=== PATIENT | female | born 1970 | race Caucasian/White ===

== ENCOUNTER 2019-10-27 21:37 | Emergency (ER) | payer SELFPAY ==
[2019-10-27 21:45] VITALS: BP 157/101; PULSE 121; RESP 16; TEMP 37.2; O2SAT 97; BMI 21.2
--- NOTE | 2019-10-27 21:50 | ED.GENADULT ---
HPI - General Adult General Chief complaint: Extremity Injury, Lower Stated complaint: states she broke her right foot Time Seen by Provider: 10/27/19 21:43 Source: patient Mode of arrival: Wheelchair Limitations: no limitations History of Present Illness HPI narrative: 49-year-old female here for evaluation which she states is a fractured right ankle. Patient states that she slipped on her cement deck twisting her ankle. She had immediate swelling immediate pain. Has been unable to bear weight on it since the event. Has never injured the ankle in the past. Has not tried anything for prior to arrival. No other injuries reported from the event Related Data Previous Rx's Medication Instructions Recorded hydrocodone-acetaminophen [[place]] 1 tab PO Q4-6H PRN #10 tab 10/27/19 Allergies Allergy/AdvReac Type Severity Reaction Status Date / Time No Known Drug Allergies Allergy Verified 10/27/19 21:55 Review of Systems Constitutional Constitutional: Denies fever(s) and Denies headache(s) ENT Ears, Nose, Mouth, and Throat: Denies dizziness, Denies headache(s) and Denies disequilibrium Cardiovascular Cardiovascular: Denies chest pain and Denies dyspnea Respiratory Respiratory: Denies dyspnea Gastrointestinal Gastrointestinal: Denies abdominal pain, Denies nausea and Denies vomiting Musculoskeletal Comments: Right ankle pain Integumentary/Breasts Comments: Bruising around the right ankle Neurologic Neurologic: Denies confusion, Denies dizziness, Denies headache(s), Denies paresthesias, Denies tremor(s) and Denies disequilibrium Psychiatric Psychiatric: Denies confusion Hematologic/Lymphatic Hematologic/Lymphatic: Denies easy bleeding and Denies easy bruising Patient History Medical History Patient denies medical problems (Acute) Social History Smoking Status: Current every day smoker Exam Initial Vital Signs Initial Vital Signs: Vital Signs Temperature 99.0 F 10/27/19 21:45 Pulse Rate 121 H 10/27/19 21:45 Respiratory Rate 16 10/27/19 21:45 Blood Pressure 157/101 H 10/27/19 21:45 Pulse Oximetry 97 10/27/19 21:45 Const General: cooperative, comfortable and well developed [facility] Head: normal to inspection Cardio Rate: tachycardic Pulses: dorsalis pedis present on the right Skin Other: Bruising in the distal tibia fibula without any breaks in the skin Neuro Other: Sensation intact to light touch right foot Extrem Other: Patient has no proximal fibular proximal tibial tenderness. Has bruising and swelling around the distal fibula in the ankle. Has pain the palpation this area. No pain to palpation of the right foot. Psych Appearance: grossly normal and well kempt Procedures Orthopedic Splinting/Casting Injury #1: Side: right Lower Extremity Injury Location: ankle Lower Extremity Immobilizer: posterior splint and stirrup splint Other Orthopedic Equipment: crutches Post splinting neuro exam: intact Post splinting vascular exam: intact Placed by: Provider Course Orders Ordered: ED Orders 10/27/19 21:52 XR ankle RT min 3V Stat 10/27/19 22:31 XR ankle RT min 3V Stat 10/27/19 22:33 CT LE RT wo con Stat Discontinued Medications Hydrocodone Bitart/Acetaminophen (Vicodin 5/325 Prepack) 1 bottle MISC SEEINSTR ONE Stop: 10/27/19 23:36 Last Admin: 10/27/19 23:52 Dose: 1 bottle Documented by: PACHECO Vital Signs Vital signs: Vital Signs - 8 hr 10/27/19 21:45 10/27/19 23:07 10/27/19 23:55 Temperature 99.0 F 98.8 F Pulse Rate 121 H 118 H 110 H Respiratory Rate 16 20 18 Blood Pressure 157/101 H 138/86 Blood Pressure [Left Arm] 156/76 H Pulse Oximetry 97 94 94 Medical Decision Making Imaging Data Extremity x-ray #1: Radiologist's Impression: [address] [address] XRay Report Signed Patient: Ruby Rooney CMR#: [id number] : 1970Acct:[id number] Age/Sex: 49 / FDate of Service: 10/27/19 Loc: ED Accession Number: [id number] Procedure: XR ankle RT min 3V Ordering Provider: Jose Maria Vazquez D.O. PROCEDURE: XR ANKLE RT MIN 3V INDICATIONS: medial and lateral swelling after fall TECHNIQUE: 3 views of the ankle were acquired. COMPARISON: formerly [facility], ANKLE 3 VIEWS RIGHT, 03/23/2009, 20:16. FINDINGS: Bones: There is a distal fibular fracture is seen at the level of the syndesmosis, with involvement of the syndesmosis itself. There is widening of the syndesmosis and disruption of ankle mortise. There is posterior subluxation of the talus within the tibial plafond. There is also a complex intra-articular medial malleolar fracture seen. On the lateral view, there is a mildly displaced posterior malleolar fracture seen. Incidental note is made of an accessory ossicle, an os trigonum. Age-appropriate bony degenerative changes are seen. Soft tissues: Soft tissue swelling is seen. IMPRESSION: Trimalleolar fracture with disruption of the syndesmosis and widening of ankle mortise. The talus is subluxed posteriorly. Dictated by: Linus Nicolas M.D. on 10/27/2019 at 21:17 Approved by: Linus Nicolas M.D. on 10/27/2019 at 21:20 Extremity x-ray #2: Attestation: I personally reviewed and interpreted this imaging study as follows: My Impression: Post reduction right ankle x-ray shows improved alignment of the distal tibia/fibula fracture CT ankle: Radiologist's Impression: Trimalleolar for fracture subluxation MDM Narrative Medical decision making narrative: Patient is neurovascularly intact. Does have a trimalleolar fracture. I did discuss the case with Dr. Hobson with Orthopedics who asked for the CT scan which was performed here in the ER. He stated the patient could be followed up as an outpatient in his office. Patient was given crutches. She was given care instructions regard to splint. She was given follow-up instructions. She expressed understanding and agreement. Discharge Plan Departure Patient Disposition: Home Clinical Impression: Closed right ankle fracture Qualifiers: Encounter type: initial encounter Qualified Code(s): S82.891A - Other fracture of right lower leg, initial encounter for closed fracture Discharge Date/Time: 10/27/19 23:56 Instructions: How to Use Crutches, DI for Ankle Fracture, How to Take Care of Your Splint Activity Restrictions/Additional Instructions: On Tuesday morning contact your primary provider for follow-up and also contact the [facility] group at [phone]. Treat the splint like it was a cast. You need to keep an on and keep it clean and keep it dry. Use the crutches. Do not place any weight on your right ankle. Return to the emergency department for any new or worsening symptoms Prescriptions: New hydrocodone-acetaminophen [[place]] 5-325 mg tablet 1 tab PO Q4-6H PRN (Reason: pain) Qty: 10 RF: 0
--- NOTE | 2019-10-27 22:31 | DI.RAD.S_ITS ---
PROCEDURE: XR ANKLE RT MIN 3V INDICATIONS: post-reduction TECHNIQUE: 3 views of the ankle were acquired. COMPARISON: [facility], CR, XR ANKLE RT MIN 3V, 10/27/2019, 21:53. [facility], CT, CT LE RT WO CON, 10/27/2019, 22:36. FINDINGS: Bones: A trimalleolar fracture is again seen, with the fracture fragments minimally better aligned than on the prior study. The overlying casting material limits evaluation of fine detail. Soft tissues: Generalized soft tissue swelling is seen. IMPRESSION: Unremarkable postreduction study. Dictated by: Linus Nicolas M.D. on 10/28/2019 at 7:33 Approved by: Linus Nicolas M.D. on 10/28/2019 at 7:34
--- NOTE | 2019-10-27 22:33 | DI.CT.S_ITS ---
PROCEDURE: CT LE RT WO CON INDICATIONS: tri mal fracture, right ankle TECHNIQUE: Noncontrast 1-1.5 mm axial sections acquired from above the tibiotalar joint to the bottom of the calcaneus, with coronal and sagittal reformats. COMPARISON: [facility], CR, XR ANKLE RT MIN 3V, 10/27/2019, 21:53. [facility], CR, XR ANKLE RT MIN 3V, 10/27/2019, 22:34. FINDINGS: Image quality: Excellent. Bones: There is a mildly to moderately displaced distal fibular fracture seen at the level of the syndesmosis, with mild comminution. There is widening of the syndesmosis and ankle mortise. There is a complex, comminuted fracture seen involving the medial malleolus, with intra-articular involvement and a few small interarticular fragments. This fracture continues into the posterior malleolus, where there is a moderately displaced, comminuted, intra-articular fracture seen. No talar dome fracture can be seen. No fractures of the visualized bones of the feet can be seen. No proximal 5th metatarsal fracture is seen. Incidental note is made of an accessory ossicle, an os trigonum. Soft tissues: Surrounding inflammatory changes are seen. IMPRESSION: Trimalleolar fracture with intra-articular fragments and widening of the syndesmosis and ankle mortise. Note: No significant discrepancy from the preliminary report. Dictated by: Linus Nicolas M.D. on 10/28/2019 at 7:30 Approved by: Linus Nicolas M.D. on 10/28/2019 at 7:33
[2019-10-27 23:07] VITALS: BP 156/76; PULSE 118; RESP 20; O2SAT 94
[2019-10-27] MEDS: HYDROCODONE/ACET 5/325 PREPACK 1 BOTTLE MISC (23:52)
[2019-10-27 23:55] VITALS: BP 138/86; PULSE 110; RESP 18; TEMP 37.1; O2SAT 94
== END 2019-10-27 23:56 | disposition home or self-care (01) ==
PROVIDERS: Emergency Provider Emergency Medicine; Family Provider Family Medicine
DX: S82.891A Other fracture of right lower leg, initial encounter for closed fracture (principal); W19.XXXA Unspecified fall, initial encounter
CPT/HCPCS: 29515; 73610; 73700; 99284

== ENCOUNTER → 2019-11-07 14:47 | Outpatient (CLI) | payer OTHER, SELFPAY ==
[2019-11-08 02:09] LABS: COVID19 Sendout Not Detected (Not Detect)
== END ==
PROVIDERS: Family Provider Family Medicine; Visit Provider Family Medicine
DX: Z01.818 Encounter for other preprocedural examination (principal); Z11.59 Encounter for screening for other viral diseases
CPT/HCPCS: 87635

== ENCOUNTER → 2019-11-08 14:48 | Outpatient (CLI) | payer SELFPAY ==
[2019-11-08 15:41] LABS: Add Manual Diff / Slide Review NO; Basophils Absolute Auto 100 /uL (0-100); Basophils Percent Auto 0.9 % (0-2); Eosinophils Absolute Auto 100 /uL (0-450); Eosinophils Percent Auto 1.4 % (2-4); Hematocrit 41.9 % (36-46); Hemoglobin 14.3 g/dL (12.0-16.0); Lymphocytes Absolute Auto 1600 /uL (1100-4500); Lymphocytes Percent Auto 15.2 % (25-40); Mean Corpuscular HGB Conc 34.1 % (30-36); Mean Corpuscular Hemoglobin 31.3 PG (26-34); Mean Corpuscular Volume 91.7 fL (80-100); Monocytes Absolute Auto 1100 /uL (0-900); Monocytes Percent Auto 10.7 % (3-14); Neutrophils Absolute Auto 7400 /uL (1500-7000); Neutrophils Percent Auto 71.8 % (50-75); Platelet Count 464 X10^3/uL (150-400); Red Blood Cell Count 4.57 X10^6/uL (4.0-5.2); Red Cell Distribution Width 14.9 % (11.6-14.8); White Blood Cell Count 10.3 X10^3/uL (4.5-11.0)
[2019-11-08 15:48] LABS: Hemoglobin A1C% w Est Avg Glu 5.3 % (4.0-6.0)
[2019-11-08 15:59] LABS: BUN Creatinine Ratio 24.1 (6-22); Blood Urea Nitrogen 13 mg/dL (7-17); Calcium 10.3 mg/dL (8.4-10.2); Carbon Dioxide 30 mmol/L (22-32); Chloride 99 mmol/L (98-107); Estimated Glomerular Filt Rate > 60.0 mL/min (>60); Glucose 106 mg/dL (70-100); HEMOLYSIS < 15 (0-50); Potassium 4.4 mmol/L (3.4-5.1); Sodium 136 mmol/L (137-145)
== END ==
PROVIDERS: Family Provider Family Medicine; Referring Provider Orthopaedic Surgery Adult Reconstructive Orthopaedic Surgery; Visit Provider Orthopaedic Surgery Adult Reconstructive Orthopaedic Surgery
DX: Z01.818 Encounter for other preprocedural examination (principal); Z01.812 Encounter for preprocedural laboratory examination; R73.9 Hyperglycemia, unspecified
CPT/HCPCS: 36415; 80048; 83036; 85025; 93005

== ENCOUNTER 2019-11-09 06:16 | Day surgery (SDC) | payer SELFPAY ==
[2019-11-07 13:25] VITALS: BMI 21.6
[2019-11-09] VITALS (11 sets, daily range): BP systolic 108–159; BP diastolic 71–99; PULSE 89–115; RESP 9–24; TEMP 36.6–36.9; O2SAT 88–93; BMI 21.2
--- NOTE | 2019-11-09 | DI.RAD.S_ITS ---
PROCEDURE: XR ANKLE RT 2V INDICATIONS: ORIF RIGHT ANKLE TECHNIQUE: 2 views of the ankle were acquired. COMPARISON: [facility], CR, XR ANKLE RT MIN 3V, 10/27/2019, 22:34. FINDINGS: Bones: Postsurgical changes compatible with ORIF of distal tibia and fibular fractures noted. There is anatomic alignment following ORIF. Soft tissues: No tibiotalar joint effusion. Achilles tendon appears normal. IMPRESSION: Anatomic alignment of the distal fibula and tibia fracture following ORIF. Dictated by: Rosemary Murillo MD, PhD on 11/09/2019 at 11:14 Approved by: Rosemary Murillo MD, PhD on 11/09/2019 at 11:15
[2019-11-09] MEDS: LACTATED RINGERS 1,000 ML 42 ML IV ×2 (07:10→10:43)
[2019-11-09] MEDS: ALBUTEROL 2.5 MG/3 ML NEB (ADULT) INH ×2 (07:37→11:52)
--- NOTE | 2019-11-09 07:43 | SUR.PREOP ---
Albuterol treatment given as instructed. Pt current smoker, inspiratory wheeze present on admit.
--- NOTE | 2019-11-09 07:45 | PM.PREOP ---
Pre-operative Note COVID-19 COVID-19 status: Negative Result date/Date tested (Pos, Neg/Pending): 11/07/19 Interval Note History & Physical reviewed/Exam performed by Physician: Yes Changes to H&P: No H&P completed within 30 days and has changed as indicated here:: Plan is for ORIF of right trimalleolar ankle fracture. The risks and benefits were reviewed with the patient who wishes to proceed.
[2019-11-09] MEDS: CEFAZOLIN 2 GM/100 ML FROZ.PIGGY IV (07:56)
--- NOTE | 2019-11-09 08:20 | SUR.OPER ---
Supine on padded OR bed, head on pillow, arms secured on padded arm boards at <90 degrees abduction, bump under right hip, right leg under control of surgeon, legs uncrossed, safety belt at thigh, tape over blanket over left lower leg.
[2019-11-09] MEDS: ROPIVACAINE 0.5% PF 5 MG/ML 20ML VIAL 10 ML INJ (08:31)
[2019-11-09] MEDS: MORPHINE 4 MG/ML INJ INJ (08:32)
[2019-11-09] MEDS: KETOROLAC 30 MG/ML VIAL INJ (08:33)
--- NOTE | 2019-11-09 09:33 | PM.PROC.1 ---
Procedures Date/Time Date of procedure: 11/09/19 Time of procedure: 10:00 Nerve Block Time out performed: Yes Local anesthetic used: other (5mL 2% Lidocaine, 15mL 0.5% Ropivacaine) Location of anesthetic used: lateral popliteal Amount of anesthesia used (mL): 20 Nerve blocks: other (sciatic nerve) Procedure successful: Yes Patient tolerated procedure: well Complications: none Additional comments: Ultrasound guided lateral popliteal sciatic nerve block for post operative pain management, as discussed with surgeon. Risks, benefits discussed. Consent verified. Site marked by surgeon. Time out performed. Standard ASA monitors applied, NC O2, 2mg versed. Pt supine. Chloroprep. Sterile US sleeve and gel. Sciatic nerve identified proximal to popliteal fossa, at bifurcation. Lidocaine local skin wheal. 100mm x 21g Pajunk needle advanced with in-plane US guidance to nerve. Negative aspiration. 5mL 2% lidocaine and 15mL 0.5% ropivacaine injected with intermittent negative aspiration. Good LA spread noted on US. No pain, no paresthesias. VSS. Tolerated well.
--- NOTE | 2019-11-09 10:04 | PM.OP.1 ---
Operative Date/Time/Diagnoses Date of procedure: 11/09/19 Time of procedure: 10:05 Pre-op diagnosis: right trimalleolar ankle fracture Post-op diagnosis: same Procedure & Clinicians Procedure: ORIF right ankle fracture, placement of syndesmotic screw Same procedure as scheduled: Yes Indications: right trimalleolar ankle fracture Surgeon: Zeus Hobson Click Yes if Unassisted: Yes Anesthesia Type: General Operative Notes Findings: right trimalleolar ankle fracture with vertical split medial malleolus Closure Type: primary Specimen(s): none sent Prosthetic devices, grafts, tissues, transplants, or devices: Arthrex 7 hole 1/3 tubular plate Arthrex 3 hole medial malleolus claw plate 3.5mm x 55mm syndesmotic screw Estimated Blood Loss (mL): 50 Blood products transfused: none Tourniquet time (min): 95 Procedure in detail: Patient is a 49-year-old female who sustained a right trimalleolar ankle fracture last week. Her care was somewhat delayed in trying to figure out insurance coverage. Patient was met in the preoperative holding area where the site and side of surgery were marked by . All last minute questions were reviewed and answered. The risks and benefits of surgery were once again reviewed and patient wished to proceed with open reduction internal fixation of her right ankle fracture. Patient was then brought back in the operating room where she was placed onto the operating room table and induced under general anesthesia. The right lower extremity splint was then removed. A nonsterile tourniquet was placed on right lower extremity and the right lower extremity was prepped and draped in normal sterile fashion. A time-out was performed verifying the site and side of surgery as well as the name of the patient. A 10 cm long incision over the lateral malleolus was made using 15. Blade followed by blunt dissection and scissor dissection down to the level of the lateral malleolus. Hematoma was evacuated from the fracture site. The fracture site was booked ended open and a piece of bone was removed from the syndesmotic space, which was previously identified on CT scan. Fracture edges were then thoroughly cleaned and a 1/3 tubular plate was placed in the antiglide position. A proximal 3 5 mm cortical screw was placed just proximal to the apex of the fracture. Next to distal cancellous screw posts were placed, taking care to stay out of the joint. Proximal 3 5 mm screws were then placed. At this point because of her CT scan which was obtained the ED showed a trimalleolar ankle fracture we elected to place a syndesmotic screw. This was placed under fluoroscopic guidance. At this point we then turned our attention to the medial malleolus which has a vertical split. A 7 cm long incision over the medial malleolus was made using 15. Blade followed by mixture of blunt and sharp scissor dissection down to the level of the fracture. This was then cleaned and hematoma was removed the fracture was reduced using a dental pick and the Arthrex medial malleolus 3 hole claw plate was then placed. We 1st placed a 3 5 mm cortical screw to hold the plate down to the tibia and then turned our attention to the retrograde screw which was placed with a K-wire followed by a cannulated screw. A 2nd 3 5 mm screw was then placed followed by a locking screw in the medial malleolus. At this point final images were obtained with satisfactory reduction and maintenance of the talus underneath the tibial plafond. Wounds were thoroughly irrigated normal saline. Two Vicryl were then used the subcutaneous layer followed by 3 0 nylons in vertical mattress fashion on the skin layer. Local injection was then performed the incisions were cleaned and dried Xeroform dressings were placed followed by a short-leg splint. Tourniquet was let down at this time at 95 minutes. Complications: none Post-operative Condition: stable Disposition: PACU Plan for aftercare: Nonweightbearing right lower extremity. Patient will be discharged home home today. Plan will be for her to return to clinic in 2 weeks time for splint removal as well as wound check and suture removal. At that point she will be transitioned into a Cam boot and be nonweightbearing for a further 4 weeks.
[2019-11-09] MEDS: fentaNYL 100 MCG/2 ML INJ IV (10:42)
[2019-11-09] MEDS: OXYCODONE/ACETAMINOPHEN 5/325 TABLET 1 TAB PO ×2 (11:06→12:25)
--- NOTE | 2019-11-09 11:14 | SUR.PHASEI ---
Pt medicated with fentanyl and percocet for pain. Report to
--- NOTE | 2019-11-09 11:16 | P.PCN_ITS ---
Procedures Date/Time Date of procedure: 11/09/19 Time of procedure: 10:00 Nerve Block Time out performed: Yes Local anesthetic used: lidocaine 1% (w/ epi 5mL + 5mL 0.5opivacaine) Location of anesthetic used: adductor canal Amount of anesthesia used (mL): 20 Nerve blocks: femoral (adductor canal) Procedure successful: Yes Patient tolerated procedure: well Complications: none Additional comments: Adductor canal block for post operative pain management. R/B discussed. Site marked. Consent verified/signed. Standard ASA monitors. LMA, GA post procedure in OR. Chloroprep. Sterile technique. Femoral A/V/N identified medial mid thigh with US. 100mm x 21g Pajunk needle advanced with in-plane US guidance. Negative aspiration. LA injected medial and lateral to femoral artery. Negative aspiration throughout. VSS. Tolerated well. To P ACU.
--- NOTE | 2019-11-09 11:26 | SUR.PHASEI ---
O2 sats ranging from 85-91% RA. Deep breaths and coughing encouraged. I.S. provided. Verbal instructions given, patient able to reach 2600mls.
--- NOTE | 2019-11-09 11:54 | SUR.PHASEII ---
Intermittent low sats continue. Albuterol treatment given. Work with incentive spirometer continues.
--- NOTE | 2019-11-09 12:42 | SUR.PHASEII ---
Medicated with 2nd pain pill. Pt ready to go, sats maintained, pt compliant using incentive spirometer. Pt dressed and left when done, r ankle remained elevated with ice, and C/d/i
--- NOTE | 2019-11-09 13:11 | SUR.PHASEII ---
Pt left when ready and left in stable condition.
--- NOTE | 2019-11-09 14:36 | SUR.PREOP ---
Late entrY: Block start time [1011] . Monitoring initiated and maintained throughout procedure. Oxygen and medications given per anesthesiologist instructions. Patient remained stable throughout procedure, no adverse reactions noted. Block end time [1022]. Procedure done in OR with LOWELL Parrish assisting Dr. Billy
== END 2019-11-09 12:50 | disposition home or self-care (01) ==
PROVIDERS: Family Provider Family Medicine; Referring Provider Orthopaedic Surgery Adult Reconstructive Orthopaedic Surgery; Visit Provider Orthopaedic Surgery Adult Reconstructive Orthopaedic Surgery
PROC: 0SSF04Z Reposition Right Ankle Joint with Internal Fixation Device, Open Approach (ICD-10-PCS; CPT 27814; principal; 2019-11-09 07:45)
DX: S82.851A Displaced trimalleolar fracture of right lower leg, initial encounter for closed fracture (principal); W10.9XXA Fall (on) (from) unspecified stairs and steps, initial encounter; F17.210 Nicotine dependence, cigarettes, uncomplicated
CPT/HCPCS: 27814; 64450; 73600; 76000; J0690; J1100; J1885; J2250; J2270; J2405; J2704; J3010; J7613

== ENCOUNTER → 2021-02-25 15:22 | Outpatient (CLI) | payer OTHER, SELFPAY ==
[2021-02-25 17:15] LABS: Add Manual Diff / Slide Review NO; Basophils Absolute Auto 100 /uL (0-100); Basophils Percent Auto 1.6 % (0-2); Eosinophils Absolute Auto 200 /uL (0-450); Lymphocytes Absolute Auto 1600 /uL (1100-4500); Lymphocytes Percent Auto 19.6 % (25-40); Mean Corpuscular HGB Conc 33.3 % (30-36); Mean Corpuscular Hemoglobin 30.4 PG (26-34); Mean Corpuscular Volume 91.4 fL (80-100); Monocytes Absolute Auto 1000 /uL (0-900); Monocytes Percent Auto 12.4 % (3-14); Neutrophils Absolute Auto 5100 /uL (1500-7000); Neutrophils Percent Auto 64.4 % (50-75); Platelet Count 442 X10^3/uL (150-400); Red Blood Cell Count 5.25 X10^6/uL (4.0-5.2); Red Cell Distribution Width 14.4 % (11.6-14.8)
[2021-02-25 17:27] LABS: Alanine Aminotransferase 17 IU/L (<35); Albumin 4.3 g/dL (3.5-5.0); Albumin Globulin Ratio 1.3 (1.0-2.8); Alkaline Phosphatase 150 U/L (38-126); Aspartate Aminotransferase 33 IU/L (14-36); Bilirubin Total 0.4 mg/dL (0.2-1.3); Blood Urea Nitrogen 9 mg/dL (7-17); Calcium 10.2 mg/dL (8.4-10.2); Carbon Dioxide 33 mmol/L (22-32); Chloride 96 mmol/L (98-107); Cholesterol 224 mg/dL (140-199); Estimated Glomerular Filt Rate > 60.0 mL/min (>60); Globulin 3.2 g/dL (1.7-4.1); Glucose 109 mg/dL (70-100); HEMOLYSIS < 15 (0-50); Potassium 4.4 mmol/L (3.4-5.1); Sodium 132 mmol/L (137-145); Total Protein 7.5 g/dL (6.3-8.2); Triglycerides 57 mg/dL (35-150)
[2021-02-25 17:48] LABS: HDL Cholesterol 160 mg/dL (40-60); LDL Cholesterol Calculated 53 mg/dL (<100)
[2021-02-25 18:29] LABS: TSH w/ Reflex to FT4 4.02 uIU/mL (0.47-4.68)
== END ==
PROVIDERS: PCP Family Medicine; Referring Provider Family Medicine; Visit Provider Family Medicine
DX: C50.911 Malignant neoplasm of unspecified site of right female breast (principal); N60.09 Solitary cyst of unspecified breast; Z13.220 Encounter for screening for lipoid disorders
CPT/HCPCS: 36415; 80053; 80061; 84443; 85025

== ENCOUNTER → 2021-03-27 14:01 | Outpatient (CLI) | payer OTHER, SELFPAY ==
--- NOTE | 2021-03-27 14:06 | DI.MG.S_ITS ---
UNILATERAL LEFT DIGITAL DIAGNOSTIC MAMMOGRAM 3D/2D: 03/27/2021 CLINICAL: Left axillary lumps. Comparison is made to exams dated: 09/07/2016 mammogram, 12/20/2014 mammogram, and 10/05/2013 [facility]. The tissue of left breast is extremely dense, which lowers the sensitivity of mammography. There are new diffuse, fine calcifications in the left breast in the superior lateral quadrant. There is a new 1.4 cm irregular asymmetry with a spiculated margin in the left breast at 1 o'clock posterior depth. This is seen in additional views. This correlates as palpated. There also is a new 8 mm round asymmetry with a spiculated and circumscribed margin in the left breast posterior depth superior region seen on the mediolateral oblique view only. This is seen in additional views. Additionally, there is a new equal density asymmetry with an obscured and spiculated margin in the left breast posterior depth superior region seen on the mediolateral oblique view only. This correlates as palpated. No other significant masses or calcifications are seen in the breast. IMPRESSION: INCOMPLETE: NEEDS ADDITIONAL IMAGING EVALUATION The new 1.4 cm irregular asymmetry in the left breast at 1 o'clock posterior depth is indeterminate. An ultrasound is recommended. The new 8 mm round asymmetry in the left breast posterior depth superior region seen on the mediolateral oblique view only is indeterminate. An ultrasound is recommended. The new equal density asymmetry in the left breast posterior depth superior region seen on the mediolateral oblique view only is indeterminate. An ultrasound is recommended. Ultrasound is recommended for full evaluation of these areas . This was performed immediately following this exam. This exam was interpreted at Station ID: [id number]. NOTE: For mammograms, a report in lay terms will be sent to the patient. Approximately 15% of breast malignancies will not be visualized mammographically. In the management of a palpable breast mass, a negative mammogram must not discourage biopsy of a clinically suspicious lesion. Electronically Signed By: Oralia lyles/:03/27/2021 16:24:47 ACR BI-RADS Category 0: Incomplete [id number]
--- NOTE | 2021-03-27 14:06 | DI.US.S_ITS ---
LIMITED ULTRASOUND OF LEFT BREAST AND AXILLA: 03/27/2021 CLINICAL: Palpable left breast lumps. Comparison is made to exams dated: 03/27/2021 mammogram, 09/07/2016 mammogram, 12/20/2014 mammogram, 10/05/2013, and 09/06/2013 mammogram - [facility]. Color flow and real-time ultrasound of the left breast upper outer quadrant and axilla regions were performed. Champion scale images of the real-time examination were reviewed. There is a 1.2 cm x 1.2 cm x 1.4 cm irregular mass with an angular margin in the left breast at 2 o'clock middle depth 3 cm from the nipple. This irregular mass is hypoechoic and heterogeneously echogenic with an echogenic boundary. This correlates as palpated and with mammography findings. There is associated skin involvement. Color flow imaging demonstrates that there is vascularity present. There also is a 2.8 cm x 1.6 cm x 1.1 cm oval mass in the left breast at 3 o'clock posterior depth 7 cm from the nipple with the long axis parallel to the skin. This oval mass is hypoechoic. This correlates as palpated. Color flow imaging demonstrates that there is increased vascularity. Additionally, there is a 1.5 cm x 2.1 cm x 1.1 cm oval mass with an indistinct and circumscribed margin in the left breast at 1 o'clock middle depth 3 cm from the nipple. This oval mass is hypoechoic and heterogeneously echogenic. Color flow imaging demonstrates that there is no vascularity present. In addition, there is a new 1.4 cm x 1.2 cm x 1.4 cm oval mass with an indistinct and circumscribed margin in the left axillary tail. This correlates as palpated and with mammography findings. Color flow imaging demonstrates that there is no vascularity present. There are several other smaller masses, likely abnormal lymph nodes in the axilla with increased vascular flow. IMPRESSION: SUSPICIOUS OF MALIGNANCY The 1.4 cm irregular mass in the left breast at 2 o'clock middle depth is suspicious of malignancy. An ultrasound guided biopsy is recommended. The 2.8 cm oval mass in the left breast at 3 o'clock posterior depth is suspicious of malignancy. The 2.1 cm oval mass in the left breast at 1 o'clock middle depth is suspicious of malignancy. The new 1.4 cm x 1.2 cm x 1.4 cm oval mass in the left axillary tail is suspicious of malignancy. An ultrasound guided biopsy is recommended. Findings and recommendations were discussed with the patient in person by Dr. Andrew Ware at time of exam. This exam was interpreted at Station ID: [id number]. Electronically Signed By: Oralia lyles/:03/27/2021 16:32:51 letter sent: Biopsy Required Ultrasound BI-RADS: 4 Suspicious for malignancy
== END ==
PROVIDERS: PCP Family Medicine; Referring Provider Family Medicine; Visit Provider Family Medicine
DX: N63.20 Unspecified lump in the left breast, unspecified quadrant (principal); C50.911 Malignant neoplasm of unspecified site of right female breast; F17.200 Nicotine dependence, unspecified, uncomplicated; N63.32 Unspecified lump in axillary tail of the left breast
CPT/HCPCS: 76642; 77065; G0279

== ENCOUNTER 2021-04-07 10:05 | Emergency (ER) | payer OTHER, SELFPAY ==
[2021-04-07] VITALS (26 sets, daily range): BP systolic 99–181; BP diastolic 57–103; PULSE 68–94; RESP 13–23; TEMP 36.6; O2SAT 82–97; BMI 19.9
--- NOTE | 2021-04-07 10:09 | DI.RAD.S_ITS ---
PROCEDURE: XR FEMUR RT MIN 2V INDICATIONS: femur fracture? obvious deformity TECHNIQUE: 4 views of the femur were acquired. COMPARISON: [place], [place], BONE SCAN WHOLE BODY, 11/15/2013, 11:15. FINDINGS: Bones: There is an angulated and mildly comminuted fracture at the midshaft of the right femur. The distal shaft fragment demonstrates varus and slight posterior angulation with probable external rotation. There is irregularity of the adjacent femoral cortex and medullary canal that is suspicious for underlying lucent lesion with a permeative appearance and wide zone of transition. Soft tissues: No suspicious soft tissue calcifications or masses. IMPRESSION: Angulated mildly comminuted fracture of the mid femoral shaft, which is suspected to be pathologic with a possible permeative lucent lesion in the surrounding bone. Recommend clinical correlation to exclude metastatic disease or myeloma versus less likely a primary osseous lesion. MRI or CT could be obtained for further evaluation of the femur if indicated clinically. Additional imaging workup could be obtained if there is suspicion for systemic disease. Dictated by: Craig Carbone M.D. on 04/07/2021 at 10:45 Approved by: Craig Carbone M.D. on 04/07/2021 at 10:54
[2021-04-07] MEDS: HYDROMORPHONE 0.5 MG INJ IV ×5 (10:24→22:05)
[2021-04-07] MEDS: SODIUM CHLORIDE 0.9% 1,000 ML 125 ML IV (10:25)
--- NOTE | 2021-04-07 10:31 | PC.NURSE ---
Patient reports sitting down on toilet last night felt a POP. Patient unable to bear weight after, crawled back to chair. patient presents with obvious deformity in right thigh. patient history of breast CA and is currently being worked up for other medical conditions.
--- NOTE | 2021-04-07 10:46 | ED.LOWEXIN ---
HPI - Extremity Injury (Lower) <DO Deja Munson Last Filed: 04/08/21 22:53> General Chief Complaint: Extremity Injury, Lower Stated Complaint: Broken right femur Time Seen by Provider: 04/07/21 10:11 Source: patient and EMS Mode of arrival: EMS History of Present Illness HPI Narrative: 50-year-old female daily smoker with history of breast cancer presents by EMS for evaluation of pain and deformity in her right thigh. She states that she was merely transferring herself in bed when she felt a pop and has had significant pain, swelling and deformity since. She denies any trauma. She denies any numbness, tingling or weakness. She has severe pain with any range of motion and improvement with rest. Related Data Home Medications Medication Instructions Recorded Confirmed ibuprofen 200 mg capsule 200 mg PO BID 11/09/19 03/05/21 Previous Rx's Medication Instructions Recorded bupropion HCl 100 mg tablet,12 hr 100 mg PO BID #90 ea 03/05/21 sustained-release (Wellbutrin SR) losartan 100 mg tablet 100 mg PO DAILY #60 tab 03/05/21 metoprolol succinate 50 mg 50 mg PO DAILY #60 tab 03/05/21 tablet,extended release 24 hr Allergies Allergy/AdvReac Type Severity Reaction Status Date / Time No Known Drug Allergies Allergy Verified 04/07/21 10:15 Review of Systems <DO Deja Munson Last Filed: 04/08/21 22:53> Review of Systems Narrative: GENERAL: Denies chills, fatigue, malaise, fever, sweats. HEENT: Denies sinus pain, ear pain, sore throat, difficulty swallowing, dizziness. RESPIRATORY: Denies dyspnea, cough, wheezing, hemoptysis, sputum. CARDIOVASCULAR: Denies chest pain, palpitations, orthopnea, edema, GASTROINTESTINAL: Denies nausea, vomiting, abdominal pain, diarrhea, constipation, melena. : Denies dysuria, frequency, incontinence, hematuria, urinary retention. MUSCULOSKELETAL: See HPI SKIN: Denies rash, skin lesions, or other NEUROLOGIC: Denies weakness, headache, numbness, change in speech, confusion, seizures, incoordination. PSYCHIATRIC: No concerning psychosocial issues. 12 point review of systems is negative except for those stated above Patient History <DO Deja Munson Last Filed: 04/08/21 22:53> Medical History Ankle fracture, right (11/2019) Breast cancer, left Breast cancer, right Current every day smoker Depression Eczema Hypertension Mass of left axilla Retinal detachment (2003) Surgical History History of lumpectomy of right breast (11/2013) History of mastectomy (11/2013) Social History household members: family Smoking Status: Current every day smoker alcohol intake: current Smoking Status: Current every day smoker alcohol intake frequency: a few times a week Alcohol type: wine Substance Use Type: does not use Exam <Rajiv Rivera DO - Last Filed: 04/08/21 22:53> Narrative Exam Narrative: GENERAL: [50 year old patient appears stated age. Well-developed patient, in mild distress. HEAD: Atraumatic. Normocephalic. EYES: Pupils equal round and reactive. Extraocular motions intact. No scleral icterus. No injection or drainage. ENT: Nose without bleeding, purulent drainage. Throat without erythema, tonsillar hypertrophy or exudate. Airway patent. NECK: Trachea midline. Non tender CARDIOVASCULAR: Regular rate and rhythm without murmurs, gallops, or rubs. RESPIRATORY: Clear to auscultation. Breath sounds equal bilaterally. No wheezes, rales, or rhonchi. GASTROINTESTINAL: Abdomen soft, non-tender, nondistended. EXTREMITIES: Pain, swelling an obvious deformity right thigh, compartments are soft, closed, isolated and neurovascularly intact BACK: Nontender without deformity or crepitance. No flank tenderness. NEURO: AOx3. SKIN: No rash or erythema of visible areas Initial Vital Signs Initial Vital Signs: Vital Signs Temperature 97.8 F 04/07/21 10:12 Pulse Rate 94 H 04/07/21 10:12 Respiratory Rate 16 04/07/21 10:12 Blood Pressure 181/103 H 04/07/21 10:12 Pulse Oximetry 92 04/07/21 10:12 <Flor Garcia DO - Last Filed: 04/08/21 01:50> Initial Vital Signs Initial Vital Signs: Vital Signs Temperature 97.8 F 04/07/21 10:12 Pulse Rate 94 H 04/07/21 10:12 Respiratory Rate 16 04/07/21 10:12 Blood Pressure 181/103 H 04/07/21 10:12 Pulse Oximetry 92 04/07/21 10:12 Course <Rajiv Rivera DO - Last Filed: 04/08/21 22:53> Orders Ordered: Discontinued Medications Hydromorphone HCl (Hydromorphone 0.5 Mg Inj) 0.5 mg IV NOW ONE Stop: 04/07/21 10:21 Last Admin: 04/07/21 10:24 Dose: 0.5 mg Documented by: JOIE Hydromorphone HCl (Hydromorphone 0.5 Mg Inj) 0.5 mg IV NOW ONE Stop: 04/07/21 14:18 Last Admin: 04/07/21 14:23 Dose: 0.5 mg Documented by: JERI Hydromorphone HCl (Hydromorphone 0.5 Mg Inj) 0.5 mg IV NOW ONE Stop: 04/07/21 17:27 Last Admin: 04/07/21 17:31 Dose: 0.5 mg Documented by: JOIE Hydromorphone HCl (Hydromorphone 0.5 Mg Inj) 0.5 mg IV Q2H PRN PRN Reason: pain Last Admin: 04/07/21 22:05 Dose: 0.5 mg Documented by: Admin: 04/07/21 20:23 Dose: 0.5 mg Documented by: JACOBY Sodium Chloride (Normal Saline 0.9%) 1,000 mls @ 125 mls/hr IV CONT KATARINA Last Infusion: 04/07/21 20:23 Dose: 0 mls/hr Documented by: Admin: 04/07/21 10:25 Dose: 125 mls/hr Documented by: JOIE Consultations Consultation #1: discussed with ortho early in visit, request MRI given pathologic nature of fracture upon receipt of MRI, requests transfer to tertiary center for multidisciplinary approach including oncology, orthopedic oncology etc. Consultation #2: I have spoken with orthopedics at and they spoke directly with our orthopedic surgeon and agree that transfer is appropriate. Hospitalist from ([facility] happy to accept. All pointing towards available bed tonight. Vital Signs Vital signs: Vital Signs - 8 hr 04/07/21 18:00 04/07/21 18:30 04/07/21 19:00 Pulse Rate 77 73 74 Respiratory Rate 15 13 16 Blood Pressure 126/66 110/64 122/79 Pulse Oximetry 91 94 94 04/07/21 19:30 04/07/21 19:31 04/07/21 20:00 Pulse Rate 80 82 80 Respiratory Rate 14 14 16 Blood Pressure 151/81 H 136/81 Pulse Oximetry 92 92 04/07/21 20:30 04/07/21 21:00 04/07/21 21:30 Pulse Rate 88 77 73 Respiratory Rate 19 15 15 Blood Pressure 135/68 124/71 112/66 Pulse Oximetry 90 L 91 93 04/07/21 22:00 Pulse Rate 81 Respiratory Rate 17 Blood Pressure 163/81 H Pulse Oximetry 92 <Flor Garcia, - Last Filed: 04/08/21 01:50> Orders Ordered: Discontinued Medications Hydromorphone HCl (Hydromorphone 0.5 Mg Inj) 0.5 mg IV NOW ONE Stop: 04/07/21 10:21 Last Admin: 04/07/21 10:24 Dose: 0.5 mg Documented by: JOIE Hydromorphone HCl (Hydromorphone 0.5 Mg Inj) 0.5 mg IV NOW ONE Stop: 04/07/21 14:18 Last Admin: 04/07/21 14:23 Dose: 0.5 mg Documented by: JERI Hydromorphone HCl (Hydromorphone 0.5 Mg Inj) 0.5 mg IV NOW ONE Stop: 04/07/21 17:27 Last Admin: 04/07/21 17:31 Dose: 0.5 mg Documented by: JOIE Hydromorphone HCl (Hydromorphone 0.5 Mg Inj) 0.5 mg IV Q2H PRN PRN Reason: pain Last Admin: 04/07/21 22:05 Dose: 0.5 mg Documented by: Admin: 04/07/21 20:23 Dose: 0.5 mg Documented by: JACOBY Sodium Chloride (Normal Saline 0.9%) 1,000 mls @ 125 mls/hr IV CONT KATARINA Last Infusion: 04/07/21 20:23 Dose: 0 mls/hr Documented by: Admin: 04/07/21 10:25 Dose: 125 mls/hr Documented by: CARMELOE Consultations Consultation #3: Spoke with Dr. Blair at [facility] ED who accepts for transfer to ED for pathologic femur fracture. Images have already been pushed and confirmed received by coordinator. Patient's labs, hospital record and nurse's reports will be included. Plan for ALS ground for pain control and neuro checks. Hemoglobin repeat is stable. Patient has been hemodynamically stable during stay in ED to this point. Patient was case already discussed by Dr. Rivera with [facility] orthopedic surgery. Time: 21:31 Additional Consultation(s): recontacted and updated that [facility] had accepted. Vital Signs Vital signs: Vital Signs - 8 hr 04/07/21 18:00 04/07/21 18:30 04/07/21 19:00 Pulse Rate 77 73 74 Respiratory Rate 15 13 16 Blood Pressure 126/66 110/64 122/79 Pulse Oximetry 91 94 94 04/07/21 19:30 04/07/21 19:31 04/07/21 20:00 Pulse Rate 80 82 80 Respiratory Rate 14 14 16 Blood Pressure 151/81 H 136/81 Pulse Oximetry 92 92 04/07/21 20:30 04/07/21 21:00 04/07/21 21:30 Pulse Rate 88 77 73 Respiratory Rate 19 15 15 Blood Pressure 135/68 124/71 112/66 Pulse Oximetry 90 L 91 93 04/07/21 22:00 Pulse Rate 81 Respiratory Rate 17 Blood Pressure 163/81 H Pulse Oximetry 92 MDM - Extremity Injury (Lower) <Rajiv Rivera, DO - Last Filed: 04/08/21 22:53> Lab Data Result diagrams: 04/07/21 20:30 04/07/21 10:36 Labs: Lab Results 04/07/21 04/07/21 04/07/21 Range/Units 10:36 10:36 10:41 WBC 9.3 (4.5-11.0) X10^3/uL RBC 4.68 (4.0-5.2) X10^6/uL Hgb 14.1 (12.0-16.0) g/dL Hct 42.0 (36-46) % MCV 89.7 (80-100) fL MCH 30.1 (26-34) PG MCHC 33.5 (30-36) % RDW 14.6 (11.6-14.8) % Plt Count 516 H (150-400) X10^3/uL Neut % (Auto) 73.9 (50-75) % Lymph % (Auto) 13.2 L (25-40) % [place] % (Auto) 10.1 (3-14) % Eos % (Auto) 2.1 (2-4) % Baso % (Auto) 0.7 (0-2) % Neut # (Auto) 6900 (3770-2585) /uL Lymph # (Auto) 1200 (6666-7717) /uL [place] # (Auto) 900 (0-900) /uL Eos # (Auto) 200 (0-450) /uL Baso # (Auto) 100 (0-100) /uL Sodium 130 L (137-145) mmol/L Potassium 5.1 (3.4-5.1) mmol/L Chloride 94 L (98-107) mmol/L Carbon Dioxide 29 (22-32) mmol/L BUN 9 (7-17) mg/dL Creatinine 0.39 L (0.52-1.04) mg/dL Estimated GFR > 60.0 (>60) mL/min BUN/Creatinine Ratio 23.1 H (6-22) Glucose 106 H (70-100) mg/dL Calcium 9.7 (8.4-10.2) mg/dL Total Bilirubin 0.6 (0.2-1.3) mg/dL AST 36 (14-36) IU/L ALT 12 (<35) IU/L Alkaline Phosphatase 196 H (38-126) U/L Total Protein 7.5 (6.3-8.2) g/dL Albumin 4.2 (3.5-5.0) g/dL Globulin 3.3 (1.7-4.1) g/dL Albumin/Globulin Ratio 1.3 (1.0-2.8) SARS-CoV-2 (PCR) Negative (Negative) Blood Type Antibody Screen 04/07/21 04/07/21 Range/Units 20:30 20:30 WBC (4.5-11.0) X10^3/uL RBC (4.0-5.2) X10^6/uL Hgb 13.2 (12.0-16.0) g/dL Hct 40.0 (36-46) % MCV (80-100) fL MCH (26-34) PG MCHC (30-36) % RDW (11.6-14.8) % Plt Count (150-400) X10^3/uL Neut % (Auto) (50-75) % Lymph % (Auto) (25-40) % [place] % (Auto) (3-14) % Eos % (Auto) (2-4) % Baso % (Auto) (0-2) % Neut # (Auto) (4062-0261) /uL Lymph # (Auto) (1759-6605) /uL [place] # (Auto) (0-900) /uL Eos # (Auto) (0-450) /uL Baso # (Auto) (0-100) /uL Sodium (137-145) mmol/L Potassium (3.4-5.1) mmol/L Chloride (98-107) mmol/L Carbon Dioxide (22-32) mmol/L BUN (7-17) mg/dL Creatinine (0.52-1.04) mg/dL Estimated GFR (>60) mL/min BUN/Creatinine Ratio (6-22) Glucose (70-100) mg/dL Calcium (8.4-10.2) mg/dL Total Bilirubin (0.2-1.3) mg/dL AST (14-36) IU/L ALT (<35) IU/L Alkaline Phosphatase (38-126) U/L Total Protein (6.3-8.2) g/dL Albumin (3.5-5.0) g/dL Globulin (1.7-4.1) g/dL Albumin/Globulin Ratio (1.0-2.8) SARS-CoV-2 (PCR) (Negative) Blood Type AB Positive Antibody Screen Negative Imaging Data Extremity x-ray #1: Radiologist's Impression: [address] [address] XRay Report Signed Patient: Ruby Rooney MR#: [id number] : 1970 Acct:[id number] Age/Sex: 50 / F Date of Service: 04/07/21 Loc: ED Accession Number: [id number] ?? Procedure: XR femur RT min 2V Ordering Provider: Rajiv Rivera D.O. PROCEDURE:? XR FEMUR RT MIN 2V ? INDICATIONS:? femur fracture? obvious deformity ? TECHNIQUE:? 4 views of the femur were acquired.? ? COMPARISON:? [place], [place], BONE SCAN WHOLE BODY, 11/15/2013, 11:15. ? FINDINGS:? ? Bones:? There is an angulated and mildly comminuted fracture at the midshaft of the right femur.? The distal shaft fragment demonstrates varus and slight posterior angulation with probable external rotation.? There is irregularity of the adjacent femoral cortex and medullary canal that is suspicious for underlying lucent lesion with a permeative appearance and wide zone of transition. ? Soft tissues:? No suspicious soft tissue calcifications or masses.? ? IMPRESSION:? Angulated mildly comminuted fracture of the mid femoral shaft, which is suspected to be pathologic with a possible permeative lucent lesion in the surrounding bone. Recommend clinical correlation to exclude metastatic disease or myeloma versus less likely a primary osseous lesion.? MRI or CT could be obtained for further evaluation of the femur if indicated clinically.? Additional imaging workup could be obtained if there is suspicion for systemic disease.? ? Dictated by: Craig Carbone M.D. on 04/07/2021 at 10:45 ? ? Approved by: Craig Carbone M.D. on 04/07/2021 at 10:54 ? Femur MRI: Radiologist's Impression: Launch?[place] [address] Magnetic Resonance Report Signed Patient: Ruby Rooney MR#: [id number] : 1970 Acct:[id number] Age/Sex: 50 / F Date of Service: 04/07/21 Loc: ED Accession Number: [id number] ?? Procedure: MR femur RT wo/w con Ordering Provider: Rajiv Rivera D.O. PROCEDURE:? MR FEMUR RT WO/W CON ? INDICATIONS:? pathologic fracture ? TECHNIQUE:? Noncontrast coronal T1 spin echo with fat saturation and STIR, sagittal T1 spin echo and STIR, axial T1 spin echo, T2 fast spin echo with fat saturation, in and out of phase T1 flash, and diffusion restriction sequences.? After the administration of contrast, axial/sagittal/coronal T1 spin echo with fat saturation through the right femur.? ? COMPARISON:? [facility], CR, XR FEMUR RT MIN 2V, 04/07/2021, 10:19. ? FINDINGS:? Image quality:? Positioning of the femur is suboptimal due to presence of a fracture, diagnostic information is obtained..? ? Bones:? And angulated fracture of the mid femoral shaft is redemonstrated with mild comminution.? There is a mildly T2-hyperintense enhancing intraosseous lesion extending approximately 5.2 cm above the fracture line and up to 5.4 cm below the fracture line.? Additional abnormal areas of osseous enhancement are seen in the more proximal right femoral diaphysis, within the intertrochanteric region of the femur in the femoral neck, within the medial femoral head, and involving the visualized pelvic bones including multiple foci within the right iliac bone, right acetabulum, right pubic bone, and the right ischium at the ischial tuberosity.? A suspected osseous lesion is seen in the partially included medial portion of the left femur that is not well visualized. ? Soft tissues:? Soft tissue edema is seen surrounding the femoral fracture, which limits evaluation for extraosseous extension of the mass although node direct evidence of extension is seen..? Mild edema is seen within the right and left abductor musculature, likely representing muscle strains.? Similarly, there is mild edema in the right iliopsoas muscle distally.? A Crow catheter decompresses the bladder. No soft tissue masses are visualized. ? IMPRESSION:? 1. Pathologic fracture of the mid femoral shaft is redemonstrated with angulation and mild comminution.? 2. 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 ? ? Dictated by: Craig Carbone M.D. on 04/07/2021 at 14:18 ? ? Approved by: Craig Carbone M.D. on 04/07/2021 at 14:37 ? <Flor Garcia, DO - Last Filed: 04/08/21 01:50> Lab Data Labs: Lab Results 04/07/21 04/07/21 04/07/21 Range/Units 10:36 10:36 10:41 WBC 9.3 (4.5-11.0) X10^3/uL RBC 4.68 (4.0-5.2) X10^6/uL Hgb 14.1 (12.0-16.0) g/dL Hct 42.0 (36-46) % MCV 89.7 (80-100) fL MCH 30.1 (26-34) PG MCHC 33.5 (30-36) % RDW 14.6 (11.6-14.8) % Plt Count 516 H (150-400) X10^3/uL Neut % (Auto) 73.9 (50-75) % Lymph % (Auto) 13.2 L (25-40) % [place] % (Auto) 10.1 (3-14) % Eos % (Auto) 2.1 (2-4) % Baso % (Auto) 0.7 (0-2) % Neut # (Auto) 6900 (9558-3223) /uL Lymph # (Auto) 1200 (6467-1968) /uL [place] # (Auto) 900 (0-900) /uL Eos # (Auto) 200 (0-450) /uL Baso # (Auto) 100 (0-100) /uL Sodium 130 L (137-145) mmol/L Potassium 5.1 (3.4-5.1) mmol/L Chloride 94 L (98-107) mmol/L Carbon Dioxide 29 (22-32) mmol/L BUN 9 (7-17) mg/dL Creatinine 0.39 L (0.52-1.04) mg/dL Estimated GFR > 60.0 (>60) mL/min BUN/Creatinine Ratio 23.1 H (6-22) Glucose 106 H (70-100) mg/dL Calcium 9.7 (8.4-10.2) mg/dL Total Bilirubin 0.6 (0.2-1.3) mg/dL AST 36 (14-36) IU/L ALT 12 (<35) IU/L Alkaline Phosphatase 196 H (38-126) U/L Total Protein 7.5 (6.3-8.2) g/dL Albumin 4.2 (3.5-5.0) g/dL Globulin 3.3 (1.7-4.1) g/dL Albumin/Globulin Ratio 1.3 (1.0-2.8) SARS-CoV-2 (PCR) Negative (Negative) Blood Type Antibody Screen 04/07/21 04/07/21 Range/Units 20:30 20:30 WBC (4.5-11.0) X10^3/uL RBC (4.0-5.2) X10^6/uL Hgb 13.2 (12.0-16.0) g/dL Hct 40.0 (36-46) % MCV (80-100) fL MCH (26-34) PG MCHC (30-36) % RDW (11.6-14.8) % Plt Count (150-400) X10^3/uL Neut % (Auto) (50-75) % Lymph % (Auto) (25-40) % [place] % (Auto) (3-14) % Eos % (Auto) (2-4) % Baso % (Auto) (0-2) % Neut # (Auto) (4111-5966) /uL Lymph # (Auto) (8890-3326) /uL [place] # (Auto) (0-900) /uL Eos # (Auto) (0-450) /uL Baso # (Auto) (0-100) /uL Sodium (137-145) mmol/L Potassium (3.4-5.1) mmol/L Chloride (98-107) mmol/L Carbon Dioxide (22-32) mmol/L BUN (7-17) mg/dL Creatinine (0.52-1.04) mg/dL Estimated GFR (>60) mL/min BUN/Creatinine Ratio (6-22) Glucose (70-100) mg/dL Calcium (8.4-10.2) mg/dL Total Bilirubin (0.2-1.3) mg/dL AST (14-36) IU/L ALT (<35) IU/L Alkaline Phosphatase (38-126) U/L Total Protein (6.3-8.2) g/dL Albumin (3.5-5.0) g/dL Globulin (1.7-4.1) g/dL Albumin/Globulin Ratio (1.0-2.8) SARS-CoV-2 (PCR) (Negative) Blood Type AB Positive Antibody Screen Negative MDM Narrative Medical decision making narrative: This is a 50-year-old female with a history of breast cancer who was found to have new changes on exam agger fee with recurrent cancer in March. Patient was transferring herself in bed when she had fracture her right femur and appears to have pathological changes. Our orthopedic surgery was consulted and they recommend transfer to larger facility with more appropriate orthopedic assistance. Dr. Rivrea spoke with orthopedic surgery at and [facility] the patient was accepted at both facilities but bed was not available yet at and [facility] accepted for transfer ED. to ED. patient has been can pain control here in the department. She has been hemodynamically stable. Her labs were reviewed and she was seen independently evaluated by myself, patient is NVI on exam. She is comfortable with the plan for transfer at this time and is aware of the fact that she is going to [facility]. All questions answered. Discharge Plan Departure Patient Disposition: [facility] Clinical Impression: Pathologic fracture of femur Qualifiers: Pathology associated with fracture: neoplastic disease Encounter type: initial encounter Laterality: right Qualified Code(s): M84.551A - Pathological fracture in neoplastic disease, right femur, initial encounter for fracture Prescriptions: No Action bupropion HCl [Wellbutrin SR] 100 mg tablet sustained-release 12 hr 100 mg PO BID Qty: 90 RF: 0 metoprolol succinate 50 mg tablet extended release 24 hr 50 mg PO DAILY Qty: 60 RF: 0 losartan 100 mg tablet 100 mg PO DAILY Qty: 60 RF: 0 ibuprofen 200 mg Capsule 200 mg PO BID RF: 0 Referrals: Louie Schulte MD [Primary Care Provider] -
[2021-04-07 10:50] LABS: Add Manual Diff / Slide Review NO; Basophils Absolute Auto 100 /uL (0-100); Basophils Percent Auto 0.7 % (0-2); Eosinophils Absolute Auto 200 /uL (0-450); Eosinophils Percent Auto 2.1 % (2-4); Hemoglobin 14.1 g/dL (12.0-16.0); Lymphocytes Absolute Auto 1200 /uL (1100-4500); Lymphocytes Percent Auto 13.2 % (25-40); Mean Corpuscular HGB Conc 33.5 % (30-36); Mean Corpuscular Hemoglobin 30.1 PG (26-34); Mean Corpuscular Volume 89.7 fL (80-100); Monocytes Absolute Auto 900 /uL (0-900); Monocytes Percent Auto 10.1 % (3-14); Neutrophils Absolute Auto 6900 /uL (1500-7000); Neutrophils Percent Auto 73.9 % (50-75); Platelet Count 516 X10^3/uL (150-400); Red Blood Cell Count 4.68 X10^6/uL (4.0-5.2); Red Cell Distribution Width 14.6 % (11.6-14.8); White Blood Cell Count 9.3 X10^3/uL (4.5-11.0)
[2021-04-07 11:00] LABS: Alanine Aminotransferase 12 IU/L (<35); Albumin 4.2 g/dL (3.5-5.0); Albumin Globulin Ratio 1.3 (1.0-2.8); Alkaline Phosphatase 196 U/L (38-126); Aspartate Aminotransferase 36 IU/L (14-36); BUN Creatinine Ratio 23.1 (6-22); Bilirubin Total 0.6 mg/dL (0.2-1.3); Blood Urea Nitrogen 9 mg/dL (7-17); Calcium 9.7 mg/dL (8.4-10.2); Carbon Dioxide 29 mmol/L (22-32); Chloride 94 mmol/L (98-107); Estimated Glomerular Filt Rate > 60.0 mL/min (>60); Globulin 3.3 g/dL (1.7-4.1); Glucose 106 mg/dL (70-100); Potassium 5.1 mmol/L (3.4-5.1); Sodium 130 mmol/L (137-145); Total Protein 7.5 g/dL (6.3-8.2)
[2021-04-07 11:09] LABS: HEMOLYSIS 66 (0-50)
[2021-04-07 11:38] LABS: COVID19 - ADMIT (NP swab/PCR) Negative (Negative)
--- NOTE | 2021-04-07 11:51 | DI.MRI.S_ITS ---
PROCEDURE: MR FEMUR RT WO/W CON INDICATIONS: pathologic fracture TECHNIQUE: Noncontrast coronal T1 spin echo with fat saturation and STIR, sagittal T1 spin echo and STIR, axial T1 spin echo, T2 fast spin echo with fat saturation, in and out of phase T1 flash, and diffusion restriction sequences. After the administration of contrast, axial/sagittal/coronal T1 spin echo with fat saturation through the right femur. COMPARISON: [facility], CR, XR FEMUR RT MIN 2V, 04/07/2021, 10:19. FINDINGS: Image quality: Positioning of the femur is suboptimal due to presence of a fracture, diagnostic information is obtained.. Bones: And angulated fracture of the mid femoral shaft is redemonstrated with mild comminution. There is a mildly T2-hyperintense enhancing intraosseous lesion extending approximately 5.2 cm above the fracture line and up to 5.4 cm below the fracture line. Additional abnormal areas of osseous enhancement are seen in the more proximal right femoral diaphysis, within the intertrochanteric region of the femur in the femoral neck, within the medial femoral head, and involving the visualized pelvic bones including multiple foci within the right iliac bone, right acetabulum, right pubic bone, and the right ischium at the ischial tuberosity. A suspected osseous lesion is seen in the partially included medial portion of the left femur that is not well visualized. Soft tissues: Soft tissue edema is seen surrounding the femoral fracture, which limits evaluation for extraosseous extension of the mass although node direct evidence of extension is seen.. Mild edema is seen within the right and left abductor musculature, likely representing muscle strains. Similarly, there is mild edema in the right iliopsoas muscle distally. A Crow catheter decompresses the bladder. No soft tissue masses are visualized. IMPRESSION: 1. Pathologic fracture of the mid femoral shaft is redemonstrated with angulation and mild comminution. 2. Diffuse osseous metastatic disease involving the right femur and included portions of the pelvis. Dictated by: Craig Carbone M.D. on 04/07/2021 at 14:18 Approved by: Craig Carbone M.D. on 04/07/2021 at 14:37
[2021-04-07 20:51] LABS: Hemoglobin 13.2 g/dL (12.0-16.0)
== END 2021-04-07 22:15 | disposition short-term general hospital (02) ==
PROVIDERS: Emergency Medicine; Emergency Provider Emergency Medicine; PCP Family Medicine
DX: M84.551A Pathological fracture in neoplastic disease, right femur, initial encounter for fracture (principal); Z20.822 Contact with and (suspected) exposure to COVID-19
CPT/HCPCS: 73552; 73720; 80053; 85014; 85018; 85025; 86850; 86900; 86901; 87635; 96361; 96374; 96376; 99284; 99285; C9803; A9579; J1170

== ENCOUNTER 2021-05-22 10:59 | Outpatient (RCR) | payer OTHER, SELFPAY ==
--- NOTE | 2021-05-22 18:19 | PT.OIE ---
Current Diagnoses Unspecified fracture of shaft of humerus, right arm, initial encounter for closed fracture (05/22/21) Unspecified fracture of right femur, initial encounter for closed fracture (05/22/21) Past Medical History (Last Updated 04/28/21 @ 15:44 by Wilma Mccray MD) Ankle fracture, right (11/2019) Breast cancer, left Breast cancer, right Current every day smoker Depression Eczema History of fracture of left ankle History of lumpectomy of right breast (11/2013) History of mastectomy (11/2013) Hypertension Mass of left axilla Retinal detachment (2003) Past Surgical History (Last Reviewed 04/28/21 @ 15:44 by Wilma Mccray MD) History of lumpectomy of right breast (11/2013) History of mastectomy (11/2013) Visit Care Team Role Provider Type Louie Schulte MD Attending Provider Physician Family Provider Primary Care Provider Referring Provider Specialty: [facility] Address: [address] [place] [address] Email: [email or web address] Physical Therapy Initial Evaluation PT-OP-A Visit Information Start: 05/21/21 17:15 Freq: Status: Active Protocol: Document 05/22/21 11:19 LRN (Rec: 05/22/21 12:29 LRN [id number]) Out-Patient Physical Therapy Visit Information Visit Information Visit Type Initial Evaluation Visit Start Time 11:19 Visit Stop Time 12:03 Total Visit Minutes 44 Visit Number 1 Evaluation Information Evaluation Date 05/22/21 Precautions Precautions Currently being treated for Stage IV metastatic breast cancer (CT scan on 04/28/21 showed multiple mixed lytic and sclerotic lesions involving proximal femurs, the right ischium, right obturator ring, bilateral iliac wings, sacrum, sternum and left scapula, almost every vertebral level, multiple bilateral ribs with subacute healing fractures, and prominent compression deformity/pathologic fracture of T7 with approximately 50% height loss and mild effacement along the ventral thecal sac. Other records indicate cancer spread to skin , left breast, bone. MD's cancer goal is to delay the progression of the disease as long as can and also to preserve the quality of life). Ongoing back pain, PT-OP-B Current Condition Start: 05/21/21 17:15 Freq: Status: Active Protocol: Document 05/22/21 11:19 LRN (Rec: 05/22/21 12:29 LRN [id number]) Current Condition History of Current Condition Onset Date Apr 10, 2021 Current Complaints Feels like R leg is long, pain & weakness in hip when walking. History of Current Condition Pt reports at [facility] she had surgery, now 6 wks post op IM radha in R femur. Also had IM radha placed in R humerus () a few days after R leg surgery. Did surgeries separate because didn't know she had an arm fracture until after the R femur surgery. Hurts in the joints where the radha was inserted. Records indicate: On 2020, Dr. Fuller, Marc Flor MD performed open biopsy of the lesion at the pathologic fracture of the right femur, medullary nailing pathologic right femoral shaft fracture, and prophylactic fixation of right femoral neck. Metastatic carcinoma consistent with spread from patient's reported breast primary. On 04/15/2021, Dr. Naomi MD performed Prophylactic intramedullary nail of right humerus fracture because of pathologic lesion in the right humerus with impending fracture. Record review: indicated the breast cancer has spread to skin, left breast, bone, and goal for cancer is to delay the progression of the disease as long as can and also to preserve the quality of life as best can. stage IV metastatic breast cancer, currently in treatment , chemotherapy oral (physician Chaz). Prior Treatments and Tests No therapy given in hospital, only PT evaluation to determine if safe to go home. Future Testing and Treatments Planned No further follow up appts with surgeon, care is to be followed by primary care physician Louie Schulte. Treatment Goals Patient/Caregiver Goals Pt goal is to get R arm moving to: reach into dryer, lift arm to wash windows, reach top shelf, reach under cupboard for pots/pans or above for dishes. No goals for R hip. Pt feels the hip will heal on its own. 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 Current Functional Impairments (Reported) Functional Limitations- ADL's 10' standing tolerance Walking tolerance: has only walked for medical appts. Washes dishes, brushes teeth and wipes counter and writes. Functional Limitations- Work/School Not able to work. Functional Limitations- Other Difficulty moving R arm to reach into dryer, lift arm to wash windows, reach top shelf for dishes, reach under cupboard for pots/pans. Personal Factors Other Personal Factors That May Effect Currently being treated for Therapy/Recovery Stage IV metastatic breast cancer that has spread to skin , left breast, bones (proximal femurs, R ischium, R obturator ring, rush iliac wings, sacrum, sternum L scapula, every vertebral level , multiple rush ribs, compression fracture T7 and mild effacement along the ventral thecal sac. Pathologic fracture of R humerus & femur with IM radha. Back pain PT-OP-C Subjective Start: 05/21/21 17:15 Freq: Status: Active Protocol: Document 05/22/21 11:19 LRN (Rec: 05/22/21 12:29 LRN [id number]) Patient Questionnaires Lower Extremity Functional Scale LEFS Score 29 LEFS Impairment 60 to 79% Impaired (Score 17- 31) Oswestry Low Back Index Oswestry Score 46 Oswestry Impairment 40 to 59% Impaired (Score 40- 59) Quick Dash- Upper Extremity Quick Dash UE Score 33 (> 1 missing item; therefore not accurate functional score) Quick Dash UE Impairment 20 to 39% Impaired (Score 20- 39) OP-PT Pain Assessment Pain Assessment Grid Paper Pain Assessment Grid Completed Yes Location R femur Pain Location Details R Anterior Proximal femus Intensity 2 Scale Used Numeric (0 - 10) R brachium Pain Location Details R Anterior brachium Intensity 3 Scale Used Numeric (0 - 10) PT-OP-D Balance Start: 05/21/21 17:15 Freq: Status: Active Protocol: Document 05/22/21 11:19 LRN (Rec: 05/22/21 12:29 LRN [id number]) OP-PT Balance Assessment Standing Balance Static Standing Balance Ability Normal Dynamic Standing Balance Ability Good Device Used None Kerr Fall Scale Copyright Permission PT-OP-E Functional Tests Start: 05/21/21 17:15 Freq: Status: Active Protocol: Document 05/22/21 11:19 LRN (Rec: 05/22/21 12:29 LRN [id number]) Functional Tests Apley's Scratch Test Action 1- Left Posterior mid back Action 1- Right Top of shoulder Action 2- Left T1 Action 2- Right T1 Action 3- Left T4 Action 3- Right Lateral hip PT-OP-G Mobility & Gait Start: 05/21/21 17:15 Freq: Status: Active Protocol: Document 05/22/21 11:19 LRN (Rec: 05/22/21 12:29 LRN [id number]) OP Gait Assessment Gait Gait Assistance Required: Independent Able to Maintain Weight Bearing Status Yes During Gait Assistive Devices Assistive Device None Gait Deviations General Gait Pattern Antalgic,Decreased Stride Length,Lateral Trunk Lean Factors Limiting Gait Function Factors Limiting Gait Function Decreased Strength,Pain Comments Gait Comments Excessive lateral lean of trunk to the right. Stair Climbing Evaluation Evaluation Level of Assist On Stairs Independent Devices Stair Climbing Assistive Devices Right Railing Technique/Endurance Stair Climbing Direction Ascend Stair Climbing Technique Step to Step Comments Stair Climbing Comments Ambulates down the stairs normal with use of R railing at home. (has only one railing ). PT-OP-J Posture/Palpation/Skin Start: 05/21/21 17:15 Freq: Status: Active Protocol: Document 05/22/21 11:19 LRN (Rec: 05/22/21 12:29 LRN [id number]) Posture Evaluation Position Standing Head/C-Spine Posture Forward Head T-Spine Posture Increased Kyphosis Shoulder Posture (L) Elevated Weight Distribution Weight Shifted Left Palpation Assessment Location R Brachium Palpation Location R Brachium Palpation Details No complaints of pain or tenderness. PT-OP-K Range of Motion Start: 05/21/21 17:15 Freq: Status: Active Protocol: Document 05/22/21 11:19 LRN (Rec: 05/22/21 12:29 LRN [id number]) Shoulder Goniometric Range of Motion Shoulder Right Active Testing Position Sitting Flexion 80 Extension 30 Abduction 60 External Rotation at 0 degrees Abduction 35 Comments Active ROM in supine: R HANDED. Flex: 57 AB: 85 ER: 28 IR: 45 Left Active Testing Position Sitting Flexion 180 Extension 65 Abduction 180 External Rotation at 0 degrees Abduction 45 Comments Active ROM in supine: Flex: 180 AB: 180 ER: 90 IR: 90 Elbow/Forearm Range of Motion Elbow/Forearm Right Active Elbow/Forearm ROM WFL Yes ROM Testing Position Sitting Left Active Elbow/Forearm ROM WFL Yes ROM Testing Position Sitting PT-OP-M Strength Start: 05/21/21 17:15 Freq: Status: Active Protocol: Document 05/22/21 11:19 LRN (Rec: 05/22/21 18:14 LRN [id number]) Shoulder Strength Shoulder Manual Muscle Testing Right Flexion 2 Poor Extension 3- Fair- Abduction (C5) 2 Poor External Rotation 2 Poor Internal Rotation 2- Poor- Comments Strength determined by ability to move against gravity as much as pt tolerated positioning. PT-OP-Q Treatments Start: 05/21/21 17:15 Freq: Status: Active Protocol: Document 05/22/21 11:19 LRN (Rec: 05/22/21 12:29 LRN [id number]) Therapeutic Exercises Standing Exercises R hip AB Standing Exercise Name R hip AB Side right Equipment Used Rail Reps/Minutes 5x Comments V cuing for upright core and painfree lift. Gait Training Gait Activity Decrease Trunk sway Description Small steps with abdominal/ core tightening to reduce trunk sway. Device Used None Level of Assistance SBA Surface Level Distance/Duration 2' Treatment Focus Small step lengths, core stab, less trunk sway Comments Slight improvement in reducing trunk sway, step lengths unequal, good core stab. Weight shift Description Standing weight shifting onto RLE Device Used Rail Level of Assistance SBA Surface Level Distance/Duration 2' Treatment Focus Weight shift with normal trunk position Comments Low tolerance to WBing. Self-Care/Home Management Treatment Education Other Education Discussed results of evaluation, goals, and plan of care (POC). After discussion , pt agreeable to goals and POC. PT-OP-T Assessment and Plan Start: 05/21/21 17:15 Freq: Status: Active Protocol: Document 05/22/21 11:19 LRN (Rec: 05/22/21 12:29 LRN [id number]) Physical Therapy Assessment Rehab Potential Rehabilitation Potential Good Evaluation Complexity Number of Personal Factors/Comorbidities 1-2 Number of Body Systems Impaired 3 Clinical Presentation at Evaluation Evolving Impairments Impairments Activity Tolerance Goals Three Impairment Antalgic Gait Short Term Goal (STG) Pt will be able to tolerate weight shifting with proper trunk positioning, and educated in proper gait mechanics. Loft Rigger Goal (LTG) Pt will be able to demonstrate minimal sway with trunk during gait. Two Impairment Decreased R arm AROM Impairment Sitting R shoulder AROM: Flex 80 deg's, AB 60 deg's, ER 35 deg's. Supine R shoulder AROM: Flex 57 deg's, AB 85 deg's, ER 28 deg's, IR 45 deg's Short Term Goal (STG) Pt will be educated in R shoulder AROM HEP. Retirement Goal (LTG) Pt will improve R shoulder AROM with improved ability to reach into dryer, reaching at top shelf for dishes, reaching under cupboard for pots/pans. NOTE: Pt is R handed. One Impairment HEP Short Term Goal (STG) Pt will be educated in proper body mechanics for reaching above and below, and for lifting light objects. Loft Rigger Goal (LTG) Pt will be educated in light, gentle R shoulder/elbow strengthening ex's for progression on own at home and to include motions for washing windows. Assessment Summary Assessment Pt presents to therapy with complaints of R upper arm and R thigh pain that she notes is where the IM rods were placed . The pt's primary goal is to be able to improve the mobility of her R arm for functional daily activities. She feels her R thigh will improve on it's own, but is agreeable to gait training to reduce the strain on her back from excessive trunk lateral sway. The pt will be progressed onto a HEP to improve her R arm mobility, and for light level rotator cuff strengthening with gravity resistance. The pt had fair tolerance to the activities of the evaluation and may not tolerate a full session of therapy, but we will continue as tolerated the by the patient. Physical Therapy Plan Frequency and Duration Frequency of Treatment 1x/Week Plan of Care Start Date 05/22/21 Plan of Care End Date 08/20/21 Therapeutic Interventions Therapeutic Interventions Aquatic Therapy,Gait Training, Home Exercise Program,Manual Therapy,Patient/Caregiver Education,Self-Care/Home Management,Soft Tissue Mobilization,Therapeutic Exercises Modalities Cold Pack/Ice Massage Next Visit Focus/Plan Next Note Type Treatment Note Next Visit Plan Pt education of R shoulder AROM ex's with limited therapy time depending on exercise tolerance due to fatigue and pain. Will place pt on a HEP of shoulder AROM, and strengthening ex's with max resistance against gravity. The pt will be educated in proper gait mechanics to be progressed as she tolerates. Treatment will be adjusted to pt's tolerance and care given to avoid further pathological fractures with exercise.
--- NOTE | 2021-05-22 18:19 | PT.OPPOC ---
Physical, Occupational & Speech Therapy At [facility] Current Diagnoses Unspecified fracture of shaft of humerus, right arm, initial encounter for closed fracture (05/22/21) Unspecified fracture of right femur, initial encounter for closed fracture (05/22/21) Visit Care Team Role Provider Type Louie Schulte MD Attending Provider Physician Family Provider Primary Care Provider Referring Provider Specialty: Family Practice Address: [address] [place] [address], [id number] Email: [email or web address] Plan Of Care PT-OP-T Assessment and Plan Start: 05/21/21 17:15 Freq: Status: Active Protocol: Document 05/22/21 11:19 LRN (Rec: 05/22/21 12:29 LRN [id number]) Physical Therapy Assessment Rehab Potential Rehabilitation Potential Good Evaluation Complexity Number of Personal Factors/Comorbidities 1-2 Number of Body Systems Impaired 3 Clinical Presentation at Evaluation Evolving Impairments Impairments Activity Tolerance Goals Three Impairment Antalgic Gait Short Term Goal (STG) Pt will be able to tolerate weight shifting with proper trunk positioning, and educated in proper gait mechanics. Watch Crystal Cutter Goal (LTG) Pt will be able to demonstrate minimal sway with trunk during gait. Two Impairment Decreased R arm AROM Impairment Sitting R shoulder AROM: Flex 80 deg's, AB 60 deg's, ER 35 deg's. Supine R shoulder AROM: Flex 57 deg's, AB 85 deg's, ER 28 deg's, IR 45 deg's Short Term Goal (STG) Pt will be educated in R shoulder AROM HEP. Alf Goal (LTG) Pt will improve R shoulder AROM with improved ability to reach into dryer, reaching at top shelf for dishes, reaching under cupboard for pots/pans. NOTE: Pt is R handed. One Impairment HEP Short Term Goal (STG) Pt will be educated in proper body mechanics for reaching above and below, and for lifting light objects. Watch Crystal Cutter Goal (LTG) Pt will be educated in light, gentle R shoulder/elbow strengthening ex's for progression on own at home and to include motions for washing windows. Assessment Summary Assessment Pt presents to therapy with complaints of R upper arm and R thigh pain that she notes is where the IM rods were placed . The pt's primary goal is to be able to improve the mobility of her R arm for functional daily activities. She feels her R thigh will improve on it's own, but is agreeable to gait training to reduce the strain on her back from excessive trunk lateral sway. The pt will be progressed onto a HEP to improve her R arm mobility, and for light level rotator cuff strengthening with gravity resistance. The pt had fair tolerance to the activities of the evaluation and may not tolerate a full session of therapy, but we will continue as tolerated the by the patient. Physical Therapy Plan Frequency and Duration Frequency of Treatment 1x/Week Plan of Care Start Date 05/22/21 Plan of Care End Date 08/20/21 Therapeutic Interventions Therapeutic Interventions Aquatic Therapy,Gait Training, Home Exercise Program,Manual Therapy,Patient/Caregiver Education,Self-Care/Home Management,Soft Tissue Mobilization,Therapeutic Exercises Modalities Cold Pack/Ice Massage Next Visit Focus/Plan Next Note Type Treatment Note Next Visit Plan Pt education of R shoulder AROM ex's with limited therapy time depending on exercise tolerance due to fatigue and pain. Will place pt on a HEP of shoulder AROM, and strengthening ex's with max resistance against gravity. The pt will be educated in proper gait mechanics to be progressed as she tolerates. Treatment will be adjusted to pt's tolerance and care given to avoid further pathological fractures with exercise. Plan of Care Dates Plan of Care Start Date 05/22/21 Plan of Care End Date 08/20/21 Electronically Signed by: Jina Arana, PT 05/22/21 3101 Please Sign and Return: I have reviewed this Plan of Care and certify that the skilled therapy services above are required to meet the patient?s needs. Physician Signature Date Printed Name and Credentials Clinical Instructor Signature Printed Name and Credentials
--- NOTE | 2021-06-02 08:14 | PT-IP ANOTE ---
cancelled PT appt due to fever and sore throat
--- NOTE | 2021-06-08 13:30 | PT-OP ANOTE ---
Per phone conversation, the pt feels it may still be too early to start PT and would like to wait a little longer. Pt is also concerned of costs/copay due to no income; therefore the pt has agreed to schedule an appt after the New Year for therapy on her R UE/Elbow, s/p fracture, for ex recommendations as tolerated w/cancer history concerns.
--- NOTE | 2021-08-03 12:11 | PT-OP ANOTE ---
Unable to contact pt by phone. Left message notifying pt of her discharge from therapy and to ask for a new referral in order to come back for physical therapy.
--- NOTE | 2021-08-03 12:17 | PT.OPDS ---
Current Diagnoses Unspecified fracture of shaft of humerus, right arm, initial encounter for closed fracture (05/22/21) Unspecified fracture of right femur, initial encounter for closed fracture (05/22/21) Visit Care Team Role Provider Type Louie Schulte MD Attending Provider Physician Family Provider Primary Care Provider Referring Provider Specialty: Family Practice Address: [address] [place] [address], [facility] Email: [email or web address] Visit Number Visit Number 1 Discharge Summary PT-OP-B Current Condition Start: 05/21/21 17:15 Freq: Status: Active Protocol: Document 05/22/21 11:19 LRN (Rec: 05/22/21 12:29 LRN [id number]) Current Condition History of Current Condition Onset Date Apr 10, 2021 Current Complaints Feels like R leg is long, pain & weakness in hip when walking. History of Current Condition Pt reports at [facility] she had surgery, now 6 wks post op IM radha in R femur. Also had IM radha placed in R humerus () a few days after R leg surgery. Did surgeries separate because didn't know she had an arm fracture until after the R femur surgery. Hurts in the joints where the radha was inserted. Records indicate: On 2020, Dr. Fuller, Marc Flor MD performed open biopsy of the lesion at the pathologic fracture of the right femur, medullary nailing pathologic right femoral shaft fracture, and prophylactic fixation of right femoral neck. Metastatic carcinoma consistent with spread from patient's reported breast primary. On 04/15/2021, Dr. Naomi MD performed Prophylactic intramedullary nail of right humerus fracture because of pathologic lesion in the right humerus with impending fracture. Record review: indicated the breast cancer has spread to skin, left breast, bone, and goal for cancer is to delay the progression of the disease as long as can and also to preserve the quality of life as best can. stage IV metastatic breast cancer, currently in treatment , chemotherapy oral (physician Chaz). Prior Treatments and Tests No therapy given in hospital, only PT evaluation to determine if safe to go home. Future Testing and Treatments Planned No further follow up appts with surgeon, care is to be followed by primary care physician Louie Schulte. Treatment Goals Patient/Caregiver Goals Pt goal is to get R arm moving to: reach into dryer, lift arm to wash windows, reach top shelf, reach under cupboard for pots/pans or above for dishes. No goals for R hip. Pt feels the hip will heal on its own. 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 Current Functional Impairments (Reported) Functional Limitations- ADL's 10' standing tolerance Walking tolerance: has only walked for medical appts. Washes dishes, brushes teeth and wipes counter and writes. Functional Limitations- Work/School Not able to work. Functional Limitations- Other Difficulty moving R arm to reach into dryer, lift arm to wash windows, reach top shelf for dishes, reach under cupboard for pots/pans. Personal Factors Other Personal Factors That May Effect Currently being treated for Therapy/Recovery Stage IV metastatic breast cancer that has spread to skin , left breast, bones (proximal femurs, R ischium, R obturator ring, rush iliac wings, sacrum, sternum L scapula, every vertebral level , multiple rush ribs, compression fracture T7 and mild effacement along the ventral thecal sac. Pathologic fracture of R humerus & femur with IM radha. Back pain PT-OP-C Subjective Start: 05/21/21 17:15 Freq: Status: Active Protocol: Document 05/22/21 11:19 LRN (Rec: 05/22/21 12:29 LRN [id number]) Patient Questionnaires Lower Extremity Functional Scale LEFS Score 29 LEFS Impairment 60 to 79% Impaired (Score 17- 31) Oswestry Low Back Index Oswestry Score 46 Oswestry Impairment 40 to 59% Impaired (Score 40- 59) Quick Dash- Upper Extremity Quick Dash UE Score 33 (> 1 missing item; therefore not accurate functional score) Quick Dash UE Impairment 20 to 39% Impaired (Score 20- 39) OP-PT Pain Assessment Pain Assessment Grid Paper Pain Assessment Grid Completed Yes Location R femur Pain Location Details R Anterior Proximal femus Intensity 2 Scale Used Numeric (0 - 10) R brachium Pain Location Details R Anterior brachium Intensity 3 Scale Used Numeric (0 - 10) PT-OP-D Balance Start: 05/21/21 17:15 Freq: Status: Active Protocol: Document 05/22/21 11:19 LRN (Rec: 05/22/21 12:29 LRN [id number]) OP-PT Balance Assessment Standing Balance Static Standing Balance Ability Normal Dynamic Standing Balance Ability Good Device Used None Kerr Fall Scale Copyright Permission PT-OP-E Functional Tests Start: 05/21/21 17:15 Freq: Status: Active Protocol: Document 05/22/21 11:19 LRN (Rec: 05/22/21 12:29 LRN [id number]) Functional Tests Apley's Scratch Test Action 1- Left Posterior mid back Action 1- Right Top of shoulder Action 2- Left T1 Action 2- Right T1 Action 3- Left T4 Action 3- Right Lateral hip PT-OP-G Mobility & Gait Start: 05/21/21 17:15 Freq: Status: Active Protocol: Document 05/22/21 11:19 LRN (Rec: 05/22/21 12:29 LRN [id number]) OP Gait Assessment Gait Gait Assistance Required: Independent Able to Maintain Weight Bearing Status Yes During Gait Assistive Devices Assistive Device None Gait Deviations General Gait Pattern Antalgic,Decreased Stride Length,Lateral Trunk Lean Factors Limiting Gait Function Factors Limiting Gait Function Decreased Strength,Pain Comments Gait Comments Excessive lateral lean of trunk to the right. Stair Climbing Evaluation Evaluation Level of Assist On Stairs Independent Devices Stair Climbing Assistive Devices Right Railing Technique/Endurance Stair Climbing Direction Ascend Stair Climbing Technique Step to Step Comments Stair Climbing Comments Ambulates down the stairs normal with use of R railing at home. (has only one railing ). PT-OP-J Posture/Palpation/Skin Start: 05/21/21 17:15 Freq: Status: Active Protocol: Document 05/22/21 11:19 LRN (Rec: 05/22/21 12:29 LRN [id number]) Posture Evaluation Position Standing Head/C-Spine Posture Forward Head T-Spine Posture Increased Kyphosis Shoulder Posture (L) Elevated Weight Distribution Weight Shifted Left Palpation Assessment Location R Brachium Palpation Location R Brachium Palpation Details No complaints of pain or tenderness. PT-OP-K Range of Motion Start: 05/21/21 17:15 Freq: Status: Active Protocol: Document 05/22/21 11:19 LRN (Rec: 05/22/21 12:29 LRN [id number]) Shoulder Goniometric Range of Motion Shoulder Right Active Testing Position Sitting Flexion 80 Extension 30 Abduction 60 External Rotation at 0 degrees Abduction 35 Comments Active ROM in supine: R HANDED. Flex: 57 AB: 85 ER: 28 IR: 45 Left Active Testing Position Sitting Flexion 180 Extension 65 Abduction 180 External Rotation at 0 degrees Abduction 45 Comments Active ROM in supine: Flex: 180 AB: 180 ER: 90 IR: 90 Elbow/Forearm Range of Motion Elbow/Forearm Right Active Elbow/Forearm ROM WFL Yes ROM Testing Position Sitting Left Active Elbow/Forearm ROM WFL Yes ROM Testing Position Sitting PT-OP-M Strength Start: 05/21/21 17:15 Freq: Status: Active Protocol: Document 05/22/21 11:19 LRN (Rec: 05/22/21 18:14 LRN [id number]) Shoulder Strength Shoulder Manual Muscle Testing Right Flexion 2 Poor Extension 3- Fair- Abduction (C5) 2 Poor External Rotation 2 Poor Internal Rotation 2- Poor- Comments Strength determined by ability to move against gravity as much as pt tolerated positioning. PT-OP-T Assessment and Plan Start: 05/21/21 17:15 Freq: Status: Active Protocol: Document 08/03/21 12:11 LRN (Rec: 08/03/21 12:16 LRN [id number]) Physical Therapy Assessment Goals Three Impairment Antalgic Gait Short Term Goal (STG) Pt will be able to tolerate weight shifting with proper trunk positioning, and educated in proper gait mechanics. STG Duration Goal not met due to lack of attendance. Half-Way Goal (LTG) Pt will be able to demonstrate minimal sway with trunk during gait. LTG Duration Goal not met due to lack of attendance. Two Impairment Decreased R arm AROM Impairment Sitting R shoulder AROM: Flex 80 deg's, AB 60 deg's, ER 35 deg's. Supine R shoulder AROM: Flex 57 deg's, AB 85 deg's, ER 28 deg's, IR 45 deg's Short Term Goal (STG) Pt will be educated in R shoulder AROM HEP. STG Duration Goal not met due to lack of attendance. 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 NOTE: Pt is R handed. LTG Duration Goal not met due to lack of attendance. One Impairment HEP Short Term Goal (STG) Pt will be educated in proper body mechanics for reaching above and below, and for lifting light objects. STG Duration Goal not met due to lack of attendance. Half-Way Goal (LTG) Pt will be educated in light, gentle R shoulder/elbow strengthening ex's for progression on own at home and to include motions for washing windows. LTG Duration Goal not met due to lack of attendance. Assessment Summary Assessment Pt was only seen for her initial evaluation on 05/22/21 . She cancelled her next appointment due to fever and sore throat, and the following appointment because of concerns of coming in too early. Pt did not schedule any more appointments; therefore goals were not met. She is being discharged from physical therapy due to lack of attendance. Physical Therapy Plan Discharge Physical Therapy Discharge Reasons No Longer Attending PT Discharge Comments Pt was seen only for her initial evaluation. Thank you for your referral.
== END 2021-08-03 15:02 ==
LOC: PHYS 10:59
PROVIDERS: Family Provider Family Medicine; PCP Family Medicine; Referring Provider Family Medicine; Visit Provider Family Medicine
DX: S42.301A Unspecified fracture of shaft of humerus, right arm, initial encounter for closed fracture (principal); S72.91XA Unspecified fracture of right femur, initial encounter for closed fracture
CPT/HCPCS: 97116; 97162

== ENCOUNTER → 2021-10-23 09:57 | Outpatient (CLI) | payer OTHER, MEDICAID, SELFPAY ==
--- NOTE | 2021-10-23 09:58 | DI.CT.S_ITS ---
PROCEDURE: CT CHEST ABD PEL W CON INDICATIONS: breast cancer, metastatic cancer TECHNIQUE: Helical axial CT of the chest abdomen and pelvis was obtained after intravenous contrast injection and reformatted in multiple planes. Radiation dose reduction was achieved utilizing automated exposure control and/or parameter adjustment according to patient's size. COMPARISON: [facility], MR, MR FEMUR RT WO/W CON, 04/07/2021, 13:02. [facility], CT, CHEST/ABD/PEL WITH CONTRAST, 11/06/2013, 14:06. FINDINGS: Chest: Cardiovascular: Heart size is normal. No evidence of pulmonary embolism, aortic aneurysm or dissection. Dense coronary artery vascular calcification present Lungs and pleural spaces: Fibrotic changes noted involving the anterior most aspect of the right lung, consistent with sequelae of prior radiation therapy. No focal nodule, infiltrate or pneumothorax. Lymph nodes: No mediastinal, hilar or axillary adenopathy. Mediastinum: Unremarkable. No hiatal hernia. Thyroid within normal limits. Chest Wall and Bones: Widespread multifocal osteoblastic metastasis noted throughout the thoracic spine, sternum, bilateral scapula and ribs noted. There is a pathologic wedge-shaped compression fracture. Pathologic wedge-shaped compression fracture of T7 noted without retropulsed fracture fragment. Right mastectomy. Abdomen and Pelvis: Liver: The liver is diffusely decreased in attenuation without focal mass lesion. Biliary system: No calcified cholelithiasis or pericholecystic inflammation. No intra or extrahepatic bile duct dilatation. Pancreas: Unremarkable without mass or inflammation evident. Spleen: Normal in size and density. Adrenals: Normal morphology and density. Reproductive system: Unremarkable as visualized. Urinary system: There is now left renal atrophy, new from the prior exam. Chronic appearing left hydronephrosis and hydroureter present at the level the distal left ureter are there is a tiny 1-2 mm calculus. Right kidney and collecting system unremarkable. Gastrointestinal system: Left-sided diverticulosis. The left colon is collapsed, and shows wall thickening and. No obstruction. Lymph nodes: No mesenteric or retroperitoneal adenopathy. Peritoneal spaces: No free air. No free fluid. Vasculature: The IVC, aorta and iliac vasculature are unremarkable. Abdominal wall: Abdominal wall intact without evidence of ventral or inguinal hernias. Musculoskeletal: Diffuse multifocal osteoblastic metastatic involvement of the lumbosacral spine, pelvic bones well as well both proximal femurs are noted. Right femoral intramedullary radha and screws in good position. No evidence of acute fracture. IMPRESSION: 1. Diffuse osteoblastic metastatic disease as above. There is a pathologic T7 wedge-shaped compression fracture without retropulsed fracture fragment. Consider follow-up MR evaluation to assess epidural involvement. 2. Chronic appearing left-sided hydronephrosis and hydroureter associated with left renal atrophy is nevertheless new from prior 2014 study. Distal ureteral caliber change without obvious obstructing lesion. 3. Sigmoid and left colon wall thickening and underlying diverticulosis. While this may reflect smooth muscle hypertrophy, consider follow-up direct visualization to further assess Approved by: Jermaine Domingo M.D. on 10/23/2021 at 11:39
== END ==
PROVIDERS: Family Provider Family Medicine; PCP Family Medicine; Referring Provider Internal Medicine Hematology & Oncology; Visit Provider Internal Medicine Hematology & Oncology
DX: C50.919 Malignant neoplasm of unspecified site of unspecified female breast (principal); C79.51 Secondary malignant neoplasm of bone; M84.58XA Pathological fracture in neoplastic disease, other specified site, initial encounter for fracture; N13.30 Unspecified hydronephrosis; K57.30 Diverticulosis of large intestine without perforation or abscess without bleeding; Z90.11 Acquired absence of right breast and nipple
CPT/HCPCS: 71260; 74177; Q9967

== ENCOUNTER → 2021-11-23 10:42 | Outpatient (CLI) | payer OTHER, MEDICAID, SELFPAY ==
--- NOTE | 2021-11-23 | DI.NM.S_ITS ---
PROCEDURE: MA BONE SCAN WHOLE BODY RADIOPHARMACEUTICAL: 20.1 mCi Tc-99m MDP IV. INDICATIONS: LEFT BREAST CANCER TECHNIQUE: Delayed whole-body scintigrams were obtained approximately 3-4 hours after intravenous injection of radiotracer. Anterior and posterior views were acquired from vertex to feet. In addition, oblique views of the thorax were obtained. COMPARISON: [facility] [place], CR, XR ANKLE 3+ VIEWS RIGHT, 01/18/2020, 11:54. CT, CT LE RT WO CON, 10/27/2019, 22:36. [facility], CR, XR FEMUR RT MIN 2V, 04/07/2021, 10:19. [facility], MR, MR FEMUR RT WO/W CON, 04/07/2021, 13:02. [place], [place], BONE SCAN WHOLE BODY, 11/15/2013, 11:15. [facility], CT, CT CHEST ABD PEL W CON, 10/23/2021, 10:52. FINDINGS: There are foci of increased uptake involving the skull, sternum, cervical, thoracic spine and lumbar spine, sacrum, left scapula, bony pelvis bilaterally, humeri bilaterally, femurs bilaterally, possible proximal and distal right tibia, and possible distal left fibula, consistent with metastasis. There is mild left renal pelviectasis. Degenerative changes are noted. IMPRESSION: There is widespread osseous metastatic disease as described. Dictated by: Nguyễn Aguilar M.D. on 11/23/2021 at 17:08 Approved by: Nguyễn Aguilar M.D. on 11/23/2021 at 17:17
== END ==
PROVIDERS: Family Provider Family Medicine; PCP Family Medicine; Referring Provider Internal Medicine Hematology & Oncology; Visit Provider Internal Medicine Hematology & Oncology
DX: C50.912 Malignant neoplasm of unspecified site of left female breast (principal); C79.51 Secondary malignant neoplasm of bone
CPT/HCPCS: 78306; A9503

== ENCOUNTER → 2021-12-22 13:08 | Outpatient (CLI) | payer OTHER, MEDICAID, SELFPAY ==
--- NOTE | 2021-12-22 | DI.MRI.S_ITS ---
PROCEDURE: MR THORACIC SPINE WO/W CON INDICATIONS: Wedge compression fracture of T7-T8 vertebra TECHNIQUE: Noncontrast sagittal T1 spin echo and T2 fast spin echo, sagittal STIR, post-Gadolinium axial T1 spin echo with fat saturation through the thoracic and lumbar spines, with additional T2 fast spin echo and post-contrast axial T1 spin echo with fat saturation sequences acquired through levels of suspected cord compression. COMPARISON: [facility], CT, CT CHEST ABD PEL W CON, 10/23/2021, 10:52. FINDINGS: Image quality: Excellent. Bones: Multiple STIR signal hyperintense, T1 hypointense, enhancing lesions are visualized within the thoracic spine including at T3, T4, T5, T6, T7 and T9 and likely represent diffuse metastatic disease. Nonenhancing lesions at T12 and L1 also likely represent bony metastasis. There is a severe compression deformity at T7 which is similar in extent to the study dated October 23, 2021 with approximately 50% vertebral body height loss. There is focal kyphosis at this level. Spinal cord: Visualized spinal cord is normal in size and signal. Conus medullaris is normal in location. No enhancing epidural mass lesions. There is mild effacement of the anterior CSF space at the focal kyphotic deformity at T7 secondary to compression deformity; however there is no deformity of the cord or cord signal abnormality. Paraspinous soft tissues: No paravertebral masses. No neural foraminal stenosis or canal stenosis of the thoracic spine. IMPRESSION: 1. Multilevel enhancing bony metastases with a stable compression deformity at T7 when compared with the CT dated October 23, 2021. 2. No cord signal abnormality or deformity of the cord. 3. No epidural mass lesions. Dictated by: Jina Choe M.D. on 12/22/2021 at 15:11 Approved by: Jina Choe M.D. on 12/22/2021 at 15:22
== END ==
PROVIDERS: Family Provider Family Medicine; PCP Family Medicine; Referring Provider Internal Medicine Hematology & Oncology; Visit Provider Internal Medicine Hematology & Oncology
DX: C79.51 Secondary malignant neoplasm of bone; S22.060A Wedge compression fracture of T7-T8 vertebra, initial encounter for closed fracture; Z85.3 Personal history of malignant neoplasm of breast
CPT/HCPCS: 72157; A9579

== ENCOUNTER → 2022-11-30 13:00 | Oncology outpatient (ONC) | payer OTHER, MEDICAID, SELFPAY ==
--- NOTE | 2021-04-01 11:32 | ONC.MSW ---
T/C-Left message confirming that we have pt's referral, requested return call for navigation/scheduling.
--- NOTE | 2021-04-20 15:12 | ONC.MSW ---
Description: New Referral Navigation T/C Reason for Referral: Left Breast Cancer-suspected recurrence Activity: Reviewed clinicals and referral for medical status, acuity, and immediate needs. Pt is a former patient of [facility], Dr. James, dx originally and treated in 2013, mastectomy. She rececently found new lumps under her left armpit, had imaging done here at suspicious for malignancy. She didn't have her biopsy right away, however, had it done down at [facility] last week, when she was sent down there with a severe broken leg. She consequently broke her arm right after that, as well. Discussed ongoing availability of assistance, navigation, and resource referrals as needed. Confirmed her initial consult time for Tuesday, 04/28 at 3:20pm. No further immediate needs identified at this time. *Pathology will be ready on 04/22/21 from [facility].
[2021-04-28 15:13] VITALS: BP 152/90; PULSE 100; RESP 18; TEMP 36.6; O2SAT 92
--- NOTE | 2021-04-28 15:24 | P.CONONC_ITS ---
History of Present Illness - Data of Consult Patient: new to practice Consult date: 04/28/21 Requesting Physician: Louie Schulte MD Primary Care Provider: Louie Schulte MD - Consult Narrative Reason for consult: Metastatic breast cancer Narrative: Ruby Rooney is a 51 year old female. She has a remote history of right breast hormone receptor positive, HER2 negative cancer status post mastectomy, adjuvant chemotherapy, and adjuvant radiation therapy. She completed only couple of months of endocrine therapy before she stopped due to lack of insurance per patient. Patient came in here today accompanied by her sister. Patient recalled that she noted subcutaneous skin nodules at the left lower lateral flank area probably around September of 2020. Patient did not pay much of attention. However more subcutaneous nodules kept showing up later including left upper back left upper shoulder right upper back and posterior left neck. And eventually in January 2021, she all of a sudden noticed multiple nodules in the left axilla and left breast. That prompted her to see her primary care provider. She saw Dr. Louie Schulte on 03/05/2021. Then patient proceeded with left breast diagnostic mammogram on 03/27/2021. The mammogram showed new 1.4 cm irregular asymmetry in the left breast at 0100 hours posterior depth and new 8 mm round asymmetry in the left breast posterior depth, and new equal density asymmetry in the left breast posterior depth superior region. Same day ultrasound showed 1.4 cm irregular mass in the left breast at 0200 hours middle depth, 2.8 cm oval mass in the left breast at 0300 hours posterior depth, 2.1 cm oval mass in the left breast at 0100 hours middle depth, 1.4 x 1.2 x 1.4 cm oval mass in the left axillary tail highly suspicious for breast cancer. On 04/07/2021, patient said that she stood up and felt a snap in her right hip and broke it. She fell back in her couch and she thought it was muscular and stayed in the couch or night until the next day she called her friends and she was brought to the [facility] Emergency Room. She underwent CT CAP w/contrast on 04/08/2021 that showed moderate to severe left-sided hydronephrosis, hydroureter and delayed nephrogram with a transition point in the distal ureter at the level of the left adnexa, with an ill-defined region of hyperattenuation along the distal ureter at this point. The scan also showed multiple mixed lytic and sclerotic lesions involving proximal femurs, the right ischium, right obturator ring, bilateral iliac wings, sacrum, sternum and left scapula, almost every vertebral level, multiple bilateral ribs with subacute healing fractures, and prominent compression deformity/pathologic fracture of T7 with approximately 50% height loss and mild effacement along the ventral thecal sac. The scan showed scattered solid and semisolid subcentimeter pulmonary nodules, and small right pleural effusion without definite pleural thickening or mass lesion, ill-defined hyperenhancing soft tissue within the left breast measuring up to 1.7 x 1.1 cm, multiple enlarged soft tissue nodules and lymph nodes (for example, in the left axilla measuring up to 1.4 cm, left anterior chest wall measuring up to 1.0 cm and left posterior-lateral chest wall measuring up to 0.7 cm), few scattered soft tissue nodules throughout the abdominal wall (for example along midline measuring 1.2 cm). , Urology was consulted while the patient was in the [facility]. Ureteral stent or percutaneous nephrostomy tube were discussed with patient. Given that she was asymptomatic without signs of declining kidney function or infection, urgent intervention was deferred. On 04/09/2021, Dr. Fuller, Marc Flor MD performed open biopsy of the lesion at the pathologic fracture of the right femur, medullary nailing pathologic right femoral shaft fracture, and prophylactic fixation of right femoral neck. Pathology from the right femur showed metastatic carcinoma consistent with spre ad from patient's reported breast primary. The bio-marker testing showed estrogen receptor positive, 91-100% with nuclear positivity, strong signal. Progesterone receptor was positive with 91-100% of cells with nuclear positivity and strong signal. HER2 by in-situ hybridization was negative. On 04/15/2021, Dr. Naomi MD performed Prophylactic intramedullary nail of right humerus fracture because of pathologic lesion in the right humerus with impending fracture. He denies headache. Patient denies any double vision or blurred vision. She again noticed a new bump in the left back of the neck. She denies any shortness breath or chest pain. She denies any abdominal pain. She denies any constipation, diarrhea or bright red blood per rectum or black stool. Patient is complaining shortness of the right hip and right femur. She is using Tylenol at this moment. She was instructed to take enoxaparin 30 mg twice daily for at least 6 weeks prophylactically. CC: Wilma Mccray MD Home Medications and Allergies Home Medications Medication Instructions Recorded Confirmed Type metoprolol succinate 50 mg 50 mg PO DAILY #60 tab 03/05/21 04/28/21 Rx tablet,extended release 24 hr acetaminophen 325 mg capsule 650 mg PO Q4H PRN 04/28/21 04/28/21 History (Tylenol) anastrozole 1 mg tablet 1 mg PO DAILY #90 tab 04/28/21 Rx bupropion HCl 100 mg tablet,12 hr 100 mg DAILY 04/28/21 04/28/21 History sustained-release enoxaparin 30 mg/0.3 mL 30 mg SUBCUT BID 04/28/21 04/28/21 History subcutaneous solution gabapentin 300 mg tablet 300 mg PO TID 04/28/21 04/28/21 History oxycodone 5 mg tablet 5 mg PO Q12H PRN #60 tab 04/28/21 Rx palbociclib 125 mg tablet (Ibrance) 125 mg PO DAILY #21 tab 04/28/21 Rx Allergies Allergy/AdvReac Type Severity Reaction Status Date / Time No Known Drug Allergies Allergy Verified 04/07/21 10:15 Medical History - Medical, Surgical, Family History Medical History: Medical History (Last Updated 04/28/21 @ 15:44 by Wilma Mccray MD) Ankle fracture, right Onset Date: 11/2019 Breast cancer, left Breast cancer, right Current every day smoker Depression Eczema History of fracture of left ankle Hypertension Mass of left axilla Retinal detachment Onset Date: 2003 Surgical History: Surgical History (Last Reviewed 04/28/21 @ 15:44 by Wilma Mccray MD) History of lumpectomy of right breast Onset Date: 11/2013 History of mastectomy Onset Date: 11/2013 Family History: Family History (Last Updated 04/28/21 @ 15:45 by Wilma Mccray MD) Mother Breast cancer associated with mutation in MELYSSA gene - Social History Smoking Status: Current every day smoker Substance Use Type: does not use Alcohol Intake: current (wine occasionally) Review of Systems - Patient Self-Reported Symptoms SR Constitution: Weight loss/gain, Fatigue/Malaise SR Musculoskeletal issues: Muscle pain or cramps Exam Vital signs: Vital Signs Temp Pulse Resp BP Pulse Ox 04/28/21 15:13 98 F 100 H 18 152/90 H 92 Intake and Output 04/27/21 04/28/21 04/28/21 23:59 07:59 15:59 Other: Weight 58.2 kg Patient Weight 04/28/21 23:59 Weight 58.2 kg - Constitutional positive mild distress, positive thin, positive chronically ill appearing, positive cooperative - Routine HEENT Exam Head: Present: normocephalic, atraumatic Eye: Present: EOMI, PERRL, normal accommodation. Absent: conjunctival icterus - Routine Neck Exam Present: supple. Absent: lymphadenopathy, thyromegaly Comments: a subcutaneous nodule 2 cm palpable at the back of the left neck, fixed, non- tender - Routine Chest/Breast/Axilla Exam Axillae: Present: lymphadenopathy (2 cm nodule palpable at the anterior axilla fold, semi-fixed. ) - Detailed Breast Exam right Palpation: Absent: mass, tenderness Comments: absent, status post mastectomy left Inspection: Present: area of retraction Palpation: Present: mass (multiple, see pictures. ) Mass type: Present: mobile, firm Female Breast Image: 1 - 2 cm anterior axilla fold 2 - 1 cm 3 - 2 cm 4 - 2 cm 5 - 1-2 cm 6 - 1 cm - Routine Respiratory Exam Present: decreased breath sounds, prolonged expiratory phase, rales, rhonchi, crackles, distant breath sounds, diminished air movement - Routine Cardiovascular Exam Present: RRR, S1, S2. Absent: murmur, gallop, rubs - Routine Abdominal Exam Present: soft. Absent: tenderness, distended, organomegaly - Routine Skin Exam Comments: Multiple skin nodules palpable: left lower later flank, 2 nodules, 1-2 cm each left lateral chest, 1 nodule, 1 cm left upper back, 1 nodule, 1 cm in size right upper back, 1 nodule, 0.5 cm - Routine Neurological Exam Present: alert, oriented X3, CN II-XII intact. Absent: sensory deficit, motor deficit - Routine Psychiatric Exam Present: normal affect Results - Imaging Additional studies: Procedures Excision of axillary lymph node (09/20/13) Incision with removal of foreign body or device from skin and subcutaneous tis wendy (03/21/14) Insertion of totally implantable vascular access device [VAD] (11/22/13) Subtotal mastectomy (09/20/13) Unilateral simple mastectomy (11/22/13) Assessment and Plan (1) Metastatic breast cancer Overview 51-year-old female with remote history of right breast ER positive, IA positive, HER2 negative cancer, T2, N1, M0, status post mastectomy followed by adjuvant chemotherapy (TC) and radiation therapy. She was subsequently started on Lupron and letrozole in August 2014, but she stopped both of them in November 2014 due to occurrence of depression. Now she presented with widely metastatic ER positive, IA positive, HER2 negative, breast cancer involving left breast, left axilla, chest wall and abdominal wall, multiple bones. Patient underwent open biopsy and fixation of pathological fracture of the right femur (04/08/2021); and prophylactic intramedullary nail of right humerus for impending fracture (04/15/2021). The open biopsy confirmed the diagnosis of ER positive IA positive HER2 negative breast cancer. Discussion First of all, I talked with the patient that she has a recurrent stage IV breast cancer. Available. Information suggests that the breast cancer has spread to skin, left breast, bone. I explained to her that her biopsy from the femur showed the metastatic breast cancer is ER positive, IA positive, HER2 negative. It is the same type of the breast cancer that was diagnosed in 2014 of her right breast. I talked with her that for stage IV metastatic breast cancer, it is considered incurable. The goal of treatment is to help delay the progression of the disease as long as we can and also to preserve the quality of life as best as we can. I talked with her and her sister that the standard treatment for hormone receptor positive HER2 negative metastatic breast cancer is endocrine therapy plus CDK4 6 inhibitor. Patient will need to continue the treatment as long as her breast cancer is responding to the treatment and as long as she is able to tolerate. I am recommending treatment with anastrozole plus Ibrance. I talked with her that anastrozole is a aromatase inhibitor that blocks the synthesis of endogenous estrogen. As a result, patient usually would develop olivia menopausal like symptoms for example hot flashes night sweats or mood swing. For the same reason, some patient developed joint pain and also more importantly bone loss. While the patient is on aromatase inhibitor, we highly recommend that patient take calcium and vitamin-D. Which comes back for the visit, I am planning to talk with her about bone targeting agents for example Zometa or Xgeva. Ibrance is a CDK 4/6 inhibitor. It is generally well tolerated. The complications or side effects include but not limited to bone marrow suppression fatigue, diarrhea etc.. I talked with her that the bone marrow suppression usually manifests as low blood counts. Once patient received the medication, I would like her to write down the date when the medication is started. There after we will check the CBC and CMP once every 2 weeks. Plan: [facility] test Start Anastrozole 1 mg daily, 90# x 3 refills ordered today Pre-auth: Ibrance 125 mg on days 1-21, every 28 days. Start when received. Continue prophylactic Lovenox 30 mg bid for at least 6 weeks (per [facility]) Call for any concerns or questions. RTC in one month, CBC, CMP (2) Pain, cancer Right hip and thigh pain. Related to recent surgical procedure and pathological fracture. Plan: Oxycodone 5 mg q12h prn, 60# written Tylenol 325 mg prn q6h (OTC)
--- NOTE | 2021-04-30 16:41 | PC.NURSE ---
[facility]: RX FAXED WITH [facility], LAST PROG NOTES TO [facility] ON 04/29 [phone], SUPPORTING DOCUMENTS REFAXED WITH LAB RESULTS TO [facility] AT [phone] ON 04/30.
[2021-05-05 08:32] LABS: Add Manual Diff / Slide Review NO; Basophils Absolute Auto 100 /uL (0-100); Eosinophils Absolute Auto 100 /uL (0-450); Eosinophils Percent Auto 1.3 % (2-4); Lymphocytes Absolute Auto 1600 /uL (1100-4500); Lymphocytes Percent Auto 20.9 % (25-40); Mean Corpuscular HGB Conc 32.5 % (30-36); Mean Corpuscular Hemoglobin 30.9 PG (26-34); Monocytes Absolute Auto 600 /uL (0-900); Monocytes Percent Auto 8.1 % (3-14); Neutrophils Absolute Auto 5400 /uL (1500-7000); Neutrophils Percent Auto 68.7 % (50-75); Platelet Count 554 X10^3/uL (150-400); Red Blood Cell Count 4.53 X10^6/uL (4.0-5.2); Red Cell Distribution Width 17.7 % (11.6-14.8); White Blood Cell Count 7.9 X10^3/uL (4.5-11.0)
--- NOTE | 2021-05-14 17:12 | PC.NURSE ---
ORAL-CHEMO CHECK CALL: PATIENT REPORTED TO THIS NURSE THAT SHE IS DOING FINE ON THE MED THO IT IS DIFFICULT TO REMEMBER TO TAKE. THIS NURSE EMPHASIZED THE IMPORTANCE OF TAKING IT DAILY AND SHE VOICED UNDERSTANDING. SHE WILL COME IN FOR CBC ON DAY 15, LABS ENTERED. SHE WAS CONCERNED THAT A URETERAL STENT MAYBE STILL NEEDED TO BE PLACED AND THAT SHE SHOULD NOT YET BE ON CHEMOTHERAPY. THIS NURSE REASSURED HER THAT PER CONVERSATION WITH DR JEREZ SHE SHOULD GO AHEAD WITH THE ORAL CHEMO BUT SHOULD CONSULT WITH HER PCP AND UROLOGIST OF ANY ISSUES WHICH STILL NEED TO BE ADDRESSED. SHE STATED SHE WILL CALL FOR APPT AT DR RICO OFFICE.
[2021-05-23 11:05] LABS: Add Manual Diff / Slide Review NO; Basophils Absolute Auto 0 /uL (0-100); Eosinophils Absolute Auto 0 /uL (0-450); Eosinophils Percent Auto 1.1 % (2-4); Hematocrit 39.6 % (36-46); Hemoglobin 13.4 g/dL (12.0-16.0); Lymphocytes Absolute Auto 1100 /uL (1100-4500); Lymphocytes Percent Auto 43.5 % (25-40); Mean Corpuscular HGB Conc 33.9 % (30-36); Mean Corpuscular Volume 94.2 fL (80-100); Monocytes Absolute Auto 300 /uL (0-900); Monocytes Percent Auto 10.7 % (3-14); Neutrophils Absolute Auto 1200 /uL (1500-7000); Neutrophils Percent Auto 43.7 % (50-75); Platelet Count 271 X10^3/uL (150-400); Red Cell Distribution Width 18.2 % (11.6-14.8); White Blood Cell Count 2.6 X10^3/uL (4.5-11.0)
[2021-05-23 11:25] LABS: Alanine Aminotransferase 18 IU/L (<35); Albumin 4.8 g/dL (3.5-5.0); Albumin Globulin Ratio 1.6 (1.0-2.8); Alkaline Phosphatase 145 U/L (38-126); Aspartate Aminotransferase 24 IU/L (14-36); BUN Creatinine Ratio 23.1 (6-22); Bilirubin Total 0.4 mg/dL (0.2-1.3); Blood Urea Nitrogen 15 mg/dL (7-17); Calcium 10.4 mg/dL (8.4-10.2); Carbon Dioxide 32 mmol/L (22-32); Chloride 95 mmol/L (98-107); Estimated Glomerular Filt Rate > 60.0 mL/min (>60); Glucose 123 mg/dL (70-100); HEMOLYSIS < 15 (0-50); Sodium 132 mmol/L (137-145); Total Protein 7.8 g/dL (6.3-8.2)
[2021-05-23 11:26] LABS: Potassium 5.6 mmol/L (3.4-5.1)
[2021-05-25 08:27] VITALS: BP 143/88; PULSE 100; RESP 20; TEMP 36.4; O2SAT 97
--- NOTE | 2021-05-25 08:41 | ONC.PN ---
PN -Subjective Interval history: ID/CC: 51-year-old female with metastatic recurrent hormone receptor-positive breast cancer HPI: Ruby Rooney is a 51 year old female. She has a remote history of right breast hormone receptor positive, HER2 negative cancer status post mastectomy, adjuvant chemotherapy, and adjuvant radiation therapy. She completed only couple of months of endocrine therapy before she stopped due to lack of insurance per patient. Patient came in here today accompanied by her sister. Patient recalled that she noted subcutaneous skin nodules at the left lower lateral flank area probably around September of 2020. Patient did not pay much of attention. However more subcutaneous nodules kept showing up later including left upper back left upper shoulder right upper back and posterior left neck. And eventually in January 2021, she all of a sudden noticed multiple nodules in the left axilla and left breast. That prompted her to see her primary care provider. She saw Dr. Louie Schulte on 03/05/2021. Then patient proceeded with left breast diagnostic mammogram on 03/27/2021. The mammogram showed new 1.4 cm irregular asymmetry in the left breast at 0100 hours posterior depth and new 8 mm round asymmetry in the left breast posterior depth, and new equal density asymmetry in the left breast posterior depth superior region. Same day ultrasound showed 1.4 cm irregular mass in the left breast at 0200 hours middle depth, 2.8 cm oval mass in the left breast at 0300 hours posterior depth, 2.1 cm oval mass in the left breast at 0100 hours middle depth, 1.4 x 1.2 x 1.4 cm oval mass in the left axillary tail highly suspicious for breast cancer. On 04/07/2021, patient said that she stood up and felt a snap in her right hip and broke it. She fell back in her couch and she thought it was muscular and stayed in the couch or night until the next day she called her friends and she was brought to the [facility] Emergency Room. She underwent CT CAP w/contrast on 04/08/2021 that showed moderate to severe left-sided hydronephrosis, hydroureter and delayed nephrogram with a transition point in the distal ureter at the level of the left adnexa, with an ill-defined region of hyperattenuation along the distal ureter at this point. The scan also showed multiple mixed lytic and sclerotic lesions involving proximal femurs, the right ischium, right obturator ring, bilateral iliac wings, sacrum, sternum and left scapula, almost every vertebral level, multiple bilateral ribs with subacute healing fractures, and prominent compression deformity/pathologic fracture of T7 with approximately 50% height loss and mild effacement along the ventral thecal sac. The scan showed scattered solid and semisolid subcentimeter pulmonary nodules, and small right pleural effusion without definite pleural thickening or mass lesion, ill-defined hyperenhancing soft tissue within the left breast measuring up to 1.7 x 1.1 cm, multiple enlarged soft tissue nodules and lymph nodes (for example, in the left axilla measuring up to 1.4 cm, left anterior chest wall measuring up to 1.0 cm and left posterior-lateral chest wall measuring up to 0.7 cm), few scattered soft tissue nodules throughout the abdominal wall (for example along midline measuring 1.2 cm). , Urology was consulted while the patient was in the [facility]. Ureteral stent or percutaneous nephrostomy tube were discussed with patient. Given that she was asymptomatic without signs of declining kidney function or infection, urgent intervention was deferred. On 04/09/2021, Dr. Fuller, Marc Flor MD performed open biopsy of the lesion at the pathologic fracture of the right femur, medullary nailing pathologic right femoral shaft fracture, and prophylactic fixation of right femoral neck. Pathology from the right femur showed metastatic carcinoma consistent with spread from patient's reported breast primary. The bio-marker testing showed estrogen receptor positive, 91-100% with nuclear positivity, strong signal. Progesterone receptor was positive with 91-100% of cells with nuclear positivity and strong signal. HER2 by in-situ hybridization was negative. On 04/15/2021, Dr. Naomi MD performed Prophylactic intramedullary nail of right humerus fracture because of pathologic lesion in the right humerus with impending fracture. Interim events After her previous visit on 04/28/2021, she started taking anastrozole 1 mg once a day. And on 05/04/2021, patient started Ibrance 125 mg once a day 3 weeks on and 1 week off. Today is the first day of the off-week. Overall, she has not noticed anything different yet. However she does report that the pain seems to be better. She is taking the pain medications once every other day before going to sleep. She denies any sore throat. She denies any fever. She denies any breathing problems. She denies any abdominal pain diarrhea or constipation. - Patient Self-Reported Symptoms SR Constitution: Weight loss/gain, Fatigue/Malaise SR Musculoskeletal issues: Muscle pain or cramps - ROS All Systems: reviewed and no additional remarkable complaints except as stated Home Medications and Allergies Home Medications Medication Instructions Recorded Confirmed Type acetaminophen 325 mg capsule 650 mg PO Q4H PRN 04/28/21 05/25/21 History (Tylenol) anastrozole 1 mg tablet 1 mg PO DAILY #90 tab 04/28/21 05/25/21 Rx bupropion HCl 100 mg tablet,12 hr 100 mg DAILY 04/28/21 05/25/21 History sustained-release gabapentin 300 mg tablet 300 mg PO TID 04/28/21 05/25/21 History oxycodone 5 mg tablet 5 mg PO Q12H PRN #60 tab 04/28/21 05/25/21 Rx palbociclib 125 mg tablet (Ibrance) 125 mg PO DAILY #21 tab 04/28/21 05/25/21 Rx metoprolol succinate 50 mg 50 mg PO DAILY #90 tab 05/19/21 05/25/21 Rx tablet,extended release 24 hr omeprazole 40 mg capsule,delayed 40 mg PO DAILY #60 cap 05/19/21 05/25/21 Rx release Allergies Allergy/AdvReac Type Severity Reaction Status Date / Time No Known Drug Allergies Allergy Verified 04/07/21 10:15 Exam Vital signs: Vital Signs Temp Pulse Resp BP Pulse Ox 05/25/21 08:27 97.6 F 100 H 20 143/88 H 97 Intake and Output 05/24/21 05/25/21 05/25/21 23:59 07:59 15:59 Other: Weight 55.3 kg Patient Weight 05/25/21 23:59 Weight 55.3 kg - Constitutional positive no acute distress, positive thin, positive cooperative - Routine HEENT Exam Head: Present: normocephalic, atraumatic Eye: Present: EOMI, PERRL, normal accommodation. Absent: conjunctival icterus - Routine Neck Exam Present: supple, normal carotid upstroke. Absent: lymphadenopathy, thyromegaly - Routine Chest/Breast/Axilla Exam Comments: Breast exam deferred - Routine Respiratory Exam Present: Clear to auscultation bilaterally. Absent: wheezes - Routine Cardiovascular Exam Present: RRR, S1, S2. Absent: murmur, gallop, rubs - Routine Abdominal Exam Present: soft. Absent: tenderness, distended, organomegaly - Routine Extremities Exam Absent: edema - Routine Neurological Exam Present: alert, oriented X3, CN II-XII intact. Absent: sensory deficit, motor deficit, normal reflexes - Routine Psychiatric Exam Present: normal affect Results - Labs Laboratory Last Values WBC 2.6 X10^3/uL (4.5-11.0) L 05/23/21 10:53 RBC 4.20 X10^6/uL (4.0-5.2) 05/23/21 10:53 Hgb 13.4 g/dL (12.0-16.0) 05/23/21 10:53 Hct 39.6 % (36-46) 05/23/21 10:53 MCV 94.2 fL (80-100) 05/23/21 10:53 MCH 32.0 PG (26-34) 05/23/21 10:53 MCHC 33.9 % (30-36) 05/23/21 10:53 RDW 18.2 % (11.6-14.8) H 05/23/21 10:53 Plt Count 271 X10^3/uL (150-400) 05/23/21 10:53 Neut % (Auto) 43.7 % (50-75) L 05/23/21 10:53 Lymph % (Auto) 43.5 % (25-40) H 05/23/21 10:53 Gonzales % (Auto) 10.7 % (3-14) 05/23/21 10:53 Eos % (Auto) 1.1 % (2-4) L 05/23/21 10:53 Baso % (Auto) 1.0 % (0-2) 05/23/21 10:53 Neut # (Auto) 1200 /uL (8851-4157) L 05/23/21 10:53 Lymph # (Auto) 1100 /uL (7716-9943) 05/23/21 10:53 Gonzales # (Auto) 300 /uL (0-900) 05/23/21 10:53 Eos # (Auto) 0 /uL (0-450) 05/23/21 10:53 Baso # (Auto) 0 /uL (0-100) 05/23/21 10:53 Sodium 132 mmol/L (137-145) L 05/23/21 10:53 Potassium 5.6 mmol/L (3.4-5.1) H 05/23/21 10:53 Chloride 95 mmol/L (98-107) L 05/23/21 10:53 Carbon Dioxide 32 mmol/L (22-32) 05/23/21 10:53 BUN 15 mg/dL (7-17) 05/23/21 10:53 Creatinine 0.65 mg/dL (0.52-1.04) 05/23/21 10:53 Estimated GFR > 60.0 mL/min (>60) 05/23/21 10:53 BUN/Creatinine Ratio 23.1 (6-22) H 05/23/21 10:53 Glucose 123 mg/dL (70-100) H 05/23/21 10:53 Calcium 10.4 mg/dL (8.4-10.2) H 05/23/21 10:53 Total Bilirubin 0.4 mg/dL (0.2-1.3) 05/23/21 10:53 AST 24 IU/L (14-36) 05/23/21 10:53 ALT 18 IU/L (<35) 05/23/21 10:53 Alkaline Phosphatase 145 U/L (38-126) H 05/23/21 10:53 Total Protein 7.8 g/dL (6.3-8.2) 05/23/21 10:53 Albumin 4.8 g/dL (3.5-5.0) 05/23/21 10:53 Globulin 3.0 g/dL (1.7-4.1) 05/23/21 10:53 Albumin/Globulin Ratio 1.6 (1.0-2.8) 05/23/21 10:53 - Imaging Additional studies: Procedures Excision of axillary lymph node (09/20/13) Incision with removal of foreign body or device from skin and subcutaneous tissue (03/21/14) Insertion of totally implantable vascular access device [VAD] (11/22/13) Subtotal mastectomy (09/20/13) Unilateral simple mastectomy (11/22/13) Assessment and Plan (1) Metastatic breast cancer Overview 51-year-old female with remote history of right breast ER positive, UT positive, HER2 negative cancer, T2, N1, M0, status post mastectomy followed by adjuvant chemotherapy (TC) and radiation therapy. She was subsequently started on Lupron and letrozole in August 2014, but she stopped both of them in November 2014 due to occurrence of depression. In late 2020, she presented with widely metastatic ER positive, UT positive, HER2 negative, breast cancer involving left breast, left axilla, chest wall and abdominal wall, multiple bones. Patient underwent open biopsy and fixation of pathological fracture of the right femur (04/08/2021); and prophylactic intramedullary nail of right humerus for impending fracture (04/15/2021). The open biopsy confirmed the diagnosis of ER positive UT positive HER2 negative breast cancer. My Risk genetic study was negative for clinically significant mutations. Patient was started on anastrozole on 04/28/2021. She started Ibrance on 05/04/2021. Discussion Patient has tolerated the combined treatment with anastrozole and Ibrance very well. No neutropenic fever. Today I reviewed the lab results with the patient. Patient's white cell count slightly decreased to 2.6. ANC 1200. I talked with the patient that the change is expected. The hemoglobin level and platelets are stable. CMP are unremarkable. Today I also reviewed the genetic test results with the patient. I told her that based on the [facility] genetic study, she does not have any clinically significant genetic changes. I talked with her that I will continue current treatment without any changes. When she comes back, I will talk with her about bone targeting treatment. Plan: Continue Anastrozole 1 mg daily, 90# x 3 refills ordered today Continue Ibrance 125 mg on days 1-21, every 28 days. Start when received. Continue prophylactic Lovenox 30 mg bid for at least 6 weeks (per [facility]) Call for any concerns or questions. RTC in one month, CBC, CMP (2) Pain, cancer Right hip and thigh pain. Related to recent surgical procedure and pathological fracture. Plan: Continue Oxycodone 5 mg q12h prn Tylenol 325 mg prn q6h (OTC)
--- NOTE | 2021-05-25 11:59 | ONC.SCHED ---
Called patient with 1 mo fup. She accepted 06/25/21 appointment.
[2021-06-26 12:23] LABS: Add Manual Diff / Slide Review NO; Basophils Absolute Auto 0 /uL (0-100); Basophils Percent Auto 0.4 % (0-2); Eosinophils Absolute Auto 0 /uL (0-450); Eosinophils Percent Auto 0.6 % (2-4); Hemoglobin 14.1 g/dL (12.0-16.0); Lymphocytes Absolute Auto 1400 /uL (1100-4500); Lymphocytes Percent Auto 38.8 % (25-40); Mean Corpuscular HGB Conc 34.4 % (30-36); Mean Corpuscular Hemoglobin 33.6 PG (26-34); Mean Corpuscular Volume 97.6 fL (80-100); Monocytes Absolute Auto 500 /uL (0-900); Monocytes Percent Auto 12.4 % (3-14); Neutrophils Absolute Auto 1700 /uL (1500-7000); Neutrophils Percent Auto 47.8 % (50-75); Platelet Count 304 X10^3/uL (150-400); Red Cell Distribution Width 20.2 % (11.6-14.8); White Blood Cell Count 3.6 X10^3/uL (4.5-11.0)
[2021-06-26 12:37] LABS: Alanine Aminotransferase 18 IU/L (<35); Albumin Globulin Ratio 1.7 (1.0-2.8); Alkaline Phosphatase 121 U/L (38-126); Aspartate Aminotransferase 27 IU/L (14-36); BUN Creatinine Ratio 23.7 (6-22); Bilirubin Total 0.4 mg/dL (0.2-1.3); Blood Urea Nitrogen 14 mg/dL (7-17); Calcium 10.4 mg/dL (8.4-10.2); Carbon Dioxide 34 mmol/L (22-32); Chloride 95 mmol/L (98-107); Estimated Glomerular Filt Rate > 60.0 mL/min (>60); Glucose 137 mg/dL (70-100); HEMOLYSIS < 15 (0-50); Potassium 4.7 mmol/L (3.4-5.1); Sodium 135 mmol/L (137-145)
[2021-06-26 12:57] LABS: Anisocytosis 1+
--- NOTE | 2021-07-07 10:46 | ONC.SCHED ---
Left LISA emerson. for patient returning her call regarding scheduling.
--- NOTE | 2021-07-28 11:38 | PC.NURSE ---
Addendum entered by Ginette Nielsen R.N. 07/28/21 11:52: Called pt and LVM to call back about Rx Original Note: [facility]: Faxed received stating [facility] is out of network for Rx Ibrance and that they sent Rx to [facility]. This RN checking with Mena ETIENNE if more is needed to be done.
--- NOTE | 2021-07-30 12:53 | ONC.SCHED ---
Submitted URGENT PA request for Ibrance/Pablociclib to [facility] (scanned).
--- NOTE | 2021-07-31 08:16 | ONC.SCHED ---
Re: Lisset SULTANA received, scanned,entered in ARM and given to triage.
--- NOTE | 2021-08-03 13:50 | PC.NURSE ---
Addendum entered by Ginette Nielsen R.N. 08/03/21 16:51: con't: is now calling [employer] and Rx still not going through. Will f/u tomorrow Addendum entered by Ginette Nielsen R.N. 08/03/21 16:35: Spoke with [employer] sales representative about [facility] not being able to have [facility] Rx go through. The problem is Rx written for TABLETS and PA done for CAPS. Gave verbal for Capsules and per rep, it is now PA. This RN is now Addendum entered by Ginette Nielsen R.N. 08/03/21 15:55: received fax back from [facility] stating PA not required. This RN called and spoke to Giuliana at [facility] specialty [phone]. Told her what the most recent fax stated about PA. Giuliana asks for this RN to directly call [facility] for PA. Original Note: Lisset SULTANA #[id number] This RN spoke to Inez at [facility] specialty Pharmacy at [phone]. Per KAYY Wiley # is rejected in the system. she gave a fax #[phone] if # is rejected. This RN also faxed PA paper work to [facility] pharmacy [phone]
--- NOTE | 2021-08-04 09:37 | PC.NURSE ---
Rx Ibrance: This RN called [facility] at [phone] and spoke to pharmacy. PA #[id number] has gone through and that [facility] had entered it. This RN then called [facility] at [phone] and spoke to customer rep. PA is accepted and overnight shipping of Ibrance setup for pt. This RN called and LVM for pt to be home tomorrow to accept package. This RN will call again today to connect with pt.
--- NOTE | 2021-08-05 13:29 | PC.NURSE ---
THALIA: THIS NURSE LEFT MESSAGE AT 11AM FOR PATIENT TO CALL BACK AND INFORM US WHTHER SHE HAS RECEIVED HER MEDICATION FROM THE NEW PHARMACY ([facility]).
--- NOTE | 2021-08-06 16:01 | PC.NURSE ---
IBRANCE: PER T/C WITH PATIENT, DELIVERY WILL BE TODAY. SHE WAS INSTRUCTED TO HAVE LABS DONE BEFORE STARTING. SHE WILL HAVE LABS DONE MONDAY 08/07. IF SHE SHOULD NOT START IBRANCE DUE TO RESULTS DR JEREZ WILL INFORM HER. IF HE DOES NOT CALL SHE VOICED UNDERSTANDING THAT SHE CAN GO AHEAD WITH THE NEXT CYCLE IT WILL MEAN HER LABS ARE OK.
[2021-08-12 13:10] LABS: Add Manual Diff / Slide Review NO; Basophils Absolute Auto 100 /uL (0-100); Basophils Percent Auto 1.3 % (0-2); Eosinophils Absolute Auto 100 /uL (0-450); Eosinophils Percent Auto 2.2 % (2-4); Hematocrit 41.1 % (36-46); Hemoglobin 13.8 g/dL (12.0-16.0); Lymphocytes Absolute Auto 1500 /uL (1100-4500); Lymphocytes Percent Auto 22.3 % (25-40); Mean Corpuscular HGB Conc 33.6 % (30-36); Mean Corpuscular Hemoglobin 33.3 PG (26-34); Mean Corpuscular Volume 99.2 fL (80-100); Monocytes Absolute Auto 900 /uL (0-900); Monocytes Percent Auto 12.6 % (3-14); Neutrophils Absolute Auto 4300 /uL (1500-7000); Neutrophils Percent Auto 61.6 % (50-75); Platelet Count 603 X10^3/uL (150-400); Red Blood Cell Count 4.14 X10^6/uL (4.0-5.2); Red Cell Distribution Width 15.7 % (11.6-14.8); White Blood Cell Count 6.9 X10^3/uL (4.5-11.0)
[2021-08-12 13:21] LABS: Add Manual Diff / Slide Review NO; Basophils Absolute Auto 0 /uL (0-100); Basophils Percent Auto 0.6 % (0-2); Eosinophils Absolute Auto 200 /uL (0-450); Hemoglobin 14.3 g/dL (12.0-16.0); Lymphocytes Absolute Auto 1400 /uL (1100-4500); Mean Corpuscular Hemoglobin 33.6 PG (26-34); Monocytes Absolute Auto 600 /uL (0-900); Neutrophils Absolute Auto 5000 /uL (1500-7000); Neutrophils Percent Auto 69.4 % (50-75); Platelet Count 173 X10^3/uL (150-400); Red Blood Cell Count 4.24 X10^6/uL (4.0-5.2); Red Cell Distribution Width 13.4 % (11.6-14.8); White Blood Cell Count 7.2 X10^3/uL (4.5-11.0)
[2021-08-12 13:31] LABS: Alanine Aminotransferase 15 IU/L (<35); Albumin 4.6 g/dL (3.5-5.0); Albumin Globulin Ratio 1.7 (1.0-2.8); Alkaline Phosphatase 108 U/L (38-126); Aspartate Aminotransferase 28 IU/L (14-36); BUN Creatinine Ratio 24.6 (6-22); Bilirubin Total 0.3 mg/dL (0.2-1.3); Blood Urea Nitrogen 14 mg/dL (7-17); Calcium 10.6 mg/dL (8.4-10.2); Carbon Dioxide 31 mmol/L (22-32); Chloride 96 mmol/L (98-107); Estimated Glomerular Filt Rate > 60.0 mL/min (>60); Globulin 2.7 g/dL (1.7-4.1); Glucose 115 mg/dL (70-100); HEMOLYSIS 29 (0-50); Sodium 133 mmol/L (137-145); Total Protein 7.3 g/dL (6.3-8.2)
--- NOTE | 2021-08-13 13:50 | ONC.MSW ---
Description: SSDI Coordination Activity: Met with pt prior to her provider visit to discuss her status in applying for Social Security Disability. She still has not gone any further, and is still feeling confused about what they are asking for in the letter that they sent to her. [employer]LE[employer] OFF[employer]ER read the letter, was able to get the VIKI form online that they were asking for, and had her sign it. Forwarded the VIKI along with a request to medical records to expedite sending her medical records to social security for further processing. Will monitor situation until it is resolved.
--- NOTE | 2021-08-17 08:23 | ONC.PN ---
PN -Subjective - Date of Visit Date of visit: 08/17/21 Interval history: ID/CC: 51-year-old female with metastatic recurrent hormone receptor-positive breast cancer HPI: Ruby Rooney is a 51 year old female. She has a remote history of right breast hormone receptor positive, HER2 negative cancer status post mastectomy, adjuvant chemotherapy, and adjuvant radiation therapy. She completed only couple of months of endocrine therapy before she stopped due to lack of insurance per patient. Patient came in here today accompanied by her sister. Patient recalled that she noted subcutaneous skin nodules at the left lower lateral flank area probably around September of 2020. Patient did not pay much of attention. However more subcutaneous nodules kept showing up later including left upper back left upper shoulder right upper back and posterior left neck. And eventually in January 2021, she all of a sudden noticed multiple nodules in the left axilla and left breast. That prompted her to see her primary care provider. She saw Dr. Louie Schulte on 03/05/2021. Then patient proceeded with left breast diagnostic mammogram on 03/27/2021. The mammogram showed new 1.4 cm irregular asymmetry in the left breast at 0100 hours posterior depth and new 8 mm round asymmetry in the left breast posterior depth, and new equal density asymmetry in the left breast posterior depth superior region. Same day ultrasound showed 1.4 cm irregular mass in the left breast at 0200 hours middle depth, 2.8 cm oval mass in the left breast at 0300 hours posterior depth, 2.1 cm oval mass in the left breast at 0100 hours middle depth, 1.4 x 1.2 x 1.4 cm oval mass in the left axillary tail highly suspicious for breast cancer. On 04/07/2021, patient said that she stood up and felt a snap in her right hip and broke it. She fell back in her couch and she thought it was muscular and stayed in the couch or night until the next day she called her friends and she was brought to the [facility] Emergency Room. She underwent CT CAP w/contrast on 04/08/2021 that showed moderate to severe left-sided hydronephrosis, hydroureter and delayed nephrogram with a transition point in the distal ureter at the level of the left adnexa, with an ill-defined region of hyperattenuation along the distal ureter at this point. The scan also showed multiple mixed lytic and sclerotic lesions involving proximal femurs, the right ischium, right obturator ring, bilateral iliac wings, sacrum, sternum and left scapula, almost every vertebral level, multiple bilateral ribs with subacute healing fractures, and prominent compression deformity/pathologic fracture of T7 with approximately 50% height loss and mild effacement along the ventral thecal sac. The scan showed scattered solid and semisolid subcentimeter pulmonary nodules, and small right pleural effusion without definite pleural thickening or mass lesion, ill-defined hyperenhancing soft tissue within the left breast measuring up to 1.7 x 1.1 cm, multiple enlarged soft tissue nodules and lymph nodes (for example, in the left axilla measuring up to 1.4 cm, left anterior chest wall measuring up to 1.0 cm and left posterior-lateral chest wall measuring up to 0.7 cm), few scattered soft tissue nodules throughout the abdominal wall (for example along midline measuring 1.2 cm). , [place] [facility] [place] Ureteral stent or percutaneous nephrostomy tube were discussed with patient. Given that she was asymptomatic without signs of declining kidney function or infection, urgent intervention was deferred. On 04/09/2021, Dr. Fuller, Marc Flor MD performed open biopsy of the lesion at the pathologic fracture of the right femur, medullary nailing pathologic right femoral shaft fracture, and prophylactic fixation of right femoral neck. Pathology from the right femur showed metastatic carcinoma consistent with spread from patient's reported breast primary. The bio-marker testing showed estrogen receptor positive, 91-100% with nuclear positivity, strong signal. Progesterone receptor was positive with 91-100% of cells with nuclear positivity and strong signal. HER2 by in-situ hybridization was negative. On 04/15/2021, Dr. Naomi MD performed Prophylactic intramedullary nail of right humerus fracture because of pathologic lesion in the right humerus with impending fracture. Interim events After her previous visit on 04/28/2021, she started taking anastrozole 1 mg once a day. And on 05/04/2021, patient started Ibrance 125 mg once a day 3 weeks on and 1 week off. Patient switched her regular pharmacy to [facility]. Patient has not been able to get anastrozole. Patient has been off for the past 1 week. She was able to continue to receive the Ibrance from specialty pharmacy. Patient just started another cycle of Ibrance today. Overall, patient has tolerated the medication very well. No fever and no chills. No nausea and no vomiting. No diarrhea and no constipation. However, she is complaining bone pain especially lower back as well as the right shoulder. Patient said it is not severe pain but she was having difficulty sleeping at night. The right hip pain has improved. Patient has some mild hot flashes and night sweats. - Patient Self-Reported Symptoms SR Constitution: Weight loss/gain, Fatigue/Malaise SR Musculoskeletal issues: Muscle pain or cramps - ROS All Systems: reviewed and no additional remarkable complaints except as stated Home Medications and Allergies Home Medications Medication Instructions Recorded Confirmed Type acetaminophen 325 mg capsule 650 mg PO Q4H PRN 04/28/21 08/17/21 History (Tylenol) bupropion HCl 100 mg tablet,12 hr 100 mg DAILY 04/28/21 08/17/21 History sustained-release gabapentin 300 mg tablet 300 mg PO TID 04/28/21 05/25/21 History palbociclib 125 mg tablet (Ibrance) 125 mg PO DAILY #21 tab 04/28/21 08/17/21 Rx metoprolol succinate 50 mg 50 mg PO DAILY #90 tab 05/19/21 08/17/21 Rx tablet,extended release 24 hr omeprazole 40 mg capsule,delayed 40 mg PO DAILY #60 cap 05/19/21 08/17/21 Rx release anastrozole 1 mg tablet 1 mg PO DAILY #90 tab 08/17/21 Rx oxycodone 5 mg tablet 5 mg PO Q12H PRN #60 tab 08/17/21 Rx Allergies Allergy/AdvReac Type Severity Reaction Status Date / Time No Known Drug Allergies Allergy Verified 04/07/21 10:15 Exam Vital signs: 08/17/21 08:57 Last Vital Signs Temp 97.2 F L 08/17/21 08:30 Pulse 100 H 08/17/21 08:30 Resp 20 08/17/21 08:30 BP 189/121 H 08/17/21 08:30 Pulse Ox 94 08/17/21 08:30 - Constitutional positive no acute distress, positive cooperative - Routine HEENT Exam Head: Present: normocephalic, atraumatic Eye: Present: EOMI, PERRL. Absent: normal accommodation, conjunctival icterus - Routine Neck Exam Present: supple. Absent: lymphadenopathy, thyromegaly - Routine Chest/Breast/Axilla Exam Axillae: Absent: lymphadenopathy - Routine Respiratory Exam Present: decreased breath sounds, wheezes, diminished air movement - Routine Cardiovascular Exam Present: RRR, S1, S2. Absent: murmur, gallop, rubs - Routine Abdominal Exam Present: soft. Absent: tenderness, distended, organomegaly - Routine Extremities Exam Absent: edema - Routine Neurological Exam Present: alert, oriented X3, CN II-XII intact. Absent: sensory deficit, motor deficit - Routine Psychiatric Exam Present: anxious Results - Labs Laboratory Last Values WBC 7.2 X10^3/uL (4.5-11.0) 08/12/21 13:12 RBC 4.24 X10^6/uL (4.0-5.2) 08/12/21 13:12 Hgb 14.3 g/dL (12.0-16.0) 08/12/21 13:12 Hct 42.0 % (36-46) 08/12/21 13:12 MCV 99.0 fL (80-100) 08/12/21 13:12 MCH 33.6 PG (26-34) 08/12/21 13:12 MCHC 34.0 % (30-36) 08/12/21 13:12 RDW 13.4 % (11.6-14.8) 08/12/21 13:12 Plt Count 173 X10^3/uL (150-400) 08/12/21 13:12 Neut % (Auto) 69.4 % (50-75) 08/12/21 13:12 Lymph % (Auto) 19.0 % (25-40) L 08/12/21 13:12 [place] % (Auto) 8.0 % (3-14) 08/12/21 13:12 Eos % (Auto) 3.0 % (2-4) 08/12/21 13:12 Baso % (Auto) 0.6 % (0-2) 08/12/21 13:12 Neut # (Auto) 5000 /uL (1384-6052) 08/12/21 13:12 Lymph # (Auto) 1400 /uL (4861-6488) 08/12/21 13:12 [place] # (Auto) 600 /uL (0-900) 08/12/21 13:12 Eos # (Auto) 200 /uL (0-450) 08/12/21 13:12 Baso # (Auto) 0 /uL (0-100) 08/12/21 13:12 RBC Morphology See below 06/26/21 12:06 Anisocytosis 1+ H 06/26/21 12:06 Sodium 133 mmol/L (137-145) L 08/12/21 12:52 Potassium 5.0 mmol/L (3.4-5.1) 08/12/21 12:52 Chloride 96 mmol/L (98-107) L 08/12/21 12:52 Carbon Dioxide 31 mmol/L (22-32) 08/12/21 12:52 BUN 14 mg/dL (7-17) 08/12/21 12:52 Creatinine 0.57 mg/dL (0.52-1.04) 08/12/21 12:52 Estimated GFR > 60.0 mL/min (>60) 08/12/21 12:52 BUN/Creatinine Ratio 24.6 (6-22) H 08/12/21 12:52 Glucose 115 mg/dL (70-100) H 08/12/21 12:52 Calcium 10.6 mg/dL (8.4-10.2) H 08/12/21 12:52 Total Bilirubin 0.3 mg/dL (0.2-1.3) 08/12/21 12:52 AST 28 IU/L (14-36) 08/12/21 12:52 ALT 15 IU/L (<35) 08/12/21 12:52 Alkaline Phosphatase 108 U/L (38-126) 08/12/21 12:52 Total Protein 7.3 g/dL (6.3-8.2) 08/12/21 12:52 Albumin 4.6 g/dL (3.5-5.0) 08/12/21 12:52 Globulin 2.7 g/dL (1.7-4.1) 08/12/21 12:52 Albumin/Globulin Ratio 1.7 (1.0-2.8) 08/12/21 12:52 - Imaging Additional studies: Procedures Excision of axillary lymph node (09/20/13) Incision with removal of foreign body or device from skin and subcutaneous tissue (03/21/14) Insertion of totally implantable vascular access device [VAD] (11/22/13) Subtotal mastectomy (09/20/13) Unilateral simple mastectomy (11/22/13) Assessment and Plan (1) Metastatic breast cancer Overview 51-year-old female with remote history of right breast ER+, MO+, HER2-, T2, N1, M0, s/p mastectomy followed by adjuvant chemotherapy (TC) and radiation. She was subsequently started on Lupron and letrozole in Aug 2014, but she stopped both of them in November 2014 due to occurrence of depression. In late 2020, she presented with widely metastatic ER+, MO+, HER2-, breast cancer involving left breast, left axilla, chest wall and abdominal wall, and multiple bones. Patient underwent open biopsy and fixation of pathological fracture of the right femur (04/08/2021); and prophylactic intramedullary nail of right humerus for impending fracture (04/15/2021). The open biopsy confirmed the diagnosis of ER+, MO+, HER2-, breast cancer. My Risk genetic study was negative for clinically significant mutations. Patient was started on anastrozole on 04/28/2021. She started Ibrance on 05/04/2021. Discussion Up until now, patient has been on anastrozole and Ibrance for about 3 months. Clinically patient has tolerated quite well. Talked with the patient that I am recommending that we obtain imaging studies to evaluate the response to the treatment. Today I also talked with the patient about the the denosumab and Zometa. I explained to her that the bone targeting agent can help reduce the risk of pathological fracture. However the medication is associated with a rare side effect, that is, osteonecrosis of the jaw. I will have the patient to see her dentist for clearance. Patient voiced understanding. Plan: CT chest abdomen and pelvis with contrast Bone whole-body scan Continue Anastrozole 1 mg daily, Continue Ibrance 125 mg on days 1-21, every 28 days. Return to clinic in 1 month for follow-up visit. Call for any concerns or questions. (2) Pain, cancer Patient continues complain bone pain especially the right shoulder and the right lower back. The right hip pain has improved. Plan: Refilled Oxycodone 5 mg q12h prn, 60 pills
[2021-08-17 08:30] VITALS: BP 189/121; PULSE 100; RESP 20; TEMP 36.2; O2SAT 94
--- NOTE | 2021-08-17 09:07 | ONC.SCHED ---
Left VM for patient to schedule one month fup with labs prior.
--- NOTE | 2021-08-20 11:31 | PC.NURSE ---
Addendum entered by Tristan Freeman R.N. 08/24/21 09:38: no Bx needed at this time, Leslye aware Original Note: Leslye from the [facility] called because the radiologist wants to know if Dr. Mccray wants to do a biopsy of the left breast, since it has not been biopsied yet. Please advise. Leslye would like to be informed of Dr. Mccray's decision to resolved her chart: [phone]
--- NOTE | 2021-08-25 10:52 | ONC.SCHED ---
Working on auth for CT and NM Bone scan. Submitted waiting for approval.
--- NOTE | 2021-08-27 08:59 | ONC.SCHED ---
CT NM Bone scan scheduled for 09/15/21 check in time of 7:45Am for the first part of NM. CT will be @ 12PM and 2nd part of NM will @ 11AM. Per Dori patient should have nothing to eat/drink after midnight except she can have black coffee with no cream or sugar. I called patient to give her this schedule but reached so I left this message on her VM, which she said was ok to do.
[2021-09-22 14:28] LABS: Add Manual Diff / Slide Review NO; Basophils Absolute Auto 0 /uL (0-100); Basophils Percent Auto 0.9 % (0-2); Eosinophils Absolute Auto 0 /uL (0-450); Eosinophils Percent Auto 0.7 % (2-4); Hematocrit 39.9 % (36-46); Hemoglobin 13.7 g/dL (12.0-16.0); Lymphocytes Absolute Auto 1200 /uL (1100-4500); Lymphocytes Percent Auto 32.5 % (25-40); Mean Corpuscular HGB Conc 34.4 % (30-36); Mean Corpuscular Hemoglobin 35.4 PG (26-34); Monocytes Absolute Auto 200 /uL (0-900); Monocytes Percent Auto 5.4 % (3-14); Neutrophils Absolute Auto 2200 /uL (1500-7000); Neutrophils Percent Auto 60.5 % (50-75); Platelet Count 437 X10^3/uL (150-400); Red Blood Cell Count 3.88 X10^6/uL (4.0-5.2); Red Cell Distribution Width 16.7 % (11.6-14.8); White Blood Cell Count 3.7 X10^3/uL (4.5-11.0)
[2021-09-22 14:42] LABS: Alanine Aminotransferase 14 IU/L (<35); Albumin 5.3 g/dL (3.5-5.0); Albumin Globulin Ratio 1.6 (1.0-2.8); Alkaline Phosphatase 96 U/L (38-126); Aspartate Aminotransferase 27 IU/L (14-36); BUN Creatinine Ratio 23.6 (6-22); Bilirubin Total 0.6 mg/dL (0.2-1.3); Blood Urea Nitrogen 17 mg/dL (7-17); Calcium 10.3 mg/dL (8.4-10.2); Carbon Dioxide 29 mmol/L (22-32); Chloride 98 mmol/L (98-107); Estimated Glomerular Filt Rate > 60.0 mL/min (>60); Globulin 3.3 g/dL (1.7-4.1); Glucose 105 mg/dL (70-100); HEMOLYSIS < 15 (0-50); Potassium 4.5 mmol/L (3.4-5.1); Sodium 137 mmol/L (137-145); Total Protein 8.6 g/dL (6.3-8.2)
[2021-09-24 10:21] VITALS: BP 141/98; PULSE 88; RESP 18; TEMP 36.2; O2SAT 94
--- NOTE | 2021-09-24 10:40 | P.PNONC_ITS ---
PN -Subjective - Date of Visit Date of visit: 09/24/21 Chief Complaint: Ruby is a 51-year-old female with metastatic recurrent hormone receptor-positive breast cancer Interval history: On 04/28/2021, she started taking anastrozole 1 mg once a day. And on 05/04/2021, patient started Ibrance 125 mg once a day 3 weeks on and 1 week off. She has tolerated the anastrozole and Ibrance very well. She denies fever or chills. She denies sore throat. She denies shortness of breath or chest pain. She denies abdominal pain, diarrhea or constipation. Patient said that the hip pain has improved significantly. She is active and she is walking. She missed the scheduled CT and bone scan. She said she just did not know how to reschedule. Hematological and oncological history Ruby Rooney is a 51 year old female. She has a remote history of right breast hormone receptor positive, HER2 negative cancer status post mastectomy, adjuvant chemotherapy, and adjuvant radiation therapy. She completed only couple of months of endocrine therapy before she stopped due to lack of insurance per patient. Patient came in here today accompanied by her sister. Patient recalled that she noted subcutaneous skin nodules at the left lower lateral flank area probably around September of 2020. Patient did not pay much of attention. However more subcutaneous nodules kept showing up later including left upper back left upper shoulder right upper back and posterior left neck. And eventually in January 2021, she all of a sudden noticed multiple nodules in the left axilla and left breast. That prompted her to see her primary care provider. She saw Dr. Louie Schulte on 03/05/2021. Then patient proceeded with left breast diagnostic mammogram on 03/27/2021. The mammogram showed new 1.4 cm irregular asymmetry in the left breast at 0100 hours posterior depth and new 8 mm round asymmetry in the left breast posterior depth, and new equal density asymmetry in the left breast posterior depth superior region. Same day ultrasound showed 1.4 cm irregular mass in the left breast at 0200 hours middle depth, 2.8 cm oval mass in the left breast at 0300 hours posterior depth, 2.1 cm oval mass in the left breast at 0100 hours middle depth, 1.4 x 1.2 x 1.4 cm oval mass in the left axillary tail highly suspicious for breast cancer. On 04/07/2021, patient said that she stood up and felt a snap in her right hip and broke it. She fell back in her couch and she thought it was muscular and stayed in the couch or night until the next day she called her friends and she was brought to the [facility] Emergency Room. She underwent CT CAP w/contrast on 04/08/2021 that showed moderate to severe left-sided hydronephrosis, hydroureter and delayed nephrogram with a transition point in the distal ureter at the level of the left adnexa, with an ill-defined region of hyperattenuation along the distal ureter at this point. The scan also showed multiple mixed lytic and sclerotic lesions involving proximal femurs, the right ischium, right obturator ring, bilateral iliac wings, sacrum, sternum and left scapula, almost every vertebral level, multiple bilateral ribs with subacute healing fractures, and prominent compression deformity/pathologic fr acture of T7 with approximately 50% height loss and mild effacement along the ventral thecal sac. The scan showed scattered solid and semisolid subcentimeter pulmonary nodules, and small right pleural effusion without definite pleural thickening or mass lesion, ill-defined hyperenhancing soft tissue within the left breast measuring up to 1.7 x 1.1 cm, multiple enlarged soft tissue nodules and lymph nodes (for example, in the left axilla measuring up to 1.4 cm, left anterior chest wall measuring up to 1.0 cm and left posterior-lateral chest wall measuring up to 0.7 cm), few scattered soft tissue nodules throughout the abdominal wall (for example along midline measuring 1.2 cm). , [place]rology was [place] the [place] [facility] [place]reteral stent or percutaneous nephrostomy tube were discussed with patient. Given that she was asymptomatic without signs of declining kidney function or infection, urgent intervention was deferred. On 04/09/2021, Dr. Fuller, Marc Flor MD performed open biopsy of the lesion at the pathologic fracture of the right femur, medullary nailing pathologic right femoral shaft fracture, and prophylactic fixation of right femoral neck. Pathology from the right femur showed metastatic carcinoma consistent with spread from patient's reported breast primary. The bio-marker testing showed estrogen receptor positive, 91-100% with nuclear positivity, strong signal. Progesterone receptor was positive with 91-100% of cells with nuclear positivity and strong signal. HER2 by in-situ hybridization was negative. On 04/15/2021, Dr. Naomi MD performed Prophylactic intramedullary nail of right humerus fracture because of pathologic lesion in the right humerus with impending fracture. - Patient Self-Reported Symptoms SR Constitution: Fatigue/Malaise SR Musculoskeletal issues: Muscle pain or cramps Home Medications and Allergies Home Medications Medication Instructions Recorded Confirmed Type acetaminophen 325 mg capsule 650 mg PO Q4H PRN 04/28/21 09/24/21 History (Tylenol) bupropion HCl 100 mg tablet,12 hr 100 mg DAILY 04/28/21 09/24/21 History sustained-release palbociclib 125 mg tablet (Ibrance) 125 mg PO DAILY #21 tab 04/28/21 09/24/21 Rx metoprolol succinate 50 mg 50 mg PO DAILY #90 tab 05/19/21 09/24/21 Rx tablet,extended release 24 hr anastrozole 1 mg tablet 1 mg PO DAILY #90 tab 08/17/21 09/24/21 Rx oxycodone 5 mg tablet 5 mg PO Q12H PRN #60 tab 08/17/21 09/24/21 Rx Allergies Allergy/AdvReac Type Severity Reaction Status Date / Time No Known Drug Allergies Allergy Verified 04/07/21 10:15 Exam Vital signs: Vital Signs Temp Pulse Resp BP Pulse Ox 09/24/21 10:21 97.2 F L 88 18 141/98 H 94 Intake and Output 09/23/21 09/24/21 09/24/21 23:59 07:59 15:59 Other: Weight 57.5 kg Patient Weight 09/24/21 23:59 Weight 57.5 kg Narrative: She appears comfortable, pleasant and cooperative. Results - Labs Laboratory Last Values WBC 3.7 X10^3/uL (4.5-11.0) L 09/22/21 14:20 RBC 3.88 X10^6/uL (4.0-5.2) L 09/22/21 14:20 Hgb 13.7 g/dL (12.0-16.0) 09/22/21 14:20 Hct 39.9 % (36-46) 09/22/21 14:20 MCV 103.0 fL (80-100) H 09/22/21 14:20 MCH 35.4 PG (26-34) H 09/22/21 14:20 MCHC 34.4 % (30-36) 09/22/21 14:20 RDW 16.7 % (11.6-14.8) H 09/22/21 14:20 Plt Count 437 X10^3/uL (150-400) H 09/22/21 14:20 Neut % (Auto) 60.5 % (50-75) 09/22/21 14:20 Lymph % (Auto) 32.5 % (25-40) 09/22/21 14:20 [place] % (Auto) 5.4 % (3-14) 09/22/21 14:20 Eos % (Auto) 0.7 % (2-4) L 09/22/21 14:20 Baso % (Auto) 0.9 % (0-2) 09/22/21 14:20 Neut # (Auto) 2200 /uL (0149-4259) 09/22/21 14:20 Lymph # (Auto) 1200 /uL ([id number]) 09/22/21 14:20 [place] # (Auto) 200 /uL (0-900) 09/22/21 14:20 Eos # (Auto) 0 /uL (0-450) 09/22/21 14:20 Baso # (Auto) 0 /uL (0-100) 09/22/21 14:20 RBC Morphology See below 06/26/21 12:06 Anisocytosis 1+ H 06/26/21 12:06 Sodium 137 mmol/L (137-145) 09/22/21 14:20 Potassium 4.5 mmol/L (3.4-5.1) 09/22/21 14:20 Chloride 98 mmol/L (98-107) 09/22/21 14:20 Carbon Dioxide 29 mmol/L (22-32) 09/22/21 14:20 BUN 17 mg/dL (7-17) 09/22/21 14:20 Creatinine 0.72 mg/dL (0.52-1.04) 09/22/21 14:20 Estimated GFR > 60.0 mL/min (>60) 09/22/21 14:20 BUN/Creatinine Ratio 23.6 (6-22) H 09/22/21 14:20 Glucose 105 mg/dL (70-100) H 09/22/21 14:20 Calcium 10.3 mg/dL (8.4-10.2) H 09/22/21 14:20 Total Bilirubin 0.6 mg/dL (0.2-1.3) 09/22/21 14:20 AST 27 IU/L (14-36) 09/22/21 14:20 ALT 14 IU/L (<35) 09/22/21 14:20 Alkaline Phosphatase 96 U/L (38-126) 09/22/21 14:20 Total Protein 8.6 g/dL (6.3-8.2) H 09/22/21 14:20 Albumin 5.3 g/dL (3.5-5.0) H 09/22/21 14:20 Globulin 3.3 g/dL (1.7-4.1) 09/22/21 14:20 Albumin/Globulin Ratio 1.6 (1.0-2.8) 09/22/21 14:20 - Imaging Additional studies: Procedures Excision of axillary lymph node (09/20/13) Incision with removal of foreign body or device from skin and subcutaneous tissue (03/21/14) Insertion of totally implantable vascular access device [VAD] (11/22/13) Subtotal mastectomy (09/20/13) Unilateral simple mastectomy (11/22/13) Assessment and Plan (1) Metastatic breast cancer Ruby is a 51-year-old female with remote history of right breast cancer, ER+, GA+, HER2-, T2, N1, M0, s/p mastectomy followed by adjuvant chemotherapy (TC) and radiation. She was subsequently started on Lupron and letrozole in Aug 2014, but she stopped both of them in November 2014 due to occurrence of depression. In late 2020, she presented with widely metastatic ER+, GA+, HER2-, breast cancer involving left breast, left axilla, chest wall and abdominal wall, and multiple bones. Patient underwent open biopsy and fixation of pathological fracture of the right femur (04/08/2021); and prophylactic intramedullary nail of right humerus for impending fracture (04/15/2021). The open biopsy confirmed the diagnosis of ER+, GA+, HER2-, breast cancer. Genomic study: My Risk genetic study was negative for clinically significant mutations. Patient was started on anastrozole on 04/28/2021. She started Ibrance on 05/04/2021. Discussion Patient missed the scheduled CT of the chest abdomen and pelvis with contrast. I talked with her that we will reschedule the scans. Patient has tolerated the anastrozole and Ibrance exceptionally well. Upon reviewing of the lab results from 09/22/2021, CBC is adequate. However the CMP showed hypercalcemia as well as increased total protein levels. The hypercalcemia most likely is related to her metastatic breast cancer. The exact etiology of increased total protein level is not clear. I talked with her that she I am recommending we consider starting treatment with Xgeva or Zometa. 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 I instructed the patient to visit her dentist to obtain written clearance. As far as the high protein level is concerned, when she comes back I will check protein electrophoresis. Plan: Reschedule CT chest abdomen and pelvis with contrast Reschedule Bone whole-body scan Continue Anastrozole 1 mg daily, Continue Ibrance 125 mg on days 1-21, every 28 days. Dental clearance for Xgeva/Zometa Return to clinic in 1 month for follow-up visit, CBC, CMP, 25(OH)D, SPEP w/reflex Call for any concerns or questions. (2) Pain, cancer Right hip pain has improved significantly. Will continue Oxycodone 5 mg q12h prn.
--- NOTE | 2021-09-24 11:49 | ONC.SCHED ---
Left VM for patient to schedule one month fup with labs prior. I also asked that she call our radiology dept. as per Sun she did not get her scans done. I let patient know we need scans done before the one month fup.
--- NOTE | 2021-10-06 16:21 | PC.NURSE ---
Addendum entered by Marcelle Styles R.N. 10/08/21 14:59: Dr. Jerez aware of below note and agreeable. Original Note: IBRANCE LABS: PER DR JEREZ PATIENT TO HAVE LABS DONE ON DAY 28. THIS SCHEDULING NOT POSSIBLE FOR PATIENT SHE WILL HAVE CBC/CMP DONE ON DAY 25 OR DAY 26 OF HER IBRANCE CYCLES AND WILL CALL IN TO CHECK THE ANC WITH A NURSE BEFORE PROCEEDING WITH HER NEXT CYCLE OF IBRANCE. THIS NURSE COMPLETED A CALENDAR IN THE EMR FOR THE PATIENT THROUGH JANUARY AND SET A COPY TO PATIENT. PATIENT WAS INFORMED BY PHONE AND VOICED UNDERSTANDING. DR JERZE INFORMED PER THIS NOTE AND REQUESTED TO VERIFY THAT THIS WILL BE ADEQUATE.
--- NOTE | 2021-10-14 15:41 | PC.NURSE ---
IBRANCE/D28 LABS: PATIENT DID NOT HAVE LABS DRAWN MENTIONED IN PREVIOUS NOTE. THIS NURSE ATTEMPTED TO REACH PATIENT THIS AM. NO RESPONSE BY 15:45, SECOND ATTEMPT RESULTED IN NO ANSWER FROM PATIENT.
--- NOTE | 2021-10-23 11:19 | ONC.SCHED ---
Completed [place] Prior Authorization/Medication Exception Request Form for Ibrance authorization that expires 10/29/21. Spoke with Chantale Hunt prior to faxing. She confirmed that this is the correct form to use, no signature is needed as the drug is not an opioid, marking it URGENT is appropriate as it expires so soon. Faxed and scanned.
--- NOTE | 2021-10-23 13:47 | ONC.SCHED ---
LABS/FUP - called patient when I noticed that her follow-up was scheduled before her bone scan. When I mentioned the bone scan was scheduled for the day after her appointment, she said that she had planned to call to reschedule. I said we should get her rescheduled right away as his schedule is very tight. She informed me that she hasn't been able to get to the dentist as Dr. Mccray has recommended. She said there is only one dentist that she can go to due to financial concerns and that's a free dentist. She said she has called them twice and hasn't ever been able to get through or get a call back. I suggested she try each morning right when they open until she gets someone. When I asked if she'd done labs recently, she stated that she had meant to do them but she forgot. I rescheduled her follow-up to 11/12/21 and asked her to please do labs on the same day as her bone scan on 11/03/21 as she'll already be at the hospital. She agreed to do this. Patient stated that she has gone an entire year with no income and that she needs to watch her pennies and nickels. It seems that she may need some additional support, so I will inform our PAPER SORTER with this note to see if she might be able to assist in any way.
--- NOTE | 2021-10-26 13:46 | ONC.SCHED ---
Received Ibrance authorization by fax. Entered in ARM and scanned. Provided to triage in case they need to do anything.
[2021-11-07 13:14] LABS: Add Manual Diff / Slide Review NO; Basophils Absolute Auto 0 /uL (0-100); Basophils Percent Auto 0.5 % (0-2); Eosinophils Absolute Auto 0 /uL (0-450); Eosinophils Percent Auto 0.7 % (2-4); Hemoglobin 13.4 g/dL (12.0-16.0); Lymphocytes Absolute Auto 1100 /uL (1100-4500); Lymphocytes Percent Auto 37.2 % (25-40); Mean Corpuscular HGB Conc 34.4 % (30-36); Mean Corpuscular Hemoglobin 35.8 PG (26-34); Monocytes Absolute Auto 500 /uL (0-900); Monocytes Percent Auto 15.8 % (3-14); Neutrophils Absolute Auto 1300 /uL (1500-7000); Neutrophils Percent Auto 45.8 % (50-75); Platelet Count 210 X10^3/uL (150-400); Red Blood Cell Count 3.75 X10^6/uL (4.0-5.2); Red Cell Distribution Width 16.4 % (11.6-14.8); White Blood Cell Count 2.8 X10^3/uL (4.5-11.0)
[2021-11-07 13:16] LABS: Alanine Aminotransferase 14 IU/L (<35); Albumin 4.7 g/dL (3.5-5.0); Albumin Globulin Ratio 1.7 (1.0-2.8); Alkaline Phosphatase 82 U/L (38-126); Aspartate Aminotransferase 25 IU/L (14-36); BUN Creatinine Ratio 20.6 (6-22); Bilirubin Total 0.4 mg/dL (0.2-1.3); Blood Urea Nitrogen 13 mg/dL (7-17); Calcium 9.6 mg/dL (8.4-10.2); Carbon Dioxide 30 mmol/L (22-32); Chloride 101 mmol/L (98-107); Estimated Glomerular Filt Rate > 60 mL/min (>60); Globulin 2.8 g/dL (1.7-4.1); Glucose 124 mg/dL (70-100); HEMOLYSIS < 15 (0-50); Potassium 4.2 mmol/L (3.4-5.1); Sodium 137 mmol/L (137-145); Total Protein 7.5 g/dL (6.3-8.2)
--- NOTE | 2021-11-12 11:02 | P.PNONC_ITS ---
PN -Subjective - Date of Visit Date of visit: 11/13/21 Chief Complaint: Ruby is a 51-year-old female with metastatic recurrent hormone receptor-positive breast cancer Interval history: Ruby is now taking anastrozole 1 mg once a day, and Ibrance 125 mg once a day 3 weeks on and 1 week off. On 10/23/2021, patient underwent CT of the chest abdomen and pelvis that showed diffuse osteoblastic metastatic disease. There is a pathologic T7 wedge-shaped compression fracture without retropulsed fracture fragment. MR follow-up is recommended. It also showed chronic appearing left-sided hydronephrosis and hydroureter associated with left renal atrophy which is new compared to 2014 study. Distal ureter caliber change without obvious obstruction lesion noted. The scan showed sigmoid and left colon wall thickening and underlying diverticulosis. Direct visualization is recommended. Patient said that she has no symptoms and she denies any back pain. She denies any numbness or tingling of the hands or feet. Hematological and oncological history Ruby Rooney is a 51 year old female with remote history of right sided hormone receptor positive, HER2 negative breast cancer status post mastectomy, adjuvant chemotherapy, and adjuvant radiation therapy. She completed only couple of months of endocrine therapy before she stopped due to lack of insurance per patient. About in 09/2020, Ruby noted subcutaneous skin nodules first at the left lower lateral flank area, later left upper back, left upper shoulder, right upper back and posterior left neck. Then, in 01/2021, she all of a sudden noticed multiple nodules in the left axilla and left breast that prompted her to see her primary care provider Dr. Louie Schulte on 03/05/2021. The patient proceeded with left breast diagnostic mammogram on 03/27/2021 that showed new 1.4 cm irregular asymmetry in the left breast at 0100 posterior depth and new 8 mm round asymmetry in the left breast posterior depth, and new equal density asymmetry in the left breast posterior depth superior region. Same day ultrasound showed 1.4 cm irregular mass in the left breast at 0200 middle depth, 2.8 cm oval mass in the left breast at 0300 posterior depth, 2.1 cm oval mass in the left breast at 0100 middle depth, 1.4 x 1.2 x 1.4 cm oval mass in the left axillary tail highly suspicious for breast cancer. On 04/07/2021, patient said that she stood up and felt a snap in her right hip and broke it. She fell back in her couch and she thought it was muscular and stayed in the couch all night until the next day she called her friends and she was brought to the [facility] Emergency Room. X-ray showed angulated mildly comminuted fracture of the mid femoral shaft, and MR right femur wo/w cont showed pathologic fracture of hte mid femoral shaft with angulation and mild comminution. It also showed diffuse osseous metastatic disease involving the right femur and included portions of the pelvi CT CAP w/contrast on 04/08/2021 showed moderate to severe left-sided hydronephrosis, hydroureter and delayed nephrogram with a transition point in the distal ureter at the level of the left adnexa, with an ill-defined region of hyperattenuation along the distal ureter at this point. The scan also showed multiple mixed lytic and sclerotic lesions involving proximal femurs, the right ischium, right obturator ring, bilateral iliac wings, sacrum, sternum and left scapula, almost every vertebral level, multiple bilateral ribs with subacute healing fractures, and prominent compression deformity/pathologic fracture of T7 with approximately 50% height loss and mild effacement along the ventral thecal sac. The scan showed scattered solid and semisolid subcentimeter pulmonary nodules, and small right pleural effusion without definite pleural thickening or mass lesion, ill-defined hyperenhancing soft tissue within the left breast measuring up to 1.7 x 1.1 cm, multiple enlarged soft tissue nodules and lymph nodes (for example, in the left axilla measuring up to 1.4 cm, left anterior chest wall measuring up to 1.0 cm and left posterior-lateral chest wall measuring up to 0.7 cm), few scattered soft tissue nodules throughout the abdominal wall (for example along midline measuring 1.2 cm). Urology was consulted while the patient was in the [facility]. Ureteral stent or percutaneous nephrostomy tube were discussed with patient. Given that she was asymptomatic without signs of declining kidney function or infection, urgent intervention was deferred. On 04/09/2021, Dr. Fuller, Marc Flor MD performed open biopsy of the lesion at the pathologic fracture of the right femur, medullary nailing pathologic right femoral shaft fracture, and prophylactic fixation of right femoral neck. Pathology from the right femur showed metastatic carcinoma consistent with spread from patient's reported breast primary. The bio-marker testing showed estrogen receptor positive, 91-100% with nuclear positivity, strong signal. Progesterone receptor was positive with 91-100% of cells with nuclear positivity and strong signal. HER2 by in-situ hybridization was negative. On 04/15/2021, Dr. Naomi MD performed Prophylactic intramedullary nail of right humerus fracture because of pathologic lesion in the right humerus with impending fracture. On 04/28/2021, she started taking anastrozole 1 mg once a day. And on 05/04/2021, patient started Ibrance 125 mg once a day 3 weeks on and 1 week off. [facility] Hereditary Cancer Update test showed no clinically significant mutation identified. - Patient Self-Reported Symptoms SR Constitution: Fatigue/Malaise SR Musculoskeletal issues: Muscle pain or cramps - ROS All Systems: reviewed and no additional remarkable complaints except as stated Home Medications and Allergies Home Medications Medication Instructions Recorded Confirmed Type acetaminophen 325 mg capsule 650 mg PO Q4H PRN 04/28/21 11/12/21 History (Tylenol) palbociclib 125 mg tablet (Ibrance) 125 mg PO DAILY #21 tab 04/28/21 11/12/21 Rx metoprolol succinate 50 mg 50 mg PO DAILY #90 tab 05/19/21 11/12/21 Rx tablet,extended release 24 hr anastrozole 1 mg tablet 1 mg PO DAILY #90 tab 08/17/21 11/12/21 Rx oxycodone 5 mg tablet 5 mg PO Q12H PRN #60 tab 08/17/21 11/12/21 Rx bupropion HCl 100 mg tablet,12 hr 100 mg PO DAILY #90 ea 11/12/21 Rx sustained-release Allergies Allergy/AdvReac Type Severity Reaction Status Date / Time No Known Drug Allergies Allergy Verified 04/07/21 10:15 Exam Vital signs: 11/12/21 11:25 Last Vital Signs Temp 97.4 F L 11/12/21 11:08 Pulse 113 H 11/12/21 11:08 Resp 18 11/12/21 11:08 BP 189/126 H 11/12/21 11:08 Pulse Ox 96 11/12/21 11:08 Narrative: She appears comfortable, pleasant and cooperative. Results - Labs Laboratory Last Values WBC 2.8 X10^3/uL (4.5-11.0) L 11/07/21 12:48 RBC 3.75 X10^6/uL (4.0-5.2) L 11/07/21 12:48 Hgb 13.4 g/dL (12.0-16.0) 11/07/21 12:48 Hct 39.0 % (36-46) 11/07/21 12:48 MCV 104.0 fL (80-100) H 11/07/21 12:48 MCH 35.8 PG (26-34) H 11/07/21 12:48 MCHC 34.4 % (30-36) 11/07/21 12:48 RDW 16.4 % (11.6-14.8) H 11/07/21 12:48 Plt Count 210 X10^3/uL (150-400) 11/07/21 12:48 Neut % (Auto) 45.8 % (50-75) L 11/07/21 12:48 Lymph % (Auto) 37.2 % (25-40) 11/07/21 12:48 [place] % (Auto) 15.8 % (3-14) H 11/07/21 12:48 Eos % (Auto) 0.7 % (2-4) L 11/07/21 12:48 Baso % (Auto) 0.5 % (0-2) 11/07/21 12:48 Neut # (Auto) 1300 /uL (2000-1805) L 11/07/21 12:48 Lymph # (Auto) 1100 /uL (5136-7867) 11/07/21 12:48 [place] # (Auto) 500 /uL (0-900) 11/07/21 12:48 Eos # (Auto) 0 /uL (0-450) 11/07/21 12:48 Baso # (Auto) 0 /uL (0-100) 11/07/21 12:48 RBC Morphology See below 06/26/21 12:06 Anisocytosis 1+ H 06/26/21 12:06 Sodium 137 mmol/L (137-145) 11/07/21 12:48 Potassium 4.2 mmol/L (3.4-5.1) 11/07/21 12:48 Chloride 101 mmol/L (98-107) 11/07/21 12:48 Carbon Dioxide 30 mmol/L (22-32) 11/07/21 12:48 BUN 13 mg/dL (7-17) 11/07/21 12:48 Creatinine 0.63 mg/dL (0.52-1.04) 11/07/21 12:48 Estimated GFR > 60 mL/min (>60) 11/07/21 12:48 BUN/Creatinine Ratio 20.6 (6-22) 11/07/21 12:48 Glucose 124 mg/dL (70-100) H 11/07/21 12:48 Calcium 9.6 mg/dL (8.4-10.2) 11/07/21 12:48 Total Bilirubin 0.4 mg/dL (0.2-1.3) 11/07/21 12:48 AST 25 IU/L (14-36) 11/07/21 12:48 ALT 14 IU/L (<35) 11/07/21 12:48 Alkaline Phosphatase 82 U/L (38-126) 11/07/21 12:48 Total Protein 7.5 g/dL (6.3-8.2) 11/07/21 12:48 Albumin 4.7 g/dL (3.5-5.0) 11/07/21 12:48 Globulin 2.8 g/dL (1.7-4.1) 11/07/21 12:48 Albumin/Globulin Ratio 1.7 (1.0-2.8) 11/07/21 12:48 - Imaging Additional studies: Procedures Excision of axillary lymph node (09/20/13) Incision with removal of foreign body or device from skin and subcutaneous tissue (03/21/14) Insertion of totally implantable vascular access device [VAD] (11/22/13) Subtotal mastectomy (09/20/13) Unilateral simple mastectomy (11/22/13) Assessment and Plan (1) Metastatic breast cancer Ruby is a 51-year-old female with remote history of right breast cancer, ER+, ND+, HER2-, T2, N1, M0, s/p mastectomy (11/22/2013) followed by adjuvant chem otherapy (TC) and radiation. She was subsequently started on Lupron and letrozole in Aug 2014, but she stopped both of them in November 2014 due to occurrence of depression. In late 2020, she presented with widely metastatic ER+, ND+, HER2-, breast cancer involving left breast, left axilla, chest wall and abdominal wall, and multiple bones. Patient underwent open biopsy and fixation of pathological fracture of the right femur (04/08/2021); and prophylactic intramedullary nail of right humerus for impending fracture (04/15/2021). The open biopsy confirmed the diagnosis of ER+, ND+, HER2-, breast cancer. Genomic study: My Risk genetic study was negative for clinically significant mutations. Patient was started on anastrozole on 04/28/2021. She started Ibrance on 05/04/2021. Discussion Today, I reviewed the CT of the chest abdomen and pelvis (10/23/2021) with the patient. I talked with her that there is no new metastasis except known sclerotic diffuse bone metastasis. There is a T7 compression fracture. Clinically patient does not have any symptoms related to the compression fracture. Based on our radiologist recommendation, I will obtain MRI of the thoracic spine to evaluate possible spinal cord impingement. Today I also reviewed the lab results with the patient. CBC and CMP are unremarkable. The previously noted high protein level has decreased to within the normal range. During her previous visit, I ordered bone scan but she has not got it done yet I talked with the patient that I again recommended bone scan, and in addition I talked with her about importance of dental clearance for Xgeva/Zometa. Plan: Bone whole-body scan Dental clearance for Xgeva/Zometa Continue Anastrozole 1 mg daily, Continue Ibrance 125 mg on days 1-21, every 28 days. MR thoracic spine with and without contrast RTC in 1 month for follow-up visit Call for any concerns or questions. (2) Pain, cancer Right hip pain has improved significantly. Will continue Oxycodone 5 mg q12h prn.
[2021-11-12 11:08] VITALS: BP 189/126; PULSE 113; RESP 18; TEMP 36.3; O2SAT 96
--- NOTE | 2021-11-12 15:01 | ONC.SCHED ---
Patient's NM Bone scan is now re-scheduled for 11/20/21; since she didn't have the other one the original auth was used. Check in time was given to patient: 9:10 AM check in with a return apt. at 12:30 PM. Patient said she is trying to find a dentist for clearance for Xgeva/Zometa but said she doesn't have insurance or a current dentist but will work on getting that going. This appointment scheduler is working on the MRI/auth with one month fup that I will likely have to pass to Shelia as I will be out of the office starting next week.
--- NOTE | 2021-11-18 11:39 | ONC.SCHED ---
Left message for patient to call DI to get her MRI scheduled (it is approved). Requested she either have DI transfer to us for scheduling follow-up appointment. If that doesn't work, requested she please call as soon as she has been scheduled for the MRI so that we may schedule her follow-up (due about 12/14/21).
--- NOTE | 2021-11-20 11:09 | ONC.SCHED ---
Left another message for patient to please call DI to get MRI scheduled and call us when she has an appointment so we can schedule follow-up.
--- NOTE | 2021-11-27 10:43 | ONC.SCHED ---
Left direct message for patient stating that I had left two previous messages regarding the MRI. I told the patient that we worked to obtain an authorization for the MRI and that the authorization has an expiration date. I asked that she call DI today (number provided) to get scheduled. I also asked that she call us (number provided) to let us know the date so we can schedule the follow-up with Dr. Mccray. I told her that Dr. Mccray's schedule is extremely full and that we will work to get her a follow-up appointment as soon as she informs us that the MRI is scheduled. Finally, I told her that I hoped she would be able to accomplish this today.
--- NOTE | 2021-12-03 15:33 | ONC.SCHED ---
Patient left message asking to get an appointment scheduled with Dr. Mccray. I called her back and asked if she had scheduled the MRI. She had not. I advised her that once the MRI is scheduled, we can schedule a follow-up appointment for after the MRI. She had a question about labs and I gave her the dates for which Dr. Mccray had ordered labs. I transferred her to to get the MRI scheduled.
[2021-12-05 12:26] LABS: Add Manual Diff / Slide Review NO; Basophils Absolute Auto 0 /uL (0-100); Basophils Percent Auto 0.5 % (0-2); Eosinophils Absolute Auto 0 /uL (0-450); Eosinophils Percent Auto 1.2 % (2-4); Hematocrit 39.5 % (36-46); Hemoglobin 13.7 g/dL (12.0-16.0); Lymphocytes Absolute Auto 1000 /uL (1100-4500); Lymphocytes Percent Auto 37.2 % (25-40); Mean Corpuscular HGB Conc 34.7 % (30-36); Mean Corpuscular Hemoglobin 36.3 PG (26-34); Mean Corpuscular Volume 104.5 fL (80-100); Monocytes Absolute Auto 400 /uL (0-900); Neutrophils Absolute Auto 1300 /uL (1500-7000); Neutrophils Percent Auto 46.1 % (50-75); Platelet Count 209 X10^3/uL (150-400); Red Blood Cell Count 3.78 X10^6/uL (4.0-5.2); Red Cell Distribution Width 14.5 % (11.6-14.8); White Blood Cell Count 2.8 X10^3/uL (4.5-11.0)
[2021-12-05 12:39] LABS: Alanine Aminotransferase 34 IU/L (<35); Albumin 4.7 g/dL (3.5-5.0); Albumin Globulin Ratio 1.7 (1.0-2.8); Alkaline Phosphatase 81 U/L (38-126); Aspartate Aminotransferase 38 IU/L (14-36); BUN Creatinine Ratio 15.6 (6-22); Bilirubin Total 0.3 mg/dL (0.2-1.3); Blood Urea Nitrogen 10 mg/dL (7-17); Calcium 9.7 mg/dL (8.4-10.2); Carbon Dioxide 33 mmol/L (22-32); Chloride 98 mmol/L (98-107); Estimated Glomerular Filt Rate > 60 mL/min (>60); Globulin 2.8 g/dL (1.7-4.1); Glucose 120 mg/dL (70-100); HEMOLYSIS 23 (0-50); Potassium 5.1 mmol/L (3.4-5.1); Sodium 135 mmol/L (137-145); Total Protein 7.5 g/dL (6.3-8.2)
[2021-12-05 13:24] LABS: Vitamin D 25 Hydroxy (D3) 32.2 ng/mL (30.0-100.0)
[2021-12-08 14:49] LABS: Albumin 3.8 g/dL (2.9-4.4); Alpha 1 Globulin 0.4 g/dL (0.0-0.4); Alpha 2 Globulin 0.9 g/dL (0.4-1.0); Beta 1 Globulin 0.9 g/dL (0.7-1.3); Gamma Globulin 0.7 g/dL (0.4-1.8); Protein, Total 6.6 g/dL (6.0-8.5)
--- NOTE | 2021-12-16 15:51 | ONC.SCHED ---
MRI: Pt called and asked to be scheduled. She has not done the MRI, and transferred her to scheduling in order to get the MRI scheduled. She was scheduled on 12/12 for an MRI but no showed the appointment. Asked patient to call after the MRI is completed in order to schedule an appointment with Dr. Mccray.
[2022-01-28 13:49] VITALS: BP 182/103; PULSE 64; RESP 16; TEMP 36.2; O2SAT 98
--- NOTE | 2022-01-28 13:55 | ONC.PN ---
PN -Subjective - Date of Visit Date of visit: 01/28/22 Chief Complaint: Ruby is a 51-year-old female with metastatic recurrent hormone receptor-positive breast cancer Interval history: Ruby is now taking anastrozole 1 mg once a day, and Ibrance 125 mg once a day 3 weeks on and 1 week off. On 10/23/2021, patient underwent CT of the chest abdomen and pelvis that showed diffuse osteoblastic metastatic disease. There is a pathologic T7 wedge-shaped compression fracture without retropulsed fracture fragment. MR follow-up is recommended. It also showed chronic appearing left-sided hydronephrosis and hydroureter associated with left renal atrophy which is new compared to 2014 study. Distal ureter caliber change without obvious obstruction lesion noted. The scan showed sigmoid and left colon wall thickening and underlying diverticulosis. Direct visualization is recommended. On 11/23/2021, patient underwent bone scan that showed wide spread osseous metastatic disease involving the skull, sternum, cervical, thoracic spine and lumbar spine, sacrum, left scapula, bony pelvis bilaterally, him Chantale bilaterally, femurs bilaterally, possible proximal and distal right tibia, and possible distal left fibula. There is mild left renal pelviectasis. On 12/22/2021, patient underwent MR thoracic spine without and with contrast that showed multiple level enhancing bony metastasis with a stable compression deformity at T7 and no cord signal abnormality or deformity of the cord. No epidural mass lesions. Patient said that she has no symptoms and she denies any back pain. She denies any numbness or tingling of the hands or feet. She denies any fever or chills. She denies any sore throat, no shortness of breath no chest pain. No abdominal pain, no diarrhea or constipation. Hematological and oncological history Ruby Rooney is a 51 year old female with remote history of right sided hormone receptor positive, HER2 negative breast cancer status post mastectomy, adjuvant chemotherapy, and adjuvant radiation therapy. She completed only couple of months of endocrine therapy before she stopped due to lack of insurance per patient. About in 09/2020, Ruby noted subcutaneous skin nodules first at the left lower lateral flank area, later left upper back, left upper shoulder, right upper back and posterior left neck. Then, in 01/2021, she all of a sudden noticed multiple nodules in the left axilla and left breast that prompted her to see her primary care provider Dr. Louie Schulte on 03/05/2021. The patient proceeded with left breast diagnostic mammogram on 03/27/2021 that showed new 1.4 cm irregular asymmetry in the left breast at 0100 posterior depth and new 8 mm round asymmetry in the left breast posterior depth, and new equal density asymmetry in the left breast posterior depth superior region. Same day ultrasound showed 1.4 cm irregular mass in the left breast at 0200 middle depth, 2.8 cm oval mass in the left breast at 0300 posterior depth, 2.1 cm oval mass in the left breast at 0100 middle depth, 1.4 x 1.2 x 1.4 cm oval mass in the left axillary tail highly suspicious for breast cancer. On 04/07/2021, patient said that she stood up and felt a snap in her right hip and broke it. She fell back in her couch and she thought it was muscular and stayed in the couch all night until the next day she called her friends and she was brought to the [facility] Emergency Room. X-ray showed angulated mildly comminuted fracture of the mid femoral shaft, and MR right femur wo/w cont showed pathologic fracture of hte mid femoral shaft with angulation and mild comminution. It also showed diffuse osseous metastatic disease involving the right femur and included portions of the pelvi CT CAP w/contrast on 04/08/2021 showed moderate to severe left-sided hydronephrosis, hydroureter and delayed nephrogram with a transition point in the distal ureter at the level of the left adnexa, with an ill-defined region of hyperattenuation along the distal ureter at this point. The scan also showed multiple mixed lytic and sclerotic lesions involving proximal femurs, the right ischium, right obturator ring, bilateral iliac wings, sacrum, sternum and left scapula, almost every vertebral level, multiple bilateral ribs with subacute healing fractures, and prominent compression deformity/pathologic fracture of T7 with approximately 50% height loss and mild effacement along the ventral thecal sac. The scan showed scattered solid and semisolid subcentimeter pulmonary nodules, and small right pleural effusion without definite pleural thickening or mass lesion, ill-defined hyperenhancing soft tissue within the left breast measuring up to 1.7 x 1.1 cm, multiple enlarged soft tissue nodules and lymph nodes (for example, in the left axilla measuring up to 1.4 cm, left anterior chest wall measuring up to 1.0 cm and left posterior-lateral chest wall measuring up to 0.7 cm), few scattered soft tissue nodules throughout the abdominal wall (for example along midline measuring 1.2 cm). [place]rology [place] [facility] [place] Ureteral stent or percutaneous nephrostomy tube were discussed with patient. Given that she was asymptomatic without signs of declining kidney function or infection, urgent intervention was deferred. On 04/09/2021, Dr. Fuller, Marc Flor MD performed open biopsy of the lesion at the pathologic fracture of the right femur, medullary nailing pathologic right femoral shaft fracture, and prophylactic fixation of right femoral neck. Pathology from the right femur showed metastatic carcinoma consistent with spread from patient's reported breast primary. The bio-marker testing showed estrogen receptor positive, 91-100% with nuclear positivity, strong signal. Progesterone receptor was positive with 91-100% of cells with nuclear positivity and strong signal. HER2 by in-situ hybridization was negative. On 04/15/2021, Dr. Naomi MD performed Prophylactic intramedullary nail of right humerus fracture because of pathologic lesion in the right humerus with impending fracture. On 04/28/2021, she started taking anastrozole 1 mg once a day. And on 05/04/2021, patient started Ibrance 125 mg once a day 3 weeks on and 1 week off. [facility]reditary Cancer Update test showed no clinically significant mutation identified. - Patient Self-Reported Symptoms SR Constitution: Fatigue/Malaise SR Musculoskeletal issues: Muscle pain or cramps Home Medications and Allergies Home Medications Medication Instructions Recorded Confirmed Type acetaminophen 325 mg capsule 650 mg PO Q4H PRN Pain (Scale 04/28/21 01/28/22 History (Tylenol) Score 4-6) palbociclib 125 mg tablet (Ibrance) 125 mg PO DAILY #21 tabs 04/28/21 01/28/22 Rx anastrozole 1 mg tablet 1 mg PO DAILY breast cancer #90 08/17/21 01/28/22 Rx tabs oxycodone 5 mg tablet 5 mg PO Q12H PRN cancer pain #60 08/17/21 01/28/22 Rx tabs bupropion HCl 100 mg tablet,12 hr 100 mg PO DAILY #90 ea 11/12/21 01/28/22 Rx sustained-release losartan 50 mg tablet 50 mg PO DAILY #90 tabs 11/13/21 01/28/22 Rx metoprolol succinate 100 mg 100 mg PO BID #180 tabs 11/13/21 01/28/22 Rx tablet,extended release 24 hr Allergies Allergy/AdvReac Type Severity Reaction Status Date / Time No Known Drug Allergies Allergy Verified 04/07/21 10:15 Exam Vital signs: Last Vital Signs Temp 97.1 F L 01/28/22 13:49 Pulse 64 01/28/22 13:49 Resp 16 01/28/22 13:49 BP 182/103 H 01/28/22 13:49 Pulse Ox 98 01/28/22 13:49 - Constitutional positive no acute distress, positive thin, positive cooperative - Routine HEENT Exam Head: Present: normocephalic, atraumatic Eye: Present: EOMI, PERRL, normal accommodation - Routine Neck Exam Present: supple. Absent: lymphadenopathy, thyromegaly - Routine Chest/Breast/Axilla Exam Axillae: Absent: lymphadenopathy - Routine Respiratory Exam Present: Clear to auscultation bilaterally. Absent: wheezes - Routine Cardiovascular Exam Present: RRR, S1, S2. Absent: murmur, gallop, rubs - Routine Abdominal Exam Present: soft. Absent: tenderness, distended, organomegaly - Routine Extremities Exam Absent: edema - Routine Neurological Exam Present: alert, oriented X3, CN II-XII intact. Absent: sensory deficit, motor deficit - Routine Psychiatric Exam Present: normal affect Results - Labs Laboratory Last Values WBC 2.8 X10^3/uL (4.5-11.0) L 12/05/21 12:18 RBC 3.78 X10^6/uL (4.0-5.2) L 12/05/21 12:18 Hgb 13.7 g/dL (12.0-16.0) 12/05/21 12:18 Hct 39.5 % (36-46) 12/05/21 12:18 MCV 104.5 fL (80-100) H 12/05/21 12:18 MCH 36.3 PG (26-34) H 12/05/21 12:18 MCHC 34.7 % (30-36) 12/05/21 12:18 RDW 14.5 % (11.6-14.8) 12/05/21 12:18 Plt Count 209 X10^3/uL (150-400) 12/05/21 12:18 Neut % (Auto) 46.1 % (50-75) L 12/05/21 12:18 Lymph % (Auto) 37.2 % (25-40) 12/05/21 12:18 Fergus % (Auto) 15.0 % (3-14) H 12/05/21 12:18 Eos % (Auto) 1.2 % (2-4) L 12/05/21 12:18 Baso % (Auto) 0.5 % (0-2) 12/05/21 12:18 Neut # (Auto) 1300 /uL (7438-7954) L 12/05/21 12:18 Lymph # (Auto) 1000 /uL (6170-5815) L 12/05/21 12:18 Fergus # (Auto) 400 /uL (0-900) 12/05/21 12:18 Eos # (Auto) 0 /uL (0-450) 12/05/21 12:18 Baso # (Auto) 0 /uL (0-100) 12/05/21 12:18 RBC Morphology See below 06/26/21 12:06 Anisocytosis 1+ H 06/26/21 12:06 Sodium 135 mmol/L (137-145) L 12/05/21 12:18 Potassium 5.1 mmol/L (3.4-5.1) 12/05/21 12:18 Chloride 98 mmol/L (98-107) 12/05/21 12:18 Carbon Dioxide 33 mmol/L (22-32) H 12/05/21 12:18 BUN 10 mg/dL (7-17) 12/05/21 12:18 Creatinine 0.64 mg/dL (0.52-1.04) 12/05/21 12:18 Estimated GFR > 60 mL/min (>60) 12/05/21 12:18 BUN/Creatinine Ratio 15.6 (6-22) 12/05/21 12:18 Glucose 120 mg/dL (70-100) H 12/05/21 12:18 Calcium 9.7 mg/dL (8.4-10.2) 12/05/21 12:18 Total Bilirubin 0.3 mg/dL (0.2-1.3) 12/05/21 12:18 AST 38 IU/L (14-36) H 12/05/21 12:18 ALT 34 IU/L (<35) 12/05/21 12:18 Alkaline Phosphatase 81 U/L (38-126) 12/05/21 12:18 Prot Electrophor PDF Not Reportable 12/05/21 12:18 Serum Total Protein 6.6 g/dL (6.0-8.5) 12/05/21 12:18 Total Protein 7.5 g/dL (6.3-8.2) 12/05/21 12:18 Albumin 3.8 g/dL (2.9-4.4) 12/05/21 12:18 Albumin 4.7 g/dL (3.5-5.0) 12/05/21 12:18 Globulin 2.8 g/dL (1.7-4.1) 12/05/21 12:18 Albumin/Globulin Ratio 1.4 (0.7-1.7) 12/05/21 12:18 Albumin/Globulin Ratio 1.7 (1.0-2.8) 12/05/21 12:18 Wesex-4-Bchuscsjx 0.4 g/dL (0.0-0.4) 12/05/21 12:18 Ckctf-8-Vnbbzribh 0.9 g/dL (0.4-1.0) 12/05/21 12:18 Afqj-8-Ynxwstsf 0.9 g/dL (0.7-1.3) 12/05/21 12:18 Gamma Globulins 0.7 g/dL (0.4-1.8) 12/05/21 12:18 Gamma Glob/Tot Protein 2.8 g/dL (2.2-3.9) 12/05/21 12:18 PEP Comment Comment (.) 12/05/21 12:18 PEP Comment 4c Comment (.) 12/05/21 12:18 25-OH Vitamin D Total 32.2 ng/mL (30.0-100.0) 12/05/21 12:18 LAVELL M-Braulio Not observed g/dL (Not Observed) 12/05/21 12:18 - Imaging Additional studies: Procedures Excision of axillary lymph node (09/20/13) Incision with removal of foreign body or device from skin and subcutaneous tissue (03/21/14) Insertion of totally implantable vascular access device [VAD] (11/22/13) Subtotal mastectomy (09/20/13) Unilateral simple mastectomy (11/22/13) Assessment and Plan (1) Metastatic breast cancer Ruby is a 51-year-old female with remote history of right breast cancer, ER+, TN+, HER2-, T2, N1, M0, s/p mastectomy (11/22/2013) followed by adjuvant chemotherapy (TC) and radiation. She was subsequently started on Lupron and letrozole in Aug 2014, but she stopped both of them in November 2014 due to occurrence of depression. In late 2020, she presented with widely metastatic ER+, TN+, HER2-, breast cancer involving left breast, left axilla, chest wall and abdominal wall, and multiple bones. Patient underwent open biopsy and fixation of pathological fracture of the right femur (04/08/2021); and prophylactic intramedullary nail of right humerus for impending fracture (04/15/2021). The open biopsy confirmed the diagnosis of ER+, TN+, HER2-, breast cancer. Genomic study: My Risk genetic study was negative for clinically significant mutations. Patient was started on anastrozole on 04/28/2021. She started Ibrance on 05/04/2021. Discussion Today, I reviewed the MRI of the thoracic spine results with the patient. I talked with her that there is no evidence of cord compression. I also reviewed the bone scan results. I told her that it showed extensive bone metastasis. Patient said that she saw the dentist, but was referred to another dental surgeon for evaluation of ?degenerative right jaw bone?. No clearance as yet. At present, I will temporarily hold initiation of Xgeva/Zometa. Plan: Continue Anastrozole 1 mg daily, Continue Ibrance 125 mg on days 1-21, every 28 days. RTC in 2 month for follow-up visit, CBC, CMP Call for any concerns or questions. (2) Pain, cancer Right hip pain has improved significantly. Will continue Oxycodone 5 mg q12h prn.
--- NOTE | 2022-01-28 14:23 | ONC.SCHED ---
Per Isabel patient will call us to schedule.
--- NOTE | 2022-03-22 16:10 | PC.NURSE ---
THALIA PA: THIS NURSE RECEIVED MESSAGE FROM [facility] THAT PA FOR PATIENT WILL BE EXPIRING. THIS NURSE INFORMED DIRECTOR OF STATE AJ WHO WILL LOOK INTO IT.
--- NOTE | 2022-04-15 12:13 | ONC.SCHED ---
Called and left a voicemail for patient to reschedule her appointment. Time change needs to be confirmed. Scanned updated/limited patient intake form into system.
[2022-05-11 14:53] LABS: Add Manual Diff / Slide Review NO; Basophils Absolute Auto 0 /uL (0-100); Eosinophils Absolute Auto 0 /uL (0-450); Eosinophils Percent Auto 0.9 % (2-4); Hematocrit 37.6 % (36-46); Hemoglobin 12.8 g/dL (12.0-16.0); Lymphocytes Absolute Auto 900 /uL (1100-4500); Lymphocytes Percent Auto 32.7 % (25-40); Mean Corpuscular Hemoglobin 36.4 PG (26-34); Mean Corpuscular Volume 107.1 fL (80-100); Monocytes Absolute Auto 300 /uL (0-900); Monocytes Percent Auto 11.6 % (3-14); Neutrophils Absolute Auto 1400 /uL (1500-7000); Neutrophils Percent Auto 53.8 % (50-75); Platelet Count 315 X10^3/uL (150-400); Red Blood Cell Count 3.51 X10^6/uL (4.0-5.2); Red Cell Distribution Width 13.5 % (11.6-14.8); White Blood Cell Count 2.6 X10^3/uL (4.5-11.0)
[2022-05-11 15:15] LABS: Alanine Aminotransferase 12 IU/L (<35); Albumin 4.6 g/dL (3.5-5.0); Albumin Globulin Ratio 1.6 (1.0-2.8); Alkaline Phosphatase 66 U/L (38-126); Aspartate Aminotransferase 19 IU/L (14-36); BUN Creatinine Ratio 28.6 (6-22); Bilirubin Total 0.4 mg/dL (0.2-1.3); Blood Urea Nitrogen 20 mg/dL (7-17); Calcium 9.8 mg/dL (8.4-10.2); Carbon Dioxide 29 mmol/L (22-32); Chloride 96 mmol/L (98-107); Estimated Glomerular Filt Rate > 60 mL/min (>60); Globulin 2.9 g/dL (1.7-4.1); Glucose 122 mg/dL (70-100); HEMOLYSIS < 15 (0-50); Potassium 4.4 mmol/L (3.4-5.1); Sodium 134 mmol/L (137-145); Total Protein 7.5 g/dL (6.3-8.2)
[2022-05-12 14:08] VITALS: BP 141/98; PULSE 74; RESP 18; TEMP 36.2; O2SAT 97
--- NOTE | 2022-05-12 14:20 | ONC.PN ---
PN -Subjective - Date of Visit Date of visit: 05/12/22 Chief Complaint: Ruby is a 51-year-old female with metastatic recurrent hormone receptor-positive breast cancer Interval history: Ruby is now taking anastrozole 1 mg once a day, and Ibrance 125 mg once a day 3 weeks on and 1 week off. She wishes to be seen on Wednesdays so is transferring her care to my clinic on this day from Dr Mccray. Currently she feels well and stable. NO areas of new pain, headaches, weightloss or changes in appetite. On 10/23/2021, patient underwent CT of the chest abdomen and pelvis that showed diffuse osteoblastic metastatic disease. There is a pathologic T7 wedge-shaped compression fracture without retropulsed fracture fragment. MR follow-up is recommended. It also showed chronic appearing left-sided hydronephrosis and hydroureter associated with left renal atrophy which is new compared to 2014 study. Distal ureter caliber change without obvious obstruction lesion noted. The scan showed sigmoid and left colon wall thickening and underlying diverticulosis. Direct visualization is recommended. On 11/23/2021, patient underwent bone scan that showed wide spread osseous metastatic disease involving the skull, sternum, cervical, thoracic spine and lumbar spine, sacrum, left scapula, bony pelvis bilaterally, him Chantale bilaterally, femurs bilaterally, possible proximal and distal right tibia, and possible distal left fibula. There is mild left renal pelviectasis. On 12/22/2021, patient underwent MR thoracic spine without and with contrast that showed multiple level enhancing bony metastasis with a stable compression deformity at T7 and no cord signal abnormality or deformity of the cord. No epidural mass lesions. Patient said that she has no symptoms and she denies any back pain. She denies any numbness or tingling of the hands or feet. She denies any fever or chills. She denies any sore throat, no shortness of breath no chest pain. No abdominal pain, no diarrhea or constipation. Hematological and oncological history Ruby Rooney is a 51 year old female with remote history of right sided hormone receptor positive, HER2 negative breast cancer status post mastectomy, adjuvant chemotherapy, and adjuvant radiation therapy. She completed only couple of months of endocrine therapy before she stopped due to lack of insurance per patient. About in 09/2020, Ruby noted subcutaneous skin nodules first at the left lower lateral flank area, later left upper back, left upper shoulder, right upper back and posterior left neck. Then, in 01/2021, she all of a sudden noticed multiple nodules in the left axilla and left breast that prompted her to see her primary care provider Dr. Louie Schulte on 03/05/2021. The patient proceeded with left breast diagnostic mammogram on 03/27/2021 that showed new 1.4 cm irregular asymmetry in the left breast at 0100 posterior depth and new 8 mm round asymmetry in the left breast posterior depth, and new equal density asymmetry in the left breast posterior depth superior region. Same day ultrasound showed 1.4 cm irregular mass in the left breast at 0200 middle depth, 2.8 cm oval mass in the left breast at 0300 posterior depth, 2.1 cm oval mass in the left breast at 0100 middle depth, 1.4 x 1.2 x 1.4 cm oval mass in the left axillary tail highly suspicious for breast cancer. On 04/07/2021, patient said that she stood up and felt a snap in her right hip and broke it. She fell back in her couch and she thought it was muscular and stayed in the couch all night until the next day she called her friends and she was brought to the [facility] Emergency Room. X-ray showed angulated mildly comminuted fracture of the mid femoral shaft, and MR right femur wo/w cont showed pathologic fracture of hte mid femoral shaft with angulation and mild comminution. It also showed diffuse osseous metastatic disease involving the right femur and included portions of the pelvi CT CAP w/contrast on 04/08/2021 showed moderate to severe left-sided hydronephrosis, hydroureter and delayed nephrogram with a transition point in the distal ureter at the level of the left adnexa, with an ill-defined region of hyperattenuation along the distal ureter at this point. The scan also showed multiple mixed lytic and sclerotic lesions involving proximal femurs, the right ischium, right obturator ring, bilateral iliac wings, sacrum, sternum and left scapula, almost every vertebral level, multiple bilateral ribs with subacute healing fractures, and prominent compression deformity/pathologic fracture of T7 with approximately 50% height loss and mild effacement along the ventral thecal sac. The scan showed scattered solid and semisolid subcentimeter pulmonary nodules, and small right pleural effusion without definite pleural thickening or mass lesion, ill-defined hyperenhancing soft tissue within the left breast measuring up to 1.7 x 1.1 cm, multiple enlarged soft tissue nodules and lymph nodes (for example, in the left axilla measuring up to 1.4 cm, left anterior chest wall measuring up to 1.0 cm and left posterior-lateral chest wall measuring up to 0.7 cm), few scattered soft tissue nodules throughout the abdominal wall (for example along midline measuring 1.2 cm). Urology was consulted while the patient was in the [facility]. Ureteral stent or percutaneous nephrostomy tube were discussed with patient. Given that she was asymptomatic without signs of declining kidney function or infection, urgent intervention was deferred. On 04/09/2021, Dr. Fuller, Marc Flor MD performed open biopsy of the lesion at the pathologic fracture of the right femur, medullary nailing pathologic right femoral shaft fracture, and prophylactic fixation of right femoral neck. Pathology from the right femur showed metastatic carcinoma consistent with spread from patient's reported breast primary. The bio-marker testing showed estrogen receptor positive, 91-100% with nuclear positivity, strong signal. Progesterone receptor was positive with 91-100% of cells with nuclear positivity and strong signal. HER2 by in-situ hybridization was negative. On 04/15/2021, Dr. Naomi MD performed Prophylactic intramedullary nail of right humerus fracture because of pathologic lesion in the right humerus with impending fracture. On 04/28/2021, she started taking anastrozole 1 mg once a day. And on 05/04/2021, patient started Ibrance 125 mg once a day 3 weeks on and 1 week off. [facility] Hereditary Cancer Update test showed no clinically significant mutation identified. - Patient Self-Reported Symptoms SR Constitution: Fatigue/Malaise SR Musculoskeletal issues: Muscle pain or cramps Home Medications and Allergies Home Medications Medication Instructions Recorded Confirmed Type acetaminophen 325 mg capsule 650 mg PO Q4H PRN Pain (Scale 04/28/21 01/28/22 History (Tylenol) Score 4-6) anastrozole 1 mg tablet 1 mg PO DAILY breast cancer #90 08/17/21 01/28/22 Rx tabs oxycodone 5 mg tablet 5 mg PO Q12H PRN cancer pain #60 08/17/21 01/28/22 Rx tabs bupropion HCl 100 mg tablet,12 hr 100 mg PO DAILY #90 ea 11/12/21 01/28/22 Rx sustained-release metoprolol succinate 100 mg 100 mg PO BID #180 tabs 11/13/21 01/28/22 Rx tablet,extended release 24 hr losartan 50 mg tablet See Rx Instructions .Route 02/16/22 Rx .COMPLEX #90 tabs palbociclib 125 mg tablet (Ibrance) 125 mg PO DAILY #21 tabs 04/01/22 Rx Allergies Allergy/AdvReac Type Severity Reaction Status Date / Time No Known Drug Allergies Allergy Verified 04/07/21 10:15 Exam Vital signs: Vital Signs Temp Pulse Resp BP Pulse Ox 05/12/22 14:08 97.1 F L 74 18 141/98 H 97 Intake and Output 05/11/22 05/12/22 05/12/22 23:59 07:59 15:59 Other: Weight 57 kg Patient Weight 05/12/22 23:59 Weight 57 kg Results - Labs Laboratory Last Values WBC 2.6 X10^3/uL (4.5-11.0) L 05/11/22 14:19 RBC 3.51 X10^6/uL (4.0-5.2) L 05/11/22 14:19 Hgb 12.8 g/dL (12.0-16.0) 05/11/22 14:19 Hct 37.6 % (36-46) 05/11/22 14:19 MCV 107.1 fL (80-100) H 05/11/22 14:19 MCH 36.4 PG (26-34) H 05/11/22 14:19 MCHC 34.0 % (30-36) 05/11/22 14:19 RDW 13.5 % (11.6-14.8) 05/11/22 14:19 Plt Count 315 X10^3/uL (150-400) 05/11/22 14:19 Neut % (Auto) 53.8 % (50-75) 05/11/22 14:19 Lymph % (Auto) 32.7 % (25-40) 05/11/22 14:19 Appling % (Auto) 11.6 % (3-14) 05/11/22 14:19 Eos % (Auto) 0.9 % (2-4) L 05/11/22 14:19 Baso % (Auto) 1.0 % (0-2) 05/11/22 14:19 Neut # (Auto) 1400 /uL (2824-0911) L 05/11/22 14:19 Lymph # (Auto) 900 /uL (1732-5563) L 05/11/22 14:19 Appling # (Auto) 300 /uL (0-900) 05/11/22 14:19 Eos # (Auto) 0 /uL (0-450) 05/11/22 14:19 Baso # (Auto) 0 /uL (0-100) 05/11/22 14:19 RBC Morphology See below 06/26/21 12:06 Anisocytosis 1+ H 06/26/21 12:06 Sodium 134 mmol/L (137-145) L 05/11/22 14:19 Potassium 4.4 mmol/L (3.4-5.1) 05/11/22 14:19 Chloride 96 mmol/L (98-107) L 05/11/22 14:19 Carbon Dioxide 29 mmol/L (22-32) 05/11/22 14:19 BUN 20 mg/dL (7-17) H 05/11/22 14:19 Creatinine 0.70 mg/dL (0.52-1.04) 05/11/22 14:19 Estimated GFR > 60 mL/min (>60) 05/11/22 14:19 BUN/Creatinine Ratio 28.6 (6-22) H 05/11/22 14:19 Glucose 122 mg/dL (70-100) H 05/11/22 14:19 Calcium 9.8 mg/dL (8.4-10.2) 05/11/22 14:19 Total Bilirubin 0.4 mg/dL (0.2-1.3) 05/11/22 14:19 AST 19 IU/L (14-36) 05/11/22 14:19 ALT 12 IU/L (<35) 05/11/22 14:19 Alkaline Phosphatase 66 U/L (38-126) 05/11/22 14:19 Prot Electrophor PDF Not Reportable 12/05/21 12:18 Serum Total Protein 6.6 g/dL (6.0-8.5) 12/05/21 12:18 Total Protein 7.5 g/dL (6.3-8.2) 05/11/22 14:19 Albumin 4.6 g/dL (3.5-5.0) 05/11/22 14:19 Globulin 2.9 g/dL (1.7-4.1) 05/11/22 14:19 Jhqmy-2-Pzlsofxfj 0.4 g/dL (0.0-0.4) 12/05/21 12:18 Albumin/Globulin Ratio 1.6 (1.0-2.8) 05/11/22 14:19 Xkbyf-1-Swsfwyqub 0.9 g/dL (0.4-1.0) 12/05/21 12:18 Rjmx-4-Dpcnevfk 0.9 g/dL (0.7-1.3) 12/05/21 12:18 Gamma Globulins 0.7 g/dL (0.4-1.8) 12/05/21 12:18 Gamma Glob/Tot Protein 2.8 g/dL (2.2-3.9) 12/05/21 12:18 PEP Comment Comment (.) 12/05/21 12:18 PEP Comment 4c Comment (.) 12/05/21 12:18 25-OH Vitamin D Total 32.2 ng/mL (30.0-100.0) 12/05/21 12:18 LAVELL M-Braulio Not observed g/dL (Not Observed) 12/05/21 12:18 - Imaging Additional studies: Procedures Excision of axillary lymph node (09/20/13) Incision with removal of foreign body or device from skin and subcutaneous tissue (03/21/14) Insertion of totally implantable vascular access device [VAD] (11/22/13) Subtotal mastectomy (09/20/13) Unilateral simple mastectomy (11/22/13) Assessment and Plan (1) Metastatic breast cancer Ruby is a 51-year-old female with remote history of right breast cancer, ER+, WY+, HER2-, T2, N1, M0, s/p mastectomy (11/22/2013) followed by adjuvant chemotherapy (TC) and radiation. She was subsequently started on Lupron and letrozole in Aug 2014, but she stopped both of them in November 2014 due to occurrence of depression. In late 2020, she presented with widely metastatic ER+, WY+, HER2-, breast cancer involving left breast, left axilla, chest wall and abdominal wall, and multiple bones. Patient underwent open biopsy and fixation of pathological fracture of the right femur (04/08/2021); and prophylactic intramedullary nail of right humerus for impending fracture (04/15/2021). The open biopsy confirmed the diagnosis of ER+, WY+, HER2-, breast cancer. Genomic study: My Risk genetic study was negative for clinically significant mutations. Patient was started on anastrozole on 04/28/2021. She started Ibrance on 05/04/2021. Discussion Today we reviewed her course and current treatment plans. She is relatively stable so will continue current anastrazole and ibrance. Due to dental issues her Zometa is on hold. Plan: Continue Anastrozole 1 mg daily, Continue Ibrance 125 mg on days 1-21, every 28 days. RTC in 1 month for follow-up visit, CBC, CMP Call for any concerns or questions.
--- NOTE | 2022-05-14 12:53 | ONC.SCHED ---
Scheduling: Left for patient to schedule one month fup with labs prior.
--- NOTE | 2022-05-25 16:37 | PC.NURSE ---
This RN called [facility] about if PA needed. We have scanned records that PA has been done and approved 04/02/22 to 09/30/21. [facility] comfirmed this. We have received 2 'covermymeds' requests for PA follow up.
--- NOTE | 2022-05-26 08:56 | PC.NURSE ---
05/20/22 re Ibrance. This nurse called [facility] and [facility] on 05/20 and clarified that authorization should read for tablets (per Dr Mccray's Rx written on 04/01/22) instead of capsules. [facility] then confirmed for me that the authorization went through for tablets and that they would contact the patient to deliver the next cycle of ibrance.
--- NOTE | 2022-06-09 13:47 | PC.NURSE ---
Addendum entered by Ambreen Cross R.N. 06/09/22 14:02: Note to Dr. Hunt as patient switched providers. Original Note: IBRANCE & ANASTRAZOLE: [facility]AGE HAS RECEIVED MULTIPLE FAXES REGARDING IBRANCE PA AND SHIPMENT AND HAVE BEEN UNABLE TO REACH THE PATIENT TO CONFIRM SHIPMENT WITH HER. DR JEREZ INFORMED WITH THIS NOTE AND REQUESTED TO CONFIRM WITH THE PATIENT AT HER F/U ON 06/15 THAT SHE HAS RECEIVED BOTH ANASTRAZOLE AND IBRANCE AND IS TAKING THEM PRESCRIBED.
--- NOTE | 2022-06-15 11:03 | ONC.SCHED ---
Follow-up: Called and left voicemail for patient to call back and reschedule her cancelled appointment from 06/15/2022.
--- NOTE | 2022-06-17 16:55 | PC.NURSE ---
MESSAGE LEFT FOR PATIENT TO CALL BACK AND SPEAK WITH [facility] REGARDING IBRANCE AND LABS THEREFORE.
--- NOTE | 2022-06-29 16:37 | PC.NURSE ---
IBRANCE: THIS NURSE LEFT MESSAGE FOR PATIENT TO CALL BACK AND SPEAK WITH [facility] WITH [facility] TO MAKE SURE SHE HAS RECEIVED HER SHIPMENT OF MEDS AFTER THE RECENT RENEWAL OF AUTHORIZATION FOR IBRANCE. ALSO THE PATIENT NEEDS TO BE REMINDED TO DO HER LABS BEFORE THE START OF THE NEXT IBRANCE CYCLE.
[2022-07-06 12:36] LABS: Add Manual Diff / Slide Review NO; Basophils Absolute Auto 0 /uL (0-100); Basophils Percent Auto 0.8 % (0-2); Eosinophils Absolute Auto 100 /uL (0-450); Eosinophils Percent Auto 1.3 % (2-4); Hematocrit 38.7 % (36-46); Lymphocytes Absolute Auto 1000 /uL (1100-4500); Lymphocytes Percent Auto 26.8 % (25-40); Mean Corpuscular HGB Conc 33.6 % (30-36); Mean Corpuscular Hemoglobin 34.6 PG (26-34); Mean Corpuscular Volume 102.8 fL (80-100); Monocytes Absolute Auto 200 /uL (0-900); Monocytes Percent Auto 5.3 % (3-14); Neutrophils Absolute Auto 2500 /uL (1500-7000); Neutrophils Percent Auto 65.8 % (50-75); Platelet Count 424 X10^3/uL (150-400); Red Blood Cell Count 3.76 X10^6/uL (4.0-5.2); Red Cell Distribution Width 13.7 % (11.6-14.8); White Blood Cell Count 3.8 X10^3/uL (4.5-11.0)
[2022-07-06 12:55] LABS: Alanine Aminotransferase 12 IU/L (<35); Albumin 4.5 g/dL (3.5-5.0); Albumin Globulin Ratio 1.5 (1.0-2.8); Alkaline Phosphatase 70 U/L (38-126); Aspartate Aminotransferase 20 IU/L (14-36); BUN Creatinine Ratio 23.5 (6-22); Bilirubin Total 0.6 mg/dL (0.2-1.3); Blood Urea Nitrogen 16 mg/dL (7-17); Calcium 9.9 mg/dL (8.4-10.2); Carbon Dioxide 26 mmol/L (22-32); Chloride 97 mmol/L (98-107); Estimated Glomerular Filt Rate > 60 mL/min (>60); Globulin 3.1 g/dL (1.7-4.1); Glucose 110 mg/dL (70-100); HEMOLYSIS < 15 (0-50); Potassium 4.8 mmol/L (3.4-5.1); Sodium 133 mmol/L (137-145); Total Protein 7.6 g/dL (6.3-8.2)
--- NOTE | 2022-07-07 16:12 | PC.NURSE ---
[facility] 2500 & IBRANCE 07/06/22: [facility] 2500 This RN left message for Pt requesting a call back to notify nursing staff if she has received her shipment of Ibrance.
[2022-07-20 15:28] VITALS: BP 207/123; PULSE 79; RESP 16; TEMP 36.9; O2SAT 96
--- NOTE | 2022-07-20 15:35 | P.PNONC_ITS ---
PN -Subjective - Date of Visit Date of visit: 07/20/22 Chief Complaint: Ruby is a 51-year-old female with metastatic recurrent hormone receptor-positive breast cancer Interval history: Ruby is now taking anastrozole 1 mg once a day, and Ibrance 125 mg once a day 3 weeks on and 1 week off. She wishes to be seen on Wednesdays so is transferring her care to my clinic on this day from Dr Mccray. Currently she feels well and stable. NO areas of new pain, headaches, weightloss or changes in appetite. On 10/23/2021, patient underwent CT of the chest abdomen and pelvis that showed diffuse osteoblastic metastatic disease. There is a pathologic T7 wedge-shaped compression fracture without retropulsed fracture fragment. MR follow-up is recommended. It also showed chronic appearing left-sided hydronephrosis and hydroureter associated with left renal atrophy which is new compared to 2014 study. Distal ureter caliber change without obvious obstruction lesion noted. The scan showed sigmoid and left colon wall thickening and underlying diverticulosis. Direct visualization is recommended. On 11/23/2021, patient underwent bone scan that showed wide spread osseous metastatic disease involving the skull, sternum, cervical, thoracic spine and lumbar spine, sacrum, left scapula, bony pelvis bilaterally, him Chantale bilaterally, femurs bilaterally, possible proximal and distal right tibia, and possible distal left fibula. There is mild left renal pelviectasis. On 12/22/2021, patient underwent MR thoracic spine without and with contrast that showed multiple level enhancing bony metastasis with a stable compression deformity at T7 and no cord signal abnormality or deformity of the cord. No epidural mass lesions. Patient said that she has no symptoms and she denies any back pain. She denies any numbness or tingling of the hands or feet. She denies any fever or chills. She denies any sore throat, no shortness of breath no chest pain. No abdominal pain, no diarrhea or constipation. Hematological and oncological history Ruby Rooney is a 51 year old female with remote history of right sided hormone receptor positive, HER2 negative breast cancer status post mastectomy, adjuvant chemotherapy, and adjuvant radiation therapy. She completed only couple of months of endocrine therapy before she stopped due to lack of insurance per patient. About in 09/2020, Ruby noted subcutaneous skin nodules first at the left lower lateral flank area, later left upper back, left upper shoulder, right upper back and posterior left neck. Then, in 01/2021, she all of a sudden noticed multiple nodules in the left axilla and left breast that prompted her to see her primary care provider Dr. Louie Schulte on 03/05/2021. The patient proceeded with left breast diagnostic mammogram on 03/27/2021 that showed new 1.4 cm irregular asymme try in the left breast at 0100 posterior depth and new 8 mm round asymmetry in the left breast posterior depth, and new equal density asymmetry in the left breast posterior depth superior region. Same day ultrasound showed 1.4 cm irregular mass in the left breast at 0200 middle depth, 2.8 cm oval mass in the left breast at 0300 posterior depth, 2.1 cm oval mass in the left breast at 0100 middle depth, 1.4 x 1.2 x 1.4 cm oval mass in the left axillary tail highly suspicious for breast cancer. On 04/07/2021, patient said that she stood up and felt a snap in her right hip and broke it. She fell back in her couch and she thought it was muscular and stayed in the couch all night until the next day she called her friends and she was brought to the [facility] Emergency Room. X-ray showed angulated mildly comminuted fracture of the mid femoral shaft, and MR right femur wo/w cont showed pathologic fracture of hte mid femoral shaft with angulation and mild comminution. It also showed diffuse osseous metastatic disease involving the right femur and included portions of the pelvi CT CAP w/contrast on 04/08/2021 showed moderate to severe left-sided hydronephrosis, hydroureter and delayed nephrogram with a transition point in the distal ureter at the level of the left adnexa, with an ill-defined region of hyperattenuation along the distal ureter at this point. The scan also showed multiple mixed lytic and sclerotic lesions involving proximal femurs, the right ischium, right obturator ring, bilateral iliac wings, sacrum, sternum and left scapula, almost every vertebral level, multiple bilateral ribs with subacute healing fractures, and prominent compression deformity/pathologic fracture of T7 with approximately 50% height loss and mild effacement along the ventral thecal sac. The scan showed scattered solid and semisolid subcentimeter pulmonary nodules, and small right pleural effusion without definite pleural thickening or mass lesion, ill-defined hyperenhancing soft tissue within the left breast measuring up to 1.7 x 1.1 cm, multiple enlarged soft tissue nodules and lymph nodes (for example, in the left axilla measuring up to 1.4 cm, left anterior chest wall measuring up to 1.0 cm and left posterior-lateral chest wall measuring up to 0.7 cm), few scattered soft tissue nodules throughout the abdominal wall (for example along midline measuring 1.2 cm). Urology was consulted while the patient was in the [facility] [place]. Ureteral stent or percutaneous nephrostomy tube were discussed with patient. Given that she was asymptomatic without signs of declining kidney function or infection, urgent intervention was deferred. On 04/09/2021, Dr. Fuller, Marc Flor MD performed open biopsy of the lesion at the pathologic fracture of the right femur, medullary nailing pathologic right femoral shaft fracture, and prophylactic fixation of right femoral neck. Pathology from the right femur showed metastatic carcinoma consistent with spread from patient's reported breast primary. The bio-marker testing showed estrogen receptor positive, 91-100% with nuclear positivity, strong signal. Progesterone receptor was positive with 91-100% of cells with nuclear positivity and strong signal. HER2 by in-situ hybridization was negative. On 04/15/2021, Dr. Naomi MD performed Prophylactic intramedullary nail of right humerus fracture because of pathologic lesion in the right humerus with impending fracture. On 04/28/2021, she started taking anastrozole 1 mg once a day. And on 05/04/2021, patient started Ibrance 125 mg once a day 3 weeks on and 1 week off. [facility] Hereditary Cancer Update test showed no clinically significant mutation identified. - Patient Self-Reported Symptoms SR Constitution: Fatigue/Malaise SR Musculoskeletal issues: Muscle pain or cramps Home Medications and Allergies Home Medications Medication Instructions Recorded Confirmed Type acetaminophen 325 mg capsule 650 mg PO Q4H PRN Pain (Scale 04/28/21 07/20/22 History (Tylenol) Score 4-6) anastrozole 1 mg tablet 1 mg PO DAILY breast cancer #90 08/17/21 07/20/22 Rx tabs oxycodone 5 mg tablet 5 mg PO Q12H PRN cancer pain #60 08/17/21 07/20/22 Rx tabs bupropion HCl 100 mg tablet,12 hr 100 mg PO DAILY #90 ea 11/12/21 07/20/22 Rx sustained-release metoprolol succinate 100 mg 100 mg PO BID #180 tabs 11/13/21 07/20/22 Rx tablet,extended release 24 hr losartan 50 mg tablet See Rx Instructions .Route 02/16/22 07/20/22 Rx .COMPLEX #90 tabs palbociclib 125 mg tablet (Ibrance) 125 mg PO DAILY #21 tabs 04/01/22 07/20/22 Rx Allergies Allergy/AdvReac Type Severity Reaction Status Date / Time No Known Drug Allergies Allergy Verified 04/07/21 10:15 Exam Vital signs: Vital Signs Temp Pulse Resp BP Pulse Ox 07/20/22 15:28 98.5 F 79 16 207/123 H 96 Intake and Output 07/19/22 07/20/22 07/20/22 23:59 07:59 15:59 Other: Weight 61 kg Patient Weight 07/20/22 23:59 Weight 61 kg Results - Labs Laboratory Last Values WBC 3.8 X10^3/uL (4.5-11.0) L 07/06/22 12:24 RBC 3.76 X10^6/uL (4.0-5.2) L 07/06/22 12:24 Hgb 13.0 g/dL (12.0-16.0) 07/06/22 12:24 Hct 38.7 % (36-46) 07/06/22 12:24 MCV 102.8 fL (80-100) H 07/06/22 12:24 MCH 34.6 PG (26-34) H 07/06/22 12:24 MCHC 33.6 % (30-36) 07/06/22 12:24 RDW 13.7 % (11.6-14.8) 07/06/22 12:24 Plt Count 424 X10^3/uL (150-400) H 07/06/22 12:24 Neut % (Auto) 65.8 % (50-75) 07/06/22 12:24 Lymph % (Auto) 26.8 % (25-40) 07/06/22 12:24 [place] % (Auto) 5.3 % (3-14) 07/06/22 12:24 Eos % (Auto) 1.3 % (2-4) L 07/06/22 12:24 Baso % (Auto) 0.8 % (0-2) 07/06/22 12:24 Neut # (Auto) 2500 /uL (0461-5442) 07/06/22 12:24 Lymph # (Auto) 1000 /uL (9758-3927) L 07/06/22 12:24 [place] # (Auto) 200 /uL (0-900) 07/06/22 12:24 Eos # (Auto) 100 /uL (0-450) 07/06/22 12:24 Baso # (Auto) 0 /uL (0-100) 07/06/22 12:24 RBC Morphology See below 06/26/21 12:06 Anisocytosis 1+ H 06/26/21 12:06 Sodium 133 mmol/L (137-145) L 07/06/22 12:24 Potassium 4.8 mmol/L (3.4-5.1) 07/06/22 12:24 Chloride 97 mmol/L (98-107) L 07/06/22 12:24 Carbon Dioxide 26 mmol/L (22-32) 07/06/22 12:24 BUN 16 mg/dL (7-17) 07/06/22 12:24 Creatinine 0.68 mg/dL (0.52-1.04) 07/06/22 12:24 Estimated GFR > 60 mL/min (>60) 07/06/22 12:24 BUN/Creatinine Ratio 23.5 (6-22) H 07/06/22 12:24 Glucose 110 mg/dL (70-100) H 07/06/22 12:24 Calcium 9.9 mg/dL (8.4-10.2) 07/06/22 12:24 Total Bilirubin 0.6 mg/dL (0.2-1.3) 07/06/22 12:24 AST 20 IU/L (14-36) 07/06/22 12:24 ALT 12 IU/L (<35) 07/06/22 12:24 Alkaline Phosphatase 70 U/L (38-126) 07/06/22 12:24 Prot Electrophor PDF Not Reportable 12/05/21 12:18 Serum Total Protein 6.6 g/dL (6.0-8.5) 12/05/21 12:18 Total Protein 7.6 g/dL (6.3-8.2) 07/06/22 12:24 Albumin 4.5 g/dL (3.5-5.0) 07/06/22 12:24 Globulin 3.1 g/dL (1.7-4.1) 07/06/22 12:24 Cqiof-6-Eurckbgim 0.4 g/dL (0.0-0.4) 12/05/21 12:18 Albumin/Globulin Ratio 1.5 (1.0-2.8) 07/06/22 12:24 Bvhny-2-Ggmkjqedz 0.9 g/dL (0.4-1.0) 12/05/21 12:18 Xhov-3-Hzrxwgvj 0.9 g/dL (0.7-1.3) 12/05/21 12:18 Gamma Globulins 0.7 g/dL (0.4-1.8) 12/05/21 12:18 Gamma Glob/Tot Protein 2.8 g/dL (2.2-3.9) 12/05/21 12:18 PEP Comment Comment (.) 12/05/21 12:18 PEP Comment 4c Comment (.) 12/05/21 12:18 25-OH Vitamin D Total 32.2 ng/mL (30.0-100.0) 12/05/21 12:18 LAVELL M-Braulio Not observed g/dL (Not Observed) 12/05/21 12:18 - Imaging Additional studies: Procedures Excision of axillary lymph node (09/20/13) Incision with removal of foreign body or device from skin and subcutaneous tissue (03/21/14) Insertion of totally implantable vascular access device [VAD] (11/22/13) Subtotal mastectomy (09/20/13) Unilateral simple mastectomy (11/22/13) Assessment and Plan (1) Metastatic breast cancer Ruby is a 51-year-old female with remote history of right breast cancer, ER+, CA+, HER2-, T2, N1, M0, s/p mastectomy (11/22/2013) followed by adjuvant chemotherapy (TC) and radiation. She was subsequently started on Lupron and letrozole in Aug 2014, but she stopped both of them in November 2014 due to occurrence of depression. In late 2020, she presented with widely metastatic ER+, CA+, HER2-, breast cancer involving left breast, left axilla, chest wall and abdominal wall, and multiple bones. Patient underwent open biopsy and fixation of pathological fracture of the right femur (04/08/2021); and prophylactic intramedullary nail of right humerus for impending fracture (04/15/2021). The open biopsy confirmed the diagnosis of ER+, CA+, HER2-, breast cancer. Genomic study: My Risk genetic study was negative for clinically significant mutations. Patient was started on anastrozole on 04/28/2021. She started Ibrance on 05/04/2021. Discussion Today we reviewed her course and current treatment plans. She is relatively stable so will continue current anastrazole and ibrance. Due to dental issues her Zometa is on hold. Plan: Continue Anastrozole 1 mg daily, Continue Ibrance 125 mg on days 1-21, every 28 days. RTC in 1 month for follow-up visit, CBC, CMP Call for any concerns or questions.
[2022-08-23 12:37] LABS: Add Manual Diff / Slide Review NO; Basophils Absolute Auto 0 /uL (0-100); Basophils Percent Auto 0.6 % (0-2); Eosinophils Absolute Auto 0 /uL (0-450); Eosinophils Percent Auto 1.4 % (2-4); Hematocrit 35.3 % (36-46); Hemoglobin 11.9 g/dL (12.0-16.0); Lymphocytes Absolute Auto 900 /uL (1100-4500); Lymphocytes Percent Auto 30.1 % (25-40); Mean Corpuscular HGB Conc 33.7 % (30-36); Mean Corpuscular Hemoglobin 35.2 PG (26-34); Mean Corpuscular Volume 104.4 fL (80-100); Monocytes Absolute Auto 500 /uL (0-900); Neutrophils Absolute Auto 1400 /uL (1500-7000); Neutrophils Percent Auto 50.9 % (50-75); Platelet Count 224 X10^3/uL (150-400); Red Blood Cell Count 3.38 X10^6/uL (4.0-5.2); Red Cell Distribution Width 15.2 % (11.6-14.8); White Blood Cell Count 2.8 X10^3/uL (4.5-11.0)
[2022-08-23 13:00] LABS: Alanine Aminotransferase 19 IU/L (<35); Albumin 4.4 g/dL (3.5-5.0); Albumin Globulin Ratio 1.6 (1.0-2.8); Alkaline Phosphatase 73 U/L (38-126); Aspartate Aminotransferase 28 IU/L (14-36); BUN Creatinine Ratio 16.1 (6-22); Bilirubin Total 0.3 mg/dL (0.2-1.3); Blood Urea Nitrogen 9 mg/dL (7-17); Calcium 9.5 mg/dL (8.4-10.2); Carbon Dioxide 31 mmol/L (22-32); Chloride 95 mmol/L (98-107); Estimated Glomerular Filt Rate > 60 mL/min (>60); Globulin 2.7 g/dL (1.7-4.1); Glucose 106 mg/dL (70-100); HEMOLYSIS < 15 (0-50); Sodium 132 mmol/L (137-145); Total Protein 7.1 g/dL (6.3-8.2)
[2022-09-08 09:50] VITALS: BP 168/88; PULSE 73; RESP 18; TEMP 36.8; O2SAT 98
--- NOTE | 2022-09-08 10:01 | ONC.PN ---
PN -Subjective - Date of Visit Date of visit: 09/08/22 Chief Complaint: Ruby is a 51-year-old female with metastatic recurrent hormone receptor-positive breast cancer Interval history: Ruby is now taking anastrozole 1 mg once a day, and Ibrance 125 mg once a day 3 weeks on and 1 week off. She wishes to be seen on Wednesdays so is transferring her care to my clinic on this day from Dr Mccray. Currently she feels well and stable. NO areas of new pain, headaches, weightloss or changes in appetite. On 10/23/2021, patient underwent CT of the chest abdomen and pelvis that showed diffuse osteoblastic metastatic disease. There is a pathologic T7 wedge-shaped compression fracture without retropulsed fracture fragment. MR follow-up is recommended. It also showed chronic appearing left-sided hydronephrosis and hydroureter associated with left renal atrophy which is new compared to 2014 study. Distal ureter caliber change without obvious obstruction lesion noted. The scan showed sigmoid and left colon wall thickening and underlying diverticulosis. Direct visualization is recommended. On 11/23/2021, patient underwent bone scan that showed wide spread osseous metastatic disease involving the skull, sternum, cervical, thoracic spine and lumbar spine, sacrum, left scapula, bony pelvis bilaterally, him Chantale bilaterally, femurs bilaterally, possible proximal and distal right tibia, and possible distal left fibula. There is mild left renal pelviectasis. On 12/22/2021, patient underwent MR thoracic spine without and with contrast that showed multiple level enhancing bony metastasis with a stable compression deformity at T7 and no cord signal abnormality or deformity of the cord. No epidural mass lesions. Patient said that she has no symptoms and she denies any back pain. She denies any numbness or tingling of the hands or feet. She denies any fever or chills. She denies any sore throat, no shortness of breath no chest pain. No abdominal pain, no diarrhea or constipation. Hematological and oncological history Ruby Rooney is a 51 year old female with remote history of right sided hormone receptor positive, HER2 negative breast cancer status post mastectomy, adjuvant chemotherapy, and adjuvant radiation therapy. She completed only couple of months of endocrine therapy before she stopped due to lack of insurance per patient. About in 09/2020, Ruby noted subcutaneous skin nodules first at the left lower lateral flank area, later left upper back, left upper shoulder, right upper back and posterior left neck. Then, in 01/2021, she all of a sudden noticed multiple nodules in the left axilla and left breast that prompted her to see her primary care provider Dr. Louie Schulte on 03/05/2021. The patient proceeded with left breast diagnostic mammogram on 03/27/2021 that showed new 1.4 cm irregular asymmetry in the left breast at 0100 posterior depth and new 8 mm round asymmetry in the left breast posterior depth, and new equal density asymmetry in the left breast posterior depth superior region. Same day ultrasound showed 1.4 cm irregular mass in the left breast at 0200 middle depth, 2.8 cm oval mass in the left breast at 0300 posterior depth, 2.1 cm oval mass in the left breast at 0100 middle depth, 1.4 x 1.2 x 1.4 cm oval mass in the left axillary tail highly suspicious for breast cancer. On 04/07/2021, patient said that she stood up and felt a snap in her right hip and broke it. She fell back in her couch and she thought it was muscular and stayed in the couch all night until the next day she called her friends and she was brought to the [facility] Emergency Room. X-ray showed angulated mildly comminuted fracture of the mid femoral shaft, and MR right femur wo/w cont showed pathologic fracture of hte mid femoral shaft with angulation and mild comminution. It also showed diffuse osseous metastatic disease involving the right femur and included portions of the pelvi CT CAP w/contrast on 04/08/2021 showed moderate to severe left-sided hydronephrosis, hydroureter and delayed nephrogram with a transition point in the distal ureter at the level of the left adnexa, with an ill-defined region of hyperattenuation along the distal ureter at this point. The scan also showed multiple mixed lytic and sclerotic lesions involving proximal femurs, the right ischium, right obturator ring, bilateral iliac wings, sacrum, sternum and left scapula, almost every vertebral level, multiple bilateral ribs with subacute healing fractures, and prominent compression deformity/pathologic fracture of T7 with approximately 50% height loss and mild effacement along the ventral thecal sac. The scan showed scattered solid and semisolid subcentimeter pulmonary nodules, and small right pleural effusion without definite pleural thickening or mass lesion, ill-defined hyperenhancing soft tissue within the left breast measuring up to 1.7 x 1.1 cm, multiple enlarged soft tissue nodules and lymph nodes (for example, in the left axilla measuring up to 1.4 cm, left anterior chest wall measuring up to 1.0 cm and left posterior-lateral chest wall measuring up to 0.7 cm), few scattered soft tissue nodules throughout the abdominal wall (for example along midline measuring 1.2 cm). Urology was consulted while the patient was in the [facility] [place]. Ureteral stent or percutaneous nephrostomy tube were discussed with patient. Given that she was asymptomatic without signs of declining kidney function or infection, urgent intervention was deferred. On 04/09/2021, Dr. Fuller, Marc Flor MD performed open biopsy of the lesion at the pathologic fracture of the right femur, medullary nailing pathologic right femoral shaft fracture, and prophylactic fixation of right femoral neck. Pathology from the right femur showed metastatic carcinoma consistent with spread from patient's reported breast primary. The bio-marker testing showed estrogen receptor positive, 91-100% with nuclear positivity, strong signal. Progesterone receptor was positive with 91-100% of cells with nuclear positivity and strong signal. HER2 by in-situ hybridization was negative. On 04/15/2021, Dr. Naomi MD performed Prophylactic intramedullary nail of right humerus fracture because of pathologic lesion in the right humerus with impending fracture. On 04/28/2021, she started taking anastrozole 1 mg once a day. And on 05/04/2021, patient started Ibrance 125 mg once a day 3 weeks on and 1 week off. [facility] Hereditary Cancer Update test showed no clinically significant mutation identified. - Patient Self-Reported Symptoms SR Constitution: Fatigue/Malaise SR Musculoskeletal issues: Muscle pain or cramps Home Medications and Allergies Home Medications Medication Instructions Recorded Confirmed Type acetaminophen 325 mg capsule 650 mg PO Q4H PRN Pain (Scale 04/28/21 07/20/22 History (Tylenol) Score 4-6) anastrozole 1 mg tablet 1 mg PO DAILY breast cancer #90 08/17/21 07/20/22 Rx tabs bupropion HCl 100 mg tablet,12 hr 100 mg PO DAILY #90 ea 11/12/21 07/20/22 Rx sustained-release metoprolol succinate 100 mg 100 mg PO BID #180 tabs 11/13/21 07/20/22 Rx tablet,extended release 24 hr palbociclib 125 mg tablet (Ibrance) 125 mg PO DAILY #21 tabs 04/01/22 07/20/22 Rx oxycodone 5 mg capsule 5 mg PO Q4H PRN Pain (Scale Score 07/20/22 Rx 1-3) #10 caps losartan 100 mg tablet 100 mg PO DAILY #90 tabs 07/23/22 Rx oxycodone 5 mg tablet 5 mg PO Q12H PRN cancer pain #60 09/08/22 Rx tabs Allergies Allergy/AdvReac Type Severity Reaction Status Date / Time No Known Drug Allergies Allergy Verified 04/07/21 10:15 Exam Vital signs: Vital Signs Temp Pulse Resp BP Pulse Ox 09/08/22 09:50 98.2 F 73 18 168/88 H 98 Intake and Output 09/07/22 09/08/22 09/08/22 23:59 07:59 15:59 Other: Weight 58.4 kg Patient Weight 09/08/22 23:59 Weight 58.4 kg Results - Labs Laboratory Last Values WBC 2.8 X10^3/uL (4.5-11.0) L 08/23/22 12:28 RBC 3.38 X10^6/uL (4.0-5.2) L 08/23/22 12:28 Hgb 11.9 g/dL (12.0-16.0) L 08/23/22 12:28 Hct 35.3 % (36-46) L 08/23/22 12:28 MCV 104.4 fL (80-100) H 08/23/22 12:28 MCH 35.2 PG (26-34) H 08/23/22 12:28 MCHC 33.7 % (30-36) 08/23/22 12:28 RDW 15.2 % (11.6-14.8) H 08/23/22 12:28 Plt Count 224 X10^3/uL (150-400) 08/23/22 12:28 Neut % (Auto) 50.9 % (50-75) 08/23/22 12:28 Lymph % (Auto) 30.1 % (25-40) 08/23/22 12:28 [place] % (Auto) 17.0 % (3-14) H 08/23/22 12:28 Eos % (Auto) 1.4 % (2-4) L 08/23/22 12:28 Baso % (Auto) 0.6 % (0-2) 08/23/22 12:28 Neut # (Auto) 1400 /uL (2131-9048) L 08/23/22 12:28 Lymph # (Auto) 900 /uL (8876-5750) L 08/23/22 12:28 [place] # (Auto) 500 /uL (0-900) 08/23/22 12:28 Eos # (Auto) 0 /uL (0-450) 08/23/22 12:28 Baso # (Auto) 0 /uL (0-100) 08/23/22 12:28 RBC Morphology See below 06/26/21 12:06 Anisocytosis 1+ H 06/26/21 12:06 Sodium 132 mmol/L (137-145) L 08/23/22 12:28 Potassium 5.0 mmol/L (3.4-5.1) 08/23/22 12:28 Chloride 95 mmol/L (98-107) L 08/23/22 12:28 Carbon Dioxide 31 mmol/L (22-32) 08/23/22 12:28 BUN 9 mg/dL (7-17) 08/23/22 12:28 Creatinine 0.56 mg/dL (0.52-1.04) 08/23/22 12:28 Estimated GFR > 60 mL/min (>60) 08/23/22 12:28 BUN/Creatinine Ratio 16.1 (6-22) 08/23/22 12:28 Glucose 106 mg/dL (70-100) H 08/23/22 12:28 Calcium 9.5 mg/dL (8.4-10.2) 08/23/22 12:28 Total Bilirubin 0.3 mg/dL (0.2-1.3) 08/23/22 12:28 AST 28 IU/L (14-36) 08/23/22 12:28 ALT 19 IU/L (<35) 08/23/22 12:28 Alkaline Phosphatase 73 U/L (38-126) 08/23/22 12:28 Prot Electrophor PDF Not Reportable 12/05/21 12:18 Serum Total Protein 6.6 g/dL (6.0-8.5) 12/05/21 12:18 Total Protein 7.1 g/dL (6.3-8.2) 08/23/22 12:28 Albumin 4.4 g/dL (3.5-5.0) 08/23/22 12:28 Globulin 2.7 g/dL (1.7-4.1) 08/23/22 12:28 Ckvbz-3-Bqfpgslwm 0.4 g/dL (0.0-0.4) 12/05/21 12:18 Albumin/Globulin Ratio 1.6 (1.0-2.8) 08/23/22 12:28 Ckcff-1-Jhwdjqesb 0.9 g/dL (0.4-1.0) 12/05/21 12:18 Qlqh-8-Mfqsmnkk 0.9 g/dL (0.7-1.3) 12/05/21 12:18 Gamma Globulins 0.7 g/dL (0.4-1.8) 12/05/21 12:18 Gamma Glob/Tot Protein 2.8 g/dL (2.2-3.9) 12/05/21 12:18 PEP Comment Comment (.) 12/05/21 12:18 PEP Comment 4c Comment (.) 12/05/21 12:18 25-OH Vitamin D Total 32.2 ng/mL (30.0-100.0) 12/05/21 12:18 LAVELL M-Braulio Not observed g/dL (Not Observed) 12/05/21 12:18 - Imaging Additional studies: Procedures Excision of axillary lymph node (09/20/13) Incision with removal of foreign body or device from skin and subcutaneous tissue (03/21/14) Insertion of totally implantable vascular access device [VAD] (11/22/13) Subtotal mastectomy (09/20/13) Unilateral simple mastectomy (11/22/13) Assessment and Plan (1) Metastatic breast cancer Ruby is a 51-year-old female with remote history of right breast cancer, ER+, NJ+, HER2-, T2, N1, M0, s/p mastectomy (11/22/2013) followed by adjuvant chemotherapy (TC) and radiation. She was subsequently started on Lupron and letrozole in Aug 2014, but she stopped both of them in November 2014 due to occurrence of depression. In late 2020, she presented with widely metastatic ER+, NJ+, HER2-, breast cancer involving left breast, left axilla, chest wall and abdominal wall, and multiple bones. Patient underwent open biopsy and fixation of pathological fracture of the right femur (04/08/2021); and prophylactic intramedullary nail of right humerus for impending fracture (04/15/2021). The open biopsy confirmed the diagnosis of ER+, NJ+, HER2-, breast cancer. Genomic study: My Risk genetic study was negative for clinically significant mutations. Patient was started on anastrozole on 04/28/2021. She started Ibrance on 05/04/2021. Discussion Today we reviewed her course and current treatment plans. She is relatively stable so will continue current anastrazole and ibrance. Due to dental issues her Zometa is on hold. Plan: Continue Anastrozole 1 mg daily, Continue Ibrance 125 mg on days 1-21, every 28 days. RTC in 1 month for follow-up visit, CBC, CMP Call for any concerns or questions.
--- NOTE | 2022-09-08 10:23 | ONC.SCHED ---
Scheduling: Left patient a VM to schedule 1 month fup with labs prior.
--- NOTE | 2022-09-16 12:49 | PC.NURSE ---
RX: Notified by [facility] that pt's Ibrance RX is due for another. Ani in scheduling aware and agreeable to submit PA through [employer]. [employer] updated and verbalized understanding.
[2022-10-15 12:50] LABS: Add Manual Diff / Slide Review NO; Basophils Absolute Auto 0 /uL (0-100); Basophils Percent Auto 1.5 % (0-2); Eosinophils Absolute Auto 0 /uL (0-450); Eosinophils Percent Auto 1.2 % (2-4); Hematocrit 35.2 % (36-46); Lymphocytes Absolute Auto 800 /uL (1100-4500); Lymphocytes Percent Auto 37.6 % (25-40); Mean Corpuscular Hemoglobin 36.1 PG (26-34); Mean Corpuscular Volume 106.2 fL (80-100); Monocytes Absolute Auto 200 /uL (0-900); Monocytes Percent Auto 10.7 % (3-14); Neutrophils Absolute Auto 1000 /uL (1500-7000); Platelet Count 235 X10^3/uL (150-400); Red Blood Cell Count 3.32 X10^6/uL (4.0-5.2); Red Cell Distribution Width 14.7 % (11.6-14.8); White Blood Cell Count 2.1 X10^3/uL (4.5-11.0)
[2022-10-15 13:02] LABS: Alanine Aminotransferase 12 IU/L (<35); Albumin 4.5 g/dL (3.5-5.0); Albumin Globulin Ratio 1.4 (1.0-2.8); Alkaline Phosphatase 63 U/L (38-126); Aspartate Aminotransferase 24 IU/L (14-36); BUN Creatinine Ratio 17.1 (6-22); Bilirubin Total 0.6 mg/dL (0.2-1.3); Blood Urea Nitrogen 12 mg/dL (7-17); Calcium 9.8 mg/dL (8.4-10.2); Carbon Dioxide 26 mmol/L (22-32); Chloride 98 mmol/L (98-107); Estimated Glomerular Filt Rate > 60 mL/min (>60); Globulin 3.2 g/dL (1.7-4.1); Glucose 99 mg/dL (70-100); HEMOLYSIS < 15 (0-50); Potassium 4.7 mmol/L (3.4-5.1); Sodium 133 mmol/L (137-145); Total Protein 7.7 g/dL (6.3-8.2)
[2022-10-27 10:46] VITALS: BP 195/131; PULSE 84; RESP 16; TEMP 35.9; O2SAT 97
--- NOTE | 2022-10-27 10:53 | P.PNONC_ITS ---
PN -Subjective - Date of Visit Date of visit: 10/27/22 Chief Complaint: Ruby is a 51-year-old female with metastatic recurrent hormone receptor-positive breast cancer Interval history: Ruby is now taking anastrozole 1 mg once a day, and Ibrance 125 mg once a day 3 weeks on and 1 week off. She wishes to be seen on Wednesdays so is transferring her care to my clinic on this day from Dr Mccray. Currently she feels well and stable. NO areas of new pain, headaches, weightloss or changes in appetite. On 10/23/2021, patient underwent CT of the chest abdomen and pelvis that showed diffuse osteoblastic metastatic disease. There is a pathologic T7 wedge-shaped compression fracture without retropulsed fracture fragment. MR follow-up is recommended. It also showed chronic appearing left-sided hydronephrosis and hydroureter associated with left renal atrophy which is new compared to 2014 study. Distal ureter caliber change without obvious obstruction lesion noted. The scan showed sigmoid and left colon wall thickening and underlying diverticulosis. Direct visualization is recommended. On 11/23/2021, patient underwent bone scan that showed wide spread osseous metastatic disease involving the skull, sternum, cervical, thoracic spine and lumbar spine, sacrum, left scapula, bony pelvis bilaterally, him [place] bilaterally, femurs bilaterally, possible proximal and distal right tibia, and possible distal left fibula. There is mild left renal pelviectasis. On 12/22/2021, patient underwent MR thoracic spine without and with contrast that showed multiple level enhancing bony metastasis with a stable compression deformity at T7 and no cord signal abnormality or deformity of the cord. No epidural mass lesions. Patient said that she has no symptoms and she denies any back pain. She denies any numbness or tingling of the hands or feet. She denies any fever or chills. She denies any sore throat, no shortness of breath no chest pain. No abdominal pain, no diarrhea or constipation. Hematological and oncological history Ruby Rooney is a 51 year old female with remote history of right sided hormone receptor positive, HER2 negative breast cancer status post mastectomy, adjuvant chemotherapy, and adjuvant radiation therapy. She completed only couple of months of endocrine therapy before she stopped due to lack of insurance per patient. About in 09/2020, Ruby noted subcutaneous skin nodules first at the left lower lateral flank area, later left upper back, left upper shoulder, right upper back and posterior left neck. Then, in 01/2021, she all of a sudden noticed multiple nodules in the left axilla and left breast that prompted her to see her primary care provider Dr. Louie Schulte on 03/05/2021. The patient proceeded with left breast diagnostic mammogram on 03/27/2021 that showed new 1.4 cm irregular asymme try in the left breast at 0100 posterior depth and new 8 mm round asymmetry in the left breast posterior depth, and new equal density asymmetry in the left breast posterior depth superior region. Same day ultrasound showed 1.4 cm irregular mass in the left breast at 0200 middle depth, 2.8 cm oval mass in the left breast at 0300 posterior depth, 2.1 cm oval mass in the left breast at 0100 middle depth, 1.4 x 1.2 x 1.4 cm oval mass in the left axillary tail highly suspicious for breast cancer. On 04/07/2021, patient said that she stood up and felt a snap in her right hip and broke it. She fell back in her couch and she thought it was muscular and stayed in the couch all night until the next day she called her friends and she was brought to the [facility] Emergency Room. X-ray showed angulated mildly comminuted fracture of the mid femoral shaft, and MR right femur wo/w cont showed pathologic fracture of hte mid femoral shaft with angulation and mild comminution. It also showed diffuse osseous metastatic disease involving the right femur and included portions of the pelvi CT CAP w/contrast on 04/08/2021 showed moderate to severe left-sided hydronephrosis, hydroureter and delayed nephrogram with a transition point in the distal ureter at the level of the left adnexa, with an ill-defined region of hyperattenuation along the distal ureter at this point. The scan also showed multiple mixed lytic and sclerotic lesions involving proximal femurs, the right ischium, right obturator ring, bilateral iliac wings, sacrum, sternum and left scapula, almost every vertebral level, multiple bilateral ribs with subacute healing fractures, and prominent compression deformity/pathologic fracture of T7 with approximately 50% height loss and mild effacement along the ventral thecal sac. The scan showed scattered solid and semisolid subcentimeter pulmonary nodules, and small right pleural effusion without definite pleural thickening or mass lesion, ill-defined hyperenhancing soft tissue within the left breast measuring up to 1.7 x 1.1 cm, multiple enlarged soft tissue nodules and lymph nodes (for example, in the left axilla measuring up to 1.4 cm, left anterior chest wall measuring up to 1.0 cm and left posterior-lateral chest wall measuring up to 0.7 cm), few scattered soft tissue nodules throughout the abdominal wall (for example along midline measuring 1.2 cm). Urology was consulted while the patient was in the [facility] [place]. Ureteral stent or percutaneous nephrostomy tube were discussed with patient. Given that she was asymptomatic without signs of declining kidney function or infection, urgent intervention was deferred. On 04/09/2021, Dr. Fuller, Marc Flor MD performed open biopsy of the lesion at the pathologic fracture of the right femur, medullary nailing pathologic right femoral shaft fracture, and prophylactic fixation of right femoral neck. Pathology from the right femur showed metastatic carcinoma consistent with spread from patient's reported breast primary. The bio-marker testing showed estrogen receptor positive, 91-100% with nuclear positivity, strong signal. Progesterone receptor was positive with 91-100% of cells with nuclear positivity and strong signal. HER2 by in-situ hybridization was negative. On 04/15/2021, Dr. Naomi MD performed Prophylactic intramedullary nail of right humerus fracture because of pathologic lesion in the right humerus with impending fracture. On 04/28/2021, she started taking anastrozole 1 mg once a day. And on 05/04/2021, patient started Ibrance 125 mg once a day 3 weeks on and 1 week off. [facility] Hereditary Cancer Update test showed no clinically significant mutation identified. - Patient Self-Reported Symptoms SR Constitution: Fatigue/Malaise SR Musculoskeletal issues: Muscle pain or cramps Home Medications and Allergies Home Medications Medication Instructions Recorded Confirmed Type acetaminophen 325 mg capsule 650 mg PO Q4H PRN Pain (Scale 04/28/21 10/27/22 History (Tylenol) Score 4-6) metoprolol succinate 100 mg 100 mg PO BID #180 tabs 11/13/21 10/27/22 Rx tablet,extended release 24 hr palbociclib 125 mg tablet (Ibrance) 125 mg PO DAILY #21 tabs 04/01/22 10/27/22 Rx oxycodone 5 mg capsule 5 mg PO Q4H PRN Pain (Scale Score 07/20/22 10/27/22 Rx 1-3) #10 caps losartan 100 mg tablet 100 mg PO DAILY #90 tabs 07/23/22 10/27/22 Rx oxycodone 5 mg tablet 5 mg PO Q12H PRN cancer pain #60 09/08/22 10/27/22 Rx tabs anastrozole 1 mg tablet 1 mg PO DAILY breast cancer #90 09/21/22 10/27/22 Rx tabs bupropion HCl 100 mg tablet,12 hr 100 mg PO DAILY #90 ea 09/27/22 10/27/22 Rx sustained-release Allergies Allergy/AdvReac Type Severity Reaction Status Date / Time No Known Drug Allergies Allergy Verified 04/07/21 10:15 Exam Vital signs: Vital Signs Temp Pulse Resp BP Pulse Ox 10/27/22 10:46 96.7 F L 84 16 195/131 H 97 Intake and Output 10/26/22 10/27/22 10/27/22 23:59 07:59 15:59 Other: Weight 60.2 kg Patient Weight 10/27/22 23:59 Weight 60.2 kg - Constitutional positive no acute distress, negative diaphoretic - Routine HEENT Exam Head: Present: normocephalic Eye: Present: PERRL (Conjunctivae normal) ENT: Present: mucous membranes moist - Routine Respiratory Exam Present: Clear to auscultation bilaterally. Absent: rales, respiratory distress, wheezes - Routine Cardiovascular Exam Present: RRR. Absent: murmur, irregular rhythm - Routine Abdominal Exam Present: soft. Absent: tenderness, distended, guarding - Routine Extremities Exam Present: full ROM. Absent: edema, tenderness (No Swelling) - Routine Skin Exam Present: dry, warm. Absent: lesions (No Bruising), jaundice - Routine Neurological Exam Present: alert, oriented X3. Absent: sensory deficit, motor deficit - Routine Psychiatric Exam Present: normal affect, normal thought process, cooperative. Absent: anxious, agitated Results - Labs Laboratory Last Values WBC 2.1 X10^3/uL (4.5-11.0) L 10/15/22 11:41 RBC 3.32 X10^6/uL (4.0-5.2) L 10/15/22 11:41 Hgb 12.0 g/dL (12.0-16.0) 10/15/22 11:41 Hct 35.2 % (36-46) L 10/15/22 11:41 MCV 106.2 fL (80-100) H 10/15/22 11:41 MCH 36.1 PG (26-34) H 10/15/22 11:41 MCHC 34.0 % (30-36) 10/15/22 11:41 RDW 14.7 % (11.6-14.8) 10/15/22 11:41 Plt Count 235 X10^3/uL (150-400) 10/15/22 11:41 Neut % (Auto) 49.0 % (50-75) L 10/15/22 11:41 Lymph % (Auto) 37.6 % (25-40) 10/15/22 11:41 [place] % (Auto) 10.7 % (3-14) 10/15/22 11:41 Eos % (Auto) 1.2 % (2-4) L 10/15/22 11:41 Baso % (Auto) 1.5 % (0-2) 10/15/22 11:41 Neut # (Auto) 1000 /uL (3310-9569) L 10/15/22 11:41 Lymph # (Auto) 800 /uL (7828-9095) L 10/15/22 11:41 [place] # (Auto) 200 /uL (0-900) 10/15/22 11:41 Eos # (Auto) 0 /uL (0-450) 10/15/22 11:41 Baso # (Auto) 0 /uL (0-100) 10/15/22 11:41 RBC Morphology See below 06/26/21 12:06 Anisocytosis 1+ H 06/26/21 12:06 Sodium 133 mmol/L (137-145) L 10/15/22 11:41 Potassium 4.7 mmol/L (3.4-5.1) 10/15/22 11:41 Chloride 98 mmol/L (98-107) 10/15/22 11:41 Carbon Dioxide 26 mmol/L (22-32) 10/15/22 11:41 BUN 12 mg/dL (7-17) 10/15/22 11:41 Creatinine 0.70 mg/dL (0.52-1.04) 10/15/22 11:41 Estimated GFR > 60 mL/min (>60) 10/15/22 11:41 BUN/Creatinine Ratio 17.1 (6-22) 10/15/22 11:41 Glucose 99 mg/dL (70-100) 10/15/22 11:41 Calcium 9.8 mg/dL (8.4-10.2) 10/15/22 11:41 Total Bilirubin 0.6 mg/dL (0.2-1.3) 10/15/22 11:41 AST 24 IU/L (14-36) 10/15/22 11:41 ALT 12 IU/L (<35) 10/15/22 11:41 Alkaline Phosphatase 63 U/L (38-126) 10/15/22 11:41 Prot Electrophor PDF Not Reportable 12/05/21 12:18 Serum Total Protein 6.6 g/dL (6.0-8.5) 12/05/21 12:18 Total Protein 7.7 g/dL (6.3-8.2) 10/15/22 11:41 Albumin 4.5 g/dL (3.5-5.0) 10/15/22 11:41 Globulin 3.2 g/dL (1.7-4.1) 10/15/22 11:41 Vrlsn-7-Ntxcwqhvj 0.4 g/dL (0.0-0.4) 12/05/21 12:18 Albumin/Globulin Ratio 1.4 (1.0-2.8) 10/15/22 11:41 Nhrlw-1-Sburqihnq 0.9 g/dL (0.4-1.0) 12/05/21 12:18 Pzpv-6-Lcmqjlgq 0.9 g/dL (0.7-1.3) 12/05/21 12:18 Gamma Globulins 0.7 g/dL (0.4-1.8) 12/05/21 12:18 Gamma Glob/Tot Protein 2.8 g/dL (2.2-3.9) 12/05/21 12:18 PEP Comment Comment (.) 12/05/21 12:18 PEP Comment 4c Comment (.) 12/05/21 12:18 25-OH Vitamin D Total 32.2 ng/mL (30.0-100.0) 12/05/21 12:18 LAVELL M-Braulio Not observed g/dL (Not Observed) 12/05/21 12:18 - Imaging Additional studies: Procedures Excision of axillary lymph node (09/20/13) Incision with removal of foreign body or device from skin and subcutaneous tissue (03/21/14) Insertion of totally implantable vascular access device [VAD] (11/22/13) Subtotal mastectomy (09/20/13) Unilateral simple mastectomy (11/22/13) Assessment and Plan (1) Metastatic breast cancer Ruby is a 51-year-old female with remote history of right breast cancer, ER+, AK+, HER2-, T2, N1, M0, s/p mastectomy (11/22/2013) followed by adjuvant chemotherapy (TC) and radiation. She was subsequently started on Lupron and letrozole in Aug 2014, but she stopped both of them in November 2014 due to occurrence of depression. In late 2020, she presented with widely metastatic ER+, AK+, HER2-, breast cancer involving left breast, left axilla, chest wall and abdominal wall, and multiple bones. Patient underwent open biopsy and fixation of pathological fracture of the right femur (04/08/2021); and prophylactic intramedullary nail of right humerus for impending fracture (04/15/2021). The open biopsy confirmed the diagnosis of ER+, AK+, HER2-, breast cancer. Genomic study: My Risk genetic study was negative for clinically significant mutations. Patient was started on anastrozole on 04/28/2021. She started Ibrance on 05/04/2021. Discussion Today we reviewed her course and current treatment plans. She is relatively stable so will continue current anastrazole and ibrance. Due to dental issues her Zometa is on hold. Plan: Continue Anastrozole 1 mg daily, Continue Ibrance 125 mg on days 1-21, every 28 days. RTC in 1 month for follow-up visit, CBC, CMP Call for any concerns or questions.
--- NOTE | 2022-10-27 10:57 | ONC.SCHED ---
Scheduling: This laser engraver left VM for patient to schedule 1 month fup with labs prior.
[2022-11-27 12:56] LABS: Add Manual Diff / Slide Review NO; Basophils Absolute Auto 100 /uL (0-100); Basophils Percent Auto 1.7 % (0-2); Eosinophils Absolute Auto 100 /uL (0-450); Eosinophils Percent Auto 1.4 % (2-4); Hematocrit 38.6 % (36-46); Hemoglobin 13.2 g/dL (12.0-16.0); Lymphocytes Absolute Auto 1300 /uL (1100-4500); Lymphocytes Percent Auto 28.2 % (25-40); Mean Corpuscular HGB Conc 34.3 % (30-36); Mean Corpuscular Hemoglobin 36.8 PG (26-34); Mean Corpuscular Volume 107.5 fL (80-100); Monocytes Absolute Auto 400 /uL (0-900); Monocytes Percent Auto 9.2 % (3-14); Neutrophils Absolute Auto 2800 /uL (1500-7000); Neutrophils Percent Auto 59.5 % (50-75); Platelet Count 343 X10^3/uL (150-400); Red Blood Cell Count 3.59 X10^6/uL (4.0-5.2); Red Cell Distribution Width 14.3 % (11.6-14.8); White Blood Cell Count 4.7 X10^3/uL (4.5-11.0)
[2022-11-27 13:11] LABS: Alanine Aminotransferase 13 IU/L (<35); Albumin 4.9 g/dL (3.5-5.0); Albumin Globulin Ratio 1.5 (1.0-2.8); Alkaline Phosphatase 82 U/L (38-126); Aspartate Aminotransferase 24 IU/L (14-36); BUN Creatinine Ratio 15.1 (6-22); Bilirubin Total 0.5 mg/dL (0.2-1.3); Blood Urea Nitrogen 13 mg/dL (7-17); Calcium 10.1 mg/dL (8.4-10.2); Carbon Dioxide 29 mmol/L (22-32); Chloride 95 mmol/L (98-107); Estimated Glomerular Filt Rate > 60 mL/min (>60); Globulin 3.2 g/dL (1.7-4.1); Glucose 111 mg/dL (70-100); HEMOLYSIS < 15 (0-50); Potassium 4.9 mmol/L (3.4-5.1); Sodium 133 mmol/L (137-145); Total Protein 8.1 g/dL (6.3-8.2)
[2022-11-30 13:03] VITALS: BP 143/86; PULSE 79; RESP 18; TEMP 36.8; O2SAT 97
--- NOTE | 2022-11-30 13:13 | ONC.PN ---
PN -Subjective - Date of Visit Date of visit: 11/30/22 Chief Complaint: Ruby is a 51-year-old female with metastatic recurrent hormone receptor-positive breast cancer Interval history: Ruby is now taking anastrozole 1 mg once a day, and Ibrance 125 mg once a day 3 weeks on and 1 week off. She wishes to be seen on Wednesdays so is transferring her care to my clinic on this day from Dr Mccray. Currently she feels well and stable. NO areas of new pain, headaches, weight loss or changes in appetite. On 10/23/2021, patient underwent CT of the chest abdomen and pelvis that showed diffuse osteoblastic metastatic disease. There is a pathologic T7 wedge-shaped compression fracture without retropulsed fracture fragment. MR follow-up is recommended. It also showed chronic appearing left-sided hydronephrosis and hydroureter associated with left renal atrophy which is new compared to 2014 study. Distal ureter caliber change without obvious obstruction lesion noted. The scan showed sigmoid and left colon wall thickening and underlying diverticulosis. Direct visualization is recommended. On 11/23/2021, patient underwent bone scan that showed wide spread osseous metastatic disease involving the skull, sternum, cervical, thoracic spine and lumbar spine, sacrum, left scapula, bony pelvis bilaterally, him Chantale bilaterally, femurs bilaterally, possible proximal and distal right tibia, and possible distal left fibula. There is mild left renal pelviectasis. On 12/22/2021, patient underwent MR thoracic spine without and with contrast that showed multiple level enhancing bony metastasis with a stable compression deformity at T7 and no cord signal abnormality or deformity of the cord. No epidural mass lesions. Patient said that she has no symptoms and she denies any back pain. She denies any numbness or tingling of the hands or feet. She denies any fever or chills. She denies any sore throat, no shortness of breath no chest pain. No abdominal pain, no diarrhea or constipation. Hematological and oncological history Ruby Rooney is a 51 year old female with remote history of right sided hormone receptor positive, HER2 negative breast cancer status post mastectomy, adjuvant chemotherapy, and adjuvant radiation therapy. She completed only couple of months of endocrine therapy before she stopped due to lack of insurance per patient. About in 09/2020, Ruby noted subcutaneous skin nodules first at the left lower lateral flank area, later left upper back, left upper shoulder, right upper back and posterior left neck. Then, in 01/2021, she all of a sudden noticed multiple nodules in the left axilla and left breast that prompted her to see her primary care provider Dr. Louie Schulte on 03/05/2021. The patient proceeded with left breast diagnostic mammogram on 03/27/2021 that showed new 1.4 cm irregular asymmetry in the left breast at 0100 posterior depth and new 8 mm round asymmetry in the left breast posterior depth, and new equal density asymmetry in the left breast posterior depth superior region. Same day ultrasound showed 1.4 cm irregular mass in the left breast at 0200 middle depth, 2.8 cm oval mass in the left breast at 0300 posterior depth, 2.1 cm oval mass in the left breast at 0100 middle depth, 1.4 x 1.2 x 1.4 cm oval mass in the left axillary tail highly suspicious for breast cancer. On 04/07/2021, patient said that she stood up and felt a snap in her right hip and broke it. She fell back in her couch and she thought it was muscular and stayed in the couch all night until the next day she called her friends and she was brought to the [facility] Emergency Room. X-ray showed angulated mildly comminuted fracture of the mid femoral shaft, and MR right femur wo/w cont showed pathologic fracture of hte mid femoral shaft with angulation and mild comminution. It also showed diffuse osseous metastatic disease involving the right femur and included portions of the pelvi CT CAP w/contrast on 04/08/2021 showed moderate to severe left-sided hydronephrosis, hydroureter and delayed nephrogram with a transition point in the distal ureter at the level of the left adnexa, with an ill-defined region of hyperattenuation along the distal ureter at this point. The scan also showed multiple mixed lytic and sclerotic lesions involving proximal femurs, the right ischium, right obturator ring, bilateral iliac wings, sacrum, sternum and left scapula, almost every vertebral level, multiple bilateral ribs with subacute healing fractures, and prominent compression deformity/pathologic fracture of T7 with approximately 50% height loss and mild effacement along the ventral thecal sac. The scan showed scattered solid and semisolid subcentimeter pulmonary nodules, and small right pleural effusion without definite pleural thickening or mass lesion, ill-defined hyperenhancing soft tissue within the left breast measuring up to 1.7 x 1.1 cm, multiple enlarged soft tissue nodules and lymph nodes (for example, in the left axilla measuring up to 1.4 cm, left anterior chest wall measuring up to 1.0 cm and left posterior-lateral chest wall measuring up to 0.7 cm), few scattered soft tissue nodules throughout the abdominal wall (for example along midline measuring 1.2 cm). Urology was consulted while the patient was in the [facility]. Ureteral stent or percutaneous nephrostomy tube were discussed with patient. Given that she was asymptomatic without signs of declining kidney function or infection, urgent intervention was deferred. On 04/09/2021, Dr. Fuller, Marc Flor MD performed open biopsy of the lesion at the pathologic fracture of the right femur, medullary nailing pathologic right femoral shaft fracture, and prophylactic fixation of right femoral neck. Pathology from the right femur showed metastatic carcinoma consistent with spread from patient's reported breast primary. The bio-marker testing showed estrogen receptor positive, 91-100% with nuclear positivity, strong signal. Progesterone receptor was positive with 91-100% of cells with nuclear positivity and strong signal. HER2 by in-situ hybridization was negative. On 04/15/2021, Dr. Naomi MD performed Prophylactic intramedullary nail of right humerus fracture because of pathologic lesion in the right humerus with impending fracture. On 04/28/2021, she started taking anastrozole 1 mg once a day. And on 05/04/2021, patient started Ibrance 125 mg once a day 3 weeks on and 1 week off. [facility] Hereditary Cancer Update test showed no clinically significant mutation identified. - Patient Self-Reported Symptoms SR Constitution: Fatigue/Malaise SR Musculoskeletal issues: Muscle pain or cramps Home Medications and Allergies Home Medications Medication Instructions Recorded Confirmed Type acetaminophen 325 mg capsule 650 mg PO Q4H PRN Pain (Scale 04/28/21 11/30/22 History (Tylenol) Score 4-6) metoprolol succinate 100 mg 100 mg PO BID #180 tabs 11/13/21 11/30/22 Rx tablet,extended release 24 hr palbociclib 125 mg tablet (Ibrance) 125 mg PO DAILY #21 tabs 04/01/22 11/30/22 Rx oxycodone 5 mg capsule 5 mg PO Q4H PRN Pain (Scale Score 07/20/22 11/30/22 Rx 1-3) #10 caps losartan 100 mg tablet 100 mg PO DAILY #90 tabs 07/23/22 11/30/22 Rx oxycodone 5 mg tablet 5 mg PO Q12H PRN cancer pain #60 09/08/22 11/30/22 Rx tabs anastrozole 1 mg tablet 1 mg PO DAILY breast cancer #90 09/21/22 11/30/22 Rx tabs bupropion HCl 100 mg tablet,12 hr 100 mg PO DAILY #90 ea 09/27/22 11/30/22 Rx sustained-release Allergies Allergy/AdvReac Type Severity Reaction Status Date / Time No Known Drug Allergies Allergy Verified 04/07/21 10:15 Exam Vital signs: Vital Signs Temp Pulse Resp BP Pulse Ox 11/30/22 13:03 98.2 F 79 18 143/86 H 97 Intake and Output 11/29/22 11/30/22 11/30/22 23:59 07:59 15:59 Other: Weight 59 kg Patient Weight 11/30/22 23:59 Weight 59 kg - Constitutional positive no acute distress, negative diaphoretic - Routine HEENT Exam Head: Present: normocephalic Eye: Present: PERRL (Conjunctivae normal) ENT: Present: mucous membranes moist - Routine Respiratory Exam Present: Clear to auscultation bilaterally. Absent: rales, respiratory distress, wheezes - Routine Cardiovascular Exam Present: RRR. Absent: murmur, irregular rhythm - Routine Abdominal Exam Present: soft. Absent: tenderness, distended, guarding - Routine Extremities Exam Present: full ROM. Absent: edema, tenderness (No Swelling) - Routine Skin Exam Present: dry, warm. Absent: lesions (No Bruising), jaundice - Routine Neurological Exam Present: alert, oriented X3. Absent: sensory deficit, motor deficit - Routine Psychiatric Exam Present: normal affect, normal thought process, cooperative. Absent: anxious, agitated Results - Labs Laboratory Last Values WBC 4.7 X10^3/uL (4.5-11.0) 11/27/22 12:45 RBC 3.59 X10^6/uL (4.0-5.2) L 11/27/22 12:45 Hgb 13.2 g/dL (12.0-16.0) 11/27/22 12:45 Hct 38.6 % (36-46) 11/27/22 12:45 MCV 107.5 fL (80-100) H 11/27/22 12:45 MCH 36.8 PG (26-34) H 11/27/22 12:45 MCHC 34.3 % (30-36) 11/27/22 12:45 RDW 14.3 % (11.6-14.8) 11/27/22 12:45 Plt Count 343 X10^3/uL (150-400) 11/27/22 12:45 Neut % (Auto) 59.5 % (50-75) 11/27/22 12:45 Lymph % (Auto) 28.2 % (25-40) 11/27/22 12:45 [place] % (Auto) 9.2 % (3-14) 11/27/22 12:45 Eos % (Auto) 1.4 % (2-4) L 11/27/22 12:45 Baso % (Auto) 1.7 % (0-2) 11/27/22 12:45 Neut # (Auto) 2800 /uL (0642-9340) 11/27/22 12:45 Lymph # (Auto) 1300 /uL (9517-3962) 11/27/22 12:45 [place] # (Auto) 400 /uL (0-900) 11/27/22 12:45 Eos # (Auto) 100 /uL (0-450) 11/27/22 12:45 Baso # (Auto) 100 /uL (0-100) 11/27/22 12:45 RBC Morphology See below 06/26/21 12:06 Anisocytosis 1+ H 06/26/21 12:06 Sodium 133 mmol/L (137-145) L 11/27/22 12:45 Potassium 4.9 mmol/L (3.4-5.1) 11/27/22 12:45 Chloride 95 mmol/L (98-107) L 11/27/22 12:45 Carbon Dioxide 29 mmol/L (22-32) 11/27/22 12:45 BUN 13 mg/dL (7-17) 11/27/22 12:45 Creatinine 0.86 mg/dL (0.52-1.04) 11/27/22 12:45 Estimated GFR > 60 mL/min (>60) 11/27/22 12:45 BUN/Creatinine Ratio 15.1 (6-22) 11/27/22 12:45 Glucose 111 mg/dL (70-100) H 11/27/22 12:45 Calcium 10.1 mg/dL (8.4-10.2) 11/27/22 12:45 Total Bilirubin 0.5 mg/dL (0.2-1.3) 11/27/22 12:45 AST 24 IU/L (14-36) 11/27/22 12:45 ALT 13 IU/L (<35) 11/27/22 12:45 Alkaline Phosphatase 82 U/L (38-126) 11/27/22 12:45 Prot Electrophor PDF Not Reportable 12/05/21 12:18 Serum Total Protein 6.6 g/dL (6.0-8.5) 12/05/21 12:18 Total Protein 8.1 g/dL (6.3-8.2) 11/27/22 12:45 Albumin 4.9 g/dL (3.5-5.0) 11/27/22 12:45 Globulin 3.2 g/dL (1.7-4.1) 11/27/22 12:45 Qupry-9-Zuawjfzqx 0.4 g/dL (0.0-0.4) 12/05/21 12:18 Albumin/Globulin Ratio 1.5 (1.0-2.8) 11/27/22 12:45 Uekhe-0-Mxhkgcbjr 0.9 g/dL (0.4-1.0) 12/05/21 12:18 Jsuh-5-Cjfmyqjx 0.9 g/dL (0.7-1.3) 12/05/21 12:18 Gamma Globulins 0.7 g/dL (0.4-1.8) 12/05/21 12:18 Gamma Glob/Tot Protein 2.8 g/dL (2.2-3.9) 12/05/21 12:18 PEP Comment Comment (.) 12/05/21 12:18 PEP Comment 4c Comment (.) 12/05/21 12:18 25-OH Vitamin D Total 32.2 ng/mL (30.0-100.0) 12/05/21 12:18 LAVELL M-Braulio Not observed g/dL (Not Observed) 12/05/21 12:18 - Imaging Additional studies: Procedures Excision of axillary lymph node (09/20/13) Incision with removal of foreign body or device from skin and subcutaneous tissue (03/21/14) Insertion of totally implantable vascular access device [VAD] (11/22/13) Subtotal mastectomy (09/20/13) Unilateral simple mastectomy (11/22/13) Assessment and Plan (1) Metastatic breast cancer Ruby is a 51-year-old female with remote history of right breast cancer, ER+, OK+, HER2-, T2, N1, M0, s/p mastectomy (11/22/2013) followed by adjuvant chemotherapy (TC) and radiation. She was subsequently started on Lupron and letrozole in Aug 2014, but she stopped both of them in November 2014 due to occurrence of depression. In late 2020, she presented with widely metastatic ER+, OK+, HER2-, breast cancer involving left breast, left axilla, chest wall and abdominal wall, and multiple bones. Patient underwent open biopsy and fixation of pathological fracture of the right femur (04/08/2021); and prophylactic intramedullary nail of right humerus for impending fracture (04/15/2021). The open biopsy confirmed the diagnosis of ER+, OK+, HER2-, breast cancer. Genomic study: My Risk genetic study was negative for clinically significant mutations. Patient was started on anastrozole on 04/28/2021. She started Ibrance on 05/04/2021. Discussion Today we reviewed her course and current treatment plans. She is relatively stable so will continue current anastrazole and ibrance. Due to dental issues her Zometa is on hold. Plan: Continue Anastrozole 1 mg daily, Continue Ibrance 125 mg on days 1-21, every 28 days. RTC in 1 month for follow-up visit, CBC, CMP Call for any concerns or questions.
--- NOTE | 2022-11-30 13:32 | ONC.SCHED ---
Scheduling: Patient said she would call us to schedule.
--- NOTE | 2023-01-31 09:16 | ONC.SCHED ---
Pt requested to cancel reid for today 01/31/23 via [facility] system. Pt was called to be notified of the changes in the clinic, a detailed vm was left with the options to transfer care to the clinic of her choice ([facility], [facility] or [facility]).
--- NOTE | 2023-02-10 12:47 | PC.NURSE ---
JANINE to [facility]. Referral in; [facility]
--- NOTE | 2023-02-10 14:56 | ONC.SCHED ---
Transfer of Care: This patient is transferring care to [facility]. Gilbert MELLO/JOCELYN, no PA required. Email sent to MR for processing.
--- NOTE | 2023-02-15 10:32 | ONC.MSW ---
T/C-Returned pt's call re: [facility]. Confirmed with MR that her records are in process of being transferred to [facility].
--- NOTE | 2023-03-21 13:47 | PC.NURSE ---
TRANSFER OF RECORDS: PER ADRIANA AT [facility] THEY HAVE A REFERRAL FOR KEVIN RG BUT HAD NOT YET RECEIVED RECORDS. ADRIANA HAD CONTACTED OUR MEDICAL RECORDS LAST WEEK. IN ADDITION OUR RECORDS SHOW THAT RECORDS WERE SENT IN EARLY FEBRUARY. THIS NURSE SPOKE WITH ALEXANDRA ABOUT THE SITUATION AND GAVE HER THE PHONE AND FAX FOR ADRIANA.
== END ==
PROVIDERS: Internal Medicine Hematology & Oncology; PCP Family Medicine; Referring Provider Family Medicine; Visit Provider Internal Medicine Medical Oncology
DX: C79.81 Secondary malignant neoplasm of breast (principal); C79.2 Secondary malignant neoplasm of skin; C79.51 Secondary malignant neoplasm of bone; C79.89 Secondary malignant neoplasm of other specified sites; Z17.0 Estrogen receptor positive status [ER+]; Z85.3 Personal history of malignant neoplasm of breast
CPT/HCPCS: 36415; 80053; 82306; 84155; 84165; 85025; 99205; 99213; 99214; 99215

== ENCOUNTER → 2024-01-25 | Outpatient (CLI) | payer MEDICARE, MEDICAID, SELFPAY ==
--- NOTE | 2024-01-25 | DI.NM.S_ITS ---
PROCEDURE: CA BONE SCAN WHOLE BODY RADIOPHARMACEUTICAL: 20.1 mCi Tc-99m MDP IV. INDICATIONS: Malignant neoplasm of right breast TECHNIQUE: Delayed whole-body scintigrams were obtained approximately 3-4 hours after intravenous injection of radiotracer. Anterior and posterior views were acquired from vertex to feet. COMPARISON: MR, MR THORACIC SPINE WO/W CON, 12/22/2021, 13:28. CT, CT CHEST ABD PEL W CON, 10/23/2021, 10:52. Outside Film, CT, CT CHEST ABDOMEN PELVIS WITH CONTRAST, 04/08/2021, 10:42. [place], [place] BONE SCAN WHOLE BODY, 11/23/2021, 14:36. FINDINGS: Physiologic uptake is noted within the kidneys and bladder. There are several foci uptake within ribs on the right appearing new compared to prior exam. Multifocal areas of uptake are present within the right femur. Uptake is present in the left femoral neck/greater trochanter region. Multifocal areas of uptake are present within spine, unchanged. There is increased uptake is noted within sternum, unchanged. Additional uptake is noted within the small bones of the feet as well the knees and shoulders. Uptake is noted within the proximal humeri bilaterally, unchanged IMPRESSION: Increased areas of uptake within the ribs appearing more prominent, concerning for metastatic disease. Follow-up with CT or x-ray is recommended. Multifocal areas of uptake within the femurs bilaterally concerning for metastatic disease. Overall appearance is relatively stable. Sternal uptake consistent with CT changes of sclerosis unchanged consistent with metastatic disease. Uptake within the spine which is overall nonspecific. This could represent areas metastatic disease as appearance is indistinguishable. Bilateral uptake within the mid humerus bilaterally. Suspicion is present for metastatic disease but overall appearance is stable. Significant uptake within the feet suspected to represent degenerative change. Dictated by: Pippa Hilliard M.D. on 01/26/2024 at 13:24 Approved by: Pippa Hilliard M.D. on 01/26/2024 at 13:29
== END ==
PROVIDERS: Family Provider Family Medicine; PCP Family Medicine; Referring Provider Internal Medicine Hematology & Oncology; Visit Provider Internal Medicine Hematology & Oncology
DX: C50.911 Malignant neoplasm of unspecified site of right female breast (principal); Z17.0 Estrogen receptor positive status [ER+]; I10 Essential (primary) hypertension; F17.200 Nicotine dependence, unspecified, uncomplicated; F39 Unspecified mood [affective] disorder; C79.51 Secondary malignant neoplasm of bone
CPT/HCPCS: 78306; A9503

== ENCOUNTER → 2024-03-10 11:05 | Outpatient (CLI) | payer MEDICARE, MEDICAID, SELFPAY ==
[2024-03-10 11:38] LABS: Add Manual Diff / Slide Review NO; Basophils Absolute Auto 0 /uL (0-100); Basophils Percent Auto 1.7 % (0-2); Eosinophils Absolute Auto 0 /uL (0-450); Eosinophils Percent Auto 1.3 % (2-4); Hematocrit 34.8 % (36-46); Hemoglobin 11.9 g/dL (12.0-16.0); Lymphocytes Absolute Auto 700 /uL (1100-4500); Lymphocytes Percent Auto 30.7 % (25-40); Mean Corpuscular HGB Conc 34.2 % (30-36); Mean Corpuscular Hemoglobin 37.4 PG (26-34); Mean Corpuscular Volume 109.5 fL (80-100); Monocytes Absolute Auto 300 /uL (0-900); Monocytes Percent Auto 13.5 % (3-14); Neutrophils Absolute Auto 1300 /uL (1500-7000); Neutrophils Percent Auto 52.8 % (50-75); Platelet Count 309 X10^3/uL (150-400); Red Blood Cell Count 3.18 X10^6/uL (4.0-5.2); Red Cell Distribution Width 15.1 % (11.6-14.8); White Blood Cell Count 2.4 X10^3/uL (4.5-11.0)
[2024-03-10 11:54] LABS: Estimated Glomerular Filt Rate 46 mL/min (>60)
[2024-03-10 11:54] LABS: Alanine Aminotransferase 17 IU/L (<35); Albumin 4.8 g/dL (3.5-5.0); Albumin Globulin Ratio 1.5 (1.0-2.8); Alkaline Phosphatase 81 U/L (38-126); Aspartate Aminotransferase 33 IU/L (14-36); BUN Creatinine Ratio 27.3 (6-22); Bilirubin Total 0.5 mg/dL (0.2-1.3); Blood Urea Nitrogen 38 mg/dL (7-17); Calcium 10.4 mg/dL (8.4-10.2); Carbon Dioxide 30 mmol/L (22-32); Chloride 87 mmol/L (98-107); Cholesterol 237 mg/dL (140-199); Estimated Glomerular Filt Rate 45 mL/min (>60); Globulin 3.2 g/dL (1.7-4.1); Glucose 137 mg/dL (70-100); HEMOLYSIS < 15 (0-50); Potassium 4.5 mmol/L (3.4-5.1); Sodium 125 mmol/L (137-145); Triglycerides 92 mg/dL (35-150)
[2024-03-10 12:02] LABS: HDL Cholesterol 163 mg/dL (40-60); LDL Cholesterol Calculated 56 mg/dL (<100)
[2024-03-10 12:25] LABS: TSH w/ Reflex to FT4 3.67 uIU/mL (0.47-4.68)
== END ==
LOC: LAB 11:06
PROVIDERS: Radiology Diagnostic Radiology; Family Provider Family Medicine; PCP Family Medicine; Referring Provider Family Medicine; Visit Provider Family Medicine
DX: G89.3 Neoplasm related pain (acute) (chronic) (principal); I10 Essential (primary) hypertension; C50.919 Malignant neoplasm of unspecified site of unspecified female breast; C50.911 Malignant neoplasm of unspecified site of right female breast; Z17.0 Estrogen receptor positive status [ER+]; C79.51 Secondary malignant neoplasm of bone; F17.200 Nicotine dependence, unspecified, uncomplicated
CPT/HCPCS: 36415; 80053; 80061; 82565; 84443; 85025

== ENCOUNTER → 2024-03-13 12:05 | Outpatient (CLI) | payer MEDICARE, MEDICAID, SELFPAY ==
--- NOTE | 2024-03-13 | DI.CT.S_ITS ---
PROCEDURE: CT CHEST ABD PEL W CON INDICATIONS: BREAST CANCER METS TO BONE TECHNIQUE: After the administration of intravenous contrast, 5 mm thick sections acquired from the lung apices to the symphysis. 5 mm coronal and sagittal reformats were performed, with additional 7 mm MIP reformats through the lungs. For radiation dose reduction, the following was used: automated exposure control, adjustment of mA and/or kV according to patient size. COMPARISON: [facility], CT, CT CHEST ABD PEL W CON, 10/23/2021, 10:52. FINDINGS: Image quality: Excellent. CHEST: Lower Neck: No nodules Thyroid: Normal CT appearance. Axillae: Right axillary surgical clips. No enlarged lymph nodes. Chest Wall: Surgical changes of right mastectomy. No suspicious mass. Lungs and Pleura: Stable subpleural right medial lower lobe nodule, benign. Subpleural radiation changes anterior chest wall. No new nodule, mass, consolidation, or pleural effusion. Mild diffuse airway thickening suggesting bronchitis, chronic Heart: Heart size is normal. No pericardial effusion. Moderate coronary artery calcification. Thoracic Vessels: The aorta and pulmonary arteries demonstrate normal size. Mediastinum and Kat: No enlarged lymph nodes. Esophagus: No wall thickening. No hiatal hernia. ABDOMEN: Liver: A few vague hepatic hypodensities are present near the liver dome in segment seven, not previously seen. There is a small hypodensity centrally in the right hepatic lobe. Minor hypodensity is also seen in the inferior segment four adjacent to the falciform ligament. No enhancing masses. Gallbladder: No wall thickening or calcified stones. Biliary ducts: No biliary dilation. Pancreas: Normal size and morphology without visible ductal dilatation or inflammation. Spleen: Size is within normal limits. Adrenal Glands: No adrenal nodules. Kidneys and Ureters: Asymmetrically diminutive left kidney, but symmetric enhancement. No evidence of obstruction or solid mass. Normal ureters. Stomach and Bowel: Stomach and small bowel loops are normal caliber. Normal appendix. Peritoneum: Occasional colonic diverticulosis. No suspicious colon wall thickening. Ventral Wall: No significant ventral hernia. There are several scattered ovoid nodules in the anterior subcutaneous tissue. The largest measures roughly 1.3 cm. Abdominal Nodes: No retroperitoneal or mesenteric adenopathy by size criteria. Vessels: The abdominal aorta, IVC, and portal vein are of normal caliber. PELVIS: Pelvic Organs: Uterus and ovaries are normal. Bladder: Decompressed. Pelvic Nodes: No enlarged lymph nodes. Miscellaneous: No inguinal hernias are seen. Bones: Right hip pinning. Diffuse sclerotic changes throughout most of the osseous structures. Chronic wedge deformity of T7 with slight progression since 10/23/21. New mild wedge deformity of T6. Subcortical sclerosis right femoral head may be degenerative versus early avascular necrosis. Intramedullary radha and screws in the right proximal femur. IMPRESSION: New areas of a hepatic hypodensity. Recommend further evaluation with liver protocol MRI to assess for metastatic disease. Chronic, widespread osseous metastatic disease with slight progression of the pathologic fracture of T7 and minor wedging of T6. Possible right femoral head avascular necrosis versus lesion versus degeneration. Subcutaneous nodules in the anterior soft tissues were present previously. Surgical changes of right mastectomy and axillary dissection. No evidence of local recurrence. Dictated by: Oralia To M.D. on 03/14/2024 at 12:45 Approved by: Oralia To M.D. on 03/14/2024 at 12:59
== END ==
PROVIDERS: Family Provider Family Medicine; PCP Family Medicine; Referring Provider Internal Medicine Hematology & Oncology; Visit Provider Internal Medicine Hematology & Oncology
DX: C50.911 Malignant neoplasm of unspecified site of right female breast (principal); C79.51 Secondary malignant neoplasm of bone; M84.58XA Pathological fracture in neoplastic disease, other specified site, initial encounter for fracture; K76.9 Liver disease, unspecified; M79.89 Other specified soft tissue disorders; Z17.0 Estrogen receptor positive status [ER+]; Z90.11 Acquired absence of right breast and nipple
CPT/HCPCS: 71260; 74177; Q9967

== ENCOUNTER → 2024-05-01 12:58 | Outpatient (CLI) | payer MEDICARE, MEDICAID, SELFPAY ==
[2024-05-01 13:40] LABS: Estimated Glomerular Filt Rate 43 mL/min (>60)
== END ==
PROVIDERS: Family Provider Family Medicine; PCP Family Medicine; Referring Provider Radiology Diagnostic Radiology; Visit Provider Radiology Diagnostic Radiology
DX: I10 Essential (primary) hypertension (principal)
CPT/HCPCS: 36415; 82565

== ENCOUNTER → 2024-05-02 15:59 | Outpatient (CLI) | payer MEDICARE, MEDICAID, SELFPAY ==
--- NOTE | 2024-05-02 16:01 | DI.MRI.S_ITS ---
PROCEDURE: MR ABDOMEN LIVER PROTOCOL INDICATIONS: BREAST CANCER METS TO BONE TECHNIQUE: Coronal HASTE, axial 2D FLASH in- and [id number]; axial breath-hold T2 FSE. Dynamic axial VIBE during the administration of contrast; post-contrast coronal VIBE or 2D FLASH with fat saturation from the hepatic dome to the iliac crests. Optional diffusion weighted imaging and ADC may be performed. COMPARISON: [facility], CT, CT CHEST ABD PEL W CON, 10/23/2021, 10:52. [facility], CT, CT CHEST ABD PEL W CON, 03/13/2024, 13:14. FINDINGS: Image quality: Diagnostic Lower chest: No pleural effusions. Liver: Innumerable liver metastases. Proposed index lesion at the liver dome measuring 2.1 cm (10/24, 06/25). Gallbladder and biliary system: Hepatobiliary contrast excretion is seen. Pancreas: No ductal dilation Spleen: Nonenlarged Adrenals: No discrete nodules Kidneys: No solid mass or hydronephrosis. Relative atrophy of the left kidney. Vessels and lymph nodes: No pathologic lymph nodes by size criteria. The main portal vein appears diminutive, but overall patent. No abdominal aortic aneurysm. Bowel and peritoneum: No pathologic ascites or bowel obstruction Body wall: Unremarkable. Subcutaneous nodules anteriorly again seen. Bones: Diffuse osseous metastatic disease, with some areas of pathologic fractures in the lumbar spine, otherwise not well assessed on this liver protocol MRI. IMPRESSION: Innumerable liver metastases. [place] of disease greater than suggested on CT. Osseous metastases, not well assessed on this liver protocol MRI, with areas of pathologic fractures in the visualized spine Other findings above. Approved by: Rolando Henriquez M.D. on 05/02/2024 at 20:50
--- NOTE | 2024-05-02 16:01 | DI.MG.S_ITS ---
UNILATERAL LEFT DIGITAL SCREENING MAMMOGRAM 3D/2D WITH CAD POST MASTECTOMY: 05/02/2024 CLINICAL: Routine screening. Personal history of right breast cancer. Family history of Breast Cancer. Comparison is made to exams dated: 09/07/2016 mammogram, 12/20/2014 mammogram, and 10/05/2013 [facility]. CT Chest abdomen and pelvis 03/13/2024. The breasts are extremely dense, which lowers the sensitivity of mammography (category d />75% glandular tissue). Current study was also evaluated with a Computer Aided Detection (CAD) system. There are diffuse fine calcifications in the left breast in the superior lateral quadrant. There is an irregular focal asymmetry in the left breast at 1 o'clock middle depth. This is not significantly changed. There also is an irregular asymmetry in the left breast posterior depth superior region seen on the mediolateral oblique view only. This is not significantly changed. Additionally, there is an irregular asymmetry in the left breast posterior depth superior region seen on the mediolateral oblique view only. This is not significantly changed. IMPRESSION: SUSPICIOUS Known metastatic breast cancer. Left breast lesions are stable to slightly decreased in size. These correspond to the prior ultrasound from 2020 and are suspicious for malignancy. If indicated, ultrasound could be preformed to further evaluate the change in size. Ultrasound guided biopsy could also be considered for histologic evaluation. -The irregular focal asymmetry in the left breast at 1 o'clock middle depth is indeterminate. -The irregular asymmetry in the left breast posterior depth superior region is indeterminate. -The irregular asymmetry in the left breast posterior depth superior region is indeterminate. This exam was interpreted at Station ID: [id number]. NOTE: For mammograms, a report in lay terms will be sent to the patient. Approximately 15% of breast malignancies will not be visualized mammographically. In the management of a palpable breast mass, a negative mammogram must not discourage biopsy of a clinically suspicious lesion. Electronically Signed By: Jefry Regan M.D. [facility]/:05/03/2024 17:35:59 letter sent: Clinical Evaluation ACR BI-RADS Category 4: Suspicious
== END ==
LOC: MAMMO 16:00
PROVIDERS: Family Provider Family Medicine; PCP Family Medicine; Referring Provider Internal Medicine Hematology & Oncology; Visit Provider Internal Medicine Hematology & Oncology
DX: C79.51 Secondary malignant neoplasm of bone (principal); C50.911 Malignant neoplasm of unspecified site of right female breast; Z80.3 Family history of malignant neoplasm of breast; Z12.31 Encounter for screening mammogram for malignant neoplasm of breast; R92.343 Mammographic extreme density, bilateral breasts; C78.7 Secondary malignant neoplasm of liver and intrahepatic bile duct; Z17.0 Estrogen receptor positive status [ER+]
CPT/HCPCS: 74183; 77063; 77067; A9579

== ENCOUNTER 2024-06-19 22:27 | Inpatient (IN) | payer MEDICARE, MEDICAID, SELFPAY ==
[2024-06-19] VITALS (7 sets, daily range): BP systolic 76–101; BP diastolic 53–69; PULSE 77–112; RESP 15–23; TEMP 36.5; O2SAT 97–100; BMI 18.2
--- NOTE | 2024-06-19 22:38 | EKG_ITS ---
[address] [address] Test Date: 2024-06-19 Pat Name: Ruby Rooney Department: [facility] Room: Gender: Female Editor Map: : 1970 Requested By: Order Number: [id number] Reading MD: Jay Mcduffie Measurements Intervals [place] Rate: 111 P: 71 FL: 134 QRS: 74 QRSD: 90 T: -36 QT: 330 QTc: 448 Interpretive Statements Sinus tachycardia Right atrial enlargement ST & T wave abnormality, consider inferior ischemia Electronically Signed On 06-20-2024 7:54:57 PST by Jay Mcduffie
--- NOTE | 2024-06-19 22:43 | DI.RAD.S_ITS ---
PROCEDURE: XR CHEST 1V INDICATIONS: GLF, L FOOT PAIN TECHNIQUE: One view of the chest was acquired. COMPARISON: None. FINDINGS: Surgical changes and devices: Surgical clips project over the right chest wall. Lungs and pleura: Lungs are clear. No pleural effusions or pneumothorax. Mediastinum: Mediastinal contours appear normal. Heart size is normal. Bones and chest wall: No suspicious bony lesions. Overlying soft tissues appear unremarkable. Healed left rib fractures. Prominent left nipple shadow. IMPRESSION: No acute cardiopulmonary abnormality is seen. Dictated by: Chacho Yeh M.D. on 06/19/2024 at 23:03 Approved by: Chacho Yeh M.D. on 06/19/2024 at 23:04
--- NOTE | 2024-06-19 22:44 | ED_ITS ---
HPI - Fall General Chief Complaint: Weakness Stated Complaint: foot injury Time Seen by Provider: 06/19/24 22:28 History of Present Illness HPI Narrative: 54-year-old female with history of metastatic breast cancer on abemaciclib and faslodex, tobacco abuse, chronic R eye blindness presents by EMS from home for left foot pain. Patient states that 4 days ago she had a slip and fall from the stairs, twisting her left foot. She denies hitting her head, denies any other injuries. Due to her foot pain she was not been able to walk and has been crawling on her hands and knees to get around her house. Today she decided to call 911 for evaluation. Patient states she has not been eating or drinking much due to her mobility issues over the last several days. Followed by Dr. Butch Madsen of [facility] for her breast CA Related Data Home Medications Medication Instructions Recorded Confirmed acetaminophen 325 mg capsule 650 mg PO Q4H PRN Pain (Scale 04/28/21 11/01/23 (Tylenol) Score 4-6) Previous Rx's Medication Instructions Recorded palbociclib 125 mg tablet (Ibrance) 125 mg PO DAILY #21 tabs 04/01/22 anastrozole 1 mg tablet 1 mg PO DAILY breast cancer #90 11/01/23 tabs losartan 100 1 tab PO DAILY #90 tabs 11/01/23 mg-hydrochlorothiazide 12.5 mg tablet metoprolol succinate 100 mg 100 mg PO BID #180 tabs 11/01/23 tablet,extended release 24 hr oxycodone 5 mg tablet 5 mg PO Q12H PRN cancer pain #60 11/01/23 tabs bupropion HCl 150 mg tablet,12 hr 150 mg PO BID #60 ea 04/11/24 sustained-release (Wellbutrin SR) albuterol sulfate 90 mcg/actuation 2 puff inhalation Q4-6H PRN 04/16/24 aerosol inhaler (Ventolin HFA) shortness of breath or wheezing #6.7 grams Allergies Allergy/AdvReac Type Severity Reaction Status Date / Time No Known Drug Allergies Allergy Verified 11/01/23 14:55 Patient History Medical History History of fracture of left ankle Mass of left axilla Breast cancer, left Hypertension Current every day smoker Ankle fracture, right (11/2019) Eczema Depression Retinal detachment (2003) Breast cancer, right Surgical History History of mastectomy (11/2013) History of lumpectomy of right breast (11/2013) Family History Mother Breast cancer associated with mutation in MELYSSA gene Social History household members: family Smoking Status: Current every day smoker alcohol intake: current (wine occasionally) substance use type: does not use Smoking Status: Current every day smoker alcohol intake frequency: a few times a week Alcohol type: wine Exam Initial Vital Signs Initial Vital Signs: Vital Signs Blood Pressure 97/69 06/19/24 22:32 Const: Awake, alert, appears debilitated, frail, chronically unwell, older than stated age Cardiac: Tachycardia, regular rhythm RESP: unlabored, clear bilaterally, no wheezing GI: Soft, nontender, nondistended, no rebound, no guarding MSK: Atraumatic, full range of motion, pulses equal Skin: Warm, Dry, intact, no rashes Neuro: AO x3, CN II-XII grossly intact, moves all extremities Course Orders Ordered: ED Orders 06/19/24 22:38 EKG-12 Lead Stat 06/19/24 22:43 Chest [XR chest 1V] Stat 06/19/24 22:46 CBC Auto Diff [Complete Blood Count AUTO DIFF] Stat CMP [Comprehensive Metabolic Panel] Stat Lactate (Lactic Acid) Stat MAG [Magnesium] Stat PT [Prothrombin Time INR] Stat 06/19/24 22:57 Consult to COMMERCIAL MARKETING SPECIALIST - Carpet Measurer Stat 06/19/24 23:22 XR foot LT min 3V Stat 06/20/24 02:30 UA Complete [Urinalysis and Microscopic] Stat 06/20/24 02:36 CK [Creatine Kinase] Stat 06/20/24 03:15 VBG [Venous Blood Gas] STAT 06/20/24 03:20 BMP [Basic Metabolic Panel] Stat 06/20/24 03:26 Venous Blood Gas Routine Discontinued Medications Sodium Chloride (Normal Saline 0.9%) 1,000 mls @ 1,000 mls/hr IV BOLUS ONE Stop: 06/19/24 23:42 Last Infusion: 06/20/24 00:07 Dose: Infused Documented By: Admin: 06/19/24 22:52 Dose: 1,000 mls/hr Documented By: QUIN Sodium Chloride (Normal Saline 0.9%) 1,000 mls @ 1,000 mls/hr IV BOLUS ONE Stop: 06/20/24 01:02 Last Infusion: 06/20/24 00:43 Dose: Infused Documented By: Admin: 06/20/24 00:08 Dose: 1,000 mls/hr Documented By: RULA Oxycodone HCl (Oxycodone Ir 5 Mg Tablet) 5 mg PO NOW ONE Stop: 06/19/24 22:44 Last Admin: 06/19/24 22:54 Dose: 5 mg Documented By: QUIN Vital Signs Vital signs: Vital Signs - 8 hr 06/19/24 22:32 06/19/24 22:35 06/19/24 22:35 Temperature Pulse Rate 77 Respiratory Rate Blood Pressure 97/69 90/53 L Pulse Oximetry Oxygen Delivery Method 06/19/24 22:40 06/19/24 23:00 06/19/24 23:09 Temperature 97.7 F Pulse Rate 112 H 102 H 102 H Respiratory Rate 16 23 20 Blood Pressure 76/57 L Pulse Oximetry 97 99 98 Oxygen Delivery Method Room Air Room Air 06/19/24 23:09 06/19/24 23:27 06/19/24 23:30 Temperature Pulse Rate 101 H 100 H Respiratory Rate 15 16 Blood Pressure 101/59 L 101/59 L Pulse Oximetry 100 100 Oxygen Delivery Method 06/19/24 23:30 06/20/24 00:00 06/20/24 00:02 Temperature Pulse Rate 98 H 98 H Respiratory Rate 14 20 Blood Pressure 97/58 L Pulse Oximetry 100 100 Oxygen Delivery Method 06/20/24 00:02 06/20/24 00:04 06/20/24 00:05 Temperature Pulse Rate Respiratory Rate Blood Pressure 77/48 L 78/48 L 80/51 L Pulse Oximetry Oxygen Delivery Method 06/20/24 00:05 06/20/24 00:10 06/20/24 00:10 Temperature Pulse Rate 100 H 96 H Respiratory Rate 20 15 Blood Pressure 77/51 L Pulse Oximetry 100 100 Oxygen Delivery Method Room Air 06/20/24 00:20 06/20/24 00:20 06/20/24 00:30 Temperature Pulse Rate 96 H 95 H Respiratory Rate 19 15 Blood Pressure 85/54 L Pulse Oximetry 99 99 Oxygen Delivery Method Room Air 06/20/24 00:30 06/20/24 00:40 06/20/24 00:40 Temperature Pulse Rate 97 H Respiratory Rate 16 Blood Pressure 84/52 L 86/56 L Pulse Oximetry 100 Oxygen Delivery Method 06/20/24 00:50 06/20/24 00:50 06/20/24 01:00 Temperature Pulse Rate 94 H 93 H Respiratory Rate 15 14 Blood Pressure 87/51 L Pulse Oximetry 100 99 Oxygen Delivery Method Room Air 06/20/24 01:00 06/20/24 01:10 06/20/24 01:10 Temperature Pulse Rate 92 H Respiratory Rate 14 Blood Pressure 88/52 L 76/49 L Pulse Oximetry 98 Oxygen Delivery Method 06/20/24 01:12 06/20/24 01:12 06/20/24 01:18 Temperature Pulse Rate 99 H Respiratory Rate 19 Blood Pressure 86/54 L 86/51 L Pulse Oximetry 97 Oxygen Delivery Method 06/20/24 01:18 06/20/24 01:20 06/20/24 01:20 Temperature Pulse Rate 97 H 98 H Respiratory Rate 18 18 Blood Pressure 85/46 L Pulse Oximetry 99 99 Oxygen Delivery Method 06/20/24 01:30 06/20/24 01:30 06/20/24 01:40 Temperature Pulse Rate 94 H Respiratory Rate 15 Blood Pressure 91/51 L 90/54 L Pulse Oximetry 99 Oxygen Delivery Method 06/20/24 01:40 06/20/24 01:50 06/20/24 01:50 Temperature Pulse Rate 94 H 95 H Respiratory Rate 15 16 Blood Pressure 95/57 L Pulse Oximetry 99 100 Oxygen Delivery Method 06/20/24 02:00 06/20/24 02:00 06/20/24 02:10 Temperature Pulse Rate 93 H Respiratory Rate 14 Blood Pressure 92/50 L 91/55 L Pulse Oximetry 98 Oxygen Delivery Method 06/20/24 02:10 06/20/24 02:20 06/20/24 02:20 Temperature Pulse Rate 96 H 95 H Respiratory Rate 15 16 Blood Pressure 90/57 L Pulse Oximetry 98 98 Oxygen Delivery Method 06/20/24 02:30 06/20/24 02:30 06/20/24 02:40 Temperature Pulse Rate 97 H Respiratory Rate 17 Blood Pressure 102/57 L 99/55 L Pulse Oximetry 99 Oxygen Delivery Method 06/20/24 02:40 06/20/24 02:50 06/20/24 02:50 Temperature Pulse Rate 104 H 101 H Respiratory Rate 16 14 Blood Pressure 98/57 L Pulse Oximetry 98 99 Oxygen Delivery Method 06/20/24 03:00 06/20/24 03:00 Temperature Pulse Rate 101 H Respiratory Rate 14 Blood Pressure 90/54 L Pulse Oximetry 100 Oxygen Delivery Method MDM - Fall Lab Data 06/19/24 22:46 06/20/24 03:20 Labs: Lab Results 06/19/24 06/19/24 06/20/24 Range/Units 22:40 22:46 02:30 WBC 4.5 (4.5-11.0) X10^3/uL RBC 2.93 L (4.0-5.2) X10^6/uL Hgb 10.2 L (12.0-16.0) g/dL Hct 29.9 L (36-46) % MCV 102.4 H (80-100) fL MCH 35.0 H (26-34) PG MCHC 34.2 (30-36) % RDW 13.5 (11.6-14.8) % Plt Count 335 (150-400) X10^3/uL Neut % (Auto) 83.7 H (50-75) % Lymph % (Auto) 9.2 L (25-40) % [place] % (Auto) 6.1 (3-14) % Eos % (Auto) 0.6 L (2-4) % Baso % (Auto) 0.4 (0-2) % Neut # (Auto) 3800 (5976-8064) /uL Lymph # (Auto) 400 L (6794-1913) /uL [place] # (Auto) 300 (0-900) /uL Eos # (Auto) 0 (0-450) /uL Baso # (Auto) 0 (0-100) /uL PT 13.1 H (9.4-12.5) SECONDS INR 1.2 (0.9-1.3) VBG pH (7.33-7.43) VBG pCO2 (45-50) mmHg VBG pO2 (35-45) mmHg VBG HCO3 (24-28) mmol/L VBG Total CO2 (24-29) mmol/L VBG O2 Saturation (70-75) % VBG Base Excess (0-4) mmol/L FiO2 % % Sodium 116 L* (137-145) mmol/L Potassium 3.9 (3.4-5.1) mmol/L Chloride 74 L* (98-107) mmol/L Carbon Dioxide 21 L (22-32) mmol/L BUN 39 H (7-17) mg/dL Creatinine 2.81 H (0.52-1.04) mg/dL Estimated GFR 19 L (>60) mL/min BUN/Creatinine Ratio 13.9 (6-22) Glucose 73 (70-100) mg/dL Lactate 1.5 (0.7-2.1) mmol/L Calcium 10.1 (8.4-10.2) mg/dL Magnesium 2.0 (1.6-2.3) mg/dL Total Bilirubin 0.9 (0.2-1.3) mg/dL AST 36 (14-36) IU/L ALT 21 (<35) IU/L Alkaline Phosphatase 88 (38-126) U/L Total Creatine Kinase 123 (30-135) U/L Total Protein 7.5 (6.3-8.2) g/dL Albumin 4.9 (3.5-5.0) g/dL Globulin 2.6 (1.7-4.1) g/dL Albumin/Globulin Ratio 1.9 (1.0-2.8) Urine Color Yellow Urine Appearance Clear Urine pH 5.5 (4.5-8.0) Ur Specific [place] <=1.005 (1.000-1.035) Urine Protein Negative (Negative) Urine Glucose (UA) Negative (Negative) g/dL Urine Ketones 1+ H (NEGATIVE) Urine Occult Blood Negative (Negative) Urine Nitrate Negative (Negative) Urine Bilirubin Negative (NEGATIVE) Urine Urobilinogen 0.2 (0.2) E.U./dL Ur Leukocyte Esterase Negative (NEGATIVE) Urine RBC None seen (0-5/HPF) Urine WBC None seen (0-5/HPF) Ur Squamous Epith Cells None seen (0-5/HPF) Urine Bacteria None seen (None) Ur Culture Indicated? Cult not indicated Vol Urine Centrifuged 10ml (spun) 06/20/24 06/20/24 06/20/24 Range/Units 03:16 03:20 03:26 WBC (4.5-11.0) X10^3/uL RBC (4.0-5.2) X10^6/uL Hgb (12.0-16.0) g/dL Hct (36-46) % MCV (80-100) fL MCH (26-34) PG MCHC (30-36) % RDW (11.6-14.8) % Plt Count (150-400) X10^3/uL Neut % (Auto) (50-75) % Lymph % (Auto) (25-40) % [place] % (Auto) (3-14) % Eos % (Auto) (2-4) % Baso % (Auto) (0-2) % Neut # (Auto) (0484-6730) /uL Lymph # (Auto) (2985-3441) /uL [place] # (Auto) (0-900) /uL Eos # (Auto) (0-450) /uL Baso # (Auto) (0-100) /uL PT (9.4-12.5) SECONDS INR (0.9-1.3) VBG pH 7.38 (7.33-7.43) VBG pCO2 32.6 L (45-50) mmHg VBG pO2 39 (35-45) mmHg VBG HCO3 19 L (24-28) mmol/L VBG Total CO2 18 L (24-29) mmol/L VBG O2 Saturation 73 (70-75) % VBG Base Excess -5.3 L (0-4) mmol/L FiO2 % 21.0 % % Sodium Cancelled 120 L (137-145) mmol/L Potassium 3.4 (3.4-5.1) mmol/L Chloride 84 L (98-107) mmol/L Carbon Dioxide 18 L (22-32) mmol/L BUN 33 H (7-17) mg/dL Creatinine 2.20 H (0.52-1.04) mg/dL Estimated GFR 26 L (>60) mL/min BUN/Creatinine Ratio 15.0 (6-22) Glucose 65 L (70-100) mg/dL Lactate (0.7-2.1) mmol/L Calcium 9.5 (8.4-10.2) mg/dL Magnesium (1.6-2.3) mg/dL Total Bilirubin (0.2-1.3) mg/dL AST (14-36) IU/L ALT (<35) IU/L Alkaline Phosphatase (38-126) U/L Total Creatine Kinase (30-135) U/L Total Protein (6.3-8.2) g/dL Albumin (3.5-5.0) g/dL Globulin (1.7-4.1) g/dL Albumin/Globulin Ratio (1.0-2.8) Urine Color Urine Appearance Urine pH (4.5-8.0) Ur Specific [place] (1.000-1.035) Urine Protein (Negative) Urine Glucose (UA) (Negative) g/dL Urine Ketones (NEGATIVE) Urine Occult Blood (Negative) Urine Nitrate (Negative) Urine Bilirubin (NEGATIVE) Urine Urobilinogen (0.2) E.U./dL Ur Leukocyte Esterase (NEGATIVE) Urine RBC (0-5/HPF) Urine WBC (0-5/HPF) Ur Squamous Epith Cells (0-5/HPF) Urine Bacteria (None) Ur Culture Indicated? Vol Urine Centrifuged ECG Data Interpretation: sinus tachycardia at 111bpm. Normal [place]. No STEMI, no recent prior for comparison MDM Narrative Medical decision making narrative: Slip and fall with left foot pain, however patient has not been able to ambulate due to her pain and has had decreased p.o. intake over the last several days. Patient tachycardic on arrival, appears chronically unwell but not in any acute distress. No obvious deformity to foot. Patient denying any other injuries at this time. Laboratory work, x-ray imaging ordered. IV fluids ordered. Laboratory work significant for several derangements. WBC count 4.5, hemoglobin 10.2, platelet count 335, sodium 116, potassium 3.9, chloride 74, creatinine 2.81 (baseline 1.4), lactic acid 1.5, normal liver enzymes. Chest x-ray negative for acute findings. Foot x-ray negative for acute fracture. Patient's blood pressure is soft with systolicblood pressures reading 70-80's, however patient is not in any distress and conversational without significant symptoms during these readings. She has received 1L IV fluids, an additional liter to be ordered. Hyponatremia may be due to hypovolemia from decreased po intake over the last several days, which would also be related to the NICKIE patient is experiencing. Discharge Plan Departure Patient Disposition: Admitted As Inpatient Clinical Impression: Acute hyponatremia, NICKIE (acute kidney injury), Metastatic breast cancer, Acute pain of left foot, Adult failure to thrive Admit Date/Time: 06/20/24 04:03 Admit Provider: Lucia Vogel
[2024-06-19] MEDS: SODIUM CHLORIDE 0.9% 1,000 ML 1000 ML IV (22:52)
[2024-06-19] MEDS: OXYCODONE IR 5 MG TABLET PO (22:54)
[2024-06-19 23:11] LABS: Add Manual Diff / Slide Review NO; Basophils Absolute Auto 0 /uL (0-100); Basophils Percent Auto 0.4 % (0-2); Eosinophils Absolute Auto 0 /uL (0-450); Eosinophils Percent Auto 0.6 % (2-4); Hematocrit 29.9 % (36-46); Hemoglobin 10.2 g/dL (12.0-16.0); Lymphocytes Absolute Auto 400 /uL (1100-4500); Lymphocytes Percent Auto 9.2 % (25-40); Mean Corpuscular HGB Conc 34.2 % (30-36); Mean Corpuscular Volume 102.4 fL (80-100); Monocytes Absolute Auto 300 /uL (0-900); Monocytes Percent Auto 6.1 % (3-14); Neutrophils Absolute Auto 3800 /uL (1500-7000); Neutrophils Percent Auto 83.7 % (50-75); Platelet Count 335 X10^3/uL (150-400); Red Blood Cell Count 2.93 X10^6/uL (4.0-5.2); Red Cell Distribution Width 13.5 % (11.6-14.8); White Blood Cell Count 4.5 X10^3/uL (4.5-11.0)
[2024-06-19 23:13] LABS: INR 1.2 (0.9-1.3); Prothrombin Time 13.1 SECONDS (9.4-12.5)
[2024-06-19 23:18] LABS: Alanine Aminotransferase 21 IU/L (<35); Albumin 4.9 g/dL (3.5-5.0); Albumin Globulin Ratio 1.9 (1.0-2.8); Alkaline Phosphatase 88 U/L (38-126); Aspartate Aminotransferase 36 IU/L (14-36); BUN Creatinine Ratio 13.9 (6-22); Bilirubin Total 0.9 mg/dL (0.2-1.3); Blood Urea Nitrogen 39 mg/dL (7-17); Calcium 10.1 mg/dL (8.4-10.2); Carbon Dioxide 21 mmol/L (22-32); Estimated Glomerular Filt Rate 19 mL/min (>60); Globulin 2.6 g/dL (1.7-4.1); Glucose 73 mg/dL (70-100); HEMOLYSIS < 15 (0-50); Potassium 3.9 mmol/L (3.4-5.1); Total Protein 7.5 g/dL (6.3-8.2)
[2024-06-19 23:19] LABS: Lactate (Lactic Acid) 1.5 mmol/L (0.7-2.1); Sodium 116 mmol/L (137-145)
[2024-06-19 23:20] LABS: Chloride 74 mmol/L (98-107)
--- NOTE | 2024-06-19 23:22 | DI.RAD.S_ITS ---
PROCEDURE: XR FOOT LT MIN 3V INDICATIONS: glf, L foot pain TECHNIQUE: 3 views of the foot were acquired. COMPARISON: None. FINDINGS: Bones: No fractures or dislocations. No suspicious bony lesions. Soft tissues: No tibiotalar joint effusion. Achilles tendon appears normal. IMPRESSION: No acute bony abnormality. Dictated by: Chacho Yeh M.D. on 06/19/2024 at 23:38 Approved by: Chacho Yeh M.D. on 06/19/2024 at 23:38
[2024-06-20] VITALS (110 sets, daily range): BP systolic 62–118; BP diastolic 24–67; PULSE 92–154; RESP 12–44; TEMP 36.7–36.9; O2SAT 90–100; BMI 18.2
[2024-06-20] MEDS: SODIUM CHLORIDE 0.9% 1,000 ML 1000 ML IV (00:08)
--- NOTE | 2024-06-20 00:08 | PC.NURSE ---
0005: Provider Donald made aware of patient's blood pressure. New orders of 1000ml NS as per SEP.
--- NOTE | 2024-06-20 00:10 | PC.NURSE ---
Addendum entered by Cally Mcintyre R.N. 06/20/24 00:11: She is alert and responding appropriately to this RN's questions. Original Note: Pt denies chest pain, denies SOB, denies lightheadedness and dizziness.
[2024-06-20 02:45] LABS: Appearance Urine UA CLEAR; Bilirubin Urine UA NEGATIVE (NEGATIVE); Color Urine UA YELLOW; Glucose Urine UA NEGATIVE (Negative); Ketones Urine UA 1+ (NEGATIVE); Leukocyte Esterase Urine UA NEGATIVE (NEGATIVE); Nitrite Urine UA NEGATIVE (Negative); Occult Blood Urine UA NEGATIVE (Negative); Protein Urine UA NEGATIVE (Negative); Specific Gravity Urine UA <=1.005 (1.000-1.035); Urobilinogen Urine UA 0.2 E.U./dL (0.2)
[2024-06-20 02:48] LABS: Creatine Kinase 123 U/L (30-135)
[2024-06-20 02:54] LABS: Bacteria Urine None Seen; Culture Indicated Urine Cult Not Indicated; RBC Urine None Seen (0-5/HPF); Squamous Epithelial Cell Urine None Seen (0-5/HPF); Urine Volume 10mL (spun); WBC Urine None Seen (0-5/HPF); pH Urine UA 5.5 (4.5-8.0)
[2024-06-20 03:30] LABS: Base Excess VBG -5.3 mmol/L (0-4); HCO3 VBG 19 mmol/L (24-28); Oxygen Saturation VBG 73 % (70-75); PCO2 VBG 32.6 mmHg (45-50); PO2 VBG 39 mmHg (35-45); Total CO2 VBG 18 mmol/L (24-29); pH VBG 7.38 (7.33-7.43)
[2024-06-20 03:45] LABS: Blood Urea Nitrogen 33 mg/dL (7-17); Calcium 9.5 mg/dL (8.4-10.2); Carbon Dioxide 18 mmol/L (22-32); Chloride 84 mmol/L (98-107); Estimated Glomerular Filt Rate 26 mL/min (>60); Glucose 65 mg/dL (70-100); HEMOLYSIS < 15 (0-50); Potassium 3.4 mmol/L (3.4-5.1); Sodium 120 mmol/L (137-145)
[2024-06-20] MEDS: ACETAMINOPHEN 325 MG TABLET 975 MG PO (04:41)
[2024-06-20 07:01] LABS: MRSA (Nasal) PCR NOT DETECTED (Not Detect)
--- NOTE | 2024-06-20 08:04 | PM.PN.1 ---
Subjective Subjective Interval history: Summary: Patient had a trip and fall and was down for several days. She presents now with hyponatremia and volume depletion. Overnight she became progressively hypotensive. Subjective: She denies any chest pain, or ankle pain. No abdominal pain. She was had decreased oral intake. Exam Vital Signs (past 8 hours): - 06/20/24 00:05 06/20/24 00:05 06/20/24 00:10 Temperature Pulse Rate 100 H 96 H Respiratory Rate 20 15 Blood Pressure 80/51 L Pulse Oximetry 100 100 Oxygen Delivery Method Room Air 06/20/24 00:10 06/20/24 00:20 06/20/24 00:20 Temperature Pulse Rate 96 H Respiratory Rate 19 Blood Pressure 77/51 L 85/54 L Pulse Oximetry 99 Oxygen Delivery Method 06/20/24 00:30 06/20/24 00:30 06/20/24 00:40 Temperature Pulse Rate 95 H 97 H Respiratory Rate 15 16 Blood Pressure 84/52 L Pulse Oximetry 99 100 Oxygen Delivery Method Room Air 06/20/24 00:40 06/20/24 00:50 06/20/24 00:50 Temperature Pulse Rate 94 H Respiratory Rate 15 Blood Pressure 86/56 L 87/51 L Pulse Oximetry 100 Oxygen Delivery Method 06/20/24 01:00 06/20/24 01:00 06/20/24 01:10 Temperature Pulse Rate 93 H Respiratory Rate 14 Blood Pressure 88/52 L 76/49 L Pulse Oximetry 99 Oxygen Delivery Method Room Air 06/20/24 01:10 06/20/24 01:12 06/20/24 01:12 Temperature Pulse Rate 92 H 99 H Respiratory Rate 14 19 Blood Pressure 86/54 L Pulse Oximetry 98 97 Oxygen Delivery Method 06/20/24 01:18 06/20/24 01:18 06/20/24 01:20 Temperature Pulse Rate 97 H Respiratory Rate 18 Blood Pressure 86/51 L 85/46 L Pulse Oximetry 99 Oxygen Delivery Method 06/20/24 01:20 06/20/24 01:30 06/20/24 01:30 Temperature Pulse Rate 98 H 94 H Respiratory Rate 18 15 Blood Pressure 91/51 L Pulse Oximetry 99 99 Oxygen Delivery Method 06/20/24 01:40 06/20/24 01:40 06/20/24 01:50 Temperature Pulse Rate 94 H Respiratory Rate 15 Blood Pressure 90/54 L 95/57 L Pulse Oximetry 99 Oxygen Delivery Method 06/20/24 01:50 06/20/24 02:00 06/20/24 02:00 Temperature Pulse Rate 95 H 93 H Respiratory Rate 16 14 Blood Pressure 92/50 L Pulse Oximetry 100 98 Oxygen Delivery Method 06/20/24 02:10 06/20/24 02:10 06/20/24 02:20 Temperature Pulse Rate 96 H Respiratory Rate 15 Blood Pressure 91/55 L 90/57 L Pulse Oximetry 98 Oxygen Delivery Method 06/20/24 02:20 06/20/24 02:30 06/20/24 02:30 Temperature Pulse Rate 95 H 97 H Respiratory Rate 16 17 Blood Pressure 102/57 L Pulse Oximetry 98 99 Oxygen Delivery Method 06/20/24 02:40 06/20/24 02:40 06/20/24 02:50 Temperature Pulse Rate 104 H 101 H Respiratory Rate 16 14 Blood Pressure 99/55 L Pulse Oximetry 98 99 Oxygen Delivery Method 06/20/24 02:50 06/20/24 03:00 06/20/24 03:00 Temperature Pulse Rate 101 H Respiratory Rate 14 Blood Pressure 98/57 L 90/54 L Pulse Oximetry 100 Oxygen Delivery Method 06/20/24 03:30 06/20/24 04:00 06/20/24 04:11 Temperature Pulse Rate 110 H 101 H Respiratory Rate 16 17 Blood Pressure Pulse Oximetry 99 99 Oxygen Delivery Method Room Air 06/20/24 04:21 06/20/24 04:22 06/20/24 04:22 Temperature 98.4 F Pulse Rate 101 H 100 H Respiratory Rate 16 16 Blood Pressure Pulse Oximetry 100 100 Oxygen Delivery Method 06/20/24 04:24 Temperature Pulse Rate 104 H Respiratory Rate 21 Blood Pressure 102/58 L Pulse Oximetry 100 Oxygen Delivery Method Oxygen Delivery Method Room Air Narrative Exam Narrative: NAD, alert and oriented. Fluent speech. Lungs are clear, normal rate and effort. Heart is regular, no murmur gallop or rub. Abdomen is soft, non distended. Extremities are free of edema. Objective ECG Impression: Right atrial enlargement ST & T wave abnormality, consider inferior ischemia Imaging Multiple studies:: Radiologist's impression: Foot x-ray: No fractures. Chest x-ray: Clear. Labs 06/19/24 22:46 06/20/24 03:20 Labs: Laboratory Results - last 24 hr 12/17/24 12/17/24 12/18/24 22:40 22:46 02:30 WBC 4.5 RBC 2.93 L Hgb 10.2 L Hct 29.9 L MCV 102.4 H MCH 35.0 H MCHC 34.2 RDW 13.5 Plt Count 335 Neut % (Auto) 83.7 H Lymph % (Auto) 9.2 L [place] % (Auto) 6.1 Eos % (Auto) 0.6 L Baso % (Auto) 0.4 Neut # (Auto) 3800 Lymph # (Auto) 400 L [place] # (Auto) 300 Eos # (Auto) 0 Baso # (Auto) 0 PT 13.1 H INR 1.2 VBG pH VBG pCO2 VBG pO2 VBG HCO3 VBG Total CO2 VBG O2 Saturation VBG Base Excess FiO2 % Sodium 116 L* Potassium 3.9 Chloride 74 L* Carbon Dioxide 21 L BUN 39 H Creatinine 2.81 H Estimated GFR 19 L BUN/Creatinine Ratio 13.9 Glucose 73 Lactate 1.5 Calcium 10.1 Magnesium 2.0 Total Bilirubin 0.9 AST 36 ALT 21 Alkaline Phosphatase 88 Total Creatine Kinase 123 Total Protein 7.5 Albumin 4.9 Globulin 2.6 Albumin/Globulin Ratio 1.9 Urine Color Yellow Urine Appearance Clear Urine pH 5.5 Ur Specific [place] <=1.005 Urine Protein Negative Urine Glucose (UA) Negative Urine Ketones 1+ H Urine Occult Blood Negative Urine Nitrate Negative Urine Bilirubin Negative Urine Urobilinogen 0.2 Ur Leukocyte Esterase Negative Urine RBC None seen Urine WBC None seen Ur Squamous Epith Cells None seen Urine Bacteria None seen Ur Culture Indicated? Cult not indicated Vol Urine Centrifuged 10ml (spun) Nasal Screen MRSA (PCR) 06/20/24 06/20/24 06/20/24 03:16 03:20 03:26 WBC RBC Hgb Hct MCV MCH MCHC RDW Plt Count Neut % (Auto) Lymph % (Auto) [place] % (Auto) Eos % (Auto) Baso % (Auto) Neut # (Auto) Lymph # (Auto) [place] # (Auto) Eos # (Auto) Baso # (Auto) PT INR VBG pH 7.38 VBG pCO2 32.6 L VBG pO2 39 VBG HCO3 19 L VBG Total CO2 18 L VBG O2 Saturation 73 VBG Base Excess -5.3 L FiO2 % 21.0 % Sodium Cancelled 120 L Potassium 3.4 Chloride 84 L Carbon Dioxide 18 L BUN 33 H Creatinine 2.20 H Estimated GFR 26 L BUN/Creatinine Ratio 15.0 Glucose 65 L Lactate Calcium 9.5 Magnesium Total Bilirubin AST ALT Alkaline Phosphatase Total Creatine Kinase Total Protein Albumin Globulin Albumin/Globulin Ratio Urine Color Urine Appearance Urine pH Ur Specific [place] Urine Protein Urine Glucose (UA) Urine Ketones Urine Occult Blood Urine Nitrate Urine Bilirubin Urine Urobilinogen Ur Leukocyte Esterase Urine RBC Urine WBC Ur Squamous Epith Cells Urine Bacteria Ur Culture Indicated? Vol Urine Centrifuged Nasal Screen MRSA (PCR) 06/20/24 05:00 WBC RBC Hgb Hct MCV MCH MCHC RDW Plt Count Neut % (Auto) Lymph % (Auto) [place] % (Auto) Eos % (Auto) Baso % (Auto) Neut # (Auto) Lymph # (Auto) [place] # (Auto) Eos # (Auto) Baso # (Auto) PT INR VBG pH VBG pCO2 VBG pO2 VBG HCO3 VBG Total CO2 VBG O2 Saturation VBG Base Excess FiO2 % Sodium Potassium Chloride Carbon Dioxide BUN Creatinine Estimated GFR BUN/Creatinine Ratio Glucose Lactate Calcium Magnesium Total Bilirubin AST ALT Alkaline Phosphatase Total Creatine Kinase Total Protein Albumin Globulin Albumin/Globulin Ratio Urine Color Urine Appearance Urine pH Ur Specific [place] Urine Protein Urine Glucose (UA) Urine Ketones Urine Occult Blood Urine Nitrate Urine Bilirubin Urine Urobilinogen Ur Leukocyte Esterase Urine RBC Urine WBC Ur Squamous Epith Cells Urine Bacteria Ur Culture Indicated? Vol Urine Centrifuged Nasal Screen MRSA (PCR) Not detected [facility] Medical History History of fracture of left ankle Mass of left axilla Breast cancer, left Hypertension Current every day smoker Ankle fracture, right (11/2019) Eczema Depression Retinal detachment (2003) Breast cancer, right Surgical History History of mastectomy (11/2013) History of lumpectomy of right breast (11/2013) Family History Mother Breast cancer associated with mutation in MELYSSA gene Social History household members: none Smoking Status: Current every day smoker alcohol intake: current substance use type: does not use Assessment & Plan Assessment & Plan narrative: 1. Hypovolemic hypotension, present on admission and active. 2. Hypovolemic hyponatremia, present on admission and active. 3. Acute kidney injury, present on admission and active. 4. Ankle sprain, present on admission and active. 5. Breast cancer, currently on ongoing therapy. This is metastatic. Present on admission and active. 6. Chronic right eye blindness, present on admission and active. Plan: -fluid resuscitate for hypotension. -attempt to limit the rate of sodium correction, although her hypotension is currently taking clinical precedence. -pain medication for her ankle -monitor renal function -PT evaluation after resuscitation and correction of sodium to a degree. Full resuscitation JAIME is June 22 Time-Based Coding :: [TOTAL MINUTES] spent with patient and on the chart (including review of chart, obtaining history, exam, reviewing outside data, placing orders, documenting exam and treatment plan, and counseling patient) on [DATE]. Quality VTE Deep Vein Thrombosis/Pulmonary Embolism Present on Admission: No
[2024-06-20] MEDS: SODIUM CHLORIDE 0.9% 2,000 ML 1000 ML IV (08:30)
[2024-06-20] MEDS: MORPHINE 2 MG/ML INJ IV ×2 (08:56→20:24)
[2024-06-20] MEDS: HEPARIN 5,000 UNIT/ML VIAL 5000 UNIT SUBCUT ×2 (08:57→21:27)
[2024-06-20] MEDS: SODIUM CHLORIDE 0.9% 1,000 ML 100 ML IV (08:57)
[2024-06-20] MEDS: SODIUM CHLORIDE 0.9% FLUSH 10 ML IV ×2 (09:42→21:29)
--- NOTE | 2024-06-20 10:53 | CM.DANOTE ---
Patient is a 54 yo female who was admitted INPT Status on 06/20/24 for Hyponatremia/NICKIE/GLF. Pt has [facility] and [facility] for insurance and her PCP is Dr. Louie Schulte. EMR was reviewed. Per MD, pt with hx of current breast cancer with mets to bone and liver and admitted after GLF with foot injury and unable to bear weight and tx of sodium and NICKIE. Per RN and MD, pt with some bp issues and not yet stable for PT/OT orders but maybe later this afternoon. SW met bedside with pt and explained role and pt somnolent but alert and confirms she lives in an apt in [place] alone and has no local family but has a friend for support. Pt does not use DME for ambulation at baseline and still drives herself to her Oncology appointments with Dr. Madsen at [facility] or sometimes takes the bus (maybe from Medicaid or the Onc Clinic itself??). Pt is independent with ADLs at baseline. Denies any hx of HH or SNF. Pt states she has not completed DPOA pwk before and SW discussed the purpose and offered the brochure with blank copy but pt declines for today but states maybe sometime during her admission she would feel up to reviewing. SW inquired if pt has family that could come and stay a couple days for assist and pt states she does not and her closest family is in [place] and she does not think anyone would be able to take time to come stay with her for a couple days at d/c but states she has friend support. Pt brief in her answers and does not provide much detail. Plan: SW to follow closely for PT/OT eval and recommendations as pt likely may need HH vs SNF but her current Oncology appointments and tx would have to be on hold during SNF. ALLI Prince Discharge Planning/Care Management CM Discharge Assessment Start: 06/20/24 10:50 Freq: Status: Active Protocol: Document 06/20/24 10:50 BF (Rec: 06/20/24 10:53 BF [id number]) Discharge Planning Assessment Assigned Campus Coordinator ALLI Jones DPOA/Assigned Designee Name none, offered POA pwk but pt declined today Advance Directives? No Advance Directives on File No History Provided By Patient,Medical Record Has Patient been admitted in last 30 No days? Prior Living Arrangements Apartment/Condo Household Members none Type of transporation used prior to Drives own vehicle admit Independent with ADL's Yes Is patient alert and oriented? Yes Needs Assistance With Home Chores / Shopping Caregiver for Another No Patient/Family Preference Home with Home Health Comment Pending PT/OT eval when medically appropriate Barriers to Discharge Yes Comment Current Onc patient and receiving tx which could be barrier to SNF if needed Discharge Plan Home with Home Health Transportation Arrangement Likely local friend Additional Comment Pending PT/OT eval and recommendations Whiteboard Updated in Patient Room with Yes name and ext. # of Campus Coordinator Review Status In Process Please Provide Date Initial DC 06/20/24 Assessment Was Performed Next Review Type Continued Stay Review
[2024-06-20 11:28] LABS: Sodium 123 mmol/L (137-145)
[2024-06-20] MEDS: buPROPion SR 150 MG TAB PO ×2 (11:54→21:26)
--- NOTE | 2024-06-20 13:56 | P.HP_ITS ---
History of Present Illness History of Present Illness Date Patient Seen: 06/20/24 Chief complaint: foot injury Narrative: 54 y/o F with History of fracture of left ankle with PMHx and active ongoing problems: Breast cancer, left, metastatic to Liver, Thoracic Spine on Pablociclib, and Faslodex followed by Oncology Mass of left axilla Hypertension Current every day smoker Ankle fracture, right (11/2019) Eczema Depression Retinal detachment (2003) Breast cancer, right She presented to ED via EMS, she had a fall from a step at her home, as she had slipped and missed a step, and landed on her Left Ankle, causing a sprain, after which she had moderate pain in her Left foot and was unable to bear wt on it. This occurred Tuesday night, So she had to crawl to get to the washroom and her kitchen, with much decrease in oral intake and decreased fluid intake. Denies hitting her head, no loc, no CP, SOB, Palpitations, Abd Pain, N/V/D Denies h/o Stroke/ TIA or DM or CA, No PE or DVT hx Denies taking Blood Thinners. She states she continued taking her BP lowering meds and other home meds, Metoprolol including Losartan - HCTZ and Metoprolol. She lives by herself and had no one to call for help until today she finally called 911/ EMS to help her get up and they brought her to ED In ED she was moderately Hypotensive SBP in mid 70s but was comfortabkle and able to give history to ED MD. She was afebrile, no Tachypnea, HR in 80s to 90s O2 sats 98% on RA EKG reviewed by me: Sinus Tachycardia, HR 111, Non specific ST- T wave changes, likely Inferior Ischemia ( I could nlot fin a prior EKG to compare) Troponin Not elevated Lactate 1.5, No Leukocytosis HH stable Marked Hyponatremia Sodium 116 ( was 125 on 03/10/24, prior to that in 130s) Rest of electrolytes WNL She had NICKIE Creat 2.81/ BUN 39 (baseline 1.45) GFR 19 LFTs WNL CXR : no acute changes She had no mental Status changes even with the Hyponatremia She was given 1 L NS IV and another i L NS followed A repeat Sodium was 120 A L ft XR : no fracture She recd Oxycodone 5 mg in ED for Left foot pain She was monitored at ICU level care in ED and referred to [facility] for admission. [facility] Medical History (Updated 06/20/24 @ 15:03 by Lucia Vogel MD) Acute pain of left foot Metastatic breast cancer History of fracture of left ankle Mass of left axilla Breast cancer, left Hypertension Current every day smoker Ankle fracture, right (11/2019) Eczema Depression Retinal detachment (2003) Breast cancer, right Surgical History History of mastectomy (11/2013) History of lumpectomy of right breast (11/2013) Family History Mother Breast cancer associated with mutation in MELYSSA gene Social History household members: none Smoking Status: Current every day smoker alcohol intake: current substance use type: does not use Meds Home Medications and Allergies Home Medications Medication Instructions Recorded Confirmed Type acetaminophen 325 mg capsule 650 mg PO Q4H PRN Pain (Scale 04/28/21 06/20/24 History (Tylenol) Score 4-6) losartan 100 1 tab PO DAILY #90 tabs 11/01/23 06/20/24 Rx mg-hydrochlorothiazide 12.5 mg tablet metoprolol succinate 100 mg 100 mg PO BID #180 tabs 11/01/23 06/20/24 Rx tablet,extended release 24 hr oxycodone 5 mg tablet 5 mg PO Q12H PRN cancer pain #60 11/01/23 06/20/24 Rx tabs bupropion HCl 150 mg tablet,12 hr 150 mg PO BID #60 ea 04/11/24 06/20/24 Rx sustained-release (Wellbutrin SR) albuterol sulfate 90 mcg/actuation 2 puff inhalation Q4-6H PRN 04/16/24 06/20/24 Rx aerosol inhaler (Ventolin HFA) shortness of breath or wheezing #6.7 grams Allergies Allergy/AdvReac Type Severity Reaction Status Date / Time No Known Drug Allergies Allergy Verified 11/01/23 14:55 Review of Systems Review of Systems ROS: Yes All systems reviewed with the patient and are negative except as otherwise documented Exam Vital Signs (past 8 hours): - 06/20/24 06:00 06/20/24 06:00 06/20/24 06:30 Temperature Pulse Rate 100 H 108 H Respiratory Rate 20 27 H Blood Pressure 89/50 L Pulse Oximetry 100 100 Oxygen Delivery Method 06/20/24 07:00 06/20/24 07:00 06/20/24 07:00 Temperature Pulse Rate 107 H Respiratory Rate 19 Blood Pressure 84/54 L Pulse Oximetry 97 Oxygen Delivery Method Room Air 06/20/24 07:30 06/20/24 07:37 06/20/24 07:37 Temperature Pulse Rate 105 H 104 H Respiratory Rate 21 21 Blood Pressure 62/35 L Pulse Oximetry 100 95 Oxygen Delivery Method 06/20/24 07:42 06/20/24 07:42 06/20/24 07:47 Temperature Pulse Rate 97 H Respiratory Rate 16 Blood Pressure 72/41 L 75/39 L Pulse Oximetry 97 Oxygen Delivery Method 06/20/24 07:47 06/20/24 07:51 06/20/24 07:51 Temperature Pulse Rate 97 H 97 H Respiratory Rate 23 24 Blood Pressure 73/39 L Pulse Oximetry 97 96 Oxygen Delivery Method 06/20/24 08:00 06/20/24 08:00 06/20/24 08:00 Temperature 98.1 F Pulse Rate 93 H Respiratory Rate 36 H Blood Pressure 87/55 L Pulse Oximetry 96 Oxygen Delivery Method 06/20/24 08:15 06/20/24 08:15 06/20/24 08:30 Temperature Pulse Rate 94 H Respiratory Rate 24 Blood Pressure 83/50 L 88/55 L Pulse Oximetry 95 Oxygen Delivery Method 06/20/24 08:30 06/20/24 08:45 06/20/24 08:45 Temperature Pulse Rate 99 H 94 H Respiratory Rate 26 H 25 H Blood Pressure 97/52 L Pulse Oximetry 97 97 Oxygen Delivery Method 06/20/24 09:00 06/20/24 09:00 06/20/24 09:15 Temperature Pulse Rate 99 H Respiratory Rate 21 Blood Pressure 101/58 L 95/54 L Pulse Oximetry 98 Oxygen Delivery Method 06/20/24 09:15 06/20/24 09:30 06/20/24 09:30 Temperature Pulse Rate 98 H 97 H Respiratory Rate 24 18 Blood Pressure 92/50 L Pulse Oximetry 99 99 Oxygen Delivery Method 06/20/24 09:45 06/20/24 09:45 06/20/24 10:00 Temperature Pulse Rate 98 H Respiratory Rate 18 Blood Pressure 91/50 L 83/49 L Pulse Oximetry 94 Oxygen Delivery Method 06/20/24 10:00 06/20/24 10:15 06/20/24 10:15 Temperature Pulse Rate 100 H 98 H Respiratory Rate 20 13 Blood Pressure 92/54 L Pulse Oximetry 98 100 Oxygen Delivery Method 06/20/24 10:30 06/20/24 10:30 06/20/24 10:45 Temperature Pulse Rate 98 H 96 H Respiratory Rate 12 12 Blood Pressure 96/58 L Pulse Oximetry 100 100 Oxygen Delivery Method 06/20/24 10:45 06/20/24 11:00 06/20/24 11:00 Temperature Pulse Rate 98 H Respiratory Rate 12 Blood Pressure 93/51 L 85/50 L Pulse Oximetry 99 Oxygen Delivery Method 06/20/24 11:15 06/20/24 11:15 06/20/24 11:30 Temperature Pulse Rate 93 H Respiratory Rate 14 Blood Pressure 81/51 L 85/51 L Pulse Oximetry 97 Oxygen Delivery Method 06/20/24 11:30 06/20/24 11:45 06/20/24 11:45 Temperature Pulse Rate 94 H 93 H Respiratory Rate 18 16 Blood Pressure 87/50 L Pulse Oximetry 97 97 Oxygen Delivery Method 06/20/24 11:56 06/20/24 11:56 06/20/24 12:00 Temperature Pulse Rate 92 H 99 H Respiratory Rate 19 25 H Blood Pressure 85/53 L Pulse Oximetry 98 97 Oxygen Delivery Method 06/20/24 12:00 06/20/24 12:15 06/20/24 12:15 Temperature Pulse Rate 95 H Respiratory Rate 34 H Blood Pressure 90/52 L 97/58 L Pulse Oximetry 98 Oxygen Delivery Method Physical Exam : Denies CP, SOB or Light Headedness A and Ox 3, no acute distress, has some discomfort in her Left foot HEENT: EOMI, PRERRL, anicteric Sclerae, Neck is supple, No TMG, No Adenopathy Chest : Unlabored Respirations. Able to speak in full sentences and answering questions appropriately . BS equal bilat. No Wheezing, Rales or Rhonchi Heart: LISA , Tachycardia S1 S2, No G/Rub Abd : Soft NT, ND, No HSM, BS present and WNL, no flank Tenderness Ext : No Edema bilat, no Calf Tenderness bilat. pp 2+ bilat Left ankle and proximal foot: Mild swelling , with mild erythema, Mild decreased ROM at Foot flexion and extension . Mild tender to palpation Neuro: Non focal , No Convulsions or abn movements. Cranial N 2-12 tested and Intact DTR's 3 + symmetric No Motor or Sensory deficit PSYCH: Good Judgement , Mood : WNL Oxygen Delivery Method Room Air Glucose POC: 73 Objective ECG Impression: See HPI Imaging Chest x-ray: Radiologist's impression: see HPI Labs 06/19/24 22:46 06/20/24 14:14 Labs: Laboratory Results - last 24 hr 06/19/24 06/19/24 06/20/24 22:40 22:46 02:30 WBC 4.5 RBC 2.93 L Hgb 10.2 L Hct 29.9 L MCV 102.4 H MCH 35.0 H MCHC 34.2 RDW 13.5 Plt Count 335 Neut % (Auto) 83.7 H Lymph % (Auto) 9.2 L [place] % (Auto) 6.1 Eos % (Auto) 0.6 L Baso % (Auto) 0.4 Neut # (Auto) 3800 Lymph # (Auto) 400 L [place] # (Auto) 300 Eos # (Auto) 0 Baso # (Auto) 0 PT 13.1 H INR 1.2 VBG pH VBG pCO2 VBG pO2 VBG HCO3 VBG Total CO2 VBG O2 Saturation VBG Base Excess FiO2 % Sodium 116 L* Potassium 3.9 Chloride 74 L* Carbon Dioxide 21 L BUN 39 H Creatinine 2.81 H Estimated GFR 19 L BUN/Creatinine Ratio 13.9 Glucose 73 Lactate 1.5 Calcium 10.1 Magnesium 2.0 Total Bilirubin 0.9 AST 36 ALT 21 Alkaline Phosphatase 88 Total Creatine Kinase 123 Total Protein 7.5 Albumin 4.9 Globulin 2.6 Albumin/Globulin Ratio 1.9 Urine Color Yellow Urine Appearance Clear Urine pH 5.5 Ur Specific [place] <=1.005 Urine Protein Negative Urine Glucose (UA) Negative Urine Ketones 1+ H Urine Occult Blood Negative Urine Nitrate Negative Urine Bilirubin Negative Urine Urobilinogen 0.2 Ur Leukocyte Esterase Negative Urine RBC None seen Urine WBC None seen Ur Squamous Epith Cells None seen Urine Bacteria None seen Ur Culture Indicated? Cult not indicated Vol Urine Centrifuged 10ml (spun) Nasal Screen MRSA (PCR) 06/20/24 06/20/24 06/20/24 03:16 03:20 03:26 WBC RBC Hgb Hct MCV MCH MCHC RDW Plt Count Neut % (Auto) Lymph % (Auto) [place] % (Auto) Eos % (Auto) Baso % (Auto) Neut # (Auto) Lymph # (Auto) [place] # (Auto) Eos # (Auto) Baso # (Auto) PT INR VBG pH 7.38 VBG pCO2 32.6 L VBG pO2 39 VBG HCO3 19 L VBG Total CO2 18 L VBG O2 Saturation 73 VBG Base Excess -5.3 L FiO2 % 21.0 % Sodium Cancelled 120 L Potassium 3.4 Chloride 84 L Carbon Dioxide 18 L BUN 33 H Creatinine 2.20 H Estimated GFR 26 L BUN/Creatinine Ratio 15.0 Glucose 65 L Lactate Calcium 9.5 Magnesium Total Bilirubin AST ALT Alkaline Phosphatase Total Creatine Kinase Total Protein Albumin Globulin Albumin/Globulin Ratio Urine Color Urine Appearance Urine pH Ur Specific [place] Urine Protein Urine Glucose (UA) Urine Ketones Urine Occult Blood Urine Nitrate Urine Bilirubin Urine Urobilinogen Ur Leukocyte Esterase Urine RBC Urine WBC Ur Squamous Epith Cells Urine Bacteria Ur Culture Indicated? Vol Urine Centrifuged Nasal Screen MRSA (PCR) 06/20/24 06/20/24 05:00 11:12 WBC RBC Hgb Hct MCV MCH MCHC RDW Plt Count Neut % (Auto) Lymph % (Auto) [place] % (Auto) Eos % (Auto) Baso % (Auto) Neut # (Auto) Lymph # (Auto) [place] # (Auto) Eos # (Auto) Baso # (Auto) PT INR VBG pH VBG pCO2 VBG pO2 VBG HCO3 VBG Total CO2 VBG O2 Saturation VBG Base Excess FiO2 % Sodium 123 L Potassium Chloride Carbon Dioxide BUN Creatinine Estimated GFR BUN/Creatinine Ratio Glucose Lactate Calcium Magnesium Total Bilirubin AST ALT Alkaline Phosphatase Total Creatine Kinase Total Protein Albumin Globulin Albumin/Globulin Ratio Urine Color Urine Appearance Urine pH Ur Specific [place] Urine Protein Urine Glucose (UA) Urine Ketones Urine Occult Blood Urine Nitrate Urine Bilirubin Urine Urobilinogen Ur Leukocyte Esterase Urine RBC Urine WBC Ur Squamous Epith Cells Urine Bacteria Ur Culture Indicated? Vol Urine Centrifuged Nasal Screen MRSA (PCR) Not detected Assessment & Plan Assessment and plan (1) Acute hyponatremia: Problem details: Sec to Hypovolemia, decreased oral intake sec to decreased mobility sec to fall / Left Foot pain, unable to bear weight on Left foot. S/p 2 L NS IV, Sodium improved 116 to 120/ Monitor q 4-6 hrs, avoid overcorrection, Consider NaCL tabs prn . Hold Losartan/ HCTZ and Lasix Status: Acute (2) NICKIE (acute kidney injury): Problem details: Sec to Hypovolemia , some improvement noted after IV NS, continue IV NS as a maintenance infusion/ defer to day team. Monitor BMP Status: Acute (3) Adult failure to thrive: Problem details: Metastatic Breast Cancer / Pt states her apatite is fair and eats well when able to get food for herself Status: Acute (4) Acute pain of left foot: Problem details: Left foot sprain S/p Fall as per HPI , No Fracture on L foot XR/ PT / OT eval. If not improving, consider CT L foot Fall precautions Status: Acute (5) Metastatic breast cancer: Status: Acute (6) Current every day smoker: Problem details: Advised to quit/ aware of Health hazards associated with cig smoking / including Cancer , CAD/ CA/ Stroke Status: Acute (7) Hypotension due to hypovolemia: Problem details: Sec to Hypovolemia, decreased oral intake, well as continuing anti HTN meds, SBP in 70s, improved with IVF, MAP 63-65, Did not require Pressors, pt tolerating the hypotension well. Troponin Neg/ No CP . Monitor closely in ICU as Status: Acute (8) Hypertension: Problem details: Chronic Qualifiers: Hypertension type: primary hypertension Qualified Code(s): I10 - Essential (primary) hypertension Status: Acute (9) Hypoglycemia: Problem details: Asymptomatic/ BG decreased sec to Decreased oral intake, continue Monitoring BG , Give D 50 prn / No h/o DM Status: Acute (10) Fall (on) (from) other stairs and steps, initial encounter: Problem details: see above/ PT/ OT eval Status: Acute Time-Based Coding :: [TOTAL MINUTES] spent with patient and on the chart (including review of chart, obtaining history, exam, reviewing outside data, placing orders, documenting exam and treatment plan, and counseling patient) on [DATE]. Quality VTE Deep Vein Thrombosis/Pulmonary Embolism Present on Admission: No
[2024-06-20] MEDS: ACETAMINOPHEN 325 MG TABLET 650 MG PO ×2 (14:31→21:26)
[2024-06-20 14:35] LABS: BUN Creatinine Ratio 14.1 (6-22); Blood Urea Nitrogen 28 mg/dL (7-17); Calcium 8.8 mg/dL (8.4-10.2); Carbon Dioxide 24 mmol/L (22-32); Chloride 92 mmol/L (98-107); Estimated Glomerular Filt Rate 29 mL/min (>60); Glucose 113 mg/dL (70-100); HEMOLYSIS < 15 (0-50); Sodium 123 mmol/L (137-145)
[2024-06-20 14:36] LABS: Potassium 2.7 mmol/L (3.4-5.1)
--- NOTE | 2024-06-20 14:46 | DIET.CONS ---
Dietary Consultation Note Admission Date: 06/20/2024 04:03 Assessment: 54 y F had fall and was down several days. Presented with hyponatremia and volume depletion. RD screened for low MNA. Met with pt at bedside. Pt reports having nothing to eat for 4 days while down. Before falling, reports just having 1 meal a day, various dinner type foods (i.e soup, frozen meal). Is not hungry doing the day. Doesn't experience nausea/vomiting or taste aversions. Reports in 2022 was 150 lb, but after breaking leg, weight has steadily declined. Per chart, weight in 2022 was between 128-134 lb between 07/2022-10/2022. Declined NFPE at this time. Ht: 172.72 cm Wt: 54.431 kg BMI: 18.2 UBW: 59.421 kg on 09/22/23 (-9% loss in 9 months, non-severe) Last BM: () MNA: 8 Sheldon Score: 22 Diet: 06/20/24 Breakfast General (Regular) Diet Diet Modifications: Nutrition Percent Meal Consumed 10 06/20/24 13:06 Labs: RBC 2.93 X10^6/uL (4.0-5.2) L 06/19/24 22:46 Hgb 10.2 g/dL (12.0-16.0) L 06/19/24 22:46 Hct 29.9 % (36-46) L 06/19/24 22:46 Creatinine 1.98 mg/dL (0.52-1.04) H 06/20/24 14:14 Lactate 1.5 mmol/L (0.7-2.1) 06/19/24 22:46 Nutrition Diagnosis: Inadequate oral intakes r/t decreased ability to consume sufficient energy intake after fall aeb <25% of estimated energy needs for 4 days Interventions: -ONS trial EER: [id number] kcals (30-35 kcals per BMI) 70-80 g protein (1.25-1.5 g/kg) Monitoring/Evaluations: po intakes Electronically Signed by: Monet Quiñones 06/20/24 14:46 Clinical Dietitian [address] [address]
[2024-06-20] MEDS: POTASSIUM CHLORIDE 20 MEQ TAB 40 MEQ PO (16:52)
[2024-06-20] MEDS: POTASSIUM CHLORIDE 20 MEQ TAB PO (20:24)
[2024-06-20] MEDS: ABEMACICLIB 150 MG 150 EACH PO (21:30)
[2024-06-20 22:36] LABS: BUN Creatinine Ratio 14.9 (6-22); Blood Urea Nitrogen 25 mg/dL (7-17); Calcium 8.7 mg/dL (8.4-10.2); Carbon Dioxide 27 mmol/L (22-32); Chloride 94 mmol/L (98-107); Estimated Glomerular Filt Rate 36 mL/min (>60); Glucose 123 mg/dL (70-100); HEMOLYSIS < 15 (0-50); Potassium 3.2 mmol/L (3.4-5.1); Sodium 122 mmol/L (137-145)
[2024-06-20] MEDS: OXYCODONE IR 5 MG TABLET PO (23:25)
[2024-06-21] VITALS (59 sets, daily range): BP systolic 93–154; BP diastolic 58–94; PULSE 85–155; RESP 13–62; TEMP 36.7–37.1; O2SAT 83–100
[2024-06-21] MEDS: SODIUM CHLORIDE 0.9% 1,000 ML 100 ML IV (05:58)
[2024-06-21 07:46] LABS: Hematocrit 21.8 % (36-46); Hemoglobin 7.5 g/dL (12.0-16.0); Mean Corpuscular HGB Conc 34.3 % (30-36); Mean Corpuscular Hemoglobin 35.5 PG (26-34); Mean Corpuscular Volume 103.5 fL (80-100); Platelet Count 245 X10^3/uL (150-400); Red Blood Cell Count 2.11 X10^6/uL (4.0-5.2); Red Cell Distribution Width 13.5 % (11.6-14.8); White Blood Cell Count 2.5 X10^3/uL (4.5-11.0)
[2024-06-21 07:59] LABS: Alanine Aminotransferase 30 IU/L (<35); Albumin 3.2 g/dL (3.5-5.0); Albumin Globulin Ratio 1.4 (1.0-2.8); Alkaline Phosphatase 89 U/L (38-126); Aspartate Aminotransferase 46 IU/L (14-36); BUN Creatinine Ratio 15.1 (6-22); Bilirubin Total 0.3 mg/dL (0.2-1.3); Blood Urea Nitrogen 19 mg/dL (7-17); Calcium 8.9 mg/dL (8.4-10.2); Carbon Dioxide 24 mmol/L (22-32); Chloride 94 mmol/L (98-107); Estimated Glomerular Filt Rate 51 mL/min (>60); Globulin 2.3 g/dL (1.7-4.1); Glucose 110 mg/dL (70-100); HEMOLYSIS < 15 (0-50); Potassium 3.5 mmol/L (3.4-5.1); Sodium 122 mmol/L (137-145); Total Protein 5.5 g/dL (6.3-8.2)
--- NOTE | 2024-06-21 08:13 | P.PN_ITS ---
Subjective Subjective Interval history: S: She was in no distress, but she was somewhat confused and does not know what year it is. She denies any headache, chest pain or dyspnea. Her sodium is slowly correcting. A urine sodium is pending. He concern is raised regarding the possibility of INVESTMENT ACCOUNTANT metastases from her metastatic breast cancer. Exam Vital Signs (past 8 hours): - 06/21/24 00:30 06/21/24 01:00 06/21/24 01:00 Temperature Pulse Rate 106 H 114 H Respiratory Rate 31 H 32 H Blood Pressure 121/64 Pulse Oximetry 99 97 06/21/24 01:30 06/21/24 02:00 06/21/24 02:00 Temperature Pulse Rate 114 H 113 H Respiratory Rate 36 H 22 Blood Pressure 108/64 Pulse Oximetry 97 96 06/21/24 02:30 06/21/24 03:00 06/21/24 03:00 Temperature Pulse Rate 109 H 112 H Respiratory Rate 26 H 27 H Blood Pressure 109/80 Pulse Oximetry 98 97 06/21/24 03:30 06/21/24 04:00 06/21/24 04:00 Temperature 98.3 F Pulse Rate 105 H 102 H Respiratory Rate 25 H 15 Blood Pressure 100/62 Pulse Oximetry 97 97 06/21/24 04:30 06/21/24 05:00 06/21/24 05:00 Temperature Pulse Rate 103 H 106 H Respiratory Rate 34 H 18 Blood Pressure 102/68 Pulse Oximetry 97 95 06/21/24 05:30 06/21/24 06:00 06/21/24 06:00 Temperature Pulse Rate 105 H 117 H Respiratory Rate 16 45 H Blood Pressure 111/81 Pulse Oximetry 98 96 06/21/24 06:30 06/21/24 07:00 06/21/24 07:30 Temperature Pulse Rate 106 H 107 H 108 H Respiratory Rate 22 26 H 28 H Blood Pressure Pulse Oximetry 97 96 06/21/24 08:00 Temperature Pulse Rate 109 H Respiratory Rate 23 Blood Pressure Pulse Oximetry Oxygen Delivery Method Room Air Oxygen Flow Rate 0 Narrative Exam Narrative: NAD, alert and oriented to self, not place. She states it is 1972. Fluent speech. Lungs are clear, normal rate and effort. Heart is regular, no murmur gallop or rub. Abdomen is soft, non distended. Extremities are free of edema. Cranial nerves are intact, she moves arms and legs without difficulty Objective Labs 06/21/24 07:35 06/21/24 07:35 Labs: Laboratory Results - last 24 hr 06/20/24 06/20/24 06/20/24 11:12 14:14 22:18 WBC RBC Hgb Hct MCV MCH MCHC RDW Plt Count Sodium 123 L 123 L 122 L Potassium 2.7 L* 3.2 L Chloride 92 L 94 L Carbon Dioxide 24 27 BUN 28 H 25 H Creatinine 1.98 H 1.68 H Estimated GFR 29 L 36 L BUN/Creatinine Ratio 14.1 14.9 Glucose 113 H 123 H Calcium 8.8 8.7 Total Bilirubin AST ALT Alkaline Phosphatase Total Protein Albumin Globulin Albumin/Globulin Ratio 06/21/24 07:35 WBC 2.5 L RBC 2.11 L Hgb 7.5 L Hct 21.8 L MCV 103.5 H MCH 35.5 H MCHC 34.3 RDW 13.5 Plt Count 245 Sodium 122 L Potassium 3.5 Chloride 94 L Carbon Dioxide 24 BUN 19 H Creatinine 1.26 H Estimated GFR 51 L BUN/Creatinine Ratio 15.1 Glucose 110 H Calcium 8.9 Total Bilirubin 0.3 AST 46 H ALT 30 Alkaline Phosphatase 89 Total Protein 5.5 L Albumin 3.2 L Globulin 2.3 Albumin/Globulin Ratio 1.4 PFSH Medical History Acute pain of left foot Metastatic breast cancer History of fracture of left ankle Mass of left axilla Breast cancer, left Hypertension Current every day smoker Ankle fracture, right (11/2019) Eczema Depression Retinal detachment (2003) Breast cancer, right Surgical History History of mastectomy (11/2013) History of lumpectomy of right breast (11/2013) Family History Mother Breast cancer associated with mutation in MELYSSA gene Social History household members: none Smoking Status: Current every day smoker alcohol intake: current substance use type: does not use Assessment & Plan Assessment & Plan narrative: 1. Hypovolemic hypotension, present on admission and active. 2. Hypovolemic hyponatremia, present on admission and active. 3. Acute kidney injury, present on admission and active. 4. Ankle sprain, present on admission and active. 5. Breast cancer, currently on ongoing therapy. This is metastatic. Present on admission and active. 6. Chronic right eye blindness, present on admission and active. 7. Acute encephalopathy, present on admission and active. Plan: -continue saline at modest rate, blood pressure stable. We will check urine sodium. -attempt to limit the rate of sodium correction, although her hypotension is currently taking clinical precedence. -pain medication for her ankle -monitor renal function -CT brain without contrast to rule out metastatic disease or other acute INVESTMENT ACCOUNTANT insult. Full resuscitation JAIME is June 24 Time-Based Coding :: [TOTAL MINUTES] spent with patient and on the chart (including review of chart, obtaining history, exam, reviewing outside data, placing orders, documenting exam and treatment plan, and counseling patient) on [DATE]. Quality VTE Deep Vein Thrombosis/Pulmonary Embolism Present on Admission: No
[2024-06-21] MEDS: buPROPion SR 150 MG TAB PO ×2 (08:33→21:00)
[2024-06-21] MEDS: ABEMACICLIB 150 MG 150 EACH PO ×2 (08:33→20:59)
--- NOTE | 2024-06-21 08:48 | DI.CT.S_ITS ---
PROCEDURE: CT HEAD/BRAIN WO CON INDICATIONS: confusion TECHNIQUE: Noncontrast 4.5 mm thick angled axial sections acquired from the foramen magnum to the vertex, with coronal and sagittal reformats. For radiation dose reduction, the following was used: automated exposure control, adjustment of mA and/or kV according to patient size. COMPARISON: None. FINDINGS: Image quality: Diagnostic. CSF spaces: Basal cisterns are patent. No extra-axial fluid collections. The ventricles are symmetric in size and shape. Brain: No intracranial bleeds or masses. There is cerebral volume loss for age, with resultant ventricular and sulcal prominence. There are periventricular and deep white matter chronic small vessel ischemic changes. There is intracranial internal carotid artery atherosclerosis. Skull and face: Multiple lytic lesions throughout the calvarium. There is possible intracranial extension of disease involving the right temporal lesion (2/8). Sinuses: Chronic right maxillary sinusitis. The other paranasal sinuses are clear. Partial erosion into the right mastoid air cells. Left mastoid air cells are clear. IMPRESSION: Multiple lytic lesions throughout the calvarium. There is potential small intracranial extension were dural involvement of the right temporal lesion. No definite intraparenchymal lesions are identified. However, CT has low sensitivity for detection of small intracranial metastatic lesions. MRI brain can be obtained for further evaluation as clinically indicated. Dictated by: Alex Damian M.D. on 06/21/2024 at 9:41 Approved by: Alex Damian M.D. on 06/21/2024 at 9:45
--- NOTE | 2024-06-21 09:02 | PC.NURSE ---
Addendum entered by Renee Tucker R.N. 06/21/24 16:26: Pt has been increasingly agitated, pt continues to jump out of bed to go to the bathroom, 1 mg Ativan administered for agitation, pt sleeping, but rouses to voice, sister at bedside will probably stay the night. Bed low and locked, alarm on, call light within reach, care on going. Addendum entered by Renee Tucker R.N. 06/21/24 09:43: Spoke with pt twin sister (with pt permission), sister states that pt is a daily, heavy wine drinker, she has concerns that pt might have seizures, notified Dr Mcduffie of concerns, waiting on orders, care on going. Addendum entered by Renee Tucker R.N. 06/21/24 09:20: Pt removed both PIV, is going down to CT in bed with identical twin sister at bedside. Original Note: Patient seems quite confused and forgetful this am, PCT went in to take pt to bathroom (when this nurse tried, pt stated I don't want you, I want the other lady) pt had removed her IV stating I don't need this. This nurse educated pt that she does in fact need that IV to be able to receive IVF and IVP Morphine. Pt does not agree. Dr Mcduffie notified, no further orders at this time, care on going
[2024-06-21] MEDS: SODIUM CHLORIDE 1,000 MG TABLET 1000 MG PO (10:05)
--- NOTE | 2024-06-21 11:04 | CM.DPC ---
DCP Cont: Per , pt with CT brain and shows some changes which might be contributing to her confusion but bp has improved but not yet medically appropriate for PT/OT orders yet today. Per MD and RN, met with pt's twin sister outside of pt's room and she provided them with more thorough history. Pt has been a regular ETOH drinker since the age of 18 yo and has been isolating herself from family for a few years. Pt's twin sister lives in [place] and their Aunt lives in [place] just a few minutes from where the patient lives. Pt's Dtr is currently in [place] for school but when she isn't at school she has been living with the patient. Pt provides limited information to the family regarding her health and chemo and no current POA pwk completed and pt has 3 adult children. Pt will be on [facility] protocol to monitor for any ETOH withdrawal which could be adding to her confusion and medical needs. Plan: SW to follow closely for pt progress and eventual PT/OT eval to determine discharge planning needs when pt more medically appropriate and stable. ALLI Prince
[2024-06-21] MEDS: POTASSIUM CHLORIDE 20 MEQ TAB PO (11:44)
[2024-06-21] MEDS: METOPROLOL ER 50 MG TABLET 100 MG PO (12:41)
[2024-06-21] MEDS: LORazepam 1 MG TABLET PO ×2 (13:59→20:58)
[2024-06-21] MEDS: MORPHINE 2 MG/ML INJ IV (20:58)
[2024-06-21] MEDS: HEPARIN 5,000 UNIT/ML VIAL 5000 UNIT SUBCUT (20:59)
[2024-06-21] MEDS: SODIUM CHLORIDE 0.9% FLUSH 10 ML IV (21:00)
[2024-06-22] VITALS (17 sets, daily range): BP systolic 93–123; BP diastolic 64–83; PULSE 83–113; RESP 18–20; O2SAT 80–100
[2024-06-22] MEDS: SODIUM CHLORIDE 0.9% 1,000 ML 100 ML IV (06:01)
--- NOTE | 2024-06-22 07:30 | P.PN_ITS ---
Subjective Subjective Interval history: Summary: This is a 54-year-old female who presented with hyponatremia and altered mental status. She was history of alcohol use disorder and metastatic breast cancer. She was severely hyponatremic and has evidence of diffuse metastases. CT of the brain was negative for parenchymal Mets but positive for bony and dural Mets. S: Exam Vital Signs (past 8 hours): - 06/21/24 23:52 06/21/24 23:52 06/22/24 00:00 Pulse Rate 88 Respiratory Rate Blood Pressure 93/63 93/65 Pulse Oximetry 98 Oxygen Flow Rate 06/22/24 00:00 06/22/24 00:30 06/22/24 01:00 Pulse Rate 83 88 84 Respiratory Rate Blood Pressure Pulse Oximetry 97 97 99 Oxygen Flow Rate 06/22/24 01:00 06/22/24 01:30 06/22/24 02:00 Pulse Rate 85 105 H Respiratory Rate Blood Pressure 100/64 Pulse Oximetry 96 96 Oxygen Flow Rate 0 06/22/24 02:30 06/22/24 03:00 06/22/24 03:30 Pulse Rate 97 H 103 H 113 H Respiratory Rate 18 Blood Pressure Pulse Oximetry 97 95 96 Oxygen Flow Rate 0 06/22/24 05:57 06/22/24 06:00 06/22/24 06:30 Pulse Rate 93 H 91 H 100 H Respiratory Rate Blood Pressure Pulse Oximetry 85 L 93 80 L Oxygen Flow Rate 06/22/24 06:50 06/22/24 06:50 06/22/24 07:00 Pulse Rate 109 H 111 H Respiratory Rate Blood Pressure 123/83 Pulse Oximetry 90 L 91 Oxygen Flow Rate 06/22/24 07:01 06/22/24 07:01 Pulse Rate 110 H Respiratory Rate 20 Blood Pressure 121/82 Pulse Oximetry 92 Oxygen Flow Rate 0 Oxygen Delivery Method Room Air Oxygen Flow Rate 0 Narrative Exam Narrative: NAD, alert and oriented. Fluent speech. Lungs are clear, normal rate and effort. Heart is regular, no murmur gallop or rub. Abdomen is soft, non distended. Extremities are free of edema. Objective Labs 06/22/24 07:45 06/22/24 07:45 Labs: Laboratory Results - last 24 hr 06/21/24 07:35 WBC 2.5 L RBC 2.11 L Hgb 7.5 L Hct 21.8 L MCV 103.5 H MCH 35.5 H MCHC 34.3 RDW 13.5 Plt Count 245 Sodium 122 L Potassium 3.5 Chloride 94 L Carbon Dioxide 24 BUN 19 H Creatinine 1.26 H Estimated GFR 51 L BUN/Creatinine Ratio 15.1 Glucose 110 H Calcium 8.9 Total Bilirubin 0.3 AST 46 H ALT 30 Alkaline Phosphatase 89 Total Protein 5.5 L Albumin 3.2 L Globulin 2.3 Albumin/Globulin Ratio 1.4 PFSH Medical History Acute pain of left foot Metastatic breast cancer History of fracture of left ankle Mass of left axilla Breast cancer, left Hypertension Current every day smoker Ankle fracture, right (11/2019) Eczema Depression Retinal detachment (2003) Breast cancer, right Surgical History History of mastectomy (11/2013) History of lumpectomy of right breast (11/2013) Family History Mother Breast cancer associated with mutation in MELYSSA gene Social History household members: none Smoking Status: Current every day smoker alcohol intake: current substance use type: does not use Assessment & Plan Assessment & Plan narrative: 1. Hypovolemic hypotension, present on admission and active. 2. Hypovolemic hyponatremia, present on admission and active. 3. Acute kidney injury, present on admission and active. 4. Ankle sprain, present on admission and active. 5. Breast cancer, currently on ongoing therapy. This is metastatic. Present on admission and active. 6. Chronic right eye blindness, present on admission and active. 7. Acute metabolic encephalopathy, present on admission and active. Plan: -continue saline at modest rate, blood pressure stable. We will check urine sodium. -attempt to limit the rate of sodium correction, although her hypotension is currently taking clinical precedence. 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 Full resuscitation JAIME is June 24 Time-Based Coding :: [TOTAL MINUTES] spent with patient and on the chart (including review of chart, obtaining history, exam, reviewing outside data, placing orders, documenting exam and treatment plan, and counseling patient) on [DATE]. Quality VTE Deep Vein Thrombosis/Pulmonary Embolism Present on Admission: No
[2024-06-22 08:24] LABS: Hematocrit 23.3 % (36-46); Mean Corpuscular HGB Conc 34.2 % (30-36); Mean Corpuscular Hemoglobin 35.4 PG (26-34); Mean Corpuscular Volume 103.6 fL (80-100); Platelet Count 273 X10^3/uL (150-400); Red Blood Cell Count 2.25 X10^6/uL (4.0-5.2); Red Cell Distribution Width 13.6 % (11.6-14.8); White Blood Cell Count 2.8 X10^3/uL (4.5-11.0)
[2024-06-22] MEDS: buPROPion SR 150 MG TAB PO (08:27)
[2024-06-22] MEDS: METOPROLOL ER 50 MG TABLET 100 MG PO (08:27)
[2024-06-22] MEDS: ABEMACICLIB 150 MG 150 EACH PO (08:28)
[2024-06-22 08:35] LABS: Alanine Aminotransferase 29 IU/L (<35); Albumin 3.2 g/dL (3.5-5.0); Albumin Globulin Ratio 1.3 (1.0-2.8); Alkaline Phosphatase 86 U/L (38-126); Aspartate Aminotransferase 35 IU/L (14-36); BUN Creatinine Ratio 9.9 (6-22); Bilirubin Total 0.3 mg/dL (0.2-1.3); Blood Urea Nitrogen 11 mg/dL (7-17); Calcium 9.4 mg/dL (8.4-10.2); Carbon Dioxide 26 mmol/L (22-32); Chloride 98 mmol/L (98-107); Estimated Glomerular Filt Rate 59 mL/min (>60); Globulin 2.4 g/dL (1.7-4.1); Glucose 90 mg/dL (70-100); HEMOLYSIS < 15 (0-50); Potassium 4.4 mmol/L (3.4-5.1); Sodium 127 mmol/L (137-145); Total Protein 5.6 g/dL (6.3-8.2)
--- NOTE | 2024-06-22 11:38 | DIET.PN1 ---
Dietary Progress Note Assessment: RD f/u. Per RN note, sister reported pt is heavy daily wine drinker. Spoke to RN who also reports pt may have possible lesions/pain in mouth making it difficult to eat. Met with pt and sister in room. Pt had eaten some of breakfast, tray off to side. Pt denied any difficulty eating. Nutrition Diagnosis: Severe chronic Protein Calorie Malnutrition r/t social/environmental causes and physiological causes increasing nutrient needs (energy-protein) as evidenced by metastatic breast cancer, excessive daily alcohol intake, BMI underweight for age (18.2) Interventions: -Reviewed previous conversation of implementing day time meals and realistic options for pt. Pt denied any additional ONS/energy-protein supplements at this time EER: 1162-9412 kcals (30-35 kcals per BMI) 80 g protein (1.5 g/kg cancer, PCM) Monitoring/Evaluations: po intakes Ht: 172.72 cm Wt: 54.431 kg BMI: 18.2 UBW: 59.421 kg on 09/22/23 (-9% loss in 9 months) Last BM: 06/22/24 (06/22/24 09:29) MNA: 8 Sheldon Score: 20 Diet: 06/20/24 Breakfast General (Regular) Diet Diet Modifications: Nutrition Percent Meal Consumed refused dinner 06/21/24 18:00 Percent Meal Consumed refused lunch 06/21/24 12:54 Percent Meal Consumed refused breakfast 06/21/24 10:34 Percent Meal Consumed 10 06/20/24 13:06 Labs: RBC 2.25 X10^6/uL (4.0-5.2) L 06/22/24 07:45 Hgb 8.0 g/dL (12.0-16.0) L 06/22/24 07:45 Hct 23.3 % (36-46) L 06/22/24 07:45 Creatinine 1.11 mg/dL (0.52-1.04) H 06/22/24 07:45 Lactate 1.5 mmol/L (0.7-2.1) 06/19/24 22:46 Electronically Signed by: Monet Quiñones 06/22/24 11:38 Clinical Dietitian [address] [id number]
--- NOTE | 2024-06-22 12:02 | PC.NURSE ---
Pt refusing cardiac monitoring, takes it off when it is in place, educated pt to the importance of wearing, pt continues to refuse, Dr Mcduffie notified, ok to leave off, care on going
--- NOTE | 2024-06-22 13:59 | PM.DS.1 ---
History of Present Illness History of Present Illness Chief complaint: foot injury Narrative: From H&P: She presented to ED via EMS, she had a fall from a step at her home, as she had slipped and missed a step, and landed on her Left Ankle, causing a sprain, after which she had moderate pain in her Left foot and was unable to bear wt on it. This occurred Tuesday night, So she had to crawl to get to the washroom and her kitchen, with much decrease in oral intake and decreased fluid intake. Denies hitting her head, no loc, no CP, SOB, Palpitations, Abd Pain, N/V/D Denies h/o Stroke/ TIA or DM or WA, No PE or DVT hx Denies taking Blood Thinners. She states she continued taking her BP lowering meds and other home meds, Metoprolol including Losartan - HCTZ and Metoprolol. She lives by herself and had no one to call for help until today she finally called 911/ EMS to help her get up and they brought her to ED In ED she was moderately Hypotensive SBP in mid 70s but was comfortabkle and able to give history to ED MD. She was afebrile, no Tachypnea, HR in 80s to 90s O2 sats 98% on RA EKG reviewed by me: Sinus Tachycardia, HR 111, Non specific ST- T wave changes, likely Inferior Ischemia ( I could nlot fin a prior EKG to compare) Troponin Not elevated Lactate 1.5, No Leukocytosis HH stable Marked Hyponatremia Sodium 116 ( was 125 on 03/10/24, prior to that in 130s) Rest of electrolytes WNL She had NICKIE Creat 2.81/ BUN 39 (baseline 1.45) GFR 19 LFTs WNL CXR : no acute changes She had no mental Status changes even with the Hyponatremia She was given 1 L NS IV and another i L NS followed A repeat Sodium was 120 A L ft XR : no fracture Discharge Providers Provider Date of admission: 06/20/24 04:03 Discharge Date: 06/22/24 Primary care physician: Louie Schulte MD Consults: 06/19/24 22:57 Consult to [facility] [place] - Superintendent Pier Stat Comment: Superintendent Pier Consult needed for:: Lives alone Comment: Concerns for patient being able to take care of themselves at home 06/22/24 09:31 Consult to Physical Therapy Evaluate & Treat Comment: Physician Instructions: Evaluate and Treat Discharge provider: Jay Mcduffie MD Summary Hospital Course Discharge Diagnosis: 1. Hypovolemic hypotension, present on admission and resolved. 2. Hypovolemic hyponatremia, present on admission and resolved. 3. Acute kidney injury, present on admission and resolved. 4. Ankle sprain, present on admission and improved. 5. Breast cancer, currently on ongoing therapy. This is metastatic. Present on admission and active. 6. Chronic right eye blindness, present on admission and active. 7. Acute metabolic encephalopathy, present on admission and resolved. 8. Alcohol use disorder, present on admission and active. Hospital Course: She was admitted with a fall and ankle sprain. She was found to be hypotensive, hypovolemic, have NICKIE, and severe hyponatremia. She was encephalopathic but improved with IV fluids. She was initially hypotensive and required aggressive fluid resuscitation. Her sodium slowly improved at an acceptable rate. Brain imaging indicated dural metastases and osseous metastases but no clear brain parenchyma metastases. It was learned from family and friends that she is drinking on a daily basis in his had an alcohol issue for many years. She was also been isolating from family and friends. Ultimately the patient improved and was able to ambulate and was at her mental baseline. Plans were made to allow her to return home with close support from her sister who lives locally and a friend who lives down the street. Her ankle pain improved and she was am able to ambulate without difficulty. The contribution of alcohol to her current situation was discussed at length and recommendations were made to at least try to cut back on the amount of alcohol she was using and improve her diet. Status at Discharge Cognitive/behavioral status at discharge: oriented Functional status at discharge: independent ambulation Overall status at discharge: patient is back to baseline Time Spent with Patient Time spent: Greater than 30 minutes Exam Vital Signs (past 8 hours): - 06/22/24 06:00 06/22/24 06:30 06/22/24 06:50 Pulse Rate 91 H 100 H Respiratory Rate Blood Pressure 123/83 Pulse Oximetry 93 80 L Oxygen Delivery Method Oxygen Flow Rate 06/22/24 06:50 06/22/24 07:00 06/22/24 07:00 Pulse Rate 109 H 111 H Respiratory Rate Blood Pressure Pulse Oximetry 90 L 91 Oxygen Delivery Method Room Air Oxygen Flow Rate 06/22/24 07:01 06/22/24 07:01 06/22/24 07:30 Pulse Rate 110 H 109 H Respiratory Rate 20 Blood Pressure 121/82 Pulse Oximetry 92 92 Oxygen Delivery Method Oxygen Flow Rate 0 06/22/24 08:27 06/22/24 13:19 06/22/24 13:19 Pulse Rate 93 H 89 Respiratory Rate Blood Pressure 121/82 98/66 Pulse Oximetry 100 Oxygen Delivery Method Oxygen Flow Rate Oxygen Delivery Method Room Air Oxygen Flow Rate 0 Narrative Exam Narrative: NAD, alert and oriented. Fluent speech. Lungs are clear, normal rate and effort. Heart is regular, no murmur gallop or rub. Abdomen is soft, non distended. Extremities are free of edema. Objective ECG Impression: Right atrial enlargement ST & T wave abnormality, consider inferior ischemia Imaging Multiple studies:: Radiologist's impression: Multiple studies:: Radiologist's impression: Foot x-ray: No fractures. Chest x-ray: Clear. Brain CT: Multiple lytic lesions throughout the calvarium. There is potential small intracranial extension were dural involvement of the right temporal lesion. No definite intraparenchymal lesions are identified. However, CT has low sensitivity for detection of small intracranial metastatic lesions. MRI brain can be obtained for further evaluation as clinically indicated. Labs 06/22/24 07:45 06/22/24 07:45 Labs: Laboratory Results - last 24 hr 06/22/24 07:45 WBC 2.8 L RBC 2.25 L Hgb 8.0 L Hct 23.3 L MCV 103.6 H MCH 35.4 H MCHC 34.2 RDW 13.6 Plt Count 273 Sodium 127 L Potassium 4.4 Chloride 98 Carbon Dioxide 26 BUN 11 Creatinine 1.11 H Estimated GFR 59 L BUN/Creatinine Ratio 9.9 Glucose 90 Calcium 9.4 Total Bilirubin 0.3 AST 35 ALT 29 Alkaline Phosphatase 86 Total Protein 5.6 L Albumin 3.2 L Globulin 2.4 Albumin/Globulin Ratio 1.3 PFSH Medical History Acute pain of left foot Metastatic breast cancer History of fracture of left ankle Mass of left axilla Breast cancer, left Hypertension Current every day smoker Ankle fracture, right (11/2019) Eczema Depression Retinal detachment (2003) Breast cancer, right Surgical History History of mastectomy (11/2013) History of lumpectomy of right breast (11/2013) Family History Mother Breast cancer associated with mutation in MELYSSA gene Social History household members: none Smoking Status: Current every day smoker alcohol intake: current substance use type: does not use Discharge Assessment & Plan Assessment and Plan Assessment: 1. Hypovolemic hypotension, present on admission and resolved. 2. Hypovolemic hyponatremia, present on admission and resolved. 3. Acute kidney injury, present on admission and resolved. 4. Ankle sprain, present on admission and improved. 5. Breast cancer, currently on ongoing therapy. This is metastatic. Present on admission and active. 6. Chronic right eye blindness, present on admission and active. 7. Acute metabolic encephalopathy, present on admission and resolved. 8. Alcohol use disorder, present on admission and active. Plan of Treatment: Discharge home, close follow up. Recommendations to stop or least cut down the amount of alcohol she was drinking and family and friends are going to support a more consistent diet as well. Discharge Plan Discharge Plan Patient Disposition: Home Provider Discharge Comment: Stable for discharge home, her family is going to assist her the next several days. Discharge orders & Medications Prescriptions: New losartan 100 mg tablet 100 mg PO DAILY Qty: 30 2RF Continued bupropion HCl [Wellbutrin SR] 150 mg tablet sustained-release 12 hr 150 mg PO BID Qty: 60 2RF albuterol sulfate [Ventolin HFA] 90 mcg/actuation HFA aerosol inhaler 2 puff inhalation Q4-6H PRN (Reason: shortness of breath or wheezing) Qty: 6.7 1RF metoprolol succinate 100 mg tablet extended release 24 hr 100 mg PO BID Qty: 180 3RF oxycodone 5 mg tablet 5 mg PO Q12H PRN (Reason: cancer pain) Qty: 60 0RF acetaminophen [Tylenol] 325 mg Capsule 650 mg PO Q4H PRN (Reason: Pain (Scale Score 4-6)) Discontinued losartan-hydrochlorothiazide 100-12.5 mg tablet 1 tab PO DAILY Qty: 90 3RF Follow up/Referrals: Louie Schulte MD [Primary Care Provider] - Discharge Health Status Multidrug resistant organism: No MDRO Diet/Activity/Treatments Diet: Regular Visit Report/Discharge Packet Instructions: DI for Hyponatremia Stand Alone Forms: Patient Portal/API Discharge Data Primary Care Provider: Louie Schulte VTE Deep Vein Thrombosis/Pulmonary Embolism Present on Admission: No
--- NOTE | 2024-06-22 14:11 | CM.DPC ---
DCP Continued: Reviewed EMR and team rounds for pt?s medical status. Per hospitalist and team rounds, pt motivated to discharge home. Was pending a PT evaluation but it has been since cancelled. DCP entered room, introduced self and role. Present in the room is friend, Alexandria. Pt stated preference to discharge home when cleared, declined referral for home health and agreed to coordination of f/u appt with PCP (Dr. Schulte). Pt declined any other discharge needs at this time. DCP notified RN who was prepared for pt discharge teaching. Plan: Anticipating discharge home with friend to assist. CM Team will continue to follow for coordination of discharge plans. VANNA Hinson
== END 2024-06-22 14:19 | disposition home or self-care (01) | DRG 640 ==
LOC: ED 06-20 03:19 → AC 06-20 04:03 → ICU 06-20 04:14
PROVIDERS: Hospitalist; Admitting Provider Hospitalist; Emergency Provider Emergency Medicine; Family Provider Family Medicine; PCP Family Medicine; Referring Provider Emergency Medicine; Visit Provider Hospitalist
DX: E87.1 Hypo-osmolality and hyponatremia (principal); E43 Unspecified severe protein-calorie malnutrition; G93.41 Metabolic encephalopathy; N17.9 Acute kidney failure, unspecified; Z68.1 Body mass index [BMI] 19.9 or less, adult; C78.7 Secondary malignant neoplasm of liver and intrahepatic bile duct; C79.51 Secondary malignant neoplasm of bone; C79.49 Secondary malignant neoplasm of other parts of nervous system; R00.0 Tachycardia, unspecified; R62.7 Adult failure to thrive; S93.602A Unspecified sprain of left foot, initial encounter; F17.210 Nicotine dependence, cigarettes, uncomplicated; E86.1 Hypovolemia; I10 Essential (primary) hypertension; E16.2 Hypoglycemia, unspecified; C50.912 Malignant neoplasm of unspecified site of left female breast; E86.9 Volume depletion, unspecified; I95.89 Other hypotension; H54.61 Unqualified visual loss, right eye, normal vision left eye; F10.90 Alcohol use, unspecified, uncomplicated; F32.A Depression, unspecified; W10.9XXA Fall (on) (from) unspecified stairs and steps, initial encounter
CPT/HCPCS: 36415; 70450; 71045; 73630; 80048; 80053; 81001; 82550; 82805; 83605; 83735; 84295; 85025; 85027; 85610; 87797; 93005; 96360; 96361; 99284; 99285; 99291; 99292; J1644; J2270

== ENCOUNTER → 2024-07-23 09:15 | Outpatient (CLI) | payer MEDICARE, MEDICAID, SELFPAY ==
[2024-06-20 04:11] VITALS: BMI 18.2
--- NOTE | 2024-07-23 09:16 | DI.US.S_ITS ---
PROCEDURE: US ABDOMEN LIMITED INDICATIONS: Pre-BX eval TECHNIQUE: Real-time scanning was performed of the abdominal and retroperitoneal organs, with image documentation. COMPARISON: [facility], MR, MR ABDOMEN LIVER PROTOCOL, 05/02/2024, 16:14. [facility], CT., CT CHEST ABD PEL W CON, 03/13/2024, 13:14. FINDINGS: Liver: Liver is diffusely increased in echogenicity. A few small hypoattenuating lesions are seen including the anterior right hepatic lobe measuring 1.0 x 1.1 x 1.0 cm, the medial left lobe measuring 1.2 x 0.9 x 1.0 cm, and the anterior lateral left lobe measuring 1.2 x 1.0 x 1.0 cm Miscellaneous: No free abdominal fluid. IMPRESSION: Multiple small hepatic masses are seen. Anterior left lobe mass appears to be amenable to ultrasound-guided biopsy. Approved by: Craig Carbone M.D. on 07/23/2024 at 15:34
== END ==
PROVIDERS: Family Provider Family Medicine; PCP Family Medicine; Referring Provider Internal Medicine Hematology & Oncology; Visit Provider Internal Medicine Hematology & Oncology
DX: C79.51 Secondary malignant neoplasm of bone (principal); C50.911 Malignant neoplasm of unspecified site of right female breast; C17.0 Malignant neoplasm of duodenum; R16.0 Hepatomegaly, not elsewhere classified; Z17.0 Estrogen receptor positive status [ER+]
CPT/HCPCS: 76705

== ENCOUNTER 2024-08-27 07:21 | Outpatient (CLI) | payer MEDICARE, MEDICAID, SELFPAY ==
[2024-06-20 04:11] VITALS: BMI 18.2
--- NOTE | 2024-08-27 07:24 | DI.US.S_ITS ---
PROCEDURE: US ABDOMEN LIMITED INDICATIONS: LIVER MASS TECHNIQUE: Real-time focused scanning was performed of the abdomen, with image documentation. COMPARISON: [facility], CT, CT CHEST ABD PEL W CON, 03/13/2024, 13:14. [facility], US, US ABDOMEN LIMITED, 07/23/2024, 9:21. FINDINGS: Sonographic images in preparation for biopsy were obtained. Previously determined accessible lesions were not as well delineated as on prior ultrasound exam in real-time with patient positioning and breathing instructions. IMPRESSION: Poor visibility of previously identified accessible hepatic lesions. Biopsy was canceled. Recommend CT abdomen for further characterization of current lesions comparing to prior exam on 03/13/2024 and 05/02/2024. Dictated by: Pippa Hilliard M.D. on 08/27/2024 at 16:07 Approved by: Pippa Hilliard M.D. on 08/27/2024 at 16:10
[2024-08-27 07:56] LABS: Hematocrit 26.5 % (36-46); Hemoglobin 9.3 g/dL (12.0-16.0); Platelet Count 357 X10^3/uL (150-400); Red Blood Cell Count 2.58 X10^6/uL (4.0-5.2); Red Cell Distribution Width 16.8 % (11.6-14.8); White Blood Cell Count 3.2 X10^3/uL (4.5-11.0)
[2024-08-27 07:58] VITALS: BP 110/57; PULSE 89; RESP 16; TEMP 36.4; O2SAT 89; O2SAT 98
[2024-08-27 08:10] LABS: INR 0.9 (0.9-1.3); Prothrombin Time 10.4 SECONDS (9.4-12.5)
[2024-08-27 08:45] VITALS: BP 103/59; PULSE 95; RESP 17; O2SAT 98
--- NOTE | 2024-08-27 09:12 | PC.NURSE ---
After prep for scheduled US guided liver biopsy, and assessment by [facility] raulito and Dr. Hilliard, it was deemed not appropriate to proceed at this time and to defer pt to PCP for another CT (Dr. Hilliard facilitating that communication. Pt included in POC and agrees. No sedatin meds given. VSS. Ambulated with steady gait. NAD.
== END 2024-08-27 09:15 | disposition home or self-care (01) ==
PROVIDERS: Radiology Neuroradiology; Family Provider Family Medicine; PCP Family Medicine; Referring Provider Internal Medicine Hematology & Oncology; Visit Provider Internal Medicine Hematology & Oncology
DX: C50.911 Malignant neoplasm of unspecified site of right female breast; C79.51 Secondary malignant neoplasm of bone; R16.0 Hepatomegaly, not elsewhere classified; Z17.0 Estrogen receptor positive status [ER+]
CPT/HCPCS: 76705; 85027; 85610

== ENCOUNTER → 2024-10-27 09:34 | Outpatient (CLI) | payer MEDICARE, MEDICAID, SELFPAY ==
[2024-06-20 04:11] VITALS: BMI 18.2
[2024-10-27 10:48] LABS: Alanine Aminotransferase 32 IU/L (<35); Albumin 4.2 g/dL (3.5-5.0); Albumin Globulin Ratio 1.8 (1.0-2.8); Alkaline Phosphatase 113 U/L (38-126); Aspartate Aminotransferase 36 IU/L (14-36); BUN Creatinine Ratio 14.4 (6-22); Bilirubin Total 0.4 mg/dL (0.2-1.3); Blood Urea Nitrogen 49 mg/dL (7-17); Calcium 9.6 mg/dL (8.4-10.2); Carbon Dioxide 23 mmol/L (22-32); Chloride 83 mmol/L (98-107); Estimated Glomerular Filt Rate 15 mL/min (>60); Globulin 2.4 g/dL (1.7-4.1); Glucose 99 mg/dL (70-99); HEMOLYSIS < 15 (0-50); Potassium 4.1 mmol/L (3.4-5.1); Sodium 120 mmol/L (137-145); Total Protein 6.6 g/dL (6.3-8.2)
[2024-10-27 11:18] LABS: TSH w/ Reflex to FT4 3.26 uIU/mL (0.47-4.68)
[2024-10-27 11:23] LABS: Appearance Urine UA CLEAR; Bilirubin Urine UA NEGATIVE (NEGATIVE); Color Urine UA YELLOW; Glucose Urine UA TRACE g/dL (Negative); Ketones Urine UA NEGATIVE (NEGATIVE); Leukocyte Esterase Urine UA 2+ (NEGATIVE); Nitrite Urine UA NEGATIVE (Negative); Occult Blood Urine UA NEGATIVE (Negative); Protein Urine UA NEGATIVE (Negative); Specific Gravity Urine UA 1.015 (1.000-1.035); Urobilinogen Urine UA 0.2 E.U./dL (0.2)
[2024-10-27 11:41] LABS: Bacteria Urine Many (>30); Culture Indicated Urine Specimen Cultured; RBC Urine None Seen (0-5/HPF); Renal Epithelial Cells Urine 1-5/HPF (0-1/HPF); Squamous Epithelial Cell Urine 1-5 /HPF (0-5/HPF); Urine Volume 10mL (spun); WBC Urine 5-10/HPF (0-5/HPF); pH Urine UA 5.5 (4.5-8.0)
[2024-10-27 12:24] LABS: Basophils Absolute Auto 0 /uL (0-100); Basophils Percent Auto 0.5 % (0-2); Eosinophils Absolute Auto 0 /uL (0-450); Eosinophils Percent Auto 0.3 % (2-4); Lymphocytes Absolute Auto 800 /uL (1100-4500); Lymphocytes Percent Auto 15.8 % (25-40); Mean Corpuscular HGB Conc 35.2 % (30-36); Mean Corpuscular Hemoglobin 34.5 PG (26-34); Monocytes Absolute Auto 500 /uL (0-900); Monocytes Percent Auto 10.4 % (3-14); Neutrophils Absolute Auto 3600 /uL (1500-7000); Platelet Count 318 X10^3/uL (150-400); Red Blood Cell Count 1.98 X10^6/uL (4.0-5.2); Red Cell Distribution Width 14.6 % (11.6-14.8); White Blood Cell Count 4.9 X10^3/uL (4.5-11.0)
[2024-10-27 12:47] LABS: Add Manual Diff / Slide Review SLIDE REVIEW
[2024-10-27 12:48] LABS: Anisocytosis 2+; Polychromasia 2+
[2024-10-27 12:49] LABS: Rouleaux 1+
[2024-10-27 13:06] LABS: Hemoglobin 6.8 g/dL (12.0-16.0)
[2024-10-27 13:07] LABS: Hematocrit 19.4 % (36-46)
== END ==
LOC: LAB 09:36
PROVIDERS: Family Provider Family Medicine; PCP Family Medicine; Referring Provider Family Medicine; Visit Provider Family Medicine
DX: E87.1 Hypo-osmolality and hyponatremia (principal); C50.911 Malignant neoplasm of unspecified site of right female breast; I10 Essential (primary) hypertension
CPT/HCPCS: 36415; 80053; 81001; 84443; 85025; 87086

== ENCOUNTER 2024-10-29 13:30 | Inpatient (IN) | payer MEDICARE, MEDICAID, SELFPAY ==
[2024-06-20 04:11] VITALS: BMI 18.2
[2024-10-29] VITALS (59 sets, daily range): BP systolic 72–113; BP diastolic 44–65; PULSE 106–133; RESP 12–26; TEMP 36.5–37; O2SAT 93–100; BMI 15.7
[2024-10-29 14:32] LABS: Add Manual Diff / Slide Review NO; Basophils Absolute Auto 0 /uL (0-100); Basophils Percent Auto 0.3 % (0-2); Eosinophils Absolute Auto 0 /uL (0-450); Eosinophils Percent Auto 0.2 % (2-4); Lymphocytes Absolute Auto 600 /uL (1100-4500); Lymphocytes Percent Auto 10.6 % (25-40); Mean Corpuscular HGB Conc 35.3 % (30-36); Mean Corpuscular Hemoglobin 35.1 PG (26-34); Mean Corpuscular Volume 99.5 fL (80-100); Monocytes Absolute Auto 500 /uL (0-900); Monocytes Percent Auto 8.8 % (3-14); Neutrophils Absolute Auto 4500 /uL (1500-7000); Neutrophils Percent Auto 80.1 % (50-75); Platelet Count 313 X10^3/uL (150-400); Red Blood Cell Count 1.98 X10^6/uL (4.0-5.2); Red Cell Distribution Width 14.4 % (11.6-14.8); White Blood Cell Count 5.7 X10^3/uL (4.5-11.0)
[2024-10-29 14:34] LABS: Hematocrit 19.7 % (36-46)
[2024-10-29 14:43] LABS: Blood Urea Nitrogen 49 mg/dL (7-17); Calcium 9.9 mg/dL (8.4-10.2); Carbon Dioxide 24 mmol/L (22-32); Chloride 83 mmol/L (98-107); Estimated Glomerular Filt Rate 17 mL/min (>60); Glucose 93 mg/dL (70-99); HEMOLYSIS < 15 (0-50); Potassium 4.4 mmol/L (3.4-5.1); Sodium 121 mmol/L (137-145)
--- NOTE | 2024-10-29 16:49 | DI.RAD.S_ITS ---
PROCEDURE: XR SHOULDER LT MIN 2V INDICATIONS: pain TECHNIQUE: 2 views of the shoulder were acquired. COMPARISON: None. FINDINGS: Bones: There is suggestion of old fracture involving distal clavicle with up to 5.5 mm diastasis and well corticated margin. Osteoarthritic changes are noted in left acromioclavicular joint and glenohumeral joint. No definite acute fracture or dislocation. No suspicious bony lesions. Visualized ribs appear intact. Soft tissues: No suspicious soft tissue calcifications. IMPRESSION: Suggestion of old injury involving left distal clavicle as above. No definite acute left shoulder fracture or dislocation. 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 Dictated by: Adolfo Lozano M.D. on 10/29/2024 at 17:34 Approved by: Adolfo Lozano M.D. on 10/29/2024 at 17:36
--- NOTE | 2024-10-29 16:52 | ED_ITS ---
HPI - Recheck/Abnormal Lab/Rx <Cally Franky, DO - Last Filed: 11/04/24 07:50> General Chief Complaint: Recheck/Abnormal Lab/Rx Stated Complaint: abnormal labs sent from Time Seen by Provider: 10/29/24 16:49 Source: patient Mode of arrival: Wheelchair History of Present Illness HPI narrative: Patient is a 54-year-old history of metastatic breast cancer follow up by Oncology as [facility] chronic alcohol use here with abnormal blood work. She was found to be anemic and in renal failure 2 days prior. Reports that she fell last night it is unclear what happened but she was complaining of some left shoulder pain. No evidence of head trauma. No numbness or tingling no other complaints today. Patient does drink alcohol daily at least 3 large glasses.. Denies any black stool no nausea no vomiting no hematemesis Oncology note from 10/19/2024 reviewed. Reports widely metastatic ER positive SC positive HER2 negative breast cancer involving left breast left axilla chest wall abdominal wall multiple bones now concerning for progression in liver. Elevated CA 27 -29 and CA 15-3. She has been takingabemaciclib daily, however was noted to be anemic and was talked about holding this medication. There was concern of hypotension at that time as well. She was offered transfused 1 unit of packed red blood cells with an additional 500 cc of fluid on the however never received it and declined. Blood work that day also included a sodium of 118 and a creatinine of 3.92 she was also encouraged to go to the ED with hyponatremia but unclear if she did that as well.. She was followed by PCP by PCP 10/25/2024 blood pressure medications held due to hypotension looks like repeat blood work was checked and now here in the ED with hypotension anemia and kidney failure Related Data Home Medications Medication Instructions Recorded Confirmed acetaminophen 325 mg capsule 650 mg PO Q4H PRN Pain (Scale 04/28/21 10/30/24 (Tylenol) Score 4-6) abemaciclib 150 mg tablet 150 mg PO BID 10/25/24 10/30/24 (Verzenio) megestrol 400 mg/10 mL (40 mg/mL) 200 mg PO BID 10/30/24 10/30/24 oral suspension oxycodone 5 mg tablet 5 mg PO Q4H PRN pain 10/30/24 10/30/24 Previous Rx's Medication Instructions Recorded bupropion HCl 150 mg tablet,12 hr 150 mg PO BID #60 ea 04/11/24 sustained-release (Wellbutrin SR) albuterol sulfate 90 mcg/actuation 2 puff inhalation Q4-6H PRN 07/09/24 aerosol inhaler (Ventolin HFA) shortness of breath or wheezing #6.7 grams trazodone 50 mg tablet See Rx Instructions PO BEDTIME PRN 10/18/24 insomnia #90 tabs Allergies Allergy/AdvReac Type Severity Reaction Status Date / Time No Known Drug Allergies Allergy Verified 10/25/24 11:04 <Travis Grover MD - Last Filed: 10/30/24 16:21> History of Present Illness HPI narrative: Patient is a 54-year-old history of metastatic breast cancer follow up by Oncology as [facility] chronic alcohol use here with abnormal blood work. She was found to be anemic and in renal failure 2 days prior. Reports that she fell last night it is unclear what happened but she was complaining of some left shoulder pain. No evidence of head trauma. No numbness or tingling no other complaints today. Patient does drink alcohol daily at least 3 large glasses.. Denies any black stool no nausea no vomiting no hematemesis Oncology note from 10/19/2024 reviewed. Reports widely metastatic ER positive SC positive HER2 negative breast cancer involving left breast left axilla chest wall abdominal wall multiple bones now concerning for progression in liver. Elevated CA 27 -29 and CA 15-3. She has been taking abemaciclib daily, however was noted to be anemic and was talked about holding this medication. There was concern of hypotension at that time as well. She was offered transfused 1 unit of packed red blood cells with an additional 500 cc of fluid on the however never received it and declined. Blood work that day also included a sodium of 118 and a creatinine of 3.92 she was also encouraged to go to the ED with hyponatremia but unclear if she did that as well.. She was followed by PCP by PCP 10/25/2024 blood pressure medications held due to hypotension looks like repeat blood work was checked and now here in the ED with hypotension anemia and kidney failure Patient History <Cally Wilkins DO - Last Filed: 11/04/24 07:50> Medical History Acute pain of left foot Metastatic breast cancer History of fracture of left ankle Mass of left axilla Breast cancer, left Hypertension Current every day smoker Ankle fracture, right (11/2019) Eczema Depression Retinal detachment (2003) Breast cancer, right Surgical History History of mastectomy (11/2013) History of lumpectomy of right breast (11/2013) Family History Mother Breast cancer associated with mutation in MELYSSA gene Social History household members: none alcohol intake: current substance use type: does not use Smoking Status: Current every day smoker tobacco type: cigarettes alcohol intake frequency: a few times a week Alcohol type: wine Exam <Cally Wilkins DO - Last Filed: 11/04/24 07:50> Initial Vital Signs Initial Vital Signs: Vital Signs Temperature 97.7 F 10/29/24 14:09 Pulse Rate 113 H 10/29/24 14:09 Respiratory Rate 18 10/29/24 14:09 Blood Pressure 113/62 10/29/24 14:09 Pulse Oximetry 100 10/29/24 14:09 Oxygen Delivery Method Room Air 10/29/24 14:09 <Travis Grover MD - Last Filed: 10/30/24 16:21> Initial Vital Signs Initial Vital Signs: Vital Signs Temperature 97.7 F 10/29/24 14:09 Pulse Rate 113 H 10/29/24 14:09 Respiratory Rate 18 10/29/24 14:09 Blood Pressure 113/62 10/29/24 14:09 Pulse Oximetry 100 10/29/24 14:09 Oxygen Delivery Method Room Air 10/29/24 14:09 Course <Cally Wilkins DO - Last Filed: 11/04/24 07:50> Orders Ordered: Discontinued Medications Acetaminophen (Acetaminophen 325 Mg Tablet) 650 mg PO NOW ONE Stop: 10/29/24 23:43 Last Admin: 10/29/24 23:46 Dose: 650 mg Documented By: [facility] Acetaminophen (Acetaminophen 325 Mg Tablet) 650 mg PO Q6H PRN PRN Reason: Fever/Mild Pain (1-3) Hydrocodone Bitart/Acetaminophen (Hydrocodone/Acet 5/325 Tablet) 1 tab PO Q4H PRN PRN Reason: Pain, Moderate (4-6) Last Admin: 10/31/24 14:03 Dose: 1 tab Documented By: Admin: 10/31/24 09:14 Dose: 1 tab Documented By: Admin: 10/31/24 04:44 Dose: 1 tab Documented By: Admin: 10/30/24 23:37 Dose: 1 tab Documented By: Admin: 10/30/24 17:18 Dose: 1 tab Documented By: Admin: 10/30/24 09:29 Dose: 1 tab Documented By: LOUANN Albuterol (Albuterol 2.5 Mg/3 Ml Neb (Adult)) 2.5 mg INH Q4H PRN PRN Reason: shortness of breath or wheezing Bupropion HCl (Bupropion Sr 150 Mg Tab) 150 mg PO BID KATARINA Last Admin: 10/31/24 09:14 Dose: 150 mg Documented By: Admin: 10/30/24 21:05 Dose: 150 mg Documented By: Admin: 10/30/24 09:29 Dose: 150 mg Documented By: LOUANN Hydromorphone HCl (Hydromorphone 0.5 Mg Inj) 0.5 mg IV Q2H PRN PRN Reason: Pain, Severe (7-10) Sodium Chloride (Normal Saline 0.9%) 500 mls @ 1,000 mls/hr IV BOLUS ONE Stop: 10/29/24 20:29 Last Infusion: 10/29/24 21:40 Dose: Infused Documented By: Admin: 10/29/24 20:08 Dose: 1,000 mls/hr Documented By: GRETCHEN Sodium Chloride (Normal Saline 0.9%) 1,000 mls @ 75 mls/hr IV CONT KATARINA Last Admin: 10/31/24 08:22 Dose: 75 mls/hr Documented By: Infusion: 10/30/24 18:17 Dose: Infused Documented By: Admin: 10/30/24 04:57 Dose: 75 mls/hr Documented By: GRETCHEN Sodium Chloride (Normal Saline 0.9%) 1,000 mls @ 1,000 mls/hr IV BOLUS ONE Stop: 10/30/24 10:02 Last Admin: 10/30/24 09:19 Dose: 1,000 mls/hr Documented By: CLL Naloxone HCl (Naloxone 0.4 Mg/Ml Vial) 0.2 mg IV Q2MIN PRN PRN Reason: Opiate Reversal Ondansetron HCl (Ondansetron 4 Mg/2 Ml Inj) 4 mg IV Q8HR PRN PRN Reason: Nausea And Vomiting Pantoprazole Sodium (Pantoprazole 40 Mg Vial) 80 mg IV NOW ONE Stop: 10/29/24 20:01 Last Admin: 10/29/24 20:07 Dose: 80 mg Documented By: GRETCHEN Sodium Chloride (Sodium Chloride 0.9% Flush) 10 ml IV PRN PRN PRN Reason: Flush Sodium Chloride (Sodium Chloride 0.9% Flush) 10 ml IV BID KATARINA Last Admin: 10/31/24 09:17 Dose: Not Given Documented By: TATY Sodium Chloride (Sodium Chloride 0.9% Flush) 10 ml IV PRN PRN PRN Reason: Flush Sodium Chloride (Sodium Chloride 0.9% Flush) 10 ml IV BID KATARINA Trazodone HCl (Trazodone 50 Mg Tablet) 100 mg PO BEDTIME PRN PRN Reason: insomnia Last Admin: 10/30/24 23:37 Dose: 100 mg Documented By: MS Vital Signs Vital signs: Vital Signs - 8 hr 10/29/24 20:30 10/29/24 20:30 10/29/24 20:40 Temperature Pulse Rate 116 H 122 H Respiratory Rate 16 20 Blood Pressure 76/46 L Pulse Oximetry 96 95 10/29/24 20:40 10/29/24 20:50 10/29/24 20:50 Temperature 98.3 F Pulse Rate 122 H 122 H Respiratory Rate 19 19 Blood Pressure 91/54 L 93/56 L Pulse Oximetry 97 10/29/24 20:50 10/29/24 20:55 10/29/24 21:00 Temperature Pulse Rate 119 H 117 H Respiratory Rate 21 19 Blood Pressure 93/56 L 88/54 L 73/49 L Pulse Oximetry 10/29/24 21:00 10/29/24 21:00 10/29/24 21:05 Temperature 98.6 F Pulse Rate 119 H 116 H Respiratory Rate 21 18 Blood Pressure 88/54 L 80/50 L Pulse Oximetry 96 10/29/24 21:05 10/29/24 21:05 10/29/24 21:10 Temperature Pulse Rate 117 H Respiratory Rate 19 Blood Pressure 73/49 L 80/50 L Pulse Oximetry 94 10/29/24 21:10 10/29/24 21:15 10/29/24 21:15 Temperature Pulse Rate 116 H 117 H Respiratory Rate 18 17 Blood Pressure 83/52 L Pulse Oximetry 94 94 10/29/24 21:20 10/29/24 21:20 10/29/24 21:25 Temperature Pulse Rate 115 H 118 H Respiratory Rate 17 20 Blood Pressure 72/49 L Pulse Oximetry 94 95 10/29/24 21:25 10/29/24 21:30 10/29/24 21:30 Temperature Pulse Rate 114 H Respiratory Rate 16 Blood Pressure 79/51 L 84/53 L Pulse Oximetry 94 10/29/24 21:35 10/29/24 21:35 10/29/24 21:40 Temperature Pulse Rate 113 H Respiratory Rate 16 Blood Pressure 83/53 L 82/50 L Pulse Oximetry 94 10/29/24 21:40 10/29/24 21:45 10/29/24 21:45 Temperature Pulse Rate 112 H 112 H Respiratory Rate 17 18 Blood Pressure 89/50 L Pulse Oximetry 94 94 10/29/24 21:50 10/29/24 21:50 10/29/24 21:55 Temperature Pulse Rate 113 H 112 H Respiratory Rate 19 19 Blood Pressure 90/51 L Pulse Oximetry 94 95 10/29/24 21:55 10/29/24 22:00 10/29/24 22:00 Temperature Pulse Rate 110 H Respiratory Rate 17 Blood Pressure 92/52 L 88/51 L Pulse Oximetry 94 10/29/24 22:05 10/29/24 22:05 10/29/24 22:10 Temperature Pulse Rate 110 H Respiratory Rate 17 Blood Pressure 92/52 L 85/50 L Pulse Oximetry 96 10/29/24 22:10 10/29/24 22:30 10/29/24 23:00 Temperature Pulse Rate 110 H 113 H 115 H Respiratory Rate 16 17 15 Blood Pressure Pulse Oximetry 96 94 95 10/29/24 23:30 10/29/24 23:35 10/29/24 23:35 Temperature Pulse Rate 115 H 113 H Respiratory Rate 18 26 H Blood Pressure 91/65 Pulse Oximetry 95 95 10/29/24 23:45 10/30/24 00:00 10/30/24 00:00 Temperature Pulse Rate 110 H 112 H Respiratory Rate 15 19 Blood Pressure 90/59 L 92/59 L Pulse Oximetry 94 95 10/30/24 00:15 10/30/24 00:15 10/30/24 00:30 Temperature Pulse Rate 112 H Respiratory Rate 16 Blood Pressure 88/54 L 90/50 L Pulse Oximetry 94 10/30/24 00:30 10/30/24 00:45 10/30/24 00:45 Temperature Pulse Rate 109 H 105 H Respiratory Rate 15 15 Blood Pressure 87/53 L Pulse Oximetry 94 94 10/30/24 01:00 10/30/24 01:00 10/30/24 01:15 Temperature Pulse Rate 103 H Respiratory Rate 15 Blood Pressure 88/52 L 89/53 L Pulse Oximetry 95 10/30/24 01:15 10/30/24 01:30 10/30/24 01:45 Temperature Pulse Rate 102 H 103 H 105 H Respiratory Rate 15 14 14 Blood Pressure 86/53 L 89/54 L Pulse Oximetry 96 95 95 10/30/24 02:00 10/30/24 02:00 10/30/24 02:15 Temperature Pulse Rate 109 H 108 H Respiratory Rate 15 15 Blood Pressure 95/54 L Pulse Oximetry 94 95 10/30/24 02:15 10/30/24 02:30 10/30/24 02:30 Temperature Pulse Rate 104 H Respiratory Rate 15 Blood Pressure 86/52 L 89/50 L Pulse Oximetry 95 10/30/24 02:45 10/30/24 02:45 10/30/24 03:00 Temperature Pulse Rate 101 H 100 H Respiratory Rate 15 15 Blood Pressure 87/51 L Pulse Oximetry 94 94 10/30/24 03:00 10/30/24 03:15 10/30/24 03:15 Temperature Pulse Rate 102 H Respiratory Rate 15 Blood Pressure 87/54 L 86/50 L Pulse Oximetry 94 10/30/24 03:30 10/30/24 03:30 10/30/24 03:45 Temperature Pulse Rate 101 H 102 H Respiratory Rate 16 16 Blood Pressure 90/52 L Pulse Oximetry 93 93 10/30/24 03:45 10/30/24 04:00 10/30/24 04:00 Temperature Pulse Rate 100 H Respiratory Rate 15 Blood Pressure 92/52 L 93/53 L Pulse Oximetry 94 <Travis Grover MD - Last Filed: 10/30/24 16:21> Orders Ordered: Discontinued Medications Acetaminophen (Acetaminophen 325 Mg Tablet) 650 mg PO NOW ONE Stop: 10/29/24 23:43 Last Admin: 10/29/24 23:46 Dose: 650 mg Documented By: GRETCHEN Acetaminophen (Acetaminophen 325 Mg Tablet) 650 mg PO Q6H PRN PRN Reason: Fever/Mild Pain (1-3) Hydrocodone Bitart/Acetaminophen (Hydrocodone/Acet 5/325 Tablet) 1 tab PO Q4H PRN PRN Reason: Pain, Moderate (4-6) Last Admin: 10/31/24 14:03 Dose: 1 tab Documented By: Admin: 10/31/24 09:14 Dose: 1 tab Documented By: Admin: 10/31/24 04:44 Dose: 1 tab Documented By: Admin: 10/30/24 23:37 Dose: 1 tab Documented By: Admin: 10/30/24 17:18 Dose: 1 tab Documented By: Admin: 10/30/24 09:29 Dose: 1 tab Documented By: LOUANN Albuterol (Albuterol 2.5 Mg/3 Ml Neb (Adult)) 2.5 mg INH Q4H PRN PRN Reason: shortness of breath or wheezing Bupropion HCl (Bupropion Sr 150 Mg Tab) 150 mg PO BID KATARINA Last Admin: 10/31/24 09:14 Dose: 150 mg Documented By: Admin: 10/30/24 21:05 Dose: 150 mg Documented By: Admin: 10/30/24 09:29 Dose: 150 mg Documented By: LOUANN Hydromorphone HCl (Hydromorphone 0.5 Mg Inj) 0.5 mg IV Q2H PRN PRN Reason: Pain, Severe (7-10) Sodium Chloride (Normal Saline 0.9%) 500 mls @ 1,000 mls/hr IV BOLUS ONE Stop: 10/29/24 20:29 Last Infusion: 10/29/24 21:40 Dose: Infused Documented By: Admin: 10/29/24 20:08 Dose: 1,000 mls/hr Documented By: GRETCHEN Sodium Chloride (Normal Saline 0.9%) 1,000 mls @ 75 mls/hr IV CONT KATARINA Last Admin: 10/31/24 08:22 Dose: 75 mls/hr Documented By: Infusion: 10/30/24 18:17 Dose: Infused Documented By: Admin: 10/30/24 04:57 Dose: 75 mls/hr Documented By: GRETCHEN Sodium Chloride (Normal Saline 0.9%) 1,000 mls @ 1,000 mls/hr IV BOLUS ONE Stop: 10/30/24 10:02 Last Admin: 10/30/24 09:19 Dose: 1,000 mls/hr Documented By: LOUANN Naloxone HCl (Naloxone 0.4 Mg/Ml Vial) 0.2 mg IV Q2MIN PRN PRN Reason: Opiate Reversal Ondansetron HCl (Ondansetron 4 Mg/2 Ml Inj) 4 mg IV Q8HR PRN PRN Reason: Nausea And Vomiting Pantoprazole Sodium (Pantoprazole 40 Mg Vial) 80 mg IV NOW ONE Stop: 10/29/24 20:01 Last Admin: 10/29/24 20:07 Dose: 80 mg Documented By: GRETCHEN Sodium Chloride (Sodium Chloride 0.9% Flush) 10 ml IV PRN PRN PRN Reason: Flush Sodium Chloride (Sodium Chloride 0.9% Flush) 10 ml IV BID [facility] Last Admin: 10/31/24 09:17 Dose: Not Given Documented By: TATY Sodium Chloride (Sodium Chloride 0.9% Flush) 10 ml IV PRN PRN PRN Reason: Flush Sodium Chloride (Sodium Chloride 0.9% Flush) 10 ml IV BID [facility] Trazodone HCl (Trazodone 50 Mg Tablet) 100 mg PO BEDTIME PRN PRN Reason: insomnia Last Admin: 10/30/24 23:37 Dose: 100 mg Documented By: Vital Signs Vital signs: Vital Signs - 8 hr 10/29/24 20:30 10/29/24 20:30 10/29/24 20:40 Temperature Pulse Rate 116 H 122 H Respiratory Rate 16 20 Blood Pressure 76/46 L Pulse Oximetry 96 95 10/29/24 20:40 10/29/24 20:50 10/29/24 20:50 Temperature 98.3 F Pulse Rate 122 H 122 H Respiratory Rate 19 19 Blood Pressure 91/54 L 93/56 L Pulse Oximetry 97 10/29/24 20:50 10/29/24 20:55 10/29/24 21:00 Temperature Pulse Rate 119 H 117 H Respiratory Rate 21 19 Blood Pressure 93/56 L 88/54 L 73/49 L Pulse Oximetry 10/29/24 21:00 10/29/24 21:00 10/29/24 21:05 Temperature 98.6 F Pulse Rate 119 H 116 H Respiratory Rate 21 18 Blood Pressure 88/54 L 80/50 L Pulse Oximetry 96 10/29/24 21:05 10/29/24 21:05 10/29/24 21:10 Temperature Pulse Rate 117 H Respiratory Rate 19 Blood Pressure 73/49 L 80/50 L Pulse Oximetry 94 10/29/24 21:10 10/29/24 21:15 10/29/24 21:15 Temperature Pulse Rate 116 H 117 H Respiratory Rate 18 17 Blood Pressure 83/52 L Pulse Oximetry 94 94 10/29/24 21:20 10/29/24 21:20 10/29/24 21:25 Temperature Pulse Rate 115 H 118 H Respiratory Rate 17 20 Blood Pressure 72/49 L Pulse Oximetry 94 95 10/29/24 21:25 10/29/24 21:30 10/29/24 21:30 Temperature Pulse Rate 114 H Respiratory Rate 16 Blood Pressure 79/51 L 84/53 L Pulse Oximetry 94 10/29/24 21:35 10/29/24 21:35 10/29/24 21:40 Temperature Pulse Rate 113 H Respiratory Rate 16 Blood Pressure 83/53 L 82/50 L Pulse Oximetry 94 10/29/24 21:40 10/29/24 21:45 10/29/24 21:45 Temperature Pulse Rate 112 H 112 H Respiratory Rate 17 18 Blood Pressure 89/50 L Pulse Oximetry 94 94 10/29/24 21:50 10/29/24 21:50 10/29/24 21:55 Temperature Pulse Rate 113 H 112 H Respiratory Rate 19 19 Blood Pressure 90/51 L Pulse Oximetry 94 95 10/29/24 21:55 10/29/24 22:00 10/29/24 22:00 Temperature Pulse Rate 110 H Respiratory Rate 17 Blood Pressure 92/52 L 88/51 L Pulse Oximetry 94 10/29/24 22:05 10/29/24 22:05 10/29/24 22:10 Temperature Pulse Rate 110 H Respiratory Rate 17 Blood Pressure 92/52 L 85/50 L Pulse Oximetry 96 10/29/24 22:10 10/29/24 22:30 10/29/24 23:00 Temperature Pulse Rate 110 H 113 H 115 H Respiratory Rate 16 17 15 Blood Pressure Pulse Oximetry 96 94 95 10/29/24 23:30 10/29/24 23:35 10/29/24 23:35 Temperature Pulse Rate 115 H 113 H Respiratory Rate 18 26 H Blood Pressure 91/65 Pulse Oximetry 95 95 10/29/24 23:45 10/30/24 00:00 10/30/24 00:00 Temperature Pulse Rate 110 H 112 H Respiratory Rate 15 19 Blood Pressure 90/59 L 92/59 L Pulse Oximetry 94 95 10/30/24 00:15 10/30/24 00:15 10/30/24 00:30 Temperature Pulse Rate 112 H Respiratory Rate 16 Blood Pressure 88/54 L 90/50 L Pulse Oximetry 94 10/30/24 00:30 10/30/24 00:45 10/30/24 00:45 Temperature Pulse Rate 109 H 105 H Respiratory Rate 15 15 Blood Pressure 87/53 L Pulse Oximetry 94 94 10/30/24 01:00 10/30/24 01:00 10/30/24 01:15 Temperature Pulse Rate 103 H Respiratory Rate 15 Blood Pressure 88/52 L 89/53 L Pulse Oximetry 95 10/30/24 01:15 10/30/24 01:30 10/30/24 01:45 Temperature Pulse Rate 102 H 103 H 105 H Respiratory Rate 15 14 14 Blood Pressure 86/53 L 89/54 L Pulse Oximetry 96 95 95 10/30/24 02:00 10/30/24 02:00 10/30/24 02:15 Temperature Pulse Rate 109 H 108 H Respiratory Rate 15 15 Blood Pressure 95/54 L Pulse Oximetry 94 95 10/30/24 02:15 10/30/24 02:30 10/30/24 02:30 Temperature Pulse Rate 104 H Respiratory Rate 15 Blood Pressure 86/52 L 89/50 L Pulse Oximetry 95 10/30/24 02:45 10/30/24 02:45 10/30/24 03:00 Temperature Pulse Rate 101 H 100 H Respiratory Rate 15 15 Blood Pressure 87/51 L Pulse Oximetry 94 94 10/30/24 03:00 10/30/24 03:15 10/30/24 03:15 Temperature Pulse Rate 102 H Respiratory Rate 15 Blood Pressure 87/54 L 86/50 L Pulse Oximetry 94 10/30/24 03:30 10/30/24 03:30 10/30/24 03:45 Temperature Pulse Rate 101 H 102 H Respiratory Rate 16 16 Blood Pressure 90/52 L Pulse Oximetry 93 93 10/30/24 03:45 10/30/24 04:00 10/30/24 04:00 Temperature Pulse Rate 100 H Respiratory Rate 15 Blood Pressure 92/52 L 93/53 L Pulse Oximetry 94 MDM - Recheck/Abnormal Lab/Rx <Cally Wilkins, DO - Last Filed: 11/04/24 07:50> Lab Data 10/31/24 05:00 10/31/24 12:45 Labs: Lab Results 10/29/24 10/29/24 10/30/24 Range/Units 14:21 23:44 00:43 WBC 5.7 (4.5-11.0) X10^3/uL RBC 1.98 L (4.0-5.2) X10^6/uL Hgb 7.0 L (12.0-16.0) g/dL Hct 19.7 L* (36-46) % MCV 99.5 (80-100) fL MCH 35.1 H (26-34) PG MCHC 35.3 (30-36) % RDW 14.4 (11.6-14.8) % Plt Count 313 (150-400) X10^3/uL Neut % (Auto) 80.1 H (50-75) % Lymph % (Auto) 10.6 L (25-40) % Mcnairy % (Auto) 8.8 (3-14) % Eos % (Auto) 0.2 L (2-4) % Baso % (Auto) 0.3 (0-2) % Neut # (Auto) 4500 (2411-1915) /uL Lymph # (Auto) 600 L (4303-5581) /uL Mcnairy # (Auto) 500 (0-900) /uL Eos # (Auto) 0 (0-450) /uL Baso # (Auto) 0 (0-100) /uL Sodium 121 L (137-145) mmol/L Potassium 4.4 (3.4-5.1) mmol/L Chloride 83 L (98-107) mmol/L Carbon Dioxide 24 (22-32) mmol/L BUN 49 H (7-17) mg/dL Creatinine 3.07 H (0.52-1.04) mg/dL Estimated GFR 17 L (>60) mL/min BUN/Creatinine Ratio 16.0 (6-22) Glucose 93 (70-99) mg/dL Lactate 0.5 L (0.7-2.1) mmol/L Calcium 9.9 (8.4-10.2) mg/dL Urine Color Yellow Urine Appearance Clear Urine pH 5.5 (4.5-8.0) Ur Specific [place] <=1.005 (1.000-1.035) Urine Protein Negative (Negative) Urine Glucose (UA) 1+ H (Negative) g/dL Urine Ketones Negative (NEGATIVE) Urine Occult Blood Negative (Negative) Urine Nitrate Negative (Negative) Urine Bilirubin Negative (NEGATIVE) Urine Urobilinogen 0.2 (0.2) E.U./dL Ur Leukocyte Esterase Negative (NEGATIVE) Urine RBC 0-1/hpf (0-5/HPF) Urine WBC 0-1/hpf (0-5/HPF) Ur Squamous Epith Cells 1-5 /hpf (0-5/HPF) Urine Bacteria Occasional (0-1) (None) Ur Culture Indicated? Cult not indicated Vol Urine Centrifuged 10ml (spun) Blood Type AB Positive Antibody Screen Negative Crossmatch See Detail 10/30/24 Range/Units 01:36 WBC (4.5-11.0) X10^3/uL RBC (4.0-5.2) X10^6/uL Hgb 9.9 L (12.0-16.0) g/dL Hct 27.4 L (36-46) % MCV (80-100) fL MCH (26-34) PG MCHC (30-36) % RDW (11.6-14.8) % Plt Count (150-400) X10^3/uL Neut % (Auto) (50-75) % Lymph % (Auto) (25-40) % Mcnairy % (Auto) (3-14) % Eos % (Auto) (2-4) % Baso % (Auto) (0-2) % Neut # (Auto) (9716-0429) /uL Lymph # (Auto) (6695-7689) /uL [place] # (Auto) (0-900) /uL Eos # (Auto) (0-450) /uL Baso # (Auto) (0-100) /uL Sodium 122 L (137-145) mmol/L Potassium 3.9 (3.4-5.1) mmol/L Chloride 95 L (98-107) mmol/L Carbon Dioxide 22 (22-32) mmol/L BUN 37 H (7-17) mg/dL Creatinine 1.92 H (0.52-1.04) mg/dL Estimated GFR 31 L (>60) mL/min BUN/Creatinine Ratio 19.3 (6-22) Glucose 101 H (70-99) mg/dL Lactate (0.7-2.1) mmol/L Calcium 8.8 (8.4-10.2) mg/dL Urine Color Urine Appearance Urine pH (4.5-8.0) Ur Specific [place] (1.000-1.035) Urine Protein (Negative) Urine Glucose (UA) (Negative) g/dL Urine Ketones (NEGATIVE) Urine Occult Blood (Negative) Urine Nitrate (Negative) Urine Bilirubin (NEGATIVE) Urine Urobilinogen (0.2) E.U./dL Ur Leukocyte Esterase (NEGATIVE) Urine RBC (0-5/HPF) Urine WBC (0-5/HPF) Ur Squamous Epith Cells (0-5/HPF) Urine Bacteria (None) Ur Culture Indicated? Vol Urine Centrifuged Blood Type Antibody Screen Crossmatch Imaging Data CT scan - abdomen/pelvis: Radiologist's Impression: PROCEDURE: CT CHEST ABD PEL WO CON INDICATIONS: Metastatic breast cancer now renal failure TECHNIQUE: After the administration of oral contrast, 5 mm thick sections acquired from the lung apices to the symphysis pubis. 5 mm thick coronal and sagittal reformats acquired, with additional 7 mm coronal MIP reformats through the lungs. For radiation dose reduction, the following was used: automated exposure control, adjustment of mA and/or kV according to patient size. COMPARISON: [facility], CT, CT CHEST ABD PEL W CON, 03/13/2024, 13:14. FINDINGS: Image quality: Diagnostic. CHEST: Lower Neck: No enlarged lymph nodes. Thyroid: Left lobe is visualized. Right lobe appears hypoplastic versus resected. Axillae: No enlarged lymph nodes. Chest Wall: Unremarkable. Bones: Unremarkable. Lungs and Pleura: Mild left effusion. No consolidation or suspicious nodules. Heart: Heart size is normal. No pericardial effusion. Thoracic Vessels: The aorta and pulmonary arteries demonstrate normal size. Mediastinum and Kat: No enlarged lymph nodes. Esophagus: No wall thickening. No hiatal hernia. ABDOMEN: Liver: Previously identified areas of heterogeneous enhancement within the liver are not as well visualized on noncontrast exam.. Gallbladder: No radiopaque gallstones or wall thickening. Biliary ducts: No biliary dilation. Pancreas: No ductal dilation. Spleen: Size is within normal limits. Adrenal Glands: No adrenal nodules. Kidneys and Ureters: Left asymmetric renal atrophy. There is interval development of mild prominence of the renal pelvis compared to prior exam. Portions of the ureter appear prominent. No definitive source of obstruction. Stomach and Bowel: Normal colonic caliber, without significant wall thickening. Diverticula without inflammatory change. Peritoneum: No abnormal intraperitoneal fluid. No free air. Ventral Wall: No hernia. Abdominal Nodes: No retroperitoneal or mesenteric adenopathy by size criteria. Vessels: Aorta and inferior vena cava are normal in size. PELVIS: Pelvic Organs: Unremarkable. Bladder: Unremarkable. Pelvic Nodes: No enlarged lymph nodes. Miscellaneous: No inguinal hernias are seen. Bones: Right hip fixation. Diffuse appearance of sclerosis as well as lytic osseous foci as previously identified. Some areas appear slightly worse. Others appear mildly improved. Subacute right lateral 11th rib fracture is present. Acute/subacute right posterior lateral 10th, 9th rib fractures are present. Right humeral fixation. IMPRESSION: Mild prominence of the left renal pelvis and ureter without definitive source of obstruction. Previously identified hepatic masses are not well seen secondary to lack of contrast. Bilateral rib fractures appearing more acute on the left. If there is absence of recent trauma, pathologic fracture should be considered given multiple areas of sclerosis and lucency within the bones as described above. Diffuse osseous metastatic disease with areas appearing progressive and others appearing stable/improved compared to prior exam. Dictated by: Pippa Hilliard M.D. on 10/29/2024 at 17:46 Approved by: Pippa Hilliard M.D. on 10/29/2024 at 17:54 CT scan - head: Radiologist's Impression: PROCEDURE: CT HEAD/BRAIN WO CON INDICATIONS: fall metastatic breast cancer TECHNIQUE: Noncontrast 4.5 mm thick angled axial sections acquired from the foramen magnum to the vertex, with coronal and sagittal reformats. For radiation dose reduction, the following was used: automated exposure control, adjustment of mA and/or kV according to patient size. COMPARISON: [facility], CT, CT HEAD/BRAIN WO CON, 06/21/2024, 9:20. FINDINGS: Image quality: Diagnostic. CSF spaces: Basal cisterns are patent. No extra-axial fluid collections. Ventricles are normal in size and shape. Brain: No midline shift. No intracranial mass effect or hemorrhage. Champion- white matter interface is normal. Skull and face: Multiple lytic lesions throughout the calvarium as previously identified. Persistent most prominent appearance erosion in the right temporal bone. Unchanged right globe postsurgical appearance. Sinuses: Visualized sinuses and mastoids are clear. IMPRESSION: No acute intracranial pathology. Multiple calvarial lytic lesions consistent with known metastatic disease. No visualized fracture. Dictated by: Pippa Hilliard M.D. on 10/29/2024 at 17:54 Extremity x-ray #1: Radiologist's Impression: ADDENDUMThis report includes an Addendum and supersedes previous reports for this exam. PROCEDURE: XR SHOULDER LT MIN 2V INDICATIONS: pain TECHNIQUE: 2 views of the shoulder were acquired. COMPARISON: None. FINDINGS: Bones: There is suggestion of old fracture involving distal clavicle with up to 5.5 mm diastasis and well corticated margin. Osteoarthritic changes are noted in left acromioclavicular joint and glenohumeral joint. No definite acute fracture or dislocation. No suspicious bony lesions. Visualized ribs appear intact. Soft tissues: No suspicious soft tissue calcifications. IMPRESSION: Suggestion of old injury involving left distal clavicle as above. No definite acute left shoulder fracture or dislocation. 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 Dictated by: Adolfo Lozano M.D. on 10/29/2024 at 17:34 Approved by: Adolfo Lozano M.D. on 10/29/2024 at 17:36 ADDENDUM: COMPARISON:[facility], CT, CT CHEST ABD PEL WO CON, 10/29/2024, 17:07. There is linear radiolucency and cortical irregularity involving lateral periphery of greater tuberosity and proximal humeral shaft suggestive of acute slightly displaced fracture in this area. Dictated by: Adolfo Lozano M.D. on 10/29/2024 at 18:22 Approved by: Adolfo Lozano M.D. on 10/29/2024 at 18 MDM Narrative Medical decision making narrative: Patient 54-year-old female history of metastatic breast cancer presenting today after ground level fall last night. Complaining of shoulder pain. She was found to be anemic with a hemoglobin of 7 hematocrit 19.7 previously 6.8/19.42 days ago baseline seems to be around 8. She was chronically hyponatremic with a sodium of 121 potassium 4.4 chloride 83 carbon dioxide 24 BUN 49 creatinine 3.0 She has chronic renal failure records reviewed from [facility] do show a creatinine 3.92 on 10/19/2024 she also had a hemoglobin 8.2 and hematocrit 23.4 at that time She has no active bleeding. I suspect that anemia secondary to cancer and chemotherapy. She was hypotensive here blood pressure in the 80s, blood pressure noted 89/59 an office visit 10/19/2024 was rechecked and 92/56. Blood pressures here previously are on the lower end but typically 110/57 121/82 but there are numerous that are in the 90s. CT was done for renal failure and metastatic cancer. No new imaging noted in our system. Head CT does not show any intracranial hemorrhage or metastasis, but there are multiple lytic lesions consistent with known metastatic disease CT chest abdomen pelvis shows bilateral rib fractures more acute on left diffuse osseous metastatic disease mild prominence of left renal pelvis and ureter without source of obstruction hepatic masses are not well seen. Patient received 1 unit of packed red blood cells however she was still hypotensive now with a blood pressure of 75 and a heart rate in the 125. Unclear if this is a gastric ulcer GI bleeding versus chemotherapy anemia. Protonix 80 mg given Patient signed out to Dr. Grover's, anticipate transfer for elevated creatinine anemia metastatic breast cancer. <Travis Grover MD - Last Filed: 10/30/24 16:21> Lab Data Labs: Lab Results 10/29/24 10/29/24 10/30/24 Range/Units 14:21 23:44 00:43 WBC 5.7 (4.5-11.0) X10^3/uL RBC 1.98 L (4.0-5.2) X10^6/uL Hgb 7.0 L (12.0-16.0) g/dL Hct 19.7 L* (36-46) % MCV 99.5 (80-100) fL MCH 35.1 H (26-34) PG MCHC 35.3 (30-36) % RDW 14.4 (11.6-14.8) % Plt Count 313 (150-400) X10^3/uL Neut % (Auto) 80.1 H (50-75) % Lymph % (Auto) 10.6 L (25-40) % Mcnairy % (Auto) 8.8 (3-14) % Eos % (Auto) 0.2 L (2-4) % Baso % (Auto) 0.3 (0-2) % Neut # (Auto) 4500 (7423-4643) /uL Lymph # (Auto) 600 L (0462-8344) /uL Mcnairy # (Auto) 500 (0-900) /uL Eos # (Auto) 0 (0-450) /uL Baso # (Auto) 0 (0-100) /uL Sodium 121 L (137-145) mmol/L Potassium 4.4 (3.4-5.1) mmol/L Chloride 83 L (98-107) mmol/L Carbon Dioxide 24 (22-32) mmol/L BUN 49 H (7-17) mg/dL Creatinine 3.07 H (0.52-1.04) mg/dL Estimated GFR 17 L (>60) mL/min BUN/Creatinine Ratio 16.0 (6-22) Glucose 93 (70-99) mg/dL Lactate 0.5 L (0.7-2.1) mmol/L Calcium 9.9 (8.4-10.2) mg/dL Urine Color Yellow Urine Appearance Clear Urine pH 5.5 (4.5-8.0) Ur Specific Mccalla <=1.005 (1.000-1.035) Urine Protein Negative (Negative) Urine Glucose (UA) 1+ H (Negative) g/dL Urine Ketones Negative (NEGATIVE) Urine Occult Blood Negative (Negative) Urine Nitrate Negative (Negative) Urine Bilirubin Negative (NEGATIVE) Urine Urobilinogen 0.2 (0.2) E.U./dL Ur Leukocyte Esterase Negative (NEGATIVE) Urine RBC 0-1/hpf (0-5/HPF) Urine WBC 0-1/hpf (0-5/HPF) Ur Squamous Epith Cells 1-5 /hpf (0-5/HPF) Urine Bacteria Occasional (0-1) (None) Ur Culture Indicated? Cult not indicated Vol Urine Centrifuged 10ml (spun) Blood Type AB Positive Antibody Screen Negative Crossmatch See Detail 10/30/24 Range/Units 01:36 WBC (4.5-11.0) X10^3/uL RBC (4.0-5.2) X10^6/uL Hgb 9.9 L (12.0-16.0) g/dL Hct 27.4 L (36-46) % MCV (80-100) fL MCH (26-34) PG MCHC (30-36) % RDW (11.6-14.8) % Plt Count (150-400) X10^3/uL Neut % (Auto) (50-75) % Lymph % (Auto) (25-40) % Mcnairy % (Auto) (3-14) % Eos % (Auto) (2-4) % Baso % (Auto) (0-2) % Neut # (Auto) (7854-6026) /uL Lymph # (Auto) (1048-4830) /uL Mcnairy # (Auto) (0-900) /uL Eos # (Auto) (0-450) /uL Baso # (Auto) (0-100) /uL Sodium 122 L (137-145) mmol/L Potassium 3.9 (3.4-5.1) mmol/L Chloride 95 L (98-107) mmol/L Carbon Dioxide 22 (22-32) mmol/L BUN 37 H (7-17) mg/dL Creatinine 1.92 H (0.52-1.04) mg/dL Estimated GFR 31 L (>60) mL/min BUN/Creatinine Ratio 19.3 (6-22) Glucose 101 H (70-99) mg/dL Lactate (0.7-2.1) mmol/L Calcium 8.8 (8.4-10.2) mg/dL Urine Color Urine Appearance Urine pH (4.5-8.0) Ur Specific Mccalla (1.000-1.035) Urine Protein (Negative) Urine Glucose (UA) (Negative) g/dL Urine Ketones (NEGATIVE) Urine Occult Blood (Negative) Urine Nitrate (Negative) Urine Bilirubin (NEGATIVE) Urine Urobilinogen (0.2) E.U./dL Ur Leukocyte Esterase (NEGATIVE) Urine RBC (0-5/HPF) Urine WBC (0-5/HPF) Ur Squamous Epith Cells (0-5/HPF) Urine Bacteria (None) Ur Culture Indicated? Vol Urine Centrifuged Blood Type Antibody Screen Crossmatch MDM Narrative Medical decision making narrative: Patient 54-year-old female history of metastatic breast cancer presenting today after ground level fall last night. Complaining of shoulder pain. She was found to be anemic with a hemoglobin of 7 hematocrit 19.7 previously 6.8/19.42 days ago baseline seems to be around 8. She was chronically hyponatremic with a sodium of 121 potassium 4.4 chloride 83 carbon dioxide 24 BUN 49 creatinine 3.0 She has chronic renal failure records reviewed from [facility] do show a creatinine 3.92 on 10/19/2024 she also had a hemoglobin 8.2 and hematocrit 23.4 at that time She has no active bleeding. I suspect that anemia secondary to cancer and chemotherapy. She was hypotensive here blood pressure in the 80s, blood pressure noted 89/59 an office visit 10/19/2024 was rechecked and 92/56. Blood pressures here previously are on the lower end but typically 110/57 121/82 but there are numerous that are in the 90s. CT was done for renal failure and metastatic cancer. No new imaging noted in our system. Head CT does not show any intracranial hemorrhage or metastasis, but there are multiple lytic lesions consistent with known metastatic disease CT chest abdomen pelvis shows bilateral rib fractures more acute on left diffuse osseous metastatic disease mild prominence of left renal pelvis and ureter without source of obstruction hepatic masses are not well seen. Patient received 1 unit of packed red blood cells however she was still hypotensive now with a blood pressure of 75 and a heart rate in the 125. Unclear if this is a gastric ulcer GI bleeding versus chemotherapy anemia. Protonix 80 mg given Patient signed out to Dr. Grover's, anticipate transfer for elevated creatinine anemia metastatic breast cancer. 10/29/242019, [place]. 54-year-old female with history of metastatic breast cancer on chemotherapy regimen, ongoing alcohol use, renal insufficiency with creatinine 3.9, hemoglobin 7, low blood pressure in the recent past and on presentation today, sodium 120 in similar range to prior studies. CT head study negative. CT chest abdomen and pelvis noncontrast study did not show any obvious free fluid but did show rib fracture changes. XRays showed left humeral head fracture. Patient given IV Protonix 80 mg, first unit PRBCs transfusion completed, still low blood pressure, mild sinus tachycardia, no fever, no obvious external sources of bleeding, no obvious sources infection, second unit IV packed cells ordered to be given. Assumed care. Consider transfer to Nephrology and Gastroenterology capable facility. No active GI bleeding noted while in the department. Second unit transfusion infusing. Second unit transfusion infused. Will repeat labs after second unit transfusion. No GI bleeding or other external blood losses seen so far, no nosebleeds and vaginal bleeding symptoms. Repeat post-trasnfusions hemoglobin improved. Repeat BUN and creatinine also improved. Left shoulder sling for humeral head fracture. 0400, Hypotension persisting, also had been present on previous outpatient visit, unclear etiology. Repeat lactate normal 0.5 noted. Urinalysis negative. Imaging studies showed left humeral head fracture and rib fracture and tabitha metastatic changes, but no obvious infectious changes. Unclear if patient needs transfer at this time as her renal function seems to be improved and similar to recent values. Sodium improved but still low, similar to recent values. We will consult hospitalist regarding disposition. 0430, case discussed with hospitalist Dr. Cordova who accepts patient for admission Discharge Plan Departure Patient Disposition: Admitted As Inpatient Clinical Impression: Anemia, CKD (chronic kidney disease), Breast cancer metastasized to bone, Acute hyponatremia, Fracture of rib, Closed fracture of head of left humerus, Hypotension Admit Date/Time: 10/30/24 04:30 Admit Provider: Michael Cordova
--- NOTE | 2024-10-29 16:57 | DI.CT.S_ITS ---
PROCEDURE: CT HEAD/BRAIN WO CON INDICATIONS: fall metastatic breast cancer TECHNIQUE: Noncontrast 4.5 mm thick angled axial sections acquired from the foramen magnum to the vertex, with coronal and sagittal reformats. For radiation dose reduction, the following was used: automated exposure control, adjustment of mA and/or kV according to patient size. COMPARISON: [facility], CT, CT HEAD/BRAIN WO CON, 06/21/2024, 9:20. FINDINGS: Image quality: Diagnostic. CSF spaces: Basal cisterns are patent. No extra-axial fluid collections. Ventricles are normal in size and shape. Brain: No midline shift. No intracranial mass effect or hemorrhage. Champion-white matter interface is normal. Skull and face: Multiple lytic lesions throughout the calvarium as previously identified. Persistent most prominent appearance erosion in the right temporal bone. Unchanged right globe postsurgical appearance. Sinuses: Visualized sinuses and mastoids are clear. IMPRESSION: No acute intracranial pathology. Multiple calvarial lytic lesions consistent with known metastatic disease. No visualized fracture. Dictated by: Pippa Hilliard M.D. on 10/29/2024 at 17:54 Approved by: Pippa Hilliard M.D. on 10/29/2024 at 17:57
--- NOTE | 2024-10-29 16:59 | DI.CT.S_ITS ---
PROCEDURE: CT CHEST ABD PEL WO CON INDICATIONS: Metastatic breast cancer now renal failure TECHNIQUE: After the administration of oral contrast, 5 mm thick sections acquired from the lung apices to the symphysis pubis. 5 mm thick coronal and sagittal reformats acquired, with additional 7 mm coronal MIP reformats through the lungs. For radiation dose reduction, the following was used: automated exposure control, adjustment of mA and/or kV according to patient size. COMPARISON: [facility], CT, CT CHEST ABD PEL W CON, 03/13/2024, 13:14. FINDINGS: Image quality: Diagnostic. CHEST: Lower Neck: No enlarged lymph nodes. Thyroid: Left lobe is visualized. Right lobe appears hypoplastic versus resected. Axillae: No enlarged lymph nodes. Chest Wall: Unremarkable. Bones: Unremarkable. Lungs and Pleura: Mild left effusion. No consolidation or suspicious nodules. Heart: Heart size is normal. No pericardial effusion. Thoracic Vessels: The aorta and pulmonary arteries demonstrate normal size. Mediastinum and Kat: No enlarged lymph nodes. Esophagus: No wall thickening. No hiatal hernia. ABDOMEN: Liver: Previously identified areas of heterogeneous enhancement within the liver are not as well visualized on noncontrast exam.. Gallbladder: No radiopaque gallstones or wall thickening. Biliary ducts: No biliary dilation. Pancreas: No ductal dilation. Spleen: Size is within normal limits. Adrenal Glands: No adrenal nodules. Kidneys and Ureters: Left asymmetric renal atrophy. There is interval development of mild prominence of the renal pelvis compared to prior exam. Portions of the ureter appear prominent. No definitive source of obstruction. Stomach and Bowel: Normal colonic caliber, without significant wall thickening. Diverticula without inflammatory change. Peritoneum: No abnormal intraperitoneal fluid. No free air. Ventral Wall: No hernia. Abdominal Nodes: No retroperitoneal or mesenteric adenopathy by size criteria. Vessels: Aorta and inferior vena cava are normal in size. PELVIS: Pelvic Organs: Unremarkable. Bladder: Unremarkable. Pelvic Nodes: No enlarged lymph nodes. Miscellaneous: No inguinal hernias are seen. Bones: Right hip fixation. Diffuse appearance of sclerosis as well as lytic osseous foci as previously identified. Some areas appear slightly worse. Others appear mildly improved. Subacute right lateral 11th rib fracture is present. Acute/subacute right posterior lateral 10th, 9th rib fractures are present. Right humeral fixation. IMPRESSION: Mild prominence of the left renal pelvis and ureter without definitive source of obstruction. Previously identified hepatic masses are not well seen secondary to lack of contrast. Bilateral rib fractures appearing more acute on the left. If there is absence of recent trauma, pathologic fracture should be considered given multiple areas of sclerosis and lucency within the bones as described above. Diffuse osseous metastatic disease with areas appearing progressive and others appearing stable/improved compared to prior exam. Dictated by: Pippa Hilliard M.D. on 10/29/2024 at 17:46 Approved by: Pippa Hilliard M.D. on 10/29/2024 at 17:54
--- NOTE | 2024-10-29 17:00 | PC.NURSE ---
Pt hypotensive with MAP of 65. Notified Dr. Wilkins and new orders placed for IV fluids and packed RBC's.
--- NOTE | 2024-10-29 18:20 | PC.NURSE ---
@[address] Wilkins of pt hypotension. Pt is asymptomatic and is sitting up in bed eating fried fish and georgian fries with her family. Dr. Wilkins states pt baseline is hypotension and unless pt is symptomatic pt is able to sit up and eat. Blood is transfusing.
[2024-10-29] MEDS: PANTOPRAZOLE 40 MG VIAL 80 MG IV (20:07)
[2024-10-29] MEDS: SODIUM CHLORIDE 0.9% 500 ML 1000 ML IV (20:08)
--- NOTE | 2024-10-29 21:25 | PC.NURSE ---
Pt is receiving second unit of blood for worsening hypotension. Last set of VS BP 72/49, HR 115, RR 17, 94% RA, Temp 98.6. Recommendation for norepi made to provider. No new orders at this time.
[2024-10-29] MEDS: ACETAMINOPHEN 325 MG TABLET 650 MG PO (23:46)
[2024-10-30] VITALS (24 sets, daily range): BP systolic 85–110; BP diastolic 47–59; PULSE 98–112; RESP 13–23; TEMP 36.2–36.3; O2SAT 93–99; BMI 15.7
[2024-10-30 00:17] LABS: Appearance Urine UA CLEAR; Bilirubin Urine UA NEGATIVE (NEGATIVE); Color Urine UA YELLOW; Glucose Urine UA 1+ g/dL (Negative); Ketones Urine UA NEGATIVE (NEGATIVE); Leukocyte Esterase Urine UA NEGATIVE (NEGATIVE); Nitrite Urine UA NEGATIVE (Negative); Occult Blood Urine UA NEGATIVE (Negative); Protein Urine UA NEGATIVE (Negative); Specific Gravity Urine UA <=1.005 (1.000-1.035); Urobilinogen Urine UA 0.2 E.U./dL (0.2)
[2024-10-30 00:21] LABS: Urine Volume 10mL (spun); pH Urine UA 5.5 (4.5-8.0)
[2024-10-30 00:25] LABS: Bacteria Urine Occasional (0-1); Culture Indicated Urine Cult Not Indicated; RBC Urine 0-1/HPF (0-5/HPF); Squamous Epithelial Cell Urine 1-5 /HPF (0-5/HPF); WBC Urine 0-1/HPF (0-5/HPF)
--- NOTE | 2024-10-30 00:33 | PC.NURSE ---
Addendum entered by Jennifer Cochran CNA 10/30/24 04:53: RAILWAY EQUIPMENT OPERATOR note: Spoke to Shane at [facility] at [phone] regarding patient. Patient has been accepted by Dr. Cordova at [facility], so we don't need [facility] or [facility] services. Thanked him for his help. Original Note: RAILWAY EQUIPMENT OPERATOR note: Attempting to transfer patient per Dr. Grover's request. Called the following places with the following places with the following responses. [facility]: called at 2210 spoke with Michelle. They are currently full and boarding. [facility]: called at 2215 spoke with Mechelle. Pushed images and facesheet, but the hospital is currently at capacity. Patient on waitlist. [facility]: 2219 spoke with Luther and then later at 0019 spoke with Shane. Shane took some information about patient. Pushed images over and a face sheet. Shane was going to work on the case. [facility]: 2312 spoke with Felicitas. They don't have any beds in the [place] area. Felicitas asked if patient would be willing to transfer to [place]. I asked patient if she'd be willing to transfer. Oh no, that's too far. [facility] will still continue to look for beds. [facility]: spoke with Julissa at 2315, she would page her housing assistant admin foundation stage teacher.
[2024-10-30 00:58] LABS: Lactate (Lactic Acid) 0.5 mmol/L (0.7-2.1)
--- NOTE | 2024-10-30 01:38 | PC.NURSE ---
Repeat labs drawn from existing left forearm IV without complications.
[2024-10-30 01:43] LABS: Hematocrit 27.4 % (36-46); Hemoglobin 9.9 g/dL (12.0-16.0)
[2024-10-30 01:54] LABS: BUN Creatinine Ratio 19.3 (6-22); Blood Urea Nitrogen 37 mg/dL (7-17); Calcium 8.8 mg/dL (8.4-10.2); Carbon Dioxide 22 mmol/L (22-32); Chloride 95 mmol/L (98-107); Estimated Glomerular Filt Rate 31 mL/min (>60); Glucose 101 mg/dL (70-99); HEMOLYSIS < 15 (0-50); Potassium 3.9 mmol/L (3.4-5.1); Sodium 122 mmol/L (137-145)
[2024-10-30] MEDS: SODIUM CHLORIDE 0.9% 1,000 ML 75 ML IV (04:57)
--- NOTE | 2024-10-30 05:10 | P.HP_ITS ---
History of Present Illness History of Present Illness Chief complaint: abnormal labs sent from Dr Eckert: 54-year-old female with past medical history of metastatic breast cancer possibly to the liver. Being followed by oncology at [facility], alcohol abuse, hypertension and insomnia presents with complaint of abnormal lab. Of note the patient was found to have abnormal lab from her outpatient medical clinic. The patient was found to have low hemoglobin, low sodium and increased creatinine. Per the patient's report the patient has been feeling fatigued and had a fall last night in which she might have landed on her shoulder on the left. The patient denies any head injury or loss of consciousness. The patient also denies any focal weakness, slurred speech or facial drooping. The patient admits to be abusing alcohol and drinks 3 glasses of alcoholic drinks per day. Last drink was yesterday. The patient otherwise denies any fever, chills, nausea, vomiting, diarrhea, chest pain or shortness of breath. The patient also denies any GI bleeding. Of note the patient is currently on Abemaciclib daily for her metastatic breast cancer. However there was a concern of severe anemia and hypotension and possibly this medication was held. In the emergency room, the patient initially had low blood pressure with systolic in the 80s. The patient was given a bolus of IV fluid. The patient also had a hemoglobin of 7 in which 2 unit of packed red blood cells was ordered. The patient had no sign of active bleeding per ER physician. Creatinine was 3.7 and after blood and IV fluid, Cr did improve down to 1.9 with repeat. There is no signs of infection. Or sepsis. Due to sodium being 121 our ER physician request admission to treat hyponatremia and monitor blood pressure. Xray of left arm shows left humeral neck fracture. [facility] Medical History Acute pain of left foot Metastatic breast cancer History of fracture of left ankle Mass of left axilla Breast cancer, left Hypertension Current every day smoker Ankle fracture, right (11/2019) Eczema Depression Retinal detachment (2003) Breast cancer, right Surgical History History of mastectomy (11/2013) History of lumpectomy of right breast (11/2013) Family History Mother Breast cancer associated with mutation in MELYSSA gene Social History household members: none Smoking Status: Current every day smoker alcohol intake: current substance use type: does not use Meds Home Medications and Allergies Home Medications Medication Instructions Recorded Confirmed Type acetaminophen 325 mg capsule 650 mg PO Q4H PRN Pain (Scale 04/28/21 10/25/24 History (Tylenol) Score 4-6) bupropion HCl 150 mg tablet,12 hr 150 mg PO BID #60 ea 04/11/24 10/25/24 Rx sustained-release (Wellbutrin SR) losartan 100 mg tablet 100 mg PO DAILY #30 tabs 06/22/24 10/25/24 Rx albuterol sulfate 90 mcg/actuation 2 puff inhalation Q4-6H PRN 07/09/24 10/25/24 Rx aerosol inhaler (Ventolin HFA) shortness of breath or wheezing #6.7 grams trazodone 50 mg tablet See Rx Instructions PO BEDTIME PRN 10/18/24 10/25/24 Rx insomnia #90 tabs abemaciclib 150 mg tablet 150 mg PO BID 10/25/24 10/25/24 History (Verzenio) Allergies Allergy/AdvReac Type Severity Reaction Status Date / Time No Known Drug Allergies Allergy Verified 10/25/24 11:04 Review of Systems Review of Systems ROS: Yes All systems reviewed with the patient and are negative except as otherwise documented Exam Vital Signs (past 8 hours): - 10/29/24 21:15 10/29/24 21:15 10/29/24 21:20 Pulse Rate 117 H 115 H Respiratory Rate 17 17 Blood Pressure 83/52 L Pulse Oximetry 94 94 10/29/24 21:20 10/29/24 21:25 10/29/24 21:25 Pulse Rate 118 H Respiratory Rate 20 Blood Pressure 72/49 L 79/51 L Pulse Oximetry 95 10/29/24 21:30 10/29/24 21:30 10/29/24 21:35 Pulse Rate 114 H Respiratory Rate 16 Blood Pressure 84/53 L 83/53 L Pulse Oximetry 94 10/29/24 21:35 10/29/24 21:40 10/29/24 21:40 Pulse Rate 113 H 112 H Respiratory Rate 16 17 Blood Pressure 82/50 L Pulse Oximetry 94 94 10/29/24 21:45 10/29/24 21:45 10/29/24 21:50 Pulse Rate 112 H 113 H Respiratory Rate 18 19 Blood Pressure 89/50 L Pulse Oximetry 94 94 10/29/24 21:50 10/29/24 21:55 10/29/24 21:55 Pulse Rate 112 H Respiratory Rate 19 Blood Pressure 90/51 L 92/52 L Pulse Oximetry 95 10/29/24 22:00 10/29/24 22:00 10/29/24 22:05 Pulse Rate 110 H 110 H Respiratory Rate 17 17 Blood Pressure 88/51 L Pulse Oximetry 94 96 10/29/24 22:05 10/29/24 22:10 10/29/24 22:10 Pulse Rate 110 H Respiratory Rate 16 Blood Pressure 92/52 L 85/50 L Pulse Oximetry 96 10/29/24 22:30 10/29/24 23:00 10/29/24 23:30 Pulse Rate 113 H 115 H 115 H Respiratory Rate 17 15 18 Blood Pressure Pulse Oximetry 94 95 95 10/29/24 23:35 10/29/24 23:35 10/29/24 23:45 Pulse Rate 113 H 110 H Respiratory Rate 26 H 15 Blood Pressure 91/65 90/59 L Pulse Oximetry 95 94 10/30/24 00:00 10/30/24 00:00 10/30/24 00:15 Pulse Rate 112 H Respiratory Rate 19 Blood Pressure 92/59 L 88/54 L Pulse Oximetry 95 10/30/24 00:15 10/30/24 00:30 10/30/24 00:30 Pulse Rate 112 H 109 H Respiratory Rate 16 15 Blood Pressure 90/50 L Pulse Oximetry 94 94 10/30/24 00:45 10/30/24 00:45 10/30/24 01:00 Pulse Rate 105 H 103 H Respiratory Rate 15 15 Blood Pressure 87/53 L Pulse Oximetry 94 95 10/30/24 01:00 10/30/24 01:15 10/30/24 01:15 Pulse Rate 102 H Respiratory Rate 15 Blood Pressure 88/52 L 89/53 L Pulse Oximetry 96 10/30/24 01:30 10/30/24 01:45 10/30/24 02:00 Pulse Rate 103 H 105 H Respiratory Rate 14 14 Blood Pressure 86/53 L 89/54 L 95/54 L Pulse Oximetry 95 95 10/30/24 02:00 10/30/24 02:15 10/30/24 02:15 Pulse Rate 109 H 108 H Respiratory Rate 15 15 Blood Pressure 86/52 L Pulse Oximetry 94 95 10/30/24 02:30 10/30/24 02:30 10/30/24 02:45 Pulse Rate 104 H 101 H Respiratory Rate 15 15 Blood Pressure 89/50 L Pulse Oximetry 95 94 10/30/24 02:45 10/30/24 03:00 10/30/24 03:00 Pulse Rate 100 H Respiratory Rate 15 Blood Pressure 87/51 L 87/54 L Pulse Oximetry 94 10/30/24 03:15 10/30/24 03:15 10/30/24 03:30 Pulse Rate 102 H 101 H Respiratory Rate 15 16 Blood Pressure 86/50 L Pulse Oximetry 94 93 10/30/24 03:30 10/30/24 03:45 10/30/24 03:45 Pulse Rate 102 H Respiratory Rate 16 Blood Pressure 90/52 L 92/52 L Pulse Oximetry 93 10/30/24 04:00 10/30/24 04:00 Pulse Rate 100 H Respiratory Rate 15 Blood Pressure 93/53 L Pulse Oximetry 94 Oxygen Delivery Method Room Air Narrative Exam Narrative: Physical Exam: GENERAL: The patient is not in any acute distressed. Awake and alert. HEENT: Nonicteric sclerae, PERRLA, EOMI. Oropharynx clear. Moist mucous membranes. Conjunctivae appear well perfused. HEART: Regular rate and rhythm without murmurs. No lower extremities edema. LUNGS: Clear to auscultation bilaterally. No wheezing, crackles or rhonchi ABDOMEN: Soft, positive bowel sounds, nontender. SKIN: No rash, no excessive bruising, petechiae, or purpura. NEUROLOGIC: AxO x 3. Cranial nerves II-XII intact without motor/sensory deficit. Objective Labs 10/30/24 01:36 10/30/24 01:36 Labs: Laboratory Results - last 24 hr 10/29/24 10/29/24 10/30/24 14:21 23:44 00:43 WBC 5.7 RBC 1.98 L Hgb 7.0 L Hct 19.7 L* MCV 99.5 MCH 35.1 H MCHC 35.3 RDW 14.4 Plt Count 313 Neut % (Auto) 80.1 H Lymph % (Auto) 10.6 L [place] % (Auto) 8.8 Eos % (Auto) 0.2 L Baso % (Auto) 0.3 Neut # (Auto) 4500 Lymph # (Auto) 600 L [place] # (Auto) 500 Eos # (Auto) 0 Baso # (Auto) 0 Sodium 121 L Potassium 4.4 Chloride 83 L Carbon Dioxide 24 BUN 49 H Creatinine 3.07 H Estimated GFR 17 L BUN/Creatinine Ratio 16.0 Glucose 93 Lactate 0.5 L Calcium 9.9 Urine Color Yellow Urine Appearance Clear Urine pH 5.5 Ur Specific [place] <=1.005 Urine Protein Negative Urine Glucose (UA) 1+ H Urine Ketones Negative Urine Occult Blood Negative Urine Nitrate Negative Urine Bilirubin Negative Urine Urobilinogen 0.2 Ur Leukocyte Esterase Negative Urine RBC 0-1/hpf Urine WBC 0-1/hpf Ur Squamous Epith Cells 1-5 /hpf Urine Bacteria Occasional (0-1) Ur Culture Indicated? Cult not indicated Vol Urine Centrifuged 10ml (spun) Blood Type AB Positive Antibody Screen Negative Crossmatch See Detail 10/30/24 01:36 WBC RBC Hgb 9.9 L Hct 27.4 L MCV MCH MCHC RDW Plt Count Neut % (Auto) Lymph % (Auto) [place] % (Auto) Eos % (Auto) Baso % (Auto) Neut # (Auto) Lymph # (Auto) [place] # (Auto) Eos # (Auto) Baso # (Auto) Sodium 122 L Potassium 3.9 Chloride 95 L Carbon Dioxide 22 BUN 37 H Creatinine 1.92 H Estimated GFR 31 L BUN/Creatinine Ratio 19.3 Glucose 101 H Lactate Calcium 8.8 Urine Color Urine Appearance Urine pH Ur Specific [place] Urine Protein Urine Glucose (UA) Urine Ketones Urine Occult Blood Urine Nitrate Urine Bilirubin Urine Urobilinogen Ur Leukocyte Esterase Urine RBC Urine WBC Ur Squamous Epith Cells Urine Bacteria Ur Culture Indicated? Vol Urine Centrifuged Blood Type Antibody Screen Crossmatch Assessment & Plan Assessment & Plan narrative: Hyponatremia. Admit the patient to medical telemetry as inpatient. Likely due to hypovolemic dehydration. Initial sodium 121 now 122 with normal saline. Continue normal saline and monitor sodium closely. Anemia. No clear sign of GI bleeding. Could be related to her underlying metastatic cancer and treatment. Patient got 2 unit of packed red blood cell in the ER and now hemoglobin is 9. Monitor for now and continue pantoprazole. Hypotension transient. Likely due to hypovolemia. No clear sign of sepsis. Resolved with IV fluid bolus. Monitor for now hold home antihypertensive. NICKIE. Again likely from dehydration. Creatinine initially set 3.7 then now 1.9 after IV fluid. Continue IV fluid and monitor renal function. Metastatic breast cancer. Will need to follow-up with outpatient oncology postdischarge. Ground level fall with left Humeral neck fracture. PT/OT and pain control. Dehydration. IV fluid. Insomnia. Resume home trazodone. DVT prophylaxis SCD due to severe anemia. CODE STATUS Full Code Disposition likely home in 1 to 2 days. - As the provider of this telehealth evaluation, requested by the patient's evaluating physician, I attest that I introduced myself to the patient, provided my credentials and determined that telemedicine via a real-time, 2 way interactive audio and video platform is an appropriate and effective means of providing this service. - I reviewed the patient's chart and had a discussion with the member of the patient's treatment team. - The patient and I mutually agreed with continuation of this evaluation via telemedicine. The patient consented for the telemedicine evaluation. - This virtual encounter was taken place from [place]. The encounter was approximately 35 minutes. The nurse was present during the entire time of the encounter and was able to move the stethoscope in appropriate directions. The patient was evaluated at [facility]. Time-Based Coding :: [TOTAL MINUTES] spent with patient and on the chart (including review of chart, obtaining history, exam, reviewing outside data, placing orders, documenting exam and treatment plan, and counseling patient) on [DATE].
[2024-10-30 07:45] LABS: Sodium 123 mmol/L (137-145)
[2024-10-30] MEDS: SODIUM CHLORIDE 0.9% 1,000 ML 1000 ML IV (09:19)
[2024-10-30] MEDS: buPROPion SR 150 MG TAB PO ×2 (09:29→21:05)
[2024-10-30] MEDS: HYDROCODONE/ACET 5/325 TABLET 1 TAB PO ×3 (09:29→23:37)
--- NOTE | 2024-10-30 10:19 | CM.DANOTE ---
Addendum entered by Kieran Hopkins R.N. 10/30/24 10:40: At ER patient also had imaging done that showed bliateral broken ribs and closed fracture of head of left humerus. Left arm was placed in a sling at the ER for stability. Original Note: Initial DCP Assessment Visit Note Reviewed EMR and team rounds for patient's medical status and updates. Met with patient at bedside to introduce self and role. Patient was found to be alert and oriented. Patient lives independently at baseline. She does have local friendly and family who are able to assist her if assitance is needed. Plan is to DC home if possible. Patient prefers to remain independent if possible. Payor: Medicare PCP: Dr Schulte Patient is a 54 year old female who present to the ER on 10/29/24 after having a fall at home. Patient has previously diagnosed metastatic breast cancer and is on chemotherapy, alcohol abuse, anemia, NICKIE, and is currently hyponatremic (sodium 121), and blood pressures have been as low as 76/46, HR has been elevated as high as 122. Current plan is too try to correct hyponatremia and patient may be able to discharge home today. Patient has been ambulating to the bathroom today. Watching TV. Her son and friend have been visiting with her today. No discharge needs anticipated. DCP will continue to monitor for any further evolving needs in relation to discharge home. Discharge Planning/Care Management Advanced directive, confirm from FAMILY Start: 10/30/24 05:48 Freq: Q24H Status: Active Protocol: Document 10/30/24 05:48 CS (Rec: 10/30/24 07:03 CS [id number]) Advance Directive, confirm on record Time 07:03 Person contacted family Copy received No CM Discharge Assessment Start: 10/30/24 10:14 Freq: Status: Active Protocol: Document 10/30/24 10:14 ELBERT (Rec: 10/30/24 10:19 [facility] [id number]) Discharge Planning Assessment Assigned Informal Waiter/Waitress Kieran Hopkins RN DPOA/Assigned Designee Name None Advance Directives? No Advance Directives on File No History Provided By Patient,Medical Record Expected Length of Stay 2 Has Patient been admitted in last 30 No days? Prior Living Arrangements Apartment/Condo Household Members none Type of transporation used prior to Drives own vehicle admit Comment Patient has own car and drives self. 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 Independent with ADL's Yes Is patient alert and oriented? Yes Comment Patient has been fully independent with ADLs and stated she prefers to remain that way. Caregiver for Another No Comment None. DME Already Rented / Owned Bath Bench,Other Comment Grab bar at toilet. Comment Patient prefers to remain independent if possible. Barriers to Discharge No Comment Current Onc patient and receiving tx which could be barrier to SNF if needed Discharge Plan Home with Home Health Transportation Arrangement Self transport or help from friends/ family if unable to drive self. Referrals Initiated None needed Additional Comment Pending PT/OT eval and recommendations Medicare Choice List Provided No Has Agency SNF been contacted No Whiteboard Updated in Patient Room with Yes name and ext. # of Informal Waiter/Waitress Review Status In Process
--- NOTE | 2024-10-30 11:47 | PC.NURSE ---
Patient had a fall at home and she hurt her left shoulder. She has it in a sling. Given 1 vicodin for pain, and helpful. Patient has a hx of currently drinking whine at home. She has not had a drink for about 24 hours. Her sister and son are in the room visiting. She is confused at times. Will assess for alcohol withdrawal. She was given a bolus of NS and she is currently on NS at 75cc/hr.
--- NOTE | 2024-10-30 14:11 | P.HP_ITS ---
History of Present Illness History of Present Illness Date Patient Seen: 10/30/24 Time Patient Seen: 14:11 Chief complaint: abnormal labs sent from Dr Eckert: Per overnight provider / telehospitalist: 54-year-old female with past medical history of metastatic breast cancer possibly to the liver. Being followed by oncology at [facility], alcohol abuse, hypertension and insomnia presents with complaint of abnormal lab. Of note the patient was found to have abnormal lab from her outpatient medical clinic. The patient was found to have low hemoglobin, low sodium and increased creatinine. Per the patient's report the patient has been feeling fatigued and had a fall last night in which she might have landed on her shoulder on the left. The patient denies any head injury or loss of consciousness. The patient also denies any focal weakness, slurred speech or facial drooping. The patient admits to be abusing alcohol and drinks 3 glasses of alcoholic drinks per day. Last drink was yesterday. The patient otherwise denies any fever, chills, nausea, vomiting, diarrhea, chest pain or shortness of breath. The patient also denies any GI bleeding. Of note the patient is currently on Abemaciclib daily for her metastatic breast cancer. However there was a concern of severe anemia and hypotension and possibly this medication was held. In the emergency room, the patient initially had low blood pressure with systolic in the 80s. The patient was given a bolus of IV fluid. The patient also had a hemoglobin of 7 in which 2 unit of packed red blood cells was ordered. The patient had no sign of active bleeding per ER physician. Creatinine was 3.7 and after blood and IV fluid, Cr did improve down to 1.9 with repeat. There is no signs of infection. Or sepsis. Due to sodium being 121 our ER physician request admission to treat hyponatremia and monitor blood pressure. Xray of left arm shows left humeral neck fracture. Interval history: No complaints today, she was tachycardic into the 150s, with L shoulder pain but this improved with pain medications and 1L IV fluids. No tremulousness, tongue fasciculations today. Na is improving with IV fluids. Cr improved to 1.92. She denies chest pain, nausea, vomiting currently. [facility] Medical History Acute pain of left foot Metastatic breast cancer History of fracture of left ankle Mass of left axilla Breast cancer, left Hypertension Current every day smoker Ankle fracture, right (11/2019) Eczema Depression Retinal detachment (2003) Breast cancer, right Surgical History History of mastectomy (11/2013) History of lumpectomy of right breast (11/2013) Family History Mother Breast cancer associated with mutation in MELYSSA gene Social History household members: none Smoking Status: Current every day smoker alcohol intake: current substance use type: does not use Meds Home Medications and Allergies Home Medications Medication Instructions Recorded Confirmed Type acetaminophen 325 mg capsule 650 mg PO Q4H PRN Pain (Scale 04/28/21 10/30/24 History (Tylenol) Score 4-6) bupropion HCl 150 mg tablet,12 hr 150 mg PO BID #60 ea 04/11/24 10/30/24 Rx sustained-release (Wellbutrin SR) albuterol sulfate 90 mcg/actuation 2 puff inhalation Q4-6H PRN 07/09/24 10/30/24 Rx aerosol inhaler (Ventolin HFA) shortness of breath or wheezing #6.7 grams trazodone 50 mg tablet See Rx Instructions PO BEDTIME PRN 10/18/24 10/30/24 Rx insomnia #90 tabs abemaciclib 150 mg tablet 150 mg PO BID 10/25/24 10/30/24 History (Verzenio) losartan 100 1 tab PO DAILY 10/30/24 10/30/24 History mg-hydrochlorothiazide 12.5 mg tablet megestrol 400 mg/10 mL (40 mg/mL) 200 mg PO BID 10/30/24 10/30/24 History oral suspension metoprolol succinate 100 mg 100 mg PO BID 10/30/24 10/30/24 History tablet,extended release 24 hr oxycodone 5 mg tablet 5 mg PO Q4H PRN pain 10/30/24 10/30/24 History Allergies Allergy/AdvReac Type Severity Reaction Status Date / Time No Known Drug Allergies Allergy Verified 10/25/24 11:04 Review of Systems Review of Systems Narrative: All other systems reviewed with the patient and are negative unless otherwise stated. Exam Vital Signs (past 8 hours): - 10/30/24 06:21 10/30/24 08:00 Temperature 97.3 F L 97.2 F L Pulse Rate 109 H 98 H Respiratory Rate 18 15 Blood Pressure 110/51 L 104/47 L Pulse Oximetry 97 97 Oxygen Flow Rate 0 Oxygen Delivery Method Room Air Oxygen Flow Rate 0 Narrative Exam Narrative: Physical Exam: GENERAL: The patient is not in any acute distressed. Awake and alert. HEENT: Nonicteric sclerae, PERRLA, EOMI. Oropharynx clear. Moist mucous membranes. Conjunctivae appear well perfused. HEART: Regular rate and rhythm without murmurs. No lower extremities edema. LUNGS: Clear to auscultation bilaterally. No wheezing, crackles or rhonchi ABDOMEN: Soft, positive bowel sounds, nontender. SKIN: No rash, no excessive bruising, petechiae, or purpura. NEUROLOGIC: AxO x 3. Cranial nerves II-XII intact without motor/sensory deficit. MSK: L arm in sling. Objective Labs 10/30/24 01:36 10/30/24 07:19 Labs: Laboratory Results - last 24 hr 10/29/24 10/29/24 10/30/24 14:21 23:44 00:43 WBC 5.7 RBC 1.98 L Hgb 7.0 L Hct 19.7 L* MCV 99.5 MCH 35.1 H MCHC 35.3 RDW 14.4 Plt Count 313 Neut % (Auto) 80.1 H Lymph % (Auto) 10.6 L [place] % (Auto) 8.8 Eos % (Auto) 0.2 L Baso % (Auto) 0.3 Neut # (Auto) 4500 Lymph # (Auto) 600 L [place] # (Auto) 500 Eos # (Auto) 0 Baso # (Auto) 0 Sodium 121 L Potassium 4.4 Chloride 83 L Carbon Dioxide 24 BUN 49 H Creatinine 3.07 H Estimated GFR 17 L BUN/Creatinine Ratio 16.0 Glucose 93 Lactate 0.5 L Calcium 9.9 Urine Color Yellow Urine Appearance Clear Urine pH 5.5 Ur Specific [place] <=1.005 Urine Protein Negative Urine Glucose (UA) 1+ H Urine Ketones Negative Urine Occult Blood Negative Urine Nitrate Negative Urine Bilirubin Negative Urine Urobilinogen 0.2 Ur Leukocyte Esterase Negative Urine RBC 0-1/hpf Urine WBC 0-1/hpf Ur Squamous Epith Cells 1-5 /hpf Urine Bacteria Occasional (0-1) Ur Culture Indicated? Cult not indicated Vol Urine Centrifuged 10ml (spun) Blood Type AB Positive Antibody Screen Negative Crossmatch See Detail 10/30/24 10/30/24 01:36 07:19 WBC RBC Hgb 9.9 L Hct 27.4 L MCV MCH MCHC RDW Plt Count Neut % (Auto) Lymph % (Auto) [place] % (Auto) Eos % (Auto) Baso % (Auto) Neut # (Auto) Lymph # (Auto) [place] # (Auto) Eos # (Auto) Baso # (Auto) Sodium 122 L 123 L Potassium 3.9 Chloride 95 L Carbon Dioxide 22 BUN 37 H Creatinine 1.92 H Estimated GFR 31 L BUN/Creatinine Ratio 19.3 Glucose 101 H Lactate Calcium 8.8 Urine Color Urine Appearance Urine pH Ur Specific [place] Urine Protein Urine Glucose (UA) Urine Ketones Urine Occult Blood Urine Nitrate Urine Bilirubin Urine Urobilinogen Ur Leukocyte Esterase Urine RBC Urine WBC Ur Squamous Epith Cells Urine Bacteria Ur Culture Indicated? Vol Urine Centrifuged Blood Type Antibody Screen Crossmatch Assessment & Plan Assessment & Plan narrative: Hyponatremia. Acute on chronic - Likely hypovolemic. Initial sodium 121 now 122 with normal saline up to 123. Continue normal saline and monitor sodium closely. Anemia. No clear sign of GI bleeding. Could be related to her underlying metastatic cancer and treatment. Patient got 2 unit of packed red blood cell in the ER and now hemoglobin is 9.9. Monitor for now and continue pantoprazole. Hypotension transient. Likely due to hypovolemia. No clear sign of sepsis. Resolved with IV fluid bolus. Monitor for now hold home antihypertensive. NICKIE. Again likely from dehydration. Creatinine initially set 3.7 then now 1.9 after IV fluid. Continue IV fluid today and monitor renal function. Metastatic breast cancer. Will need to follow-up with outpatient oncology postdischarge. Ground level fall with left Humeral neck fracture. Patient ambulatory, no need for PT at this time. L arm in sling. Outpatient orthopedic follow up. Insomnia. Resume home trazodone. Code: Full, surrogate is patient's son DVT: SCDs with anemia I have utilized all available immediate resources to obtain, update, or review the patient's current medications. Dispo: patient admitted under inpatient status. Anticipate discharge home in 2 days. Additional history obtained via discussions with the overnight hospitalist. These discussions contributed to the creation of the above assessment and plan. I have reviewed patient's presenting documentation, labs, and imaging personally. Time-Based Coding :: [TOTAL MINUTES] spent with patient and on the chart (including review of chart, obtaining history, exam, reviewing outside data, placing orders, documenting exam and treatment plan, and counseling patient) on [DATE]. Quality VTE Deep Vein Thrombosis/Pulmonary Embolism Present on Admission: No
[2024-10-30 15:04] LABS: BUN Creatinine Ratio 19.4 (6-22); Blood Urea Nitrogen 35 mg/dL (7-17); Calcium 9.1 mg/dL (8.4-10.2); Carbon Dioxide 20 mmol/L (22-32); Chloride 100 mmol/L (98-107); Estimated Glomerular Filt Rate 33 mL/min (>60); Glucose 110 mg/dL (70-99); HEMOLYSIS < 15 (0-50); Potassium 3.7 mmol/L (3.4-5.1); Sodium 126 mmol/L (137-145)
[2024-10-30] MEDS: TRAZODONE 50 MG TABLET 100 MG PO (23:37)
[2024-10-31 00:44] VITALS: BP 106/61; PULSE 93; RESP 16; TEMP 36.1; O2SAT 95
--- NOTE | 2024-10-31 02:26 | PC.NURSE ---
weight shifter Sister of patient stated that patient drinks a large box wine every night approximately 3-4 bottles per night. RN did a CIWA assessment with a score of zero. tonight is day 1, typing section chief aware, will continue to assess and monitor for with drawl symptoms.
[2024-10-31 04:26] VITALS: BP 142/70; PULSE 95; RESP 18; TEMP 36.2; O2SAT 96
[2024-10-31] MEDS: HYDROCODONE/ACET 5/325 TABLET 1 TAB PO ×3 (04:44→14:03)
[2024-10-31 05:46] LABS: Add Manual Diff / Slide Review NO; Basophils Absolute Auto 0 /uL (0-100); Basophils Percent Auto 0.6 % (0-2); Eosinophils Absolute Auto 0 /uL (0-450); Eosinophils Percent Auto 0.7 % (2-4); Hematocrit 28.1 % (36-46); Hemoglobin 10.1 g/dL (12.0-16.0); Lymphocytes Absolute Auto 500 /uL (1100-4500); Lymphocytes Percent Auto 12.6 % (25-40); Mean Corpuscular HGB Conc 35.9 % (30-36); Mean Corpuscular Hemoglobin 33.8 PG (26-34); Monocytes Absolute Auto 200 /uL (0-900); Neutrophils Absolute Auto 2900 /uL (1500-7000); Neutrophils Percent Auto 80.1 % (50-75); Platelet Count 247 X10^3/uL (150-400); Red Blood Cell Count 2.99 X10^6/uL (4.0-5.2); Red Cell Distribution Width 15.9 % (11.6-14.8); White Blood Cell Count 3.7 X10^3/uL (4.5-11.0)
[2024-10-31 05:56] LABS: BUN Creatinine Ratio 22.9 (6-22); Blood Urea Nitrogen 36 mg/dL (7-17); Calcium 9.3 mg/dL (8.4-10.2); Carbon Dioxide 21 mmol/L (22-32); Chloride 98 mmol/L (98-107); Estimated Glomerular Filt Rate 39 mL/min (>60); Glucose 103 mg/dL (70-99); HEMOLYSIS < 15 (0-50); Potassium 3.6 mmol/L (3.4-5.1); Sodium 124 mmol/L (137-145)
[2024-10-31 08:00] VITALS: BP 103/48; PULSE 101; TEMP 36.7; O2SAT 96
[2024-10-31] MEDS: SODIUM CHLORIDE 0.9% 1,000 ML 75 ML IV (08:22)
--- NOTE | 2024-10-31 09:08 | DIET.CONS ---
Dietary Consultation Note Admission Date: 10/30/2024 04:30 Assessment: 54 y F admitted after GLF with hyponatremia, NICKIE, anemia. Dietitian screened for low BMI. PMH of metastatic breast cancer and alcohol abuse. Pt completing chemo at [facility] and per RN note, sister has reported pt drinking 3-4 bottles of wine per night. Per H&P pt reports drinking 3 glasses of alcoholic drink per day. Met with pt at bedside. Reports appetite is fine. Usually eats 2 meals per day in morning and dinner. When asked what these meals consist of pt reports she eats enough both times asked. Attempted to discuss weight loss, muscle mass loss and nutritional interventions, pt reports she is fine and declines discussing nutrition further. NFPE not performed. Ht: 175.26 cm Wt: 48.534 kg BMI: 15.8 (underweight per age) UBW: 53.24 kg on 07/05/24 (-8.8% weight loss in 4 months), per EMR UBW seems to trend 55-60 kg until end of 2023. Last BM: 10/30/24 (10/30/24 09:04) MNA: Sheldon Score: 20 Diet: 10/30/24 Breakfast Heart Healthy Diet Diet Modifications: Nutrition Percent Meal Consumed 50% 10/30/24 18:00 Percent Meal Consumed 25% 10/30/24 09:04 Labs: RBC 2.99 X10^6/uL (4.0-5.2) L 10/31/24 05:00 Hgb 10.1 g/dL (12.0-16.0) L 10/31/24 05:00 Hct 28.1 % (36-46) L 10/31/24 05:00 Creatinine 1.57 mg/dL (0.52-1.04) H 10/31/24 05:00 Lactate 0.5 mmol/L (0.7-2.1) L 10/30/24 00:43 Nutrition Diagnosis: Severe acute on chronic Protein Calorie Malnutrition r/t inadequate oral intakes and excessive alcohol intake as evidenced by metastatic breast cancer, intake of 3 or more alcoholic drinks per day, 9% weight loss within 4 months (severe) and BMI underweight for age (15.8) Interventions: Attempted to discuss potential nutritional interventions, pt reports she is fine and declines discussing it further. Is getting double servings of some food items on tray (i.e cottage cheese, milk) EER: 1700 kcals (35 kcals/kg per BMI) 60-70 g protein (1.25-1.5g/kg per PCM, metastatic cancer w/ chemo w/ NICKIE) Monitoring/Evaluations: PO intakes Electronically Signed by: Monet Quiñones 10/31/24 09:08 Clinical Dietitian [address] [address]
[2024-10-31] MEDS: buPROPion SR 150 MG TAB PO (09:14)
--- NOTE | 2024-10-31 09:19 | DI.RAD.S_ITS ---
PROCEDURE: XR CHEST 1V INDICATIONS: wheezing, shortness of breath TECHNIQUE: One view of the chest was acquired. COMPARISON: [facility], CT, CT CHEST ABD PEL WO CON, 10/29/2024, 17:07. [facility], CR, XR CHEST 1V, 06/19/2024, 22:40. FINDINGS: Surgical changes and devices: Right axillary surgical clips. Lungs and pleura: Mildly increased bibasilar opacification. Small left pleural effusion. Trace right pleural effusion. No pneumothorax. Mediastinum: Mediastinal contours appear normal. Heart size is normal. Bones and chest wall: Bilateral, minimally displaced rib fractures of varying chronicity. Acute, minimally displaced left proximal humeral greater tuberosity fracture. Acute, minimally displaced distal clavicular fracture with likely underlying pathologic lesion. Multifocal thoracic vertebral body sclerosis. Overlying soft tissues appear unremarkable. IMPRESSION: 1. Mildly increased bibasilar opacification; consider aspiration pneumonitis versus pneumonia. 2. Small left pleural effusion. 3. Findings of osseous metastatic disease with pathologic fractures at the left proximal humeral greater tuberosity and distal clavicle. Dictated by: Tin Gaxiola M.D. on 10/31/2024 at 11:51 Approved by: Tin Gaxiola M.D. on 10/31/2024 at 11:56
[2024-10-31 13:02] LABS: BUN Creatinine Ratio 21.6 (6-22); Blood Urea Nitrogen 33 mg/dL (7-17); Calcium 9.4 mg/dL (8.4-10.2); Carbon Dioxide 23 mmol/L (22-32); Chloride 97 mmol/L (98-107); Estimated Glomerular Filt Rate 40 mL/min (>60); Glucose 106 mg/dL (70-99); HEMOLYSIS < 15 (0-50); Potassium 3.9 mmol/L (3.4-5.1); Sodium 126 mmol/L (137-145)
[2024-10-31 15:16] LABS: Sodium Urine Random 10 mmol/L (30-90)
--- NOTE | 2024-10-31 15:32 | P.DS_ITS ---
History of Present Illness History of Present Illness Date Patient Seen: 10/31/24 Time Patient Seen: 15:32 Chief complaint: abnormal labs sent from Narrative: Per overnight provider / telehospitalist: 54-year-old female with past medical history of metastatic breast cancer possibly to the liver. Being followed by oncology at [facility], alcohol abuse, hypertension and insomnia presents with complaint of abnormal lab. Of note the patient was found to have abnormal lab from her outpatient medical clinic. The patient was found to have low hemoglobin, low sodium and increased creatinine. Per the patient's report the patient has been feeling fatigued and had a fall last night in which she might have landed on her shoulder on the left. The patient denies any head injury or loss of consciousness. The patient also denies any focal weakness, slurred speech or facial drooping. The patient admits to be abusing alcohol and drinks 3 glasses of alcoholic drinks per day. Last drink was yesterday. The patient otherwise denies any fever, chills, nausea, vomiting, diarrhea, chest pain or shortness of breath. The patient also denies any GI bleeding. Of note the patient is currently on Abemaciclib daily for her metastatic breast cancer. However there was a concern of severe anemia and hypotension and possibly this medication was held. In the emergency room, the patient initially had low blood pressure with systolic in the 80s. The patient was given a bolus of IV fluid. The patient also had a hemoglobin of 7 in which 2 unit of packed red blood cells was ordered. The patient had no sign of active bleeding per ER physician. Creatinine was 3.7 and after blood and IV fluid, Cr did improve down to 1.9 with repeat. There is no signs of infection. Or sepsis. Due to sodium being 121 our ER physician request admission to treat hyponatremia and monitor blood pressure. Xray of left arm shows left humeral neck fracture. Interval history: No complaints today, she was tachycardic into the 150s, with L shoulder pain but this improved with pain medications and 1L IV fluids. No tremulousness, tongue fasciculations today. Na is improving with IV fluids. Cr improved to 1.92. She denies chest pain, nausea, vomiting currently. Discharge Providers Provider Date of admission: 10/30/24 04:30 Discharge Date: 10/31/24 Primary care physician: Louie Schulte MD Discharge provider: Chip Godinez DO Summary Hospital Course Discharge Diagnosis: Hyponatremia. Acute on chronic - Likely hypovolemic. Initial sodium 121 now 122 with normal saline up to 126 at the time of discharge. Chronically in the mid 120s. Acute Anemia. No clear signs of GI bleeding. Could be related to her underlying metastatic cancer and treatment. Patient got 2 unit of packed red blood cell in the ER and now hemoglobin is 10. Hypotension transient. Likely due to hypovolemia / anemia. hold home antihypertensive. NICKIE. Again likely from dehydration and anemia. Creatinine initially set 3.7 then now 1.56 after fluids and transfusion. Metastatic breast cancer. Will need to follow-up with outpatient oncology postdischarge. Ground level fall with left Humeral neck fracture, left clavicular fracture. Pathologic due to metastatic disease. Patient ambulatory, no need for PT at this time. L arm in sling. Outpatient orthopedic follow up. Insomnia. Resume home trazodone. Severe acute on chronic Protein Calorie Malnutrition r/t inadequate oral intakes and excessive alcohol intake as evidenced by metastatic breast cancer, intake of 3 or more alcoholic drinks per day, 9% weight loss within 4 months (severe) and BMI underweight for age (15.8) Hospital Course: This is a 54 year old female with metastatic breast cancer, insomnia, chronic alcohol use who was admitted after a fall with dizziness and hyponatremia. As a result of her fall she was found to have multiple rib fractures, a left humeral neck fracture, and a left clavicular fracture. She was placed in a sling, was ambulatory within her room. Recommend outpatient orthopedic follow up after discharge. For her hyponatremia, her sodium has been chronically low in the mid to upper 120s on outpatient lab, however her sodium was 121. Creatinine was 3.7 on admission, improved to 1.53 at the time of discharge. She was also anemic requiring transfuction on admission. Sodium slowly improved with IV fluids to 126. It briefly downtrended to 124 at which point urine sodium was performed which was low at 10, consistent with hypovolemic etiology. She had no hyponatremia symptoms on admission. She felt improved and had no dizziness with ambulation in her room during her stay. She had no symptoms of alcohol withdrawal as well while in the hospital. She had no melena or signs of active bleeding and h/h trended up after transfusion to 10 at the time of discharge. Her home antihypertensives were held which also likely contributed to her NICKIE, and fall. She was seen by employment appeals examiner as well for her severe acute on chronic protein calorie malnutrition, and counseled on methods to improve her caloric intake in the setting of ongoing metastatic breast cancer. Time Spent with Patient Time spent: Greater than 30 minutes Exam Vital Signs (past 8 hours): - 10/31/24 08:00 Temperature 98.1 F Pulse Rate 101 H Blood Pressure 103/48 L Pulse Oximetry 96 Oxygen Flow Rate 0 Oxygen Delivery Method Room Air Oxygen Flow Rate 0 Narrative Exam Narrative: Physical Exam: GENERAL: The patient is not in any acute distressed. Awake and alert. HEENT: Nonicteric sclerae, PERRLA, EOMI. Oropharynx clear. Moist mucous membranes. Conjunctivae appear well perfused. HEART: Regular rate and rhythm without murmurs. No lower extremities edema. LUNGS: Clear to auscultation bilaterally. No wheezing, crackles or rhonchi ABDOMEN: Soft, positive bowel sounds, nontender. SKIN: No rash, no excessive bruising, petechiae, or purpura. NEUROLOGIC: AxO x 3. Cranial nerves II-XII intact without motor/sensory deficit. MSK: L arm in sling. Objective Labs 10/31/24 05:00 10/31/24 12:45 Labs: Laboratory Results - last 24 hr 10/31/24 10/31/24 10/31/24 05:00 12:45 13:15 WBC 3.7 L RBC 2.99 L Hgb 10.1 L Hct 28.1 L MCV 94.0 D MCH 33.8 MCHC 35.9 RDW 15.9 H Plt Count 247 Neut % (Auto) 80.1 H Lymph % (Auto) 12.6 L [place] % (Auto) 6.0 Eos % (Auto) 0.7 L Baso % (Auto) 0.6 Neut # (Auto) 2900 Lymph # (Auto) 500 L [place] # (Auto) 200 Eos # (Auto) 0 Baso # (Auto) 0 Sodium 124 L 126 L Potassium 3.6 3.9 Chloride 98 97 L Carbon Dioxide 21 L 23 BUN 36 H 33 H Creatinine 1.57 H 1.53 H Estimated GFR 39 L 40 L BUN/Creatinine Ratio 22.9 H 21.6 Glucose 103 H 106 H Calcium 9.3 9.4 Ur Random Sodium 10 L PFSH Medical History Acute pain of left foot Metastatic breast cancer History of fracture of left ankle Mass of left axilla Breast cancer, left Hypertension Current every day smoker Ankle fracture, right (11/2019) Eczema Depression Retinal detachment (2003) Breast cancer, right Surgical History History of mastectomy (11/2013) History of lumpectomy of right breast (11/2013) Family History Mother Breast cancer associated with mutation in MELYSSA gene Social History household members: none Smoking Status: Current every day smoker alcohol intake: current substance use type: does not use Discharge Plan Discharge Plan Patient Disposition: Home Provider Discharge Comment: You were admitted to the hospital with low sodium and low blood count / anemia. Likely due to dehydration. Recommend stopping home blood pressure medications for now due to low BP here. Continue to check BP at home, can restart metoprolol 1/2 tab once per day if SBP is >140 at home consistently. Discharge orders & Medications Prescriptions: Continued bupropion HCl [Wellbutrin SR] 150 mg tablet sustained-release 12 hr 150 mg PO BID Qty: 60 2RF albuterol sulfate [Ventolin HFA] 90 mcg/actuation HFA aerosol inhaler 2 puff inhalation Q4-6H PRN (Reason: shortness of breath or wheezing) Qty: 6.7 1RF trazodone 50 mg tablet See Rx Instructions PO BEDTIME PRN (Reason: insomnia) Qty: 90 0RF Rx Instructions: t1-2 tabs at night as needed for sleep Verzenio 150 mg tablet 150 mg PO BID acetaminophen [Tylenol] 325 mg Capsule 650 mg PO Q4H PRN (Reason: Pain (Scale Score 4-6)) megestrol 400 mg/10 mL (40 mg/mL) suspension 200 mg PO BID oxycodone 5 mg tablet 5 mg PO Q4H PRN (Reason: pain) Discontinued metoprolol succinate 100 mg tablet extended release 24 hr 100 mg PO BID losartan-hydrochlorothiazide 100-12.5 mg tablet 1 tab PO DAILY Follow up/Referrals: Louie Schulte MD [Primary Care Provider] - Activity Restrictions/Additional Instructions: *You have been diagnosed with anemia *What to do: At this time I do hope you feel better after a blood transfusion. I do recommend that you follow-up with your oncologist and primary care provider in regards to your ongoing lab abnormality *Continue to take medications as directed *Follow up with your primary care provider in 2-3 days or call [phone] *Return to ER if you should have increasing pulse confusion weakness [or] any new, worsening or concerning symptoms Diet/Activity/Treatments Diet: Diet as Tolerated and Regular Activity: As tolerated, no restrictions. Visit Report/Discharge Packet Instructions: Anemia, DI for Hyponatremia, DI for Hypotension Stand Alone Forms: Patient Portal/API, Stroke Signs & Symptoms, Patient Portal/API/Survey Discharge Data Primary Care Provider: Louie Schulte Quality VTE Deep Vein Thrombosis/Pulmonary Embolism Present on Admission: No
--- NOTE | 2024-10-31 17:38 | PC.NURSE ---
D/c teaching done at bedside with patient, declined to have family at bedside for teaching. Patient is aware of new changes in medication and when to take given b/p parameters. IV and tele removed. Pt req. to have wheelchair escort to private vehicle where her sister is waiting. Patient in stable condition, able to ambulate self to for departure.
[2024-11-01 15:40] LABS: Osmolality Urine 464 mOsmol/kg (.)
== END 2024-10-31 17:00 | disposition home or self-care (01) | DRG 640 ==
LOC: ED 10-30 04:26 → AC 10-30 04:31
PROVIDERS: Emergency Medicine; Internal Medicine; Admitting Provider Internal Medicine; Emergency Provider Emergency Medicine; Family Provider Family Medicine; PCP Family Medicine; Referring Provider Emergency Medicine; Visit Provider Internal Medicine
DX: E87.1 Hypo-osmolality and hyponatremia (principal); E43 Unspecified severe protein-calorie malnutrition; N17.9 Acute kidney failure, unspecified; S42.212A Unspecified displaced fracture of surgical neck of left humerus, initial encounter for closed fracture; S22.41XA Multiple fractures of ribs, right side, initial encounter for closed fracture; Z68.1 Body mass index [BMI] 19.9 or less, adult; C78.7 Secondary malignant neoplasm of liver and intrahepatic bile duct; C79.51 Secondary malignant neoplasm of bone; C50.912 Malignant neoplasm of unspecified site of left female breast; I95.89 Other hypotension; E86.0 Dehydration; D63.0 Anemia in neoplastic disease; S42.032A Displaced fracture of lateral end of left clavicle, initial encounter for closed fracture; W18.30XA Fall on same level, unspecified, initial encounter; F10.10 Alcohol abuse, uncomplicated; Z79.899 Other long term (current) drug therapy; G47.00 Insomnia, unspecified; Z80.3 Family history of malignant neoplasm of breast; E86.1 Hypovolemia; Z17.411 Hormone receptor positive with human epidermal growth factor receptor 2 negative status; F17.210 Nicotine dependence, cigarettes, uncomplicated; C50.911 Malignant neoplasm of unspecified site of right female breast; I10 Essential (primary) hypertension
CPT/HCPCS: 36415; 36430; 70450; 71045; 71250; 73030; 74176; 80048; 80053; 81001; 83605; 83935; 84295; 84300; 84443; 85014; 85018; 85025; 86850; 86900; 86901; 87086; 96361; 96374; 99284; P9016; J2470

== ENCOUNTER → 2024-12-06 07:55 | Outpatient (CLI) | payer MEDICARE, MEDICAID, SELFPAY ==
[2024-10-30 05:40] VITALS: BMI 15.7
--- NOTE | 2024-12-06 07:56 | DI.CT.S_ITS ---
PROCEDURE: CT ABDOMEN PELVIS W CON INDICATIONS: liver Mass TECHNIQUE: After the administration of intravenous contrast, axial sections acquired from the lung bases to the pubic symphysis. Coronal and sagittal reformats were performed. For radiation dose reduction, the following was used: automated exposure control, adjustment of mA and/or kV according to patient size. COMPARISON: [facility], CT, CT CHEST ABD PEL W CON, 03/13/2024, 13:14. [facility], CT, CT CHEST ABD PEL WO CON, 10/29/2024, 17:07. FINDINGS: Image quality: Diagnostic. Lower Chest: There are more prominent, small bilateral pleural effusions. Left lower rib fracture, incompletely visualized. ABDOMEN: Liver: Significant contour nodularity. There is diffuse hypoattenuation. There are multiple geographic capsular based areas of enhancement in both lobes. No distinct focal lesion otherwise. Major vascular structures are patent. Gallbladder: No radiopaque gallstones or wall thickening. Biliary ducts: No biliary dilation. Pancreas: No ductal dilation. Spleen: Size is within normal limits. Adrenal Glands: No adrenal nodules. Kidneys and Ureters: No hydronephrosis. No solid mass. No complex renal cystic lesion which requires follow up. Stomach and Bowel: Normal colonic caliber, without significant wall thickening. Peritoneum: No abnormal intraperitoneal fluid. No free air. Ventral Wall: No significant ventral hernia. Abdominal Nodes: No retroperitoneal or mesenteric adenopathy by size criteria. Vessels: Aorta and inferior vena cava are normal in size. PELVIS: Pelvic Organs: Unremarkable. Bladder: No bladder wall thickening, accounting for underdistention. Pelvic Nodes: No enlarged lymph nodes. Miscellaneous: No inguinal hernias are seen. Bones: Stable appearance of multiple sclerotic osseous lesions in the lumbar spine and pelvis, no new fracture seen.. IMPRESSION: 1. There is significant diffuse fatty infiltration of the liver. Capsular based enhancing areas, may present superimposed hepatitis but also possibly perfusion abnormality associated with liver masses. Better evaluation can be performed with follow-up MRI. 2. Stable appearance of liver lesions. No new adenopathy or other suspicious focal lesion otherwise. 3. More prominent, small bilateral pleural effusions in this patient with rib fractures. Dictated by: Sivakumar Medrano M.D. on 12/06/2024 at 14:10 Approved by: Sivakumar Medrano M.D. on 12/06/2024 at 14:17
[2024-12-06 08:15] LABS: Add Manual Diff / Slide Review NO; Basophils Absolute Auto 0 /uL (0-100); Basophils Percent Auto 1.7 % (0-2); Eosinophils Absolute Auto 100 /uL (0-450); Eosinophils Percent Auto 2.3 % (2-4); Hematocrit 30.3 % (36-46); Hemoglobin 10.4 g/dL (12.0-16.0); Lymphocytes Absolute Auto 800 /uL (1100-4500); Lymphocytes Percent Auto 28.7 % (25-40); Mean Corpuscular HGB Conc 34.4 % (30-36); Mean Corpuscular Hemoglobin 34.2 PG (26-34); Mean Corpuscular Volume 99.3 fL (80-100); Monocytes Absolute Auto 300 /uL (0-900); Monocytes Percent Auto 11.2 % (3-14); Neutrophils Absolute Auto 1600 /uL (1500-7000); Neutrophils Percent Auto 56.1 % (50-75); Platelet Count 340 X10^3/uL (150-400); Red Blood Cell Count 3.05 X10^6/uL (4.0-5.2); Red Cell Distribution Width 19.1 % (11.6-14.8); White Blood Cell Count 2.9 X10^3/uL (4.5-11.0)
[2024-12-06 08:27] LABS: Alanine Aminotransferase 26 IU/L (<35); Albumin Globulin Ratio 1.7 (1.0-2.8); Alkaline Phosphatase 111 U/L (38-126); Aspartate Aminotransferase 41 IU/L (14-36); BUN Creatinine Ratio 6.5 (6-22); Bilirubin Total 0.7 mg/dL (0.2-1.3); Blood Urea Nitrogen 6 mg/dL (7-17); Calcium 9.7 mg/dL (8.4-10.2); Carbon Dioxide 23 mmol/L (22-32); Chloride 98 mmol/L (98-107); Estimated Glomerular Filt Rate > 60 mL/min (>60); Globulin 2.3 g/dL (1.7-4.1); Glucose 95 mg/dL (70-99); HEMOLYSIS < 15 (0-50); Potassium 3.9 mmol/L (3.4-5.1); Sodium 128 mmol/L (137-145); Total Protein 6.3 g/dL (6.3-8.2)
== END ==
PROVIDERS: Family Provider Family Medicine; PCP Family Medicine; Referring Provider Internal Medicine Hematology & Oncology; Visit Provider Internal Medicine Hematology & Oncology
DX: C50.911 Malignant neoplasm of unspecified site of right female breast (principal); C79.51 Secondary malignant neoplasm of bone; K76.9 Liver disease, unspecified; J90 Pleural effusion, not elsewhere classified; S22.32XA Fracture of one rib, left side, initial encounter for closed fracture; I12.9 Hypertensive chronic kidney disease with stage 1 through stage 4 chronic kidney disease, or unspecified chronic kidney disease; N18.9 Chronic kidney disease, unspecified; D64.9 Anemia, unspecified; R06.02 Shortness of breath; E87.1 Hypo-osmolality and hyponatremia; Z17.0 Estrogen receptor positive status [ER+]
CPT/HCPCS: 74177; 80053; 85025; Q9967

== ENCOUNTER → 2024-12-12 13:59 | Outpatient (CLI) | payer MEDICARE, MEDICAID, SELFPAY ==
[2024-10-30 05:40] VITALS: BMI 15.7
--- NOTE | 2024-12-12 14:02 | DI.ECHO.S_ITS ---
[facility]+ [facility] : : 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 The left ventricle is hyperdynamic. The ejection fraction is estimated to be 70-75%. LVEF is more dynamic in comparison to prior echo study in 2014. There are no focal wall motion abnormalities. No obvious evidence of increased left atrial pressures. The right ventricle is normal size. The right ventricle is hyperdynamic. The right ventricular systolic pressure is estimated to be at least 36 mmHg based on an estimated right atrial pressure of 3 mm Hg. The left atrial size is normal. The atrial septum is aneurysmal. There is no Doppler evidence for an interatrial shunt. There is no significant valvular heart disease. The ascending aorta is mildly enlarged. There is a small pericardial effusion noted. There is a moderate right-sided pleural effusion. Procedure: A two-dimensional transthoracic echocardiogram with color flow and Doppler was performed. The study quality was technically difficult. Comparison is made with the echocardiogram of 05/29/2014. The patient was in normal sinus rhythm during the exam. Left Ventricle: The left ventricle is normal in size. There is normal left ventricular wall thickness. There is no ventricular septal defect visualized. The left ventricle is hyperdynamic. The ejection fraction is estimated to be 70-75%. LVEF is more dynamic in comparison to prior echo study in 2014. There are no focal wall motion abnormalities. No obvious evidence of increased left atrial pressures. Right Ventricle: The right ventricle is normal size. The right ventricle is hyperdynamic. Atria: The left atrial size is normal. Right atrial size is normal. There is no Doppler evidence for an interatrial shunt. The atrial septum is aneurysmal. Mitral Valve: The mitral valve leaflets appear mildly thickened, but open well. There is mild mitral regurgitation. Aortic Valve: The aortic valve is trileaflet. The aortic valve opens well. No aortic regurgitation is present. Tricuspid Valve: The tricuspid valve leaflets are thin and pliable. There is mild tricuspid regurgitation. The right ventricular systolic pressure is estimated to be at least 36 mmHg based on an estimated right atrial pressure of 3 mm Hg. Pulmonic Valve: The pulmonic valve is not well seen, but is grossly normal. There is no pulmonic valvular regurgitation. There is no significant valvular heart disease. Great Vessels: The aortic root is normal size. The ascending aorta is mildly enlarged. The pulmonary artery is normal size. The IVC is of normal diameter and collapses greater than 50% with a sniff. This suggests a low right atrial pressure of 3 mm Hg. Pericardium/ Pleura There is a small pericardial effusion noted. There are no echocardiographic indications of cardiac tamponade. There is a moderate right-sided pleural effusion. MMode/2D Measurements & Calculations LVIDd: 4.4 cm LVOT diam: 1.9 cm LVIDs: 3.1 cm Ao root diam: 3.2 cm FS: 30.2 % asc Aorta Diam: 3.7 cm EPSS: 0.49 cm IVSd: 0.87 cm LVPWd: 1.0 cm LV hall. diameter/BSA (cm/m^2): 2.8 LV sys. diameter/BSA (cm/m^2): 2.0 LA A2 area: 15.2 cm2 RA long axis: 4.0 cm LA A4 area: 19.6 cm2 RA area: 8.5 cm2 LA length (vol): 5.6 cm RA vol: 15.3 ml LA vol: 45.5 ml RA : 9.8 ml/m2 LA vol index: 28.9 ml/m2 IVC diam: 1.9 cm RVD1 (basal): 3.3 cm RVD2 (mid): 2.7 cm TAPSE: 1.8 cm Doppler Measurements & Calculations Ao V2 max: 147.6 cm/sec LVOT Max George: 129.3 cm/sec Ao V2 mean: 97.8 cm/sec LV V1 max P.7 mmHg Ao max P.7 mmHg LV V1 VTI: 20.1 cm Ao mean P.3 mmHg PRASHANTH(I,D): 2.4 cm2 Ao V2 VTI: 23.4 cm PRASHANTH(V,D): 2.5 cm2 sev ratio: 0.86 PRASHANTH indexed to BSA (cm^2/m^2): 1.6 MV E max george: 46.0 cm/sec TR max george: 286.4 cm/sec MV A max george: 49.8 cm/sec TR max P.8 mmHg MV E/A: 0.92 PA V2 max: 82.0 cm/sec Med Peak E' George: 9.6 cm/sec PA V2 mean: 56.0 cm/sec E/E' med: 4.8 PA mean P.4 mmHg Lat Peak E' George: 12.2 cm/sec PA pr(Accel): 27.6 mmHg E/E' lat: 3.8 E/e' average: 4.3 MV dec time: 0.20 sec SV(LVOT): 57.3 ml Reading Physician:07:23 PM
== END ==
LOC: ECHO 14:01
PROVIDERS: Family Provider Family Medicine; PCP Family Medicine; Referring Provider Family Medicine; Visit Provider Family Medicine
DX: I08.1 Rheumatic disorders of both mitral and tricuspid valves (principal); I77.810 Thoracic aortic ectasia; I31.39 Other pericardial effusion (noninflammatory); J90 Pleural effusion, not elsewhere classified; R06.02 Shortness of breath; I12.9 Hypertensive chronic kidney disease with stage 1 through stage 4 chronic kidney disease, or unspecified chronic kidney disease; N18.9 Chronic kidney disease, unspecified; D64.9 Anemia, unspecified; C50.919 Malignant neoplasm of unspecified site of unspecified female breast; E87.1 Hypo-osmolality and hyponatremia; R60.0 Localized edema
CPT/HCPCS: 93306

== ENCOUNTER 2025-01-02 18:16 | Emergency (ER) | payer MEDICARE, MEDICAID, SELFPAY ==
[2024-10-30 05:40] VITALS: BMI 15.7
[2025-01-02] VITALS (16 sets, daily range): BP systolic 105–142; BP diastolic 64–85; PULSE 84–97; RESP 14–44; TEMP 37; O2SAT 89–100; BMI 16.7
--- NOTE | 2025-01-02 18:30 | DI.RAD.S_ITS ---
PROCEDURE: XR FOOT LT MIN 3V INDICATIONS: fall; deformity noted TECHNIQUE: 3 views of the foot were acquired. COMPARISON: [facility], CR, XR FOOT LT MIN 3V, 06/19/2024, 23:19. FINDINGS: Bones: Overlying cast partially obscures fine osseous and soft tissue detail. No acute fractures or dislocations. No suspicious bony lesions. Soft tissues: No tibiotalar joint effusion. Achilles tendon appears normal. IMPRESSION: Status post casting. No acute radiographic abnormality of the visualized foot identified. Approved by: Hanna Girard M.D.,Ph.D. on 01/02/2025 at 21:50
--- NOTE | 2025-01-02 18:30 | DI.RAD.S_ITS ---
PROCEDURE: XR ANKLE LT MIN 3V INDICATIONS: post reduction TECHNIQUE: 3 views of the ankle were acquired. COMPARISON: [facility], CR, XR ANKLE RT 2V, 11/09/2019, 8:50. FINDINGS: Bones: Overlying cast partially obscures the fine osseous and soft tissue detail. Redemonstration of comminuted distal tibial diaphyseal fracture and distal fibular diaphyseal fracture. Mild persistent lateral displacement of distal fracture fragments relative to the proximal fragment. No new fracture identified. Soft tissues: No tibiotalar joint effusion. Achilles tendon appears normal. IMPRESSION: Status post reduction of comminuted distal tibia and distal fibular diaphyseal fractures. Minimal lateral displacement distal fracture fragments persist. Approved by: Hanna Girard M.D.,Ph.D. on 01/02/2025 at 21:47
--- NOTE | 2025-01-02 18:30 | DI.RAD.S_ITS ---
PROCEDURE: XR TIBIA FIBULA LT 2V INDICATIONS: fall; deformity noted TECHNIQUE: 2 views of the tibia and fibula were acquired. COMPARISON: None. FINDINGS: Bones: Comminuted angulated and displaced distal tibial and fibular diaphyseal fractures. There is approximately 7.5 cm overlap of proximal distal fragments the tibial fracture. No gross dislocation at the tibiotalar joint space. Soft tissues: No suspicious soft tissue calcifications or masses. IMPRESSION: Comminuted and angulated distal tibial and fibular diaphyseal fractures Dictated by: iPppa Hilliard M.D. on 01/02/2025 at 20:11 Approved by: Pippa Hilliard M.D. on 01/02/2025 at 20:11
--- NOTE | 2025-01-02 19:50 | ED.LOWEXIN ---
HPI - Extremity Injury (Lower) General Chief Complaint: Extremity Injury, Lower Stated Complaint: GLF Time Seen by Provider: 01/02/25 18:32 History of Present Illness HPI Narrative: 54-year-old with history of metastatic breast cancer, female tripped at home, twisting, complained of pain to her left distal foreleg, with gross deformity. No open bone. Denies pain to upper extremities. Denies pain to right lower extremity. Also denies pain to the left knee thigh hip. Denies headache, neck pain, upper mid lower back pain, truncal anterior chest pain, abdominopelvic pain, flank pain. Related Data Home Medications ?Medication ?Instructions ?Recorded ?Confirmed megestrol 400 mg/10 mL (40 mg/mL) 200 mg PO BID 10/30/24 11/22/24 oral suspension multivitamin 1 tab PO QAM 11/05/24 11/22/24 oxycodone 5 mg tablet 5 mg PO BEDTIME PRN pain 11/05/24 11/22/24 Previous Rx's ?Medication ?Instructions ?Recorded bupropion HCl 150 mg tablet,12 hr 150 mg PO BID #60 ea 11/05/24 sustained-release (Wellbutrin SR) metoprolol succinate 25 mg 25 mg PO DAILY #90 tabs 11/22/24 tablet,extended release 24 hr trazodone 50 mg tablet See Rx Instructions PO BEDTIME PRN 12/13/24 insomnia #90 tabs albuterol sulfate 90 mcg/actuation 2 puff inhalation Q4-6H PRN 12/31/24 aerosol inhaler (Ventolin HFA) shortness of breath or wheezing #6.7 grams Allergies Allergy/AdvReac Type Severity Reaction Status Date / Time No Known Drug Allergies Allergy Verified 01/02/25 18:31 Patient History Medical History Acute pain of left foot Metastatic breast cancer History of fracture of left ankle Mass of left axilla Breast cancer, left Hypertension Current every day smoker Ankle fracture, right (11/2019) Eczema Depression Retinal detachment (2003) Breast cancer, right Surgical History History of mastectomy (11/2013) History of lumpectomy of right breast (11/2013) Family History Mother Breast cancer associated with mutation in MELYSSA gene Social History household members: none alcohol intake: current substance use type: does not use tobacco type: cigarettes alcohol intake frequency: a few times a week Alcohol type: wine Exam Narrative Exam Narrative: GENERAL: Well-developed patient, in mild distress. HEAD: Atraumatic. Normocephalic. EYES: Pupils equal round and reactive. Extraocular motions intact. No scleral icterus. No injection or drainage. ENT: Nose without bleeding, purulent drainage. Throat without erythema, tonsillar hypertrophy or exudate. Airway patent. NECK: Trachea midline. Non tender CARDIOVASCULAR: Regular rate and rhythm without murmurs, gallops, or rubs. RESPIRATORY: Clear to auscultation. Breath sounds equal bilaterally. No wheezes, rales, or rhonchi. GASTROINTESTINAL: Abdomen soft, non-tender, nondistended. EXTREMITIES: Distal foreleg with rotational deformity lateral, and posterior angulation distal foreleg, small bone sliver puncture medial aspect extruding thru puncture wound visbile and palpable. DP pulse foot easily palpable, good cap refill and perfusion ipsilateral toes. No tenderness to mid proximal foreleg, knee, thigh, hip. BACK: Nontender without deformity or crepitance. No flank tenderness. NEURO: AOx3. Motor functions grossly nonfocal. SKIN: No rash or erythema of visible areas Initial Vital Signs Initial Vital Signs: Vital Signs Temperature 98.6 F 01/02/25 18:31 Pulse Rate 92 H 01/02/25 18:31 Respiratory Rate 19 01/02/25 18:31 Blood Pressure 109/66 01/02/25 18:31 Pulse Oximetry 97 01/02/25 18:31 Oxygen Delivery Method Room Air 01/02/25 18:31 Procedures Orthopedic Fracture Reduction Fracture #1: Time of procedure: 20:30 Side: left Fracture Reduction Location: tibia (Comminuted left distal tip of the fibula fracture) Analgesia: procedural sedation Technique: direct manipulation and traction/counter-traction Post Reduction X-rays Demonstrate: acceptable reduction Post-reduction neuro exam: intact Post-reduction vascular exam: intact Splint Applied: Yes Patient Tolerated Procedure: Well Additional Comments: See MDM procedure note, had palpable bony spicule prior to reduction, with distraction that bony spicule in the medial aspect resolved, 3-5 cc nonpulsatile blood expressed from the puncture wound likely hematoma, local wound dressing applied, then splinting procedure with long leg posterior and use stirrup. Good cap refill post splinting. Postreduction bone positions improved. Procedural Sedation Time of procedure: 20:30 Indication: fracture/dislocation reduction ASA Class: II Mallampati Airway Classification: Class I Time of Last PO Intake: 06:00 Preparation: surveillance monitor applied, pulse oximeter, capnometry used, supplemental O2 applied, suction/airway equipment at bedside and IV secured IV Propofol dose (mg): 140 ED Sedation Level: Moderate (Concious) Patient Tolerated Procedure: Well Complications: none Additional Comments: Returned to preprocedure mental status, tolerated procedure well. Course Orders Ordered: ED Orders 01/02/25 18:30 XR ankle LT min 3V Stat XR foot LT min 3V Stat XR tibia fibula LT 2V Stat 01/02/25 21:07 XR chest 1V Stat 01/02/25 21:08 EKG-12 Lead Stat 01/02/25 22:35 Urinalysis and Microscopic Stat Discontinued Medications Bacitracin (Bacitracin Oint 0.9 Gm Pckt) 1 applic TOP NOW ONE Stop: 01/02/25 20:37 Last Admin: 01/02/25 20:35 Dose: 1 applic Documented By: GENI Hydromorphone HCl (Hydromorphone Hcl 0.5 Mg/0.5 Ml Syringe) 0.5 mg IV NOW ONE Stop: 01/02/25 19:26 Last Admin: 01/02/25 19:36 Dose: 0.5 mg Documented By: GENI Hydromorphone HCl (Hydromorphone Hcl 0.5 Mg/0.5 Ml Syringe) 0.5 mg IV NOW ONE Stop: 01/02/25 21:42 Last Admin: 01/02/25 21:45 Dose: 0.5 mg Documented By: GENI Hydromorphone HCl (Hydromorphone 1 Mg Inj) 1 mg IV NOW ONE Stop: 01/02/25 23:07 Last Admin: 01/02/25 23:09 Dose: 1 mg Documented By: GENI Cefazolin Sodium 1 gm/ Sodium (Chloride) 100 mls @ 200 mls/hr IV NOW ONE Stop: 01/02/25 21:25 Last Infusion: 01/02/25 22:01 Dose: Infused Documented By: Admin: 01/02/25 21:24 Dose: 200 mls/hr Documented By: GENI Propofol (Propofol 200 Mg/20 Ml Vial) 200 mg IV NOW ONE Stop: 01/02/25 19:50 Last Admin: 01/02/25 20:35 Dose: 140 mg Documented By: GENI Vital Signs Vital signs: Vital Signs - 8 hr 01/02/25 18:31 01/02/25 20:19 01/02/25 20:19 Temperature 98.6 F Pulse Rate 92 H 87 Respiratory Rate 19 26 H Blood Pressure 109/66 118/70 Pulse Oximetry 97 94 Oxygen Delivery Method Room Air 01/02/25 20:20 01/02/25 20:20 01/02/25 20:25 Temperature Pulse Rate 87 Respiratory Rate 27 H Blood Pressure 113/68 109/66 Pulse Oximetry 99 Oxygen Delivery Method 01/02/25 20:25 01/02/25 20:30 01/02/25 20:30 Temperature Pulse Rate 84 85 Respiratory Rate 14 17 Blood Pressure 105/66 Pulse Oximetry 99 98 Oxygen Delivery Method 01/02/25 20:35 01/02/25 20:35 01/02/25 20:40 Temperature Pulse Rate 86 90 Respiratory Rate 28 H 33 H Blood Pressure 115/67 Pulse Oximetry 96 99 Oxygen Delivery Method 01/02/25 20:40 01/02/25 20:45 01/02/25 20:45 Temperature Pulse Rate 90 Respiratory Rate 24 Blood Pressure 107/64 117/69 Pulse Oximetry 100 Oxygen Delivery Method 01/02/25 20:50 01/02/25 20:50 01/02/25 20:55 Temperature Pulse Rate 86 Respiratory Rate 22 Blood Pressure 109/68 106/68 Pulse Oximetry 99 Oxygen Delivery Method 01/02/25 20:55 01/02/25 21:00 01/02/25 21:00 Temperature Pulse Rate 87 88 Respiratory Rate 33 H 44 H Blood Pressure 115/74 Pulse Oximetry 95 91 Oxygen Delivery Method 01/02/25 21:15 01/02/25 21:15 01/02/25 21:30 Temperature Pulse Rate 86 Respiratory Rate 18 Blood Pressure 132/75 142/85 H Pulse Oximetry 89 L Oxygen Delivery Method 01/02/25 21:30 01/02/25 22:00 01/02/25 22:00 Temperature Pulse Rate 94 H 91 H Respiratory Rate 34 H 16 Blood Pressure 125/79 Pulse Oximetry 94 98 Oxygen Delivery Method 01/02/25 22:30 01/02/25 22:30 01/02/25 23:00 Temperature Pulse Rate 97 H Respiratory Rate 32 H Blood Pressure 118/83 126/78 Pulse Oximetry 97 Oxygen Delivery Method 01/02/25 23:00 Temperature Pulse Rate 89 Respiratory Rate 21 Blood Pressure Pulse Oximetry 96 Oxygen Delivery Method MDM - Extremity Injury (Lower) Lab Data Labs: Lab Results 01/02/25 Range/Units 22:35 Urine Color Yellow Urine Appearance Clear Urine pH 5.5 (4.5-8.0) Ur Specific [place] <=1.005 (1.000-1.035) Urine Protein Negative (Negative) Urine Glucose (UA) Negative (Negative) g/dL Urine Ketones Negative (NEGATIVE) Urine Occult Blood Negative (Negative) Urine Nitrate Negative (Negative) Urine Bilirubin Negative (NEGATIVE) Urine Urobilinogen 0.2 (0.2) E.U./dL Ur Leukocyte Esterase Negative (NEGATIVE) Urine RBC None seen (0-5/HPF) Urine WBC None seen (0-5/HPF) Ur Squamous Epith Cells None seen (0-5/HPF) Urine Bacteria None seen (None) Ur Culture Indicated? Cult not indicated Vol Urine Centrifuged 10ml (spun) Point of Care Testing Test Results Not applicable Imaging Data Extremity x-ray #1: Radiologist's Impression: [place] [address] XRay Report Signed Patient: Ruby Rooney MR#: [id number] : 1970 Acct:[id number] Age/Sex: 54 / F Date of Service: 01/02/25 Loc: ED Accession Number: [id number] Procedure: XR tibia fibula LT 2V Ordering Provider: Travis Grover MD PROCEDURE: XR TIBIA FIBULA LT 2V INDICATIONS: fall; deformity noted TECHNIQUE: 2 views of the tibia and fibula were acquired. COMPARISON: None. FINDINGS: Bones: Comminuted angulated and displaced distal tibial and fibular diaphyseal fractures. There is approximately 7.5 cm overlap of proximal distal fragments the tibial fracture. No gross dislocation at the tibiotalar joint space. Soft tissues: No suspicious soft tissue calcifications or masses. IMPRESSION: Comminuted and angulated distal tibial and fibular diaphyseal fractures Dictated by: Pippa Hilliard M.D. on 01/02/2025 at 20:11 Approved by: Pippa Hilliard M.D. on 01/02/2025 at 20:11 Extremity x-ray #2: Radiologist's Impression: [address] [address] XRay Report Signed Patient: Ruby Rooney MR#: [id number] : 1970 Acct:[id number] Age/Sex: 54 / F Date of Service: 01/02/25 Loc: ED Accession Number: [id number] Procedure: XR foot LT min 3V Ordering Provider: Travis Grover MD PROCEDURE: XR FOOT LT MIN 3V INDICATIONS: fall; deformity noted TECHNIQUE: 3 views of the foot were acquired. COMPARISON: [facility], , XR FOOT LT MIN 3V, 06/19/2024, 23:19. FINDINGS: Bones: Overlying cast partially obscures fine osseous and soft tissue detail. No acute fractures or dislocations. No suspicious bony lesions. Soft tissues: No tibiotalar joint effusion. Achilles tendon appears normal. IMPRESSION: Status post casting. No acute radiographic abnormality of the visualized foot identified. Approved by: Hanna Girard M.D.,Ph.D. on 01/02/2025 at 21:50 Extremity x-ray #3: Radiologist's Impression: [address] [address] XRay Report Signed Patient: Ruby Rooney MR#: [id number] : 1970 Acct:[id number] Age/Sex: 54 / F Date of Service: 01/02/25 Loc: ED Accession Number: [id number] Procedure: XR ankle LT min 3V Ordering Provider: Travis Grover MD PROCEDURE: XR ANKLE LT MIN 3V INDICATIONS: post reduction TECHNIQUE: 3 views of the ankle were acquired. COMPARISON: [facility], CR, XR ANKLE RT 2V, 11/09/2019, 8:50. FINDINGS: Bones: Overlying cast partially obscures the fine osseous and soft tissue detail. Redemonstration of comminuted distal tibial diaphyseal fracture and distal fibular diaphyseal fracture. Mild persistent lateral displacement of distal fracture fragments relative to the proximal fragment. No new fracture identified. Soft tissues: No tibiotalar joint effusion. Achilles tendon appears normal. IMPRESSION: Status post reduction of comminuted distal tibia and distal fibular diaphyseal fractures. Minimal lateral displacement distal fracture fragments persist. Approved by: Hanna Girard M.D.,Ph.D. on 01/02/2025 at 21:47 MDM Narrative Medical decision making narrative: 54-year-old female with history of metastatic breast cancer, prior pathological fractures right lower extremity, slipped and fell in her kitchen this evening, had pain to the distal left foreleg with deformity. Punctum bone sliver through medial aspect of deformity wound, swabbed with alcohol before sedation/reduction procedure. IV propofol, distraction and medial rotation, 1st webspace left foot brought into alignment with long axis tibia, small punctum medial aspect, no longer could see/palpate bones liver, expression of 5 cc hematoma from the residual puncture wound. Placed in long leg splint with U-stirrup. Post reduction x-rays improved bone fragment positions. We will consult Orthopedic surgery. IV Ancef for open fracture coverage. Case discussed with local orthopedic surgery Dr. Canela, who reviewed x-rays of comminuted distal tib-fib fracture, in setting of metastatic bone cancer, likely pathologic fracture, requests transfer to ortho oncology service such as [facility]. Awaiting post reduction/splinting x-rays. We will forward images to [facility] for consultation. [id number], case discussed with [facility] ED physician Dr. Sandy, accepts patient in transfer for further consultation. Preoperative studies still pending. Critical Care Time Critical Care Time Critical Care Time: Yes Total Critical Care Time: 35 Attestation: The high probability of a clinically significant, sudden or life threatening deterioration of the [musculoskeletal] system(s) required my full and direct attention, intervention and personal management. The aggregate critical care time was [35] minutes. This time is in addition to time spent performing reported procedures but includes the following: [x] Data Review and interpretation [x] Patient assessment and monitoring of vital signs [x] Documentation [x] Medication orders and management Discharge Plan Departure Patient Disposition: [facility] Clinical Impression: Pathologic fx tibia/fibula, Fracture of tibia and fibula, open, History of breast cancer Prescriptions: No Action trazodone 50 mg tablet See Rx Instructions PO BEDTIME PRN (Reason: insomnia) Qty: 90 0RF Rx Instructions: 1-2 tabs at night as needed for sleep albuterol sulfate [Ventolin HFA] 90 mcg/actuation HFA aerosol inhaler 2 puff inhalation Q4-6H PRN (Reason: shortness of breath or wheezing) Qty: 6.7 1RF multivitamin Tablet 1 tab PO QAM oxycodone 5 mg tablet 5 mg PO BEDTIME PRN (Reason: pain) bupropion HCl [Wellbutrin SR] 150 mg tablet sustained-release 12 hr 150 mg PO BID Qty: 60 2RF metoprolol succinate 25 mg tablet extended release 24 hr 25 mg PO DAILY Qty: 90 2RF megestrol 400 mg/10 mL (40 mg/mL) suspension 200 mg PO BID Referrals: Louie Schulte MD [Primary Care Provider, Family Practice]
--- NOTE | 2025-01-02 20:00 | PC.NURSE ---
left lower ext elevated on pillows and ice pack applied
--- NOTE | 2025-01-02 20:23 | PC.NURSE ---
procedural sedation set up pt waiting,
[2025-01-02] MEDS: BACITRACIN OINT 0.9 GM PCKT 1 APPLIC TOP (20:35)
--- NOTE | 2025-01-02 20:35 | PC.NURSE ---
open area to ankle cleaned and bacitracin applied then telfa, and 4 x 4 and wrapped with gauze prior to splinting
--- NOTE | 2025-01-02 21:07 | DI.RAD.S_ITS ---
PROCEDURE: XR CHEST 1V INDICATIONS: pre-op TECHNIQUE: One view of the chest was acquired. COMPARISON: [facility], CR, XR CHEST 1V, 10/31/2024, 9:16. FINDINGS: Surgical changes and devices: None. Lungs and pleura: Lungs are clear. No pleural effusions or pneumothorax. Mediastinum: Mediastinal contours appear normal. Heart size is normal. Bones and chest wall: No suspicious bony lesions. Overlying soft tissues appear unremarkable. IMPRESSION: No acute cardiopulmonary abnormality is seen. Approved by: Hanna Girard M.D.,Ph.D. on 01/02/2025 at 23:05
[2025-01-02] MEDS: CEFAZOLIN VIAL 1 GM in SODIUM CHLORIDE 0.9% 100 ML IV (21:24)
[2025-01-02] MEDS: HYDROMORPHONE 1 MG INJ IV (23:09)
--- NOTE | 2025-01-02 23:32 | PC.NURSE ---
straight cath placed d/t pt being unable to void with purewick, pt feeling full and uncomfortable, 500 ml emptied from bladder, clear yellow urine, pt tolerated procedure well, catheter removed
[2025-01-03 00:12] LABS: Appearance Urine UA CLEAR; Bilirubin Urine UA NEGATIVE (NEGATIVE); Color Urine UA YELLOW; Glucose Urine UA NEGATIVE (Negative); Ketones Urine UA NEGATIVE (NEGATIVE); Leukocyte Esterase Urine UA NEGATIVE (NEGATIVE); Nitrite Urine UA NEGATIVE (Negative); Occult Blood Urine UA NEGATIVE (Negative); Protein Urine UA NEGATIVE (Negative); Specific Gravity Urine UA <=1.005 (1.000-1.035); Urobilinogen Urine UA 0.2 E.U./dL (0.2); pH Urine UA 5.5 (4.5-8.0)
[2025-01-03 00:19] LABS: Culture Indicated Urine Cult Not Indicated
== END 2025-01-02 23:50 | disposition short-term general hospital (02) ==
PROVIDERS: Emergency Provider Emergency Medicine; Family Provider Family Medicine; PCP Family Medicine
DX: M84.564A Pathological fracture in neoplastic disease, left fibula, initial encounter for fracture (principal); M84.562A Pathological fracture in neoplastic disease, left tibia, initial encounter for fracture; C50.919 Malignant neoplasm of unspecified site of unspecified female breast; S91.032A Puncture wound without foreign body, left ankle, initial encounter; W18.40XA Slipping, tripping and stumbling without falling, unspecified, initial encounter
CPT/HCPCS: 27788; 27825; 51701; 71045; 73590; 73610; 73630; 81001; 96365; 96374; 96375; 96376; 99152; 99153; 99284; 99291; J0690; J1171; J2704

== ENCOUNTER 2025-05-12 06:14 | Emergency (ER) | payer MEDICARE, MEDICAID, SELFPAY ==
[2025-01-31 13:21] VITALS: BMI 15.7
[2025-05-12 06:39] VITALS: BP 114/79; PULSE 89; RESP 16; TEMP 36.3; O2SAT 93; BMI 16.0
--- NOTE | 2025-05-12 06:43 | ED.FALL ---
HPI - Fall <Bruce Moffett MD - Last Filed: 05/13/25 06:39> General Chief Complaint: Fall Stated Complaint: Fall at home, pain in RT neck, poss fx Time Seen by Provider: 05/12/25 06:43 Source: patient and other Mode of arrival: Ambulatory History of Present Illness HPI Narrative: 55-year-old female with a history of metastatic breast cancer being treated at [facility] tripped at home prior to arrival a few hours ago and is complaining of right-sided head and neck pain. She says she has had no syncopal episode and is not on a blood thinner at this time. Patient denies any other injury or pain. Related Data Home Medications ?Medication ?Instructions ?Recorded ?Confirmed megestrol 400 mg/10 mL (40 mg/mL) 200 mg PO BID 10/30/24 02/21/25 oral suspension multivitamin 1 tab PO QAM 11/05/24 02/21/25 abemaciclib 150 mg tablet 150 mg PO BID 01/08/25 02/21/25 (Verzenio) acetaminophen 325 mg capsule 650 mg PO Q6H PRN 01/08/25 02/21/25 enoxaparin 30 mg/0.3 mL 30 mg SUBCUT Q12H 01/08/25 02/21/25 subcutaneous syringe gabapentin 100 mg capsule 200 mg PO TID 01/08/25 02/21/25 loperamide 2 mg capsule 2 mg PO Q6H PRN 01/08/25 02/21/25 magnesium plus protein 133 mg 1 tab PO BID 01/08/25 02/21/25 methocarbamol 500 mg tablet 500 mg PO QID 01/08/25 02/21/25 Previous Rx's ?Medication ?Instructions ?Recorded metoprolol succinate 25 mg 25 mg PO DAILY #90 tabs 11/22/24 tablet,extended release 24 hr trazodone 50 mg tablet See Rx Instructions PO BEDTIME PRN 01/30/25 insomnia #90 tabs oxycodone 5 mg tablet 5 - 10 mg (1 - 2 x 5 mg) PO Q4H 03/29/25 PRN pain #45 tabs albuterol sulfate 90 mcg/actuation 2 puff inhalation Q4-6H PRN 05/03/25 aerosol inhaler (Ventolin HFA) shortness of breath or wheezing #6.7 grams bupropion HCl 150 mg tablet,12 hr 150 mg PO BID #60 ea 05/03/25 sustained-release (Wellbutrin SR) cyclobenzaprine 10 mg tablet 10 mg PO TID PRN muscle spasm #20 05/12/25 tabs Allergies Allergy/AdvReac Type Severity Reaction Status Date / Time No Known Drug Allergies Allergy Verified 05/12/25 06:39 Review of Systems <Bruce Moffett MD - Last Filed: 05/13/25 06:39> Review of Systems ROS Unobtainable: All systems reviewed & are unremarkable except as noted in HPI and below Patient History <Bruce Moffett MD - Last Filed: 05/13/25 06:39> Medical History Acute pain of left foot Metastatic breast cancer History of fracture of left ankle Mass of left axilla Breast cancer, left Hypertension Current every day smoker Ankle fracture, right (11/2019) Eczema Depression Retinal detachment (2003) Breast cancer, right Surgical History History of mastectomy (11/2013) History of lumpectomy of right breast (11/2013) Family History Mother Breast cancer associated with mutation in MELYSSA gene Social History household members: none Smoking Status: Current every day smoker alcohol intake: current substance use type: does not use Smoking Status: Current every day smoker tobacco type: cigarettes alcohol intake frequency: a few times a week Alcohol type: wine Exam <Bruce Moffett MD - Last Filed: 05/13/25 06:39> Narrative Exam Narrative: General: Patient does have some baseline dementia Head: normocephalic, pain with palpation along right occipital area and the right side of cervical spine. 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, left eye reactive, eyes tracking well, no JVD Heart: regular rate and rhythm, no murmurs, rubs, or gallops heard Lungs: clear to auscultation, no adventitious sounds Abdomen: soft , nontender, nondistended, positive bowel sounds Neurological: no focal neurological signs, moving all extremities well, alert and oriented x3, Psych: Mild dementia Initial Vital Signs Initial Vital Signs: Vital Signs Temperature 97.3 F L 05/12/25 06:39 Pulse Rate 89 05/12/25 06:39 Respiratory Rate 16 05/12/25 06:39 Blood Pressure 114/79 05/12/25 06:39 Pulse Oximetry 93 05/12/25 06:39 Oxygen Delivery Method Room Air 05/12/25 06:39 <Jesse Hutchinson MD - Last Filed: 05/14/25 13:29> Initial Vital Signs Initial Vital Signs: Vital Signs Temperature 97.3 F L 05/12/25 06:39 Pulse Rate 89 05/12/25 06:39 Respiratory Rate 16 05/12/25 06:39 Blood Pressure 114/79 05/12/25 06:39 Pulse Oximetry 93 05/12/25 06:39 Oxygen Delivery Method Room Air 05/12/25 06:39 Course <Bruce Moffett MD - Last Filed: 05/13/25 06:39> Orders Ordered: Discontinued Medications Acetaminophen (Acetaminophen 325 Mg Tablet) 650 mg PO NOW ONE Stop: 05/12/25 06:46 Last Admin: 05/12/25 08:12 Dose: 650 mg Documented By: JARETT Lorazepam (Lorazepam 2 Mg/Ml Inj) 0 mg IV CIWAPRN PRN; Protocol PRN Reason: Alcohol Withdrawal Lorazepam (Lorazepam 1 Mg Tablet) 0 mg PO CIWAPRN PRN; Protocol PRN Reason: Alcohol Withdrawal Multivitamins (Multivitamin 1 Tablet) 1 tab PO DAILY KATARINA Last Admin: 05/12/25 08:13 Dose: 1 tab Documented By: JARETT Vital Signs Vital signs: Vital Signs - 8 hr 05/12/25 06:39 Temperature 97.3 F L Pulse Rate 89 Respiratory Rate 16 Blood Pressure 114/79 Pulse Oximetry 93 Oxygen Delivery Method Room Air <Jesse Hutchinson MD - Last Filed: 05/14/25 13:29> Orders Ordered: Discontinued Medications Acetaminophen (Acetaminophen 325 Mg Tablet) 650 mg PO NOW ONE Stop: 05/12/25 06:46 Last Admin: 05/12/25 08:12 Dose: 650 mg Documented By: JARETT Lorazepam (Lorazepam 2 Mg/Ml Inj) 0 mg IV CIWAPRN PRN; Protocol PRN Reason: Alcohol Withdrawal Lorazepam (Lorazepam 1 Mg Tablet) 0 mg PO CIWAPRN PRN; Protocol PRN Reason: Alcohol Withdrawal Multivitamins (Multivitamin 1 Tablet) 1 tab PO DAILY KATARINA Last Admin: 05/12/25 08:13 Dose: 1 tab Documented By: [facility] Vital Signs Vital signs: Vital Signs - 8 hr 05/12/25 06:39 Temperature 97.3 F L Pulse Rate 89 Respiratory Rate 16 Blood Pressure 114/79 Pulse Oximetry 93 Oxygen Delivery Method Room Air MDM - Fall <Jesse Hutchinson MD - Last Filed: 05/14/25 13:29> Imaging Data CT - cervical spine: Radiologist's Impression: PROCEDURE: CT CERVICAL SPINE WO CON INDICATIONS: fall injury TECHNIQUE: Noncontrast 3 mm thick sections acquired from the skull base to the T4 level. Sagittal and coronal reformats were then constructed. For radiation dose reduction, the following was used: automated exposure control, adjustment of mA and/or kV according to patient size. COMPARISON: [facility], CT, CT CHEST ABD PEL WO CON, 10/29/2024, 17:07. FINDINGS: Image quality: Excellent. Bones: Extensive infiltrative predominantly lytic, but also mixed sclerotic diffuse bony metastatic disease. No acute compression fractures. No acute traumatic fractures or dislocations. Mild cervical spondylitic change. Malignant bony findings are most severe in the T4 through T6 region. No fractures or dislocations. Visualized superior ribs are intact. Soft tissues: Prevertebral soft tissues are normal in thickness. No paravertebral hematomas. No apical pneumothoraces. There is a spiculated nodule in the left upper lobe measuring approximately 1.2 cm on image 74 of series 2. This was previously very subtle but present on previous image 123 of series 3, where it measured 0.6 cm. IMPRESSION: No displaced fracture or traumatic subluxation. Extensive bony metastatic disease, particularly in the thoracic region. Interval growth of a spiculated nodule in the left upper lobe, now measuring 1 2 cm. Dictated by: Hill Wilson M.D. on 05/12/2025 at 8:25 Approved by: Hill Wilson M.D. on 05/12/2025 at 8:30 CT scan - head: Radiologist's Impression: PROCEDURE: CT HEAD/BRAIN WO CON INDICATIONS: fall injury TECHNIQUE: Noncontrast 4.5 mm thick angled axial sections acquired from the foramen magnum to the vertex, with coronal and sagittal reformats. For radiation dose reduction, the following was used: automated exposure control, adjustment of mA and/or kV according to patient size. COMPARISON: [facility], CT, CT HEAD/BRAIN WO CON, 10/29/2024, 17:07. FINDINGS: Image quality: Diagnostic. CSF spaces: Basal cisterns are patent. No extra-axial fluid collections. The ventricles are symmetric in size and shape. Brain: No intracranial bleeds or mass effect. There is cerebral volume loss, with resultant ventricular and sulcal prominence. There are periventricular and deep white matter chronic small vessel ischemic changes. There is intracranial internal carotid artery atherosclerosis. Skull and face: Extensive moth-eaten lytic calvarial disease, as before. Sinuses: Visualized sinuses and mastoids are clear. IMPRESSION: Extensive moth-eaten lytic calvarial disease, as before. No acute intracranial process. Dictated by: Hill Wilson M.D. on 05/12/2025 at 8:22 Approved by: Hill Wilson M.D. on 05/12/2025 at 8:24 MDM Narrative Medical decision making narrative: 05/12/2025, 7:46 a.m. I got signed out this morning pending CT scan brain, neck. She is 55 years old female with history of metastatic breast cancer, alcohol use disorder came in today complaining of head and neck pain after the fall this morning. On exam showed no focal neurological deficit. She alert oriented x4 in our ED without acute distress. Please see the complete exam from the H and P. Her CT scan brain and C-spine showed no acute finding but lung nodule, possible off bony metastasis (no known breast cancer history) and she was told to follow up with her primary care doctor as well as her oncologist outpatient. He was sent home with muscle relaxant. Return to the ED precautions was given. Discharge Plan Departure Patient Disposition: Home Clinical Impression: Fall, Headache, Neck strain, Lung nodule Instructions: DI for Cervical Muscle Strain, How to Prevent Falls, DI for Closed Head Injury Activity Restrictions/Additional Instructions: Please come back to the emergency room if any worsening symptoms including but not limited to worsening headache, nausea vomiting, numbness weakness 1 side of your body, facial droop, slurred speech, confusion. Please take Tylenol alternating ibuprofen as needed for pain control. He was sent home with muscle relaxant as well. Please follow up your primary care doctor for the left lung nodule as well. CT scan neck showed IMPRESSION: No displaced fracture or traumatic subluxation. Extensive bony metastatic disease, particularly in the thoracic region. Interval growth of a spiculated nodule in the left upper lobe, now measuring [address] scan brain showed IMPRESSION: Extensive moth-eaten lytic calvarial disease, as before. No acute intracranial process. Prescriptions: New cyclobenzaprine 10 mg tablet 10 mg PO TID PRN (Reason: muscle spasm) Qty: 20 0RF No Action trazodone 50 mg tablet See Rx Instructions PO BEDTIME PRN (Reason: insomnia) Qty: 90 3RF Rx Instructions: 1-2 tabs at night as needed for sleep oxycodone 5 mg tablet 5 - 10 mg PO Q4H PRN (Reason: pain) Qty: 45 0RF bupropion HCl [Wellbutrin SR] 150 mg tablet sustained-release 12 hr 150 mg PO BID Qty: 60 1RF albuterol sulfate [Ventolin HFA] 90 mcg/actuation HFA aerosol inhaler 2 puff inhalation Q4-6H PRN (Reason: shortness of breath or wheezing) Qty: 6.7 1RF multivitamin Tablet 1 tab PO QAM metoprolol succinate 25 mg tablet extended release 24 hr 25 mg PO DAILY Qty: 90 2RF acetaminophen 325 mg capsule 650 mg PO Q6H PRN loperamide 2 mg capsule 2 mg PO Q6H PRN enoxaparin 30 mg/0.3 mL syringe 30 mg SUBCUT Q12H Verzenio 150 mg tablet 150 mg PO BID gabapentin 100 mg capsule 200 mg PO TID magnesium plus protein 133 mg tablet 1 tab PO BID methocarbamol 500 mg tablet 500 mg PO QID megestrol 400 mg/10 mL (40 mg/mL) suspension 200 mg PO BID Referrals: Louie Schulte MD [Primary Care Provider, Family Practice] Stand Alone Forms: Patient Portal/API
--- NOTE | 2025-05-12 06:45 | DI.CT.S_ITS ---
PROCEDURE: CT CERVICAL SPINE WO CON
--- NOTE | 2025-05-12 06:45 | DI.CT.S_ITS ---
PROCEDURE: CT HEAD/BRAIN WO CON
[2025-05-12] MEDS: ACETAMINOPHEN 325 MG TABLET 650 MG PO (08:12)
[2025-05-12] MEDS: MULTIVITAMIN 1 TABLET 1 TAB PO (08:13)
[2025-05-12 09:25] VITALS: PULSE 75; O2SAT 86
--- NOTE | 2025-05-12 09:29 | PC.NURSE ---
Pt declined to participate in assessment manager. Asked, why are we doin' this- does it even matter anymore? I attempted to Educate Pt on need for assessment, but she would rather go home.
[2025-05-12 09:30] VITALS: PULSE 74; RESP 29; O2SAT 96
[2025-05-12 09:34] VITALS: BP 105/71; PULSE 75; RESP 27
== END 2025-05-12 10:00 | disposition home or self-care (01) ==
PROVIDERS: Emergency Provider Family Medicine; Family Provider Family Medicine; PCP Family Medicine
DX: S16.1XXA Strain of muscle, fascia and tendon at neck level, initial encounter (principal); R51.9 Headache, unspecified; R91.1 Solitary pulmonary nodule; W01.0XXA Fall on same level from slipping, tripping and stumbling without subsequent striking against object, initial encounter; C50.919 Malignant neoplasm of unspecified site of unspecified female breast
CPT/HCPCS: 70450; 72125; 99283; 99284

== ENCOUNTER 2025-06-19 16:58 | Emergency (ER) | payer MEDICARE, MEDICAID, SELFPAY ==
[2025-01-31 13:21] VITALS: BMI 15.7
[2025-06-19] VITALS (25 sets, daily range): BP systolic 96–155; BP diastolic 65–102; PULSE 92–117; RESP 16–25; TEMP 37.2–37.4; O2SAT 87–100; BMI 20.5
--- NOTE | 2025-06-19 17:40 | DI.RAD.S_ITS ---
PROCEDURE: XR CHEST 1V INDICATIONS: Chest Pain TECHNIQUE: One view of the chest was acquired. COMPARISON: [facility], CR, XR CHEST 1V, 01/02/2025, 21:32. [facility], CR, XR CHEST 1V, 10/31/2024, 9:16. FINDINGS: Surgical changes and devices: Surgical clips project over the right chest wall. Partially visualized right humerus surgical hardware. Lungs and pleura: Small to moderate loculated left-sided pleural effusion. Small right layering pleural effusion. Mediastinum: Mediastinal contours appear normal. Heart size is normal. Bones and chest wall: No suspicious bony lesions. Overlying soft tissues appear unremarkable. IMPRESSION: Small pleural effusions, left greater than right, with associated loculation on the left. Dictated by: Chacho Yeh M.D. on 06/19/2025 at 18:01 Approved by: Chacho Yeh M.D. on 06/19/2025 at 18:02
--- NOTE | 2025-06-19 17:40 | EKG_ITS ---
[place] [id number] [place] [id number] Test Date: 2025-06-19 Pat Name: Ruby Rooney Department: [facility] Room: Gender: Female [employer]: FRANSICO : [id number] Requested By: Order Number: [id number] Reading MD: Shayan Conrad MD Measurements Intervals [place] Rate: 97 P: 35 IN: 98 QRS: 64 QRSD: 88 T: 49 QT: 418 QTc: 530 Interpretive Statements Sinus rhythm with short IN Nonspecific ST abnormality Electronically Signed On 06-20-2025 7:18:03 PST by Shayan Conrad MD
[2025-06-19 18:00] LABS: Add Manual Diff / Slide Review NO; Hematocrit 34.3 % (36-46); Hemoglobin 11.7 g/dL (12.0-16.0); Lymphocytes Absolute Auto 300 /uL (1100-4500); Mean Corpuscular HGB Conc 34.2 % (30-36); Mean Corpuscular Hemoglobin 35.5 PG (26-34); Mean Corpuscular Volume 103.8 fL (80-100); Platelet Count 147 X10^3/uL (150-400)
[2025-06-19 18:06] LABS: INR 1.2 (0.9-1.3); Prothrombin Time 13.9 SECONDS (9.4-12.5)
[2025-06-19 18:09] LABS: PTT Partial Thromboplastin Tim 31 SECONDS (25.1-36.5)
[2025-06-19 18:11] LABS: Alanine Aminotransferase 96 IU/L (<35); Albumin 3.6 g/dL (3.5-5.0); Albumin Globulin Ratio 1.2 (1.0-2.8); Alkaline Phosphatase 389 U/L (38-126); Blood Urea Nitrogen 13 mg/dL (7-17); Calcium 9.2 mg/dL (8.4-10.2); Carbon Dioxide 26 mmol/L (22-32); Chloride 94 mmol/L (98-107); Creatine Kinase 112 U/L (30-135); Estimated Glomerular Filt Rate > 60 mL/min (>60); Globulin 3.1 g/dL (1.7-4.1); Glucose 74 mg/dL (70-99); HEMOLYSIS < 15 (0-50); Lipase 71 U/L (23-300); Magnesium 1.9 mg/dL (1.6-2.3); Potassium 2.9 mmol/L (3.4-5.1); Sodium 130 mmol/L (137-145); Total Protein 6.7 g/dL (6.3-8.2)
--- NOTE | 2025-06-19 18:21 | ED.ABDPAIN ---
HPI - Abdominal Pain General Chief Complaint: Abdominal Pain Stated Complaint: PC ref, water retention Time Seen by Provider: 06/19/25 17:55 Source: patient Mode of arrival: Ambulatory History of Present Illness HPI narrative: 55-year-old female history of R sided masectomy s/p breast ca many years ago, hypertension, smoke, drinks 2-3 glasses of wine a day presents with abdominal distention for the past 2 weeks seen by PCP today sent over here for further evaluation. Patient reported changes in bowel movement but denies any nausea, vomiting, diarrhea, constipation, rectal bleeding, back pain, fever, chills, chest pain, shortness of breath. Other than what is stated 14 point system is negative. Related Data Home Medications ?Medication ?Instructions ?Recorded ?Confirmed megestrol 400 mg/10 mL (40 mg/mL) 200 mg PO BID 10/30/24 02/21/25 oral suspension multivitamin 1 tab PO QAM 11/05/24 02/21/25 abemaciclib 150 mg tablet 150 mg PO BID 01/08/25 02/21/25 (Verzenio) acetaminophen 325 mg capsule 650 mg PO Q6H PRN 01/08/25 02/21/25 enoxaparin 30 mg/0.3 mL 30 mg SUBCUT Q12H 01/08/25 02/21/25 subcutaneous syringe gabapentin 100 mg capsule 200 mg PO TID 01/08/25 02/21/25 loperamide 2 mg capsule 2 mg PO Q6H PRN 01/08/25 02/21/25 magnesium plus protein 133 mg 1 tab PO BID 01/08/25 02/21/25 methocarbamol 500 mg tablet 500 mg PO QID 01/08/25 02/21/25 Previous Rx's ?Medication ?Instructions ?Recorded metoprolol succinate 25 mg 25 mg PO DAILY #90 tabs 11/22/24 tablet,extended release 24 hr trazodone 50 mg tablet See Rx Instructions PO BEDTIME PRN 01/30/25 insomnia #90 tabs oxycodone 5 mg tablet 5 - 10 mg (1 - 2 x 5 mg) PO Q4H 03/29/25 PRN pain #45 tabs albuterol sulfate 90 mcg/actuation 2 puff inhalation Q4-6H PRN 05/03/25 aerosol inhaler (Ventolin HFA) shortness of breath or wheezing #6.7 grams bupropion HCl 150 mg tablet,12 hr 150 mg PO BID #60 ea 05/03/25 sustained-release (Wellbutrin SR) cyclobenzaprine 10 mg tablet 10 mg PO TID PRN muscle spasm #20 05/12/25 tabs Allergies Allergy/AdvReac Type Severity Reaction Status Date / Time No Known Drug Allergies Allergy Verified 06/19/25 17:56 Review of Systems Review of Systems ROS Unobtainable: All systems reviewed & are unremarkable except as noted in HPI and below Patient History Medical History Acute pain of left foot Metastatic breast cancer History of fracture of left ankle Mass of left axilla Breast cancer, left Hypertension Current every day smoker Ankle fracture, right (11/2019) Eczema Depression Retinal detachment (2003) Breast cancer, right Surgical History History of mastectomy (11/2013) History of lumpectomy of right breast (11/2013) Family History Mother Breast cancer associated with mutation in MELYSSA gene Social History household members: none alcohol intake: current substance use type: does not use tobacco type: cigarettes alcohol intake frequency: a few times a week Alcohol type: wine Exam Narrative Exam Narrative: GENERAL: [55] year old patient appears stated age. Well-developed patient, in mild distress. HEAD: Atraumatic. Normocephalic. EYES: Pupils equal round and reactive. Extraocular motions intact. No scleral icterus. No injection or drainage. ENT: Nose without bleeding, purulent drainage. Throat without erythema, tonsillar hypertrophy or exudate. Airway patent. NECK: Trachea midline. Non tender CARDIOVASCULAR: Regular rate and rhythm without murmurs, gallops, or rubs. RESPIRATORY: Clear to auscultation. Breath sounds equal bilaterally. No wheezes, rales, or rhonchi. GASTROINTESTINAL: Abdomen soft, non-tender, distended. EXTREMITIES: No edema or joint tenderness. BACK: Nontender without deformity or crepitance. No flank tenderness. NEURO: AOx3. SKIN: No rash or erythema of visible areas Initial Vital Signs Initial Vital Signs: Vital Signs Temperature 99.4 F 06/19/25 17:30 Pulse Rate 102 H 06/19/25 17:30 Respiratory Rate 22 06/19/25 17:30 Blood Pressure 152/102 H 06/19/25 17:30 Pulse Oximetry 94 06/19/25 17:30 Oxygen Delivery Method Room Air 06/19/25 17:30 Course Orders Ordered: ED Orders 06/19/25 17:40 XR chest 1V Stat EKG-12 Lead Stat 06/19/25 17:45 Complete Blood Count AUTO DIFF Stat Comprehensive Metabolic Panel Stat Lipase Stat Magnesium Stat NT-proBNP (BNP-Adult 18+) Stat PTT Partial Thromboplastin Janusz Stat Prothrombin Time INR Stat Troponin & CK Cardiac Panel Stat 06/19/25 18:04 Consult to OPERATING SYSTEM PROGRAMMER - Inspector Returned Materials Stat 06/19/25 18:21 CT abdomen pelvis w con Stat 06/19/25 18:40 Ictotest Urine Stat Urine Culture Stat Urine Microscopic Stat Ondansetron HCl (Ondansetron 4 Mg/2 Ml Inj) 4 mg IV NOW PRN PRN Reason: Nausea And Vomiting Ondansetron HCl (Ondansetron 4 Mg Odt) 4 mg PO NOW PRN PRN Reason: Nausea And Vomiting Discontinued Medications Aspirin (Aspirin 81 Mg Chew Tab) 324 mg PO NOW ONE Stop: 06/19/25 17:41 Last Admin: 06/19/25 18:23 Dose: Not Given Documented By: BZ Potassium Chloride (Potassium Chloride 20 Meq/15 Ml Udc) 40 meq PO NOW ONE Stop: 06/19/25 18:26 Last Admin: 06/19/25 18:37 Dose: 40 meq Documented By: SB Vital Signs Vital signs: Vital Signs - 8 hr 06/19/25 17:30 06/19/25 17:34 06/19/25 17:45 Temperature 99.4 F Pulse Rate 102 H 108 H Respiratory Rate 22 Blood Pressure 152/102 H 155/90 H Pulse Oximetry 94 93 Oxygen Delivery Method Room Air 06/19/25 17:45 06/19/25 18:00 06/19/25 18:02 Temperature Pulse Rate 97 H 94 H Respiratory Rate 17 22 Blood Pressure 130/65 Pulse Oximetry 94 91 Oxygen Delivery Method 06/19/25 18:02 06/19/25 18:15 06/19/25 18:15 Temperature Pulse Rate 98 H 92 H Respiratory Rate 22 18 Blood Pressure 139/79 Pulse Oximetry 92 100 Oxygen Delivery Method Room Air 06/19/25 18:36 06/19/25 18:37 06/19/25 18:37 Temperature Pulse Rate 104 H 94 H Respiratory Rate 17 Blood Pressure 144/91 H Pulse Oximetry 94 93 Oxygen Delivery Method Room Air 06/19/25 18:45 06/19/25 18:45 06/19/25 19:00 Temperature Pulse Rate 97 H Respiratory Rate 17 Blood Pressure 145/100 H 131/84 Pulse Oximetry 93 Oxygen Delivery Method 06/19/25 19:00 06/19/25 19:15 06/19/25 19:15 Temperature Pulse Rate 101 H 102 H Respiratory Rate 18 18 Blood Pressure 120/85 Pulse Oximetry 93 93 Oxygen Delivery Method 06/19/25 19:34 06/19/25 19:41 06/19/25 19:41 Temperature Pulse Rate 104 H 103 H Respiratory Rate 21 Blood Pressure 113/67 Pulse Oximetry 92 Oxygen Delivery Method 06/19/25 20:00 06/19/25 20:00 06/19/25 20:30 Temperature Pulse Rate 98 H Respiratory Rate 18 Blood Pressure 107/69 116/72 Pulse Oximetry 91 Oxygen Delivery Method 06/19/25 20:30 Temperature Pulse Rate 92 H Respiratory Rate 18 Blood Pressure Pulse Oximetry 92 Oxygen Delivery Method MDM - Abdominal Pain Lab Data 06/19/25 17:45 06/19/25 17:45 Labs: Lab Results 06/19/25 06/19/25 Range/Units 17:45 18:40 WBC 3.1 L (4.5-11.0) X10^3/uL RBC 3.31 L (4.0-5.2) X10^6/uL Hgb 11.7 L (12.0-16.0) g/dL Hct 34.3 L (36-46) % MCV 103.8 H (80-100) fL MCH 35.5 H (26-34) PG MCHC 34.2 (30-36) % RDW 16.2 H (11.6-14.8) % Plt Count 147 L (150-400) X10^3/uL Neut % (Auto) 79.5 H (50-75) % Lymph % (Auto) 10.5 L (25-40) % [place] % (Auto) 8.2 (3-14) % Eos % (Auto) 0.6 L (2-4) % Baso % (Auto) 1.2 (0-2) % Neut # (Auto) 2500 (1964-9696) /uL Lymph # (Auto) 300 L (0200-2590) /uL [place] # (Auto) 300 (0-900) /uL Eos # (Auto) 0 (0-450) /uL Baso # (Auto) 0 (0-100) /uL PT 13.9 H (9.4-12.5) SECONDS INR 1.2 (0.9-1.3) APTT 31 (25.1-36.5) SECONDS Sodium 130 L (137-145) mmol/L Potassium 2.9 L (3.4-5.1) mmol/L Chloride 94 L (98-107) mmol/L Carbon Dioxide 26 (22-32) mmol/L BUN 13 (7-17) mg/dL Creatinine 0.91 (0.52-1.04) mg/dL Estimated GFR > 60 (>60) mL/min BUN/Creatinine Ratio 14.3 (6-22) Glucose 74 (70-99) mg/dL Calcium 9.2 (8.4-10.2) mg/dL Magnesium 1.9 (1.6-2.3) mg/dL Total Bilirubin 6.8 H (0.2-1.3) mg/dL AST 217 H (14-36) IU/L ALT 96 H (<35) IU/L Alkaline Phosphatase 389 H (38-126) U/L Total Creatine Kinase 112 (30-135) U/L Troponin I 0.014 (0.01-0.034) ng/mL NT-Pro-B Natriuret Pep 503 H (<125) pg/mL Total Protein 6.7 (6.3-8.2) g/dL Albumin 3.6 (3.5-5.0) g/dL Globulin 3.1 (1.7-4.1) g/dL Albumin/Globulin Ratio 1.2 (1.0-2.8) Lipase 71 (23-300) U/L Ur Bilirubin Confirm Positive H (Negative) Urine RBC 0-1/hpf (0-5/HPF) Urine WBC 0-1/hpf (0-5/HPF) Ur Squamous Epith Cells 0-1 /hpf (0-5/HPF) Urine Bacteria Moderate (10-30) H (None) Urine Yeast 10-30/hpf H (None) Ur Culture Indicated? Cult not indicated Vol Urine Centrifuged 10ml (spun) Point of care testing: Urine Dip Bedside Urine Glucose Negative Bedside Urine Bilirubin + 1 Bedside Urine Ketone + 15 Urine Specific [place] 1.015 Bedside Urine Occult Blood +/- Bedside Urine pH 6.0 Bedside Urine Protein +/- 15 Bedside Urine Urobilinogen - Negative Bedside Urine Nitrite - Negative Bedside Urine Leukocytes +/- [address] scan - abdomen/pelvis: Radiologist's Impression: [address] [address] [address] Scan Report Signed Patient: Ruby Rooney MR#: [id number] : 1970 Acct:[id number] Age/Sex: 55 / F Date of Service: 06/19/25 Loc: ED Accession Number: [id number] Procedure: CT abdomen pelvis w con Ordering Provider: Shayan Mccray D.O. PROCEDURE: CT ABDOMEN PELVIS W CON INDICATIONS: abd distension/ jaundice TECHNIQUE: After the administration of intravenous contrast, axial sections acquired from the lung bases to the pubic symphysis. Coronal and sagittal reformats were performed. For radiation dose reduction, the following was used: automated exposure control, adjustment of mA and/or kV according to patient size. COMPARISON: [facility], CT, CT ABDOMEN PELVIS W CON, 12/06/2024, 8:58. FINDINGS: Image quality: Diagnostic. Lower Chest: Moderate pleural effusions. Small hiatal hernia. Three-vessel coronary calcifications, marked for age. ABDOMEN: Liver: Cirrhosis. Single phase contrast evaluation is suboptimal for detection of hepatocellular carcinoma. No large mass identified. Patent portal vein. Diffusely heterogeneous attenuation. Gallbladder: Sludge. Mild, diffuse wall thickening likely due to underlying liver disease. Biliary ducts: No biliary dilation. Pancreas: No ductal dilation. Spleen: Size is within normal limits. Adrenal Glands: No adrenal nodules. Kidneys and Ureters: No hydronephrosis. No solid mass. No complex renal cystic lesion which requires follow up. Moderate atrophy of the left kidney. Stomach and Bowel: Normal colonic caliber, without significant wall thickening. Colonic diverticulosis without evidence of diverticulitis. Peritoneum: Large volume ascites. Hyperattenuating soft tissue nodule in the peritoneum measuring 1.5 cm, new from prior Ventral Wall: No significant ventral hernia. Abdominal Nodes: No retroperitoneal or mesenteric adenopathy by size criteria. Vessels: Aorta and inferior vena cava are normal in size. PELVIS: Pelvic Organs: Unremarkable. Bladder: No bladder wall thickening, accounting for underdistention. Pelvic Nodes: No enlarged lymph nodes. Miscellaneous: No inguinal hernias are seen. Bones: Diffuse mixed sclerotic and lucent metastatic disease. IMPRESSION: No findings to explain the patient's acute jaundice. No intrahepatic or extrahepatic biliary dilation. Cirrhosis. A diffuse heterogeneous attenuation of the liver; underlying mass is not excluded in the setting of cirrhosis and breast cancer. Dedicated MRI or CT is indicated (hepatic mass protocol). Large volume ascites and moderate pleural effusions. Anasarca is present. Findings suggest third-spacing of fluids. New right lower quadrant peritoneal nodule measuring 1.5 cm, concerning for peritoneal carcinomatosis. Diffuse osseous metastatic disease, without significant change from prior. Dictated by: Chacho Yeh M.D. on 06/19/2025 at 19:47 Approved by: Chacho Yeh M.D. on 06/19/2025 at 19:52 Chest x-ray: Radiologist's Impression: [place] [id number] XRay Report Signed Patient: Ruby Rooney MR#: [id number] : 1970 Acct:[id number] Age/Sex: 55 / F Date of Service: 06/19/25 Loc: ED Accession Number: [id number] Procedure: XR chest 1V Ordering Provider: Cally Wilkins D.O. PROCEDURE: XR CHEST 1V INDICATIONS: Chest Pain TECHNIQUE: One view of the chest was acquired. COMPARISON: [facility], CR, XR CHEST 1V, 01/02/2025, 21:32. [facility], CR, XR CHEST 1V, 10/31/2024, 9:16. FINDINGS: Surgical changes and devices: Surgical clips project over the right chest wall. Partially visualized right humerus surgical hardware. Lungs and pleura: Small to moderate loculated left-sided pleural effusion. Small right layering pleural effusion. Mediastinum: Mediastinal contours appear normal. Heart size is normal. Bones and chest wall: No suspicious bony lesions. Overlying soft tissues appear unremarkable. IMPRESSION: Small pleural effusions, left greater than right, with associated loculation on the left. Dictated by: Chacho Yeh M.D. on 06/19/2025 at 18:01 Approved by: Chacho Yeh M.D. on 06/19/2025 at 18:02 ECG Data Interpretation: Sinus Rhythm with short AZ HR 97 AZ 98 QRS [address]-t wave change Change from 06/19/24 MDM Narrative Medical decision making narrative: All lab work, vital signs, nurse triage note, medication list, previous ER visits, and all imaging studies reviewed. CT scan showed new right lower quadrant peritoneal nodule measuring 1.5 cm concerning for peritoneal carcinomatosis. large volume ascites and moderate pleural effusions. Anasarca is present. findings suggest 3.rd spac ing of fluids. LFTs and T[place] significantly elevated on today's lab compared to December 2024. Case d/w Dr. Nazario hospitalist at [facility]. Discharge Plan Departure Patient Disposition: [facility] Clinical Impression: Peritoneal carcinomatosis, Serum total bilirubin elevated Prescriptions: No Action trazodone 50 mg tablet See Rx Instructions PO BEDTIME PRN (Reason: insomnia) Qty: 90 3RF Rx Instructions: 1-2 tabs at night as needed for sleep oxycodone 5 mg tablet 5 - 10 mg PO Q4H PRN (Reason: pain) Qty: 45 0RF bupropion HCl [Wellbutrin SR] 150 mg tablet sustained-release 12 hr 150 mg PO BID Qty: 60 1RF albuterol sulfate [Ventolin HFA] 90 mcg/actuation HFA aerosol inhaler 2 puff inhalation Q4-6H PRN (Reason: shortness of breath or wheezing) Qty: 6.7 1RF multivitamin Tablet 1 tab PO QAM metoprolol succinate 25 mg tablet extended release 24 hr 25 mg PO DAILY Qty: 90 2RF acetaminophen 325 mg capsule 650 mg PO Q6H PRN loperamide 2 mg capsule 2 mg PO Q6H PRN enoxaparin 30 mg/0.3 mL syringe 30 mg SUBCUT Q12H Verzenio 150 mg tablet 150 mg PO BID gabapentin 100 mg capsule 200 mg PO TID magnesium plus protein 133 mg tablet 1 tab PO BID methocarbamol 500 mg tablet 500 mg PO QID megestrol 400 mg/10 mL (40 mg/mL) suspension 200 mg PO BID cyclobenzaprine 10 mg tablet 10 mg PO TID PRN (Reason: muscle spasm) Qty: 20 0RF Referrals: Louie Schulte MD [Primary Care Provider, Family Practice]
[2025-06-19 18:23] LABS: NT-proBNP (BNP-Adult 18+) 503 pg/mL (<125); Troponin I 0.014 ng/mL (0.01-0.034)
[2025-06-19] MEDS: POTASSIUM CHLORIDE 20 MEQ/15 ML UDC 40 MEQ PO (18:37)
[2025-06-19 19:45] LABS: Ictotest Urine Positive (Negative)
[2025-06-19 19:47] LABS: Culture Indicated Urine Cult Not Indicated
--- NOTE | 2025-06-19 22:45 | PC.NURSE ---
Patient sitting up and eating. Oxygen drops to 87% on room air. Patient placed on 2L via nasal cannula and oxygen climbs to 93% on 2L. She reports a history of asthma. Denies any SOB or chest pain. Some expiratory wheezes heard upon auscultation of anterior lung sounds. RT Chacho called to bedside. Provider Mahendra made aware and new verbal orders to this RN and LOWELL Hernandez.
[2025-06-19] MEDS: methylPREDNISolone succ 125 MG/2 ML VIAL IV (22:49)
[2025-06-19] MEDS: ALBUTEROL/IPRATROPIUM 3 ML AMPUL INH (22:53)
[2025-06-20] VITALS: BP 109/73; PULSE 103; RESP 20; O2SAT 91
[2025-06-20 00:30] VITALS: BP 103/65; PULSE 98; RESP 25; O2SAT 92
[2025-06-20 01:00] VITALS: BP 114/77; PULSE 91; RESP 21; O2SAT 93
== END 2025-06-20 01:10 | disposition short-term general hospital (02) ==
PROVIDERS: Emergency Medicine; Emergency Provider Family Medicine; Family Provider Family Medicine; PCP Family Medicine
DX: C78.6 Secondary malignant neoplasm of retroperitoneum and peritoneum (principal); R17 Unspecified jaundice; R19.4 Change in bowel habit; I10 Essential (primary) hypertension
CPT/HCPCS: 36415; 71045; 74177; 80053; 81003; 81015; 82550; 83690; 83735; 83880; 84484; 85025; 85610; 85730; 87086; 93005; 93010; 94640; 96374; 99284; 99285; J2919; Q9967